=== PATIENT | male | born 1935 | race Caucasian/White ===

== ENCOUNTER → 2018-05-02 09:43 | Outpatient (CLI) | payer MEDICARE, SELFPAY ==
[2018-05-02 11:45] LABS: AST(SGOT) 23 U/L (15-37); Alanine Aminotransfer ALT/SGPT 21 U/L (16-61); Albumin, Serum 3.9 g/dL (3.2-5.0); Alkaline Phosphatase 103 U/L (45-117); Bilirubin, Direct 0.14 mg/dL (0.00-0.30); Cholesterol 117 mg/dL (200); Globulin 4.1 g/dL (2.2-4.2); High Density Lipoprotein 41 mg/dL; Triglycerides 109 mg/dL; Very Low Density Lipoprotein 22 mg/dL (5-40)
== END ==
PROVIDERS: Family Provider Physician Assistant; PCP Physician Assistant; Visit Provider Internal Medicine Cardiovascular Disease
DX: I25.10 Atherosclerotic heart disease of native coronary artery without angina pectoris (principal); E78.5 Hyperlipidemia, unspecified
CPT/HCPCS: 36415; 80061; 80076

== ENCOUNTER 2018-09-02 08:08 | Day surgery (SDC) | payer MEDICARE, SELFPAY ==
[2018-08-26 11:12] VITALS: BP 137/76; PULSE 69; RESP 16; TEMP 36.4; O2SAT 93; BMI 34.0
--- NOTE | 2018-08-26 12:11 | SDCEKG_ITS ---
Test Reason : Blood Pressure : / mmHG Vent. Rate : 058 BPM Atrial Rate : 066 BPM P-R Int : 000 ms QRS Dur : 076 ms QT Int : 402 ms P-R-T Axes : 027 027 036 degrees QTc Int : 394 ms Sinus rhythm with 2nd degree A-V block (Mobitz I) Low voltage QRS Abnormal ECG Confirmed by DERRICK ÁLVAREZ, MICHAEL ([id number]), non linear editor SHARAN BERTRAND ([id number]) on 08/29/2018 3:53:18 PM Referred By: Johnny Tapia Confirmed By:MICHAEL MEZA MD
[2018-08-26 14:13] LABS: Hematocrit 42.8 % (40-54); Hemoglobin 14.4 g/dl (13.0-16.5); Mean Corp Hgb Conc 33.6 g/gl (32-36); Mean Corpuscular Volume 95.1 fL (80-94); Mean Platelet Vol. 11.6 fl (6.2-12.0); Platelet Count 242 K/mm3 (150-450); RBC Distribution Width CV 13.6 % (11.6-14.6); RBC Distribution Width SD 45.9 fl (35.1-43.9); White Blood Count 10.4 K/mm3 (4.4-11.0)
[2018-08-26 14:14] LABS: Scan Indicated on CBC? Y/N NO
[2018-08-26 14:21] LABS: International Normalized Ratio 1.1; Partial Thromboplast Time 29.9 Seconds (24.1-36.2); Prothrombin Time (Protime)PT. 14.3 SECONDS (11.7-14.9)
[2018-08-26 14:54] LABS: AST(SGOT) 16 U/L (15-37); Alanine Aminotransfer ALT/SGPT 24 U/L (16-61); Albumin, Serum 3.7 g/dL (3.2-5.0); Alkaline Phosphatase 93 U/L (45-117); Anion Gap 8 (5-15); BUN 21 mg/dL (7-18); BUN/Creat Ratio 17.5 RATIO (10-20); Bilirubin, Direct 0.21 mg/dL (0.00-0.30); Calcium,Total 8.7 mg/dL (8.5-10.1); Chloride 106 mmol/L (98-107); EST Glomerular Filtration Rate 62 mL/min (>60); Est Glom Filt Rate - Afr Amer 75 mL/min (>60); Estimated Creatinine Clearance 44.37 ml/min; Globulin 3.9 g/dL (2.2-4.2); Glucose 74 mg/dL (74-106); Potassium 3.9 mmol/L (3.5-5.1); Protein, Total 7.6 g/dL (6.4-8.2); Sodium Level 140 mmol/L (136-145)
[2018-09-02] VITALS (8 sets, daily range): BP systolic 124–158; BP diastolic 74–93; PULSE 55–75; RESP 14–18; TEMP 36.3–37.1; O2SAT 93–99; BMI 34.0; BMI 34.1
--- NOTE | 2018-09-02 | PROS_PTH ---
PATIENT: CLEMENTE FRANCOIS LOC: [facility] – [place] U#:[id number] AGE/SX: 83/M ROOM: RE09/02/[address]: Dr. Johnny Tapia MD : [id number] BED: DIS: 09/03/2018 SPEC #: [id number] RECD: 09/02/18 12:56 STATUS: PHANI RELaisha #: [id number] JAMEE: 09/02/18 00:[address]: Johnny Tapia DEPT: SURGICAL PATHOLOGY RECD BY: Trey Mccloud ENTERED: 09/02/18 12:56 SP TYPE: TURP OTHR DR: No Primary Care Phys Tissues: Prostate, NOS Procedures: Surgery Specimen Level IV HEADER OPERATION: Cysto, TUR, prostate, Olympus PRE-OP DIAGNOSIS: BPH with frequency of micturition TISSUE SUBMITTED: Prostate tissue MICROSCOPIC DIAGNOSIS Prostate tissue, TUR: Benign prostatic hyperplasia, glandular and stromal type. Focal chronic inflammation, basal cell hyperplasia and lymphoid aggregate formation, favor benign. GLADIS:allison 09/05/18 MICROSCOPIC DESCRIPTION Slides are reviewed. GROSS DESCRIPTION A - Received is one container labeled with the patient's name and designated prostate tissue. The specimen consists of multiple irregular fragments of pink-odonnell, rubbery, soft tissue that in aggregate weigh 17.4 gm and measure in aggregate 7 x 7 x 2 cm. The entire specimen is submitted in 12 cassettes. GLADIS:allison 09/02/18 TC: 5 CPT: 25942
[2018-09-02] MEDS: Cefazolin 2 GM in 0.9% Normal Saline 100 ML IV (10:24)
--- NOTE | 2018-09-02 10:24 | DCINST_ITS ---
Discharge Diet: Light diet - advance as tolerated Discharge Activity: May Drive, May Shower Call your doctor if your incision/area has: Continuous Slow Oozing, Sudden Increased Bleeding, Increased Pain/ Swelling, Increased Redness, Foul Smelling Discharge, Swelling at the incision site Call your doctor if you observe: Fever of 101 or Higher, Inability to urinate, Shortness of breath, Calf discomfort, Uncontrolled pain Suture Line Care: Avoid Pulling/Pushing, Avoid Pinching/Bending Instructions: Transurethral Resection of the Prostate (TURP): Home Recovery Allergies/Adverse Reactions: Allergies hydrocodone bitartrate [From Vicodin] Allergy (Verified 08/26/18 11:03) Unknown Medications to take at Discharge Acyclovir [Zovirax] 400 mg PO DAILY 02/25/16 Aspirin [Aspirin, Baby] 81 mg PO DAILY@0800 02/25/16 Multivit-Min/FA/Lycopen/Lutein [Centrum Silver Tablet] 1 ea PO DAILY 02/25/16 Nitroglycerin [Nitrostat] 0.4 mg SUBLINGUAL Q5M PRN 02/25/16 alfuzosin ER 10 mg tablet,extended release 24 hr 10 mg PO QDAY 05/02/18 dutasteride 0.5 mg capsule 0.5 mg PO QDAY 05/02/18 metoprolol succinate ER 25 mg tablet,extended release 24 hr 25 mg PO DAILY #90 tab 06/13/18 atorvastatin 40 mg tablet 40 mg PO QHS #90 tab 08/23/18 Donepezil HCl [Aricept] 5 mg PO QHS 08/26/18 lisinopril 5 mg tablet 5 mg PO DAILY #90 tab 08/26/18 Ciprofloxacin [Cipro] 500 mg PO BID #10 tablet 09/02/18 Ibuprofen 600 mg PO Q6H PRN PRN #20 tablet 09/02/18 The following prescriptions were given: Ibuprofen 600 mg PO Q6H PRN PRN #20 tablet PRN Reason: Pain Ciprofloxacin [Cipro] 500 mg PO BID #10 tablet Primary Care Physician: Care Physician,No Primary [Primary Care Provider] - Test Results: Test results from this visit will be discussed in further detail at your follow- up appointment, if applicable. Please Follow Up With: Johnny Tapia MD When: in 2 weeks, please call to make an appointment. Proposed Discharge Date: 09/03/18
--- NOTE | 2018-09-02 11:20 | OP.PCM_ITS ---
Report of Operation Date of Procedure: 09/02/18 Pre-Operative Diagnosis: BPH with obstruction Post-Operative Diagnosis: Same Surgery/Procedure Performed:: Transurethral resection of the prostate Description of Surgical Findings:: 83-year-old male taken back to the operating room after smooth induction of general anesthesia he was placed in dorsolithotomy position the penis and testicles are prepped and draped in usual sterile fashion, went into the bladder with a 26 Jordanian continuous flow resectoscope, the entire length of the urethra was normal no scar tissue along the urethra I had to dilate the meatus up with the scope and, once inside the bladder inspected and he had a very large protruding median lobe causing a lot of obstruction and bilateral hypertrophy, I then was switched over to the 26 Jordanian resectoscope and then resected the median lobe resected the floor of the prostate back to the Veru resected the right lobe of the prostate resected the left lobe the prostate so resected very large obstructive prostate large median lobe was resected was protruding into the bladder causing obstruction all this was resected I then removed the 26 Jordanian put in the 24 Jordanian noncontinuous flow and then could see the apical tissue resected the apical tissue to remove all the flapping tissue out of the way had a nice wide open stream and channel at the end of the resection obtained good hemostasis removed all the prostate tissue of the bladder with the Ellik evacuator place a 30cc balloon catheter the three-way catheter into the bladder and continues bladder irrigation the urine was fairly clear anesthetic was reversed taken back to PACU good condition. Type of Anesthesia:: General Drains: [address] dozier[address] - Admit VTE Documentation VTE Present on Admission: No VTE Mechan Device Prophylaxis: SCD's
[2018-09-02] MEDS: 0.9% Normal Saline 1,000 ML 75 ML IV (12:55)
[2018-09-02] MEDS: Tamsulosin HCl 0.4 MG Capsule PO (18:48)
[2018-09-02] MEDS: Ciprofloxacin 500 MG Tablet PO (22:28)
[2018-09-02] MEDS: Docusate Sodium 100 MG Capsule PO (22:28)
[2018-09-02] MEDS: Donepezil HCl 5 MG Tablet PO (22:29)
[2018-09-02] MEDS: Atorvastatin Calcium 40 MG Tablet PO (22:38)
[2018-09-03] MEDS: 0.9% Normal Saline 1,000 ML 75 ML IV (02:08)
[2018-09-03 02:10] VITALS: BP 120/72; PULSE 67; RESP 20; TEMP 36.7; O2SAT 94
--- NOTE | 2018-09-03 06:09 | NURSING ---
CBI not clamped at this time. urine remains pink, no clots. will monitor to see if it can be clamped
[2018-09-03 08:23] VITALS: BP 115/70; PULSE 61; RESP 16; TEMP 35.6; O2SAT 94
[2018-09-03] MEDS: Multivitamins,Ther W-Minerals Tablet 1 TABLET PO (08:29)
[2018-09-03 10:23] VITALS: BP 143/63; PULSE 50; RESP 18; TEMP 36.2; O2SAT 98
[2018-09-03] MEDS: Docusate Sodium 100 MG Capsule PO (10:23)
[2018-09-03] MEDS: Ciprofloxacin 500 MG Tablet PO (10:23)
[2018-09-03] MEDS: Pantoprazole Sodium 40 MG Tablet PO (10:23)
[2018-09-03] MEDS: Finasteride 5 MG Tablet PO (10:23)
[2018-09-03 10:24] VITALS: PULSE 60
[2018-09-03] MEDS: Metoprolol(XL)Succ 25 MG Tablet PO (10:24)
[2018-09-03] MEDS: Acyclovir 200 MG Capsule 400 MG PO (10:24)
[2018-09-03] MEDS: Lisinopril 5 MG Tablet PO (10:24)
== END 2018-09-03 13:26 | disposition home or self-care (01) ==
LOC: SDC 08:09 → AC 08:09 → MS2 10:29
PROVIDERS: Anesthesiology; Referring Provider Urology; Visit Provider Urology
PROC: (CPT 52630; principal; 2018-09-02 10:15)
DX: N40.1 Benign prostatic hyperplasia with lower urinary tract symptoms (principal); N41.1 Chronic prostatitis; R35.0 Frequency of micturition; R35.1 Nocturia; N39.41 Urge incontinence; F17.200 Nicotine dependence, unspecified, uncomplicated; E78.00 Pure hypercholesterolemia, unspecified; I11.9 Hypertensive heart disease without heart failure; I25.2 Old myocardial infarction; Z95.5 Presence of coronary angioplasty implant and graft; Z79.82 Long term (current) use of aspirin; Z79.899 Other long term (current) drug therapy; Z87.442 Personal history of urinary calculi
CPT/HCPCS: 52630; 80048; 80076; 85027; 85610; 85730; 88305; 93005; J7030; J7120; J2405

== ENCOUNTER 2019-02-01 14:36 | Emergency (ER) | payer MEDICARE, SELFPAY ==
[2019-02-01 14:37] VITALS: BP 126/73; PULSE 72; RESP 16; TEMP 36.2; O2SAT 95; BMI 31.7
--- NOTE | 2019-02-01 15:11 | ED.DCSUM_ITS ---
History of Present Illness Chief Complaint: General Illness Detail of Chief Complaint: Blood clot right lower extremity Informant: Patient, Family, Significant Other Onset: Days - Patient developed leg swelling 5 days ago Context: Sudden Onset Timing: Continuous Quality: Swelling, discoloration and tight sensation Location: Right leg Current Severity: Mild Maximum Severity: Mild Worsened by: Nothing Relieved by: Nothing Associated Symptoms: No associated chest pain, dyspnea or dyspnea on exertion. Narrative: Patient is an elderly male who was on a long distance trip and airplane ride. He presents from vascular lab with report that indicates clot below the trifurcation on the right side. He denies chest pain, shortness of breath, dyspnea on exertion. He denies prior history of blood clot. He denies history of cancer. He has no other complaints. is concerned that he is at risk for falling. Kidney functions unknown. - Past Medical History (1) History of myocardial infarction Status: Acute (2) Left ventricular systolic dysfunction Status: Acute (3) Hyperlipidemia Status: Chronic (4) Long-term use of high-risk medication Status: Chronic Past Medical History - Allergies and Home Meds Allergies/Adverse Reactions: Allergies hydrocodone bitartrate [From Vicodin] Allergy (Verified 08/26/18 11:03) Unknown Primary Care Physician: Care Physician,No Primary [Primary Care Provider] - Prior records reviewed: Yes - Vascular report Lives: Spouse/ Significant Other Smoking Status: Current some day smoker Alcohol: None Drugs: None Review of Systems General: Denies: Chills, Fever, Sweats Eyes: Denies: Visual changes - bilaterally, Diplopia ENT: Denies: Rhinorrhea, Sore throat Cardiovascular: Denies: Chest pain, Palpitations Respiratory: Denies: Dyspnea, Cough, Dyspnea on exertion, Orthopnea, Paroxysmal nocturnal dyspnea Gastrointestinal: Denies: Abdominal pain, Nausea, Vomiting, Diarrhea, Melena, Hematochezia Genitourinary: Denies: Dysuria, Hematuria, Frequency Musculoskeletal: Denies: Arthralgias, Neck pain, Back pain, Extremity Pain Skin: Reports: - - There is discoloration of the right leg distal two thirds. There are no neurovascular findings noted.. Denies: Rash, Wounds Neurological: Denies: Headache, Weakness, Numbness Hematologic: Denies: Easy bruising, Easy bleeding Allergy: Denies: Uticaria, Swelling of the mouth Physical Exam Vital Signs/Narrative: Vital Signs Temp Pulse Resp BP Pulse Ox 02/01/19 14:37 97.1 F L 72 16 126/73 H 95 Inital Vital Signs reviewed: Yes General: Well nourished, Well developed, Obese - BMI is 31.7, No Acute Distress Head: Normocephalic, Atraumatic Eyes: Perrl, EOMI ENT: Moist mucous membranes, No rhinorrhea Neck: Supple, Nontender Cardiovascular: Regular rate, Regular rhythm, No murmurs, Normal S1, Normal S2 Respiratory: No distress, CTA bilaterally, Chest nontender Abdomen: Soft, Nontender, Nondistended, Normal bowel sounds Back: Nontender, Normal Inspection Extremities: Nontender, No edema, - - There is swelling with asymmetry right leg and pain to palpation distal calf. There are no neurovascular findings. There is no breakdown of skin. Skin: Normal color, No rash Neurological: Alert, Oriented x3, Cranial nerves II-XII grossly intact, Normal Strength, Normal Sensation Psychological: Normal affect, Normal Mood Diagnostic/Tx/Re-eval - Medical Decision Making Outpatient venous duplex study reveals clot in the right perineal, right pos terior tibial and gastroc vein. These are all below the trifurcation. Patient was explained risk benefits of anticoagulants therapy versus serial ultrasound test as an outpatient. Because there is concern for risk of falling patient, and daughter shows serial venous duplex studies with understanding if the clot propagates he will need to be placed on anticoagulant. Which one can be determined at that time. states she sees Dr. Noni Zapata and would like her to see Dr. Zapata. ED Disposition - Plan for ED Patient: Disposition: Home or Assisted Living Diagnosis: Acute deep vein thrombosis (DVT) of right lower extremity Instructions: ED DVT Referrals: Care Physician,No Primary [Primary Care Provider] - Noni Zapata DO [NON-STAFF] - Additional Instructions: If you develop chest pain, shortness of breath or swelling extends beyond the knee return prior to repeat venous duplex studies. You will need to contact the vascular outpatient service for repeat studies on designated dates.
== END 2019-02-01 15:32 | disposition home or self-care (01) ==
LOC: ED 15:22
PROVIDERS: Emergency Provider Emergency Medicine
DX: I82.441 Acute embolism and thrombosis of right tibial vein (principal); I82.890 Acute embolism and thrombosis of other specified veins; I25.2 Old myocardial infarction; F17.200 Nicotine dependence, unspecified, uncomplicated; E66.9 Obesity, unspecified; Z68.31 Body mass index [BMI] 31.0-31.9, adult; I82.401 Acute embolism and thrombosis of unspecified deep veins of right lower extremity; M79.604 Pain in right leg
CPT/HCPCS: 93971; 99282

== ENCOUNTER → 2019-02-01 | Outpatient (CLI) | payer MEDICARE, SELFPAY ==
--- NOTE | 2019-02-01 13:33 | VDLE_ITS ---
Reason For Study: LEG SWELLING RIGHT LEFT GSV is normal. CFV is compressible, spontaneous, phasic, CFV is compressible, spontaneous, phasic, competent, and demonstrates normal competent and demonstrates normal augmentation. augmentation. FV is compressible, spontaneous, phasic, competent and demonstrates normal augmentation. Acute deep vein thrombosis is noted in the right popliteal vein. Acute deep vein thrombosis is noted in the right peroneal vein. Acute deep vein thrombosis is noted in the right posterior tibial vein. Acute deep vein thrombosis is noted in the Gastroc veins. Procedure Exam performed in department. A preliminary report was called and/or faxed to Dr. Lomas. Interpretation Summary Acute deep vein thrombosis is noted in the right popliteal vein. Acute deep vein thrombosis is noted in the right tibio-peroneal trunk. Acute deep vein thrombosis is noted in the right peroneal vein. Acute deep vein thrombosis is noted in the right posterior tibial vein. Acute deep vein thrombosis is noted in the right gastrocnemius vein. The right common femoral vein and femoral vein are patent and competent. The right greater saphenous vein appears patent and compressible segmentally. Ordering Physician: Alonso Lomas Referring Physician: Alonso Lomas Performed By: Zayda Patiño RVT
== END | disposition home or self-care (01) ==
PROVIDERS: Referring Provider Psychiatry & Neurology Neurology; Visit Provider Psychiatry & Neurology Neurology
DX: I82.401 Acute embolism and thrombosis of unspecified deep veins of right lower extremity (principal)
CPT/HCPCS: 93971

== ENCOUNTER → 2019-02-03 | Outpatient (CLI) | payer MEDICARE, SELFPAY ==
[2019-02-01 14:37] VITALS: BMI 31.7
--- NOTE | 2019-02-03 14:06 | VDLE_ITS ---
Reason For Study: F/U RLE DVT 02/01/2019 RIGHT GSV is normal. CFV is compressible, spontaneous, phasic, competent and demonstrates normal augmentation. Acute deep vein thrombosis is noted in the right femoral vein. Acute deep vein thrombosis is noted in the right popliteal vein. Acute deep vein thrombosis is noted in the right peroneal vein. Acute deep vein thrombosis is noted in the right posterior tibial vein. Acute deep vein thrombosis is noted in the Gastroc V. Procedure Exam performed in department. No change from previous exam. Interpretation Summary Acute deep venous thrombosis right distal femoral, popliteal, peroneal, posterior tibial, and gastrocnemius veins. Patent and compressible right great saphenous vein Progression of thrombus into the right distal femoral vein not present on the previous exam of 02/01/19. Ordering Physician: Javan Lay Referring Physician: Javan Lay Performed By: Zayda Patiño RVT
== END | disposition home or self-care (01) ==
PROVIDERS: Referring Provider Emergency Medicine; Visit Provider Emergency Medicine
DX: I82.4Z1 Acute embolism and thrombosis of unspecified deep veins of right distal lower extremity (principal)
CPT/HCPCS: 93971

== ENCOUNTER → 2019-02-08 | Outpatient (CLI) | payer MEDICARE, SELFPAY ==
[2019-02-01 14:37] VITALS: BMI 31.7
--- NOTE | 2019-02-08 13:48 | VDLE_ITS ---
Reason For Study: F/U DVT RLE RIGHT GSV is normal. CFV is compressible, spontaneous, phasic, competent and demonstrates normal augmentation. Acute deep vein thrombosis is noted in the right femoral vein. Acute deep vein thrombosis is noted in the right popliteal vein. Acute deep vein thrombosis is noted in the right posterior tibial vein. Acute deep vein thrombosis is noted in the right peroneal vein. Acute deep vein thrombsis noted in the Gastroc veins Thrombosis in the FV is in the distal portion. Procedure Exam performed in department. No change from previous exam done 02/03/2019. A preliminary report was called and/or faxed to Milagros Hawk. Interpretation Summary Acute deep venous thrombosis right distal femoral, popliteal, posterior tibial, peroneal and gastrocnemius veins. No change from exam of 02/03/19 Ordering Physician: Javan Lay Referring Physician: Shelbie Hawk Performed By: Zayda Patiño RVT
[2019-02-08 15:35] LABS: D-Dimer Quantitative (DVT/PE) 1.39 FEU/ug/m (0.27-0.49)
== END | disposition home or self-care (01) ==
PROVIDERS: Family Provider Nurse Practitioner; PCP Nurse Practitioner; Referring Provider Emergency Medicine; Visit Provider Emergency Medicine
DX: I82.4Z1 Acute embolism and thrombosis of unspecified deep veins of right distal lower extremity (principal)
CPT/HCPCS: 36415; 85379; 93971

== ENCOUNTER → 2019-02-15 | Outpatient (CLI) | payer MEDICARE, SELFPAY ==
[2019-02-01 14:37] VITALS: BMI 31.7
--- NOTE | 2019-02-15 13:58 | VDLE_ITS ---
Reason For Study: F/U DVT RIGHT GSV is normal. CFV is compressible, spontaneous, phasic, competent and demonstrates normal augmentation. FV is compressible, spontaneous, phasic, competent and demonstrates normal augmentation. Acute deep vein thrombosis is noted in the right popliteal vein. Acute deep vein thrombosis is noted in the right peroneal vein. Acute deep vein thrombosis is noted in the right posterior tibial vein. Acute deep vein thrombosis is noted in the right gastroc vein. Procedure Exam performed in department. A preliminary report was called and/or faxed to Kenn. Interpretation Summary Right greater saphenous vein appears patent and compressible segmentally. Acute deep venous thrombosis right popliteal, peroneal, posterior tibial and gastrocnemius veins. Improvement is noted since 02/08/19 Ordering Physician: MD Alireza Javan Referring Physician: Shelbie Hawk Performed By: Licha Mayen RVT
== END | disposition home or self-care (01) ==
LOC: CVS 13:57
PROVIDERS: Family Provider Nurse Practitioner; PCP Nurse Practitioner; Referring Provider Emergency Medicine; Visit Provider Emergency Medicine
DX: I82.4Z1 Acute embolism and thrombosis of unspecified deep veins of right distal lower extremity (principal)
CPT/HCPCS: 93971

== ENCOUNTER → 2019-03-27 | Outpatient (CLI) | payer MEDICARE, SELFPAY ==
--- NOTE | 2019-03-27 09:37 | VDLE_ITS ---
Reason For Study: Swelling/Pain RIGHT GSV is normal. CFV is compressible, spontaneous, phasic, competent and demonstrates normal augmentation. FV is compressible, spontaneous, phasic, competent and demonstrates normal augmentation. POP V is compressible, spontaneous, phasic, competent and demonstrates normal augmentation. Acute deep vein trhombosis noted in the right T/P trunk. Rt PTV is partially compressible. Rt PeroV is partially compressible. Rt GastrocV is partially compressible. Procedure Exam performed in department. Compared to scan on 02/15/19. A preliminary report was called and/or faxed to Eleni. Interpretation Summary 1. DVT right TP trunk but overall disease regression. 2. 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 Ordering Physician: Alexx Knowles Referring Physician: Shelbie Hawk Performed By: Licha Mayen RVT
== END | disposition home or self-care (01) ==
LOC: CVS 09:35
PROVIDERS: Family Provider Nurse Practitioner; PCP Nurse Practitioner; Referring Provider Surgery Vascular Surgery; Visit Provider Surgery Vascular Surgery
DX: M79.89 Other specified soft tissue disorders (principal); M79.609 Pain in unspecified limb; Z86.718 Personal history of other venous thrombosis and embolism
CPT/HCPCS: 93971

== ENCOUNTER → 2019-06-05 14:28 | Outpatient (CLI) | payer MEDICARE, SELFPAY ==
[2019-06-05 13:41] VITALS: BMI 30.5
--- NOTE | 2019-06-05 14:32 | RAD_ITS ---
STUDY: X-RAY CHEST REASON FOR EXAM: Male, 83 years old. Cough. Routine checkup TECHNIQUE: PA and lateral views of the chest. COMPARISON: 02/21/2016 FINDINGS: There is hyperinflation of the lungs consistent with chronic obstructive lung disease (COPD). Lungs are clear. There is no demonstrated pleural abnormality. There is borderline cardiomegaly. Normal mediastinum and olga lidia. Normal visualized pulmonary arteries. There is atherosclerotic tortuosity of the aortic arch and descending thoracic aorta. Normal visualized thoracic spine. Normal visualized ribs, clavicles, and shoulders. There is no demonstrated abnormality of the visualized soft tissue structures of the upper abdomen. RAD/Chest PA and Lateral IMPRESSION: COPD. Lungs are clear. Electronically Signed: Catarino Nance DO at 15:41 EDT Tel , Service support ,
== END ==
PROVIDERS: Family Provider Nurse Practitioner; PCP Nurse Practitioner; Referring Provider Internal Medicine Cardiovascular Disease; Visit Provider Internal Medicine Cardiovascular Disease
DX: I25.10 Atherosclerotic heart disease of native coronary artery without angina pectoris (principal); I49.1 Atrial premature depolarization; I49.3 Ventricular premature depolarization; I51.3 Intracardiac thrombosis, not elsewhere classified; E78.5 Hyperlipidemia, unspecified; R05 Cough; Z95.5 Presence of coronary angioplasty implant and graft
CPT/HCPCS: 71046

== ENCOUNTER → 2019-06-13 | Outpatient (CLI) | payer MEDICARE, SELFPAY ==
[2019-06-05 13:41] VITALS: BMI 30.5
[2019-06-13 11:05] LABS: AST(SGOT) 18 U/L (15-37); Alanine Aminotransfer ALT/SGPT 16 U/L (16-61); Albumin, Serum 3.4 g/dL (3.2-5.0); Alkaline Phosphatase 134 U/L (45-117); Bilirubin, Direct 0.28 mg/dL (0.00-0.30); Cholesterol 107 mg/dL (200); Globulin 4.4 g/dL (2.2-4.2); High Density Lipoprotein 37 mg/dL; Protein, Total 7.8 g/dL (6.4-8.2); Triglycerides 92 mg/dL; Very Low Density Lipoprotein 18 mg/dL (5-40)
== END | disposition home or self-care (01) ==
LOC: LAB 09:16
PROVIDERS: Family Provider Nurse Practitioner; PCP Nurse Practitioner; Referring Provider Internal Medicine Cardiovascular Disease; Visit Provider Internal Medicine Cardiovascular Disease
DX: E78.00 Pure hypercholesterolemia, unspecified (principal); E78.5 Hyperlipidemia, unspecified; I25.10 Atherosclerotic heart disease of native coronary artery without angina pectoris; I49.1 Atrial premature depolarization; I49.3 Ventricular premature depolarization; I51.9 Heart disease, unspecified; R05 Cough; Z95.5 Presence of coronary angioplasty implant and graft
CPT/HCPCS: 36415; 80061; 80076

== ENCOUNTER → 2019-08-10 | Outpatient (CLI) | payer MEDICARE, SELFPAY ==
[2019-08-01 06:06] VITALS: BMI 30.4
--- NOTE | 2019-08-10 16:09 | PFTCOMP_ITS ---
COMPLETE PULMONARY FUNCTION TEST INTERPRETATION Brief HPI: Patient is an 83 year old male, currently under the care of myself, who presents to [facility] for complete pulmonary function tests secondary to diagnosis of COPD. Respiratory therapist reports good effort and reproducible results. Interpretation: Forced expiration spirometry shows no large airways obstructive ventilatory defect with an FEV1 of 89% predicted. There is no significant bronchodilator response by strict ATS criteria. Spirograms are of good quality and plateau slowly, indicating slowly emptying areas of the lungs. The respiratory flow volume loop shows decreased expiratory flow rates at high lung volumes consistent with small airways obstruction. Lung volumes by body plethysmography show a normal total lung capacity at 5.68 L, 97% predicted. All other lung volumes are within normal limits. Diffusion capacity by carbon monoxide is normal at 90% predicted. The airway resistance is normal. No previous pulmonary function tests were available for review. Impression: These pulmonary function tests are grossly within normal limits. There is some stigmata of possible small airways disease.
== END | disposition home or self-care (01) ==
LOC: PSN 07:41
PROVIDERS: Family Provider Nurse Practitioner; PCP Nurse Practitioner; Referring Provider Internal Medicine Critical Care Medicine; Visit Provider Internal Medicine Critical Care Medicine
DX: J41.0 Simple chronic bronchitis (principal)
CPT/HCPCS: 94060; 94726; 94729

== ENCOUNTER → 2019-08-11 | Outpatient (CLI) | payer MEDICARE, SELFPAY ==
[2019-08-01 06:06] VITALS: BMI 30.4
[2019-08-11 09:47] VITALS: PULSE 66; PULSE 71; PULSE 84; PULSE 86; PULSE 89; PULSE 92; PULSE 93; O2SAT 91; O2SAT 92; O2SAT 93; O2SAT 94; O2SAT 95
--- NOTE | 2019-08-11 14:10 | PCM.PSN.6M ---
PSN 6 Minute Walk Test - 6 Minute Walk Test 6 Minute Walk Test: 6 Minute Walk Test PSN:6-Minute Walk Test Start: 08/11/19 09:46 Freq: Status: Active Protocol: RESP.6MINW Document 08/11/19 09:47 [facility] (Rec: 08/11/19 09:51 [facility] [id number]) 6 Minute Walk Test Date Performed 08/11/19 Time Performed 09:00 Height 5 ft 9 in Weight: 96.615 kg Weight in Pounds 213.[address]: Sabas Diggs Assistive device used: Walker Pre-test Oxygen Delivery Method Room Air Pulse Ox (%) 92 Pulse Rate (60-100 beats/min) 66 Dyspnea Wild Scale (0-10) 0 1st minute Oxygen Delivery Method Room Air Pulse Ox (%) 94 Pulse Rate (60-100 beats/min) 71 Dyspnea Wild Scale (0-10) 0 Number of Rests Taken 0 2nd minute Oxygen Delivery Method Room Air Pulse Ox (%) 95 Pulse Rate (60-100 beats/min) 84 Dyspnea Wild Scale (0-10) 0 Number of Rests Taken 0 3rd minute Oxygen Delivery Method Room Air Pulse Ox (%) 92 Pulse Rate (60-100 beats/min) 92 Dyspnea Wlid Scale (0-10) 0 Number of Rests Taken 0 4th minute Oxygen Delivery Method Room Air Pulse Ox (%) 94 Pulse Rate (60-100 beats/min) 93 Dyspnea Wild Scale (0-10) 0 Number of Rests Taken 0 5th minute Oxygen Delivery Method Room Air Pulse Ox (%) 94 Pulse Rate (60-100 beats/min) 89 Dyspnea Wild Scale (0-10) 1 Number of Rests Taken 0 6th minute Oxygen Delivery Method Room Air Pulse Ox (%) 91 Pulse Rate (60-100 beats/min) 86 Dyspnea Wild Scale (0-10) 1 Number of Rests Taken 0 Post-test Oxygen Delivery Method Room Air Pulse Ox (%) 93 Pulse Rate (60-100 beats/min) 66 Dyspnea Wild Scale (0-10) 0 Number of Rests Taken 0 Full Laps Walked 11 Partial Lap, Number of Tiles Walked 44 Total Distance Walked (ft) 693 - Interpretation Interpretation: The patient was able to ambulate 693 feet over the course of 6 minutes on room air with the assistance of a walker. Patient was noted to have a decreased saturation of 92% at rest, but never desaturated lower than 91% during ambulation. No significant tachycardia was noted. These findings are consistent with a musculoskeletal limitation exercise tolerance. - Recommendations Recommendations: No supplemental oxygen is indicated at this time.
== END | disposition home or self-care (01) ==
LOC: PSN 08:40
PROVIDERS: Family Provider Nurse Practitioner; PCP Nurse Practitioner; Referring Provider Internal Medicine Critical Care Medicine; Visit Provider Internal Medicine Critical Care Medicine
DX: J41.0 Simple chronic bronchitis (principal)
CPT/HCPCS: 94618

== ENCOUNTER → 2019-10-02 15:19 | Outpatient (CLI) | payer MEDICARE, SELFPAY ==
[2019-08-01 06:06] VITALS: BMI 30.4
--- NOTE | 2019-10-02 15:24 | RAD_ITS ---
STUDY: X-RAY CHEST REASON FOR EXAM: Male, 84 years old. Cough. TECHNIQUE: PA and lateral views of the chest. COMPARISON: Comparison is made with prior examination dated June 05, 2019. FINDINGS: The lungs are clear and expanded. Scattered calcified granulomas. There is no demonstrated pleural abnormality. Normal size heart. Normal mediastinum and olga lidia. Normal visualized pulmonary arteries. There is atherosclerotic calcification of the aortic arch with tortuosity. There are diffuse degenerative changes of the visualized thoracic spine. Normal visualized ribs, clavicles, and shoulders. Moderate sized hiatal hernia. RAD/Chest PA and Lateral IMPRESSION: No acute abnormality is seen. Moderate sized hiatal hernia. Electronically Signed: Junaid Sotelo, at 15:53 EST , Service support ,
== END ==
PROVIDERS: Family Provider Nurse Practitioner; PCP Nurse Practitioner; Referring Provider Nurse Practitioner; Visit Provider Nurse Practitioner
DX: R05 Cough (principal)
CPT/HCPCS: 71046

== ENCOUNTER → 2019-10-27 16:24 | Outpatient (CLI) | payer MEDICARE, SELFPAY ==
[2019-08-01 06:06] VITALS: BMI 30.4
[2019-10-27 18:00] LABS: BNP,B-Type NATRIURETIC PEPTIDE 44.4 pg/mL (0-100)
[2019-10-27 18:22] LABS: D-Dimer Quantitative (DVT/PE) 2.12 FEU/ug/m (0.27-0.49)
== END ==
PROVIDERS: Family Provider Nurse Practitioner; PCP Nurse Practitioner; Referring Provider Nurse Practitioner; Visit Provider Nurse Practitioner
DX: Z86.718 Personal history of other venous thrombosis and embolism (principal)
CPT/HCPCS: 36415; 83880; 85379

== ENCOUNTER 2019-10-27 20:05 | Observation (INO) | payer MEDICARE, SELFPAY ==
[2019-08-01 06:06] VITALS: BMI 30.4
[2019-10-27 20:07] VITALS: BP 122/73; PULSE 67; RESP 19; TEMP 36.7; O2SAT 94; BMI 30.4
[2019-10-27 22:59] VITALS: BP 127/59; PULSE 64; RESP 18; O2SAT 95
--- NOTE | 2019-10-27 22:59 | EKG12_ITS ---
Test Reason : ABD LABS Blood Pressure : / mmHG Vent. Rate : 070 BPM Atrial Rate : 078 BPM P-R Int : 000 ms QRS Dur : 074 ms QT Int : 386 ms P-R-T Axes : 000 006 012 degrees QTc Int : 416 ms Normal Sinus Rhythm With Wenckebach First Degree AV Block Low voltage QRS Abnormal ECG Confirmed by DERRICK ÁLVAREZ, MICHAEL ([id number]), film and video editor SAMANTHA MARCOS ([id number]) on 10/30/2019 12:57:20 PM Referred By: MR Confirmed By:MICHAEL MEZA MD
--- NOTE | 2019-10-27 23:16 | ED.DCSUM_ITS ---
History of Present Illness Chief Complaint: Abn Labs Narrative: Patient presenting for evaluation secondary to an elevated d-dimer. Patient has a history of a provoked below the knee DVT back in January after a plane flight. Patient apparently has been dealing with a cough over the course of about the last 3 weeks. He reports that this is minimally productive of sputum. He denies any chest pain. He denies any shortness of breath. Patient was at his primary care office today, and mentioned that since he had been having 3 weeks of cough that is not been responsive to antibiotics he was concerned for the possibility of blood clots. His primary ordered a d-dimer which was found to be elevated so she told him to come to the emergency department. Patient denies any hemoptysis. Denies any dyspnea on exertion. Review of systems otherwise negative. Past Medical History - Allergies and Home Meds Allergies/Adverse Reactions: Allergies hydrocodone bitartrate [From Vicodin] Allergy (Verified 10/27/19 20:07) Unknown Past Medical History: - - Prior history of below the knee DVT Smoking Status: Current every day smoker Review of Systems All systems negative except as indicated General: Denies: Chills, Fever, Sweats Eyes: Denies: Visual changes - bilaterally, Diplopia ENT: Denies: Rhinorrhea, Sore throat Cardiovascular: Denies: Chest pain, Palpitations Respiratory: Reports: Cough, Sputum Gastrointestinal: Denies: Abdominal pain, Nausea, Vomiting, Diarrhea, Melena, Hematochezia Genitourinary: Denies: Dysuria, Hematuria, Frequency Musculoskeletal: Denies: Back pain, Extremity Pain Skin: Denies: Rash, Wounds Neurological: Denies: Headache, Weakness, Numbness Physical Exam Vital Signs/Narrative: Vital Signs Temp Pulse Resp BP Pulse Ox 10/27/19 20:07 98.0 F 67 19 H 122/73 H 94 Inital Vital Signs reviewed: Yes General: - - Elderly male no acute distress Head: Normocephalic, Atraumatic Eyes: Perrl, EOMI ENT: Moist mucous membranes, No rhinorrhea Neck: Supple, Nontender Cardiovascular: Regular rate, Regular rhythm, No murmurs Respiratory: Wheezing - Minimal throughout the lung schaffer no evidence of retractions or accessory muscle use. Abdomen: Soft, Nontender, Nondistended, Normal bowel sounds Back: Nontender, Normal Inspection Extremities: Nontender, Edema - Bilateral lower extremity, +1 and symmetric Skin: Normal color, No rash Neurological: Alert, Oriented x3, Cranial nerves II-XII grossly intact, Normal Strength, Normal Sensation Psychological: Normal affect, Normal Mood Diagnostic/Tx/Re-eval - Rhythm Strip Rhythm Strip: Second degree type 1 AV Block - EKG Initial EKG Interpretation: - - Atrial fibrillation with a ventricular rate of 70. Isoelectric ST segments. Normal T waves. - Medical Decision Making Patient presented for evaluation secondary to abnormal lab tests. Patient was found to have a positive d-dimer in the outpatient setting. Patient does have a history of having provoked DVTs in the past, so he is at least intermediate risk for DVT despite the fact that he has not had any other provoking factors. Work- up was obtained. EKG demonstrated what appeared to be a underlying rhythm of atrial fibrillation, but on telemetry monitoring it seems clear that the patient actually has a second-degree type I AV block. CBC shows a leukocytosis. Chemistry unremarkable. Troponin was found to be negative. CT angiogram of the chest was performed and did demonstrate evidence of the patient had pulmonary emboli. Patient is a class IV, high risk patient per the pulmonary embolism severity index. I believe that he requires admission. Patient was given a dose of Lovenox in the emergency department and will be admitted under the hospitalist. ED Disposition - Plan for ED Patient: Disposition: Acute Care Hospital [facility] Diagnosis: Pulmonary embolism, Second degree heart block
[2019-10-27 23:43] LABS: Absolute Lymphocyte Count 2.56 X10^3/uL (0.83-4.51); Absolute Neutrophil Count 7.8 X10^3/uL (2.0-7.7); Basophil# 0.03 X10^3/uL; Basophil% 0.2 % (0-1); Eosinophil# 1.05 X10^3/uL; Eosinophils% 8.7 % (0-5); Hematocrit 44.1 % (40-54); Hemoglobin 14.7 g/dL (13.0-16.5); Lymphocyte # 2.56 X10^3/ul (4.0); Lymphocyte % 21.3 % (19-41); Mean Corp Hgb Conc 33.3 g/dL (32-36); Mean Corpuscular Hgb 33.4 pg (27.0-32.0); Mean Corpuscular Volume 100.2 fL (80-94); Mean Platelet Vol. 10.5 fl (6.2-12.0); Monocyte# 0.58 X10^3/uL; Monocyte% 4.8 % (0-10); NRBC Flagged by Analyzer 0 % (0-5); Neutrophil # 7.75 X10^3/uL (2.7-7.7); Neutrophil % 64.7 % (47-70); Platelet Count 174 K/mm3 (150-450); RBC Distribution Width CV 15.4 % (11.6-14.6); RBC Distribution Width SD 56.8 fl (35.1-43.9)
[2019-10-27 23:59] LABS: Anion Gap 6 (5-15); BUN 21 mg/dL (7-18); BUN/Creat Ratio 17.9 RATIO (10-20); Calcium,Total 8.8 mg/dL (8.5-10.1); Chloride 106 mmol/L (98-107); Creatinine, Serum 1.17 mg/dL (0.70-1.30); EST Glomerular Filtration Rate 63 mL/min (>60); Est Glom Filt Rate - Afr Amer 77 mL/min (>60); Estimated Creatinine Clearance 49.39 ml/min; Glucose 147 mg/dL (74-106); Potassium 3.8 mmol/L (3.5-5.1); Sodium Level 138 mmol/L (136-145)
[2019-10-28] VITALS: BP 122/92; PULSE 63; RESP 17; O2SAT 96
--- NOTE | 2019-10-28 00:05 | CT_ITS ---
STUDY: CTA CHEST REASON FOR EXAM: Male, 84 years old. ELEV DDIMER, SOB, cough. Hx of COPD, HLD and heart stent RADIATION DOSAGE (If Supplied By Facility): CTDIvol = ( 13.66 ) mGy, DLP = ( 554.29 ) mGycm TECHNIQUE: The examination was performed with the intravenous administration of Isovue 370 100ml. Post-processing of the angiographic images was performed, with multiplanar reformation and 3D reconstruction. Individualized dose optimization techniques were used for this CT. COMPARISON: None. FINDINGS: TRACHEA, THYROID, ESOPHAGUS: No tracheomalacia,stricture or wall thickening. A 1.9 cm low-attenuation in the right lobe of the thyroid. CARDIOVASCULAR SYSTEM: The thoracic aorta is normal with no focal aneurysm or dissection. There are no abnormal calcifications/metallic densities at the aortic root. There are filling defects in the right right upper and right lower lobe branches. There are also filling defects in the segmental branches in the right upper and lower lobes. There is no demonstration of right ventricular strain. EVAN AND LYMPH NODES: No hilar masses and no mediastinal, hilar, axillary or supraclavicular adenopathy LUNGS, LOW-ATTENUATION: No traction bronchiectasis, honeycombing,emphysema, lung cysts or cavitations LUNGS, HIGH ATTENUATION: No nodules/masses, ground glass opacities/consolidations or increased interstitial markings LUNGS, MOSAIC/CRAZY PAVING: Not evident PLEURA AND CHEST WALL: No plural effusions, pneumothoraces,rib fractures or any osteolytic/osteoblastic changes . The soft tissue chest wall including the breasts are normal UPPER ABDOMEN: A medium-sized hiatal hernia CT/CTA Chest W/WO Contrast IMPRESSION: Evidence of pulmonary embolism. No right ventricular strain. A medium-sized hiatal hernia. No acute findings in the lungs Electronically Signed: Tono Adames MD at 2:16 EST Tel , Service support ,
[2019-10-28] MEDS: Enoxaparin 100 MG/ML Syringe SC (02:56)
--- NOTE | 2019-10-28 03:17 | HP.PCM_ITS ---
Problem List (1) Pulmonary embolism Status: Acute (2) Second degree heart block Status: Acute (3) Chronic obstructive pulmonary disease Status: Suspected Qualifiers: COPD type: chronic bronchitis Chronic bronchitis type: simple Qualified Code(s): J41.0 - Simple chronic bronchitis (4) BPH (benign prostatic hyperplasia) Status: Chronic (5) Anemia Status: Chronic (6) History of myocardial infarction Status: Chronic (7) Hyperlipidemia Status: Chronic Qualifiers: Hyperlipidemia type: unspecified Qualified Code(s): E78.5 - Hyperlipidemia, unspecified (8) Left ventricular systolic dysfunction Status: Chronic (9) Presence of stent in coronary artery Status: Chronic Comment: PTCA/JOSE x2 of the mid and distal LAD 11/21/12; PTCA/JOSE of the Prox CX 12/30/12 (10) Atherosclerotic heart disease of [place] coronary artery without angina pectoris Status: Chronic Qualifiers: [place] vs. transplanted heart: [place] heart Qualified Code(s): I25.10 - Atherosclerotic heart disease of [place] coronary artery without angina pectoris Comment: PTCA/JOSE x2 of the mid and distal LAD 11/21/12; PTCA/JOSE of the Prox CX 12/30/12 History of Present Illness Date of Admission: 10/28/19 Chief Complaint: elevated D-dimer The patient is a 84 year old M with a significant history of COPD; CAD status post stent; arrhythmia; and BPH who presented to emergency department because of elevated d-dimer on outpatient lab. In January patient had a provoked DVT by flying on an airplane. However he was not started on anticoagulation His PCP prescribed Mucinex and Tessalon Perles for a productive cough. Also d- dimer was obtained. D-dimer came back positive so patient was sent to emergency department as above. From the DVT patient had swelling of his left leg. At the emergency department patient was found to have a pulmonary embolism. Past Medical History Past Medical History (Chronic Problems): Chronic Problems (Last Reviewed 08/01/19 @ 10:17 by Teri Prado) BPH (benign prostatic hyperplasia) (Chronic) Anemia (Chronic) History of myocardial infarction (Chronic) Hyperlipidemia (Chronic) Left ventricular systolic dysfunction (Chronic) Presence of stent in coronary artery (Chronic ~12/30/12) PTCA/JOSE x2 of the mid and distal LAD 11/21/12; PTCA/JOSE of the Prox CX 12/30/12 Atherosclerotic heart disease of [place] coronary artery without angina pectoris (Chronic) PTCA/JOSE x2 of the mid and distal LAD 11/21/12; PTCA/JOSE of the Prox CX 12/30/12 Medical History: Medical History (Last Reviewed 10/28/19 @ 06:34 by Dar Issa MD) BPH (benign prostatic hyperplasia) (Chronic) N40.0 Anemia (Chronic) D64.9 History of myocardial infarction (Chronic) I25.2 Long-term use of high-risk medication (Inactive) Z79.899 Hyperlipidemia (Chronic) E78.5 Premature ventricular contraction (Inactive) I49.3 Premature atrial contractions (Inactive) I49.1 Left ventricular systolic dysfunction (Chronic) I51.9 Atherosclerotic heart disease of [place] coronary artery without angina pectoris (Chronic) I25.10 PTCA/JOSE x2 of the mid and distal LAD 11/21/12; PTCA/JOSE of the Prox CX 12/30/12 Allergies hydrocodone bitartrate [From Vicodin] Allergy (Verified 10/27/19 20:07) Unknown Home Medications: Ambulatory Orders Medication Instructions Recorded Acyclovir [Zovirax] 400 mg PO DAILY 02/25/16 Nitroglycerin (INPATIENT USE) 0.4 mg SUBLINGUAL Q5M PRN 02/25/16 [Nitrostat] aspirin 81 mg chewable tablet 324 mg PO DAILY@0800 tab 02/03/19 oxybutynin chloride 10 mg 10 mg PO DAILY 02/03/19 tablet,extended release 24 hr metoprolol succinate 25 mg 25 mg PO DAILY #90 tab 03/13/19 tablet,extended release 24 hr donepezil 5 mg tablet 5 mg PO DAILY 06/05/19 lisinopril 5 mg tablet 5 mg PO DAILY #90 tab 06/14/19 albuterol sulfate 90 mcg/actuation 2 puff INHALATION Q4H PRN g 08/01/19 aerosol inhaler atorvastatin 40 mg tablet 40 mg PO QHS #90 tab 10/09/19 Surgical History: Surgical History (Last Reviewed 10/28/19 @ 06:34 by Dar Issa MD) Postsurgical percutaneous transluminal coronary angioplasty (PTCA) status (Resolved) Z98.61 PTCA/JOSE x2 of the mid and distal LAD 11/21/12; PTCA/JOSE of the Prox CX 12/30/12 History of total left knee replacement (Resolved) Z96.652 History of total replacement of right hip (Resolved) Z96.641 History of genitourinary surgery (Resolved) Z98.890 Presence of stent in coronary artery (Chronic) Onset Date: ~12/30/12 Z95.5 PTCA/JOSE x2 of the mid and distal LAD 11/21/12; PTCA/JOSE of the Prox CX 12/30/12 Lives: Spouse/ Significant Other - Lives with his . Of note his recently had surgery. Per family the surgery has been stressful to patient. Smoking Status: Current every day smoker Tobacco Use: Pipe Review of Systems Constitutional: Denies: Chills, Fever, Weight Change HEENT: Denies: Head Aches, Sinus Congestion, Sinus Drainage Cardiovascular: Reports: Edema. Denies: Chest Pain, Palpitations Respiratory: Reports: Cough, Sputum production. Denies: Shortness of breath at rest Gastrointestinal: Denies: Abdominal Pain, Nausea, Vomiting Genitourinary: Denies: Dysuria Musculoskeletal: Denies: Joint Pain, Joint Tenderness Skin: Denies: Rash, Wounds Neurological: Denies: Numbness, Tingling, Focal weakness Psychiatric: Denies: Anxiety, Depression, Homicidal Ideations, Suicidal Ideations Hematologic/ Lymphatic: Denies: Easy Bruising, Easy Bleeding VTE Information - Inpt Only VTE Present on Admission: Yes - Pulmonary embolism and left leg DVT VTE Mechan Device Prophylaxis: None VTE Pharm Prophylaxis ordered?: No Patient Problems: Active and Suspected Problems (Last Reviewed 08/01/19 @ 10:17 by Teri Prado) Pulmonary embolism (Acute) Second degree heart block (Acute) Pulmonary embolism (Acute) - Physical Exam Vitals/I&O's: Vital Signs Temp Pulse Resp BP Pulse Ox 98.0 F 63 17 122/92 H 96 10/27/19 20:07 10/28/19 00:00 10/28/19 00:00 10/28/19 00:00 10/28/19 00:00 Oxygen Delivery Method Room Air Weight: 96.162 kg Body Mass Index (BMI) 30.4 General: Alert, Oriented x3, Cooperative HEENT: Atraumatic, PERRLA, EOMI, Normocephalic Neck: Supple, No JVD, Negative Carotid Bruits Lungs: Clear to auscultation, Normal air movement Cardiovascular: Regular rate, No murmurs Abdomen: Bowel Sounds Present, Soft, Non Tender Extremities: Capillary Refill Less than 3 Seconds, Edema - Left leg Skin: No rashes, No breakdown Musculoskeletal: No Tenderness to Palpation of Joints or Extremities Neurological: Cranial nerves II-XII grossly intact Psych/Mental Status: Normal Affect, Appropriate Laboratory Results 10/27/19 23:34: WBC 12.0 H, RBC 4.40 L, Hgb 14.7, Hct 44.1, MCV 100.2 H, MCH 33.4 H, MCHC 33.3, RDW Std Deviation 56.8 H, RDW Coeff of Shruthi 15.4 H, Plt Count 174, MPV 10.5, Immature Gran % (Auto) 0.300, Neut % (Auto) 64.7, Lymph % (Auto) 21.3, Mccone % (Auto) 4.8, Eos % (Auto) 8.7 H, Baso % (Auto) 0.2, Absolute Neuts (auto) 7.8 H, Absolute Lymphs (auto) 2.56, Nucleated RBC % 0 10/27/19 23:34: Sodium 138, Potassium 3.8, Chloride 106, Carbon Dioxide 26.0, Anion Gap 6, BUN 21 H, Creatinine 1.17, Estim Creat Clear Calc 49.39, Est GFR (MDRD) Af Amer 77, Est GFR (MDRD) Non-Af 63, BUN/Creatinine Ratio 17.9, Glucose 147 H, Calcium 8.8, Troponin I < 0.015 Assessment/Plan All Active Problems (Last Updated 08/01/19 @ 10:30 by Teri Prado) Pulmonary embolism (Acute) Second degree heart block (Acute) Pulmonary embolism (Acute) Postsurgical percutaneous transluminal coronary angioplasty (PTCA) status (Resolved) History of total left knee replacement (Resolved) History of total replacement of right hip (Resolved) History of genitourinary surgery (Resolved) The patient is a 84 year old M with a significant history of COPD; CAD status post stent; arrhythmia; and BPH who presented to emergency department because of elevated d-dimer on outpatient lab; in the setting of a recent left leg DVT and was found to have pulmonary embolism and Wenckebach. Pulmonary embolism Patient with high PESI score Get echocardiogram Get Venous duplex. Trend troponin. Received therapeutic dose of Lovenox in emergency department. Continue Lovenox until discussed with case management for appropriate oral anticoagulants. Continue Mucinex and Tessalon Perles [place]bach Stop metoprolol Consult cardiology Placed on telemetry Dementia Aricept continued CAD status post stent Aspirin and lisinopril continued Hypertension On presentation blood pressure was within goal. Lisinopril continued. Metoprolol held secondary to heart block. DVT prophylaxis Not indicated since patient has been given a therapeutic dose of Lovenox Miscellaneous: On acyclovir continued for now. Family could not explain why patient is on acyclovir. Family to bring all medication bottles from home. Code Visit OBSV E&M: [id number] Initial observation care L3
[2019-10-28 04:19] VITALS: PULSE 58; BMI 29.0; BMI 29.1
--- NOTE | 2019-10-28 04:30 | ECHOD_ITS ---
Reason For Study: Emboli Procedure This was a 2D Doppler, Color Flow transthoracic echocardiogram. Exam performed portable in patient room. Left Ventricle Normal LV size. Left ventricular systolic function is normal. The estimated ejection fraction is 60 %. No regional wall motion abnormalities noted. Right Ventricle Normal RV size. Normal systolic function. Atria Normal left atrium. Normal right atrium. Mitral Valve Normal mitral valve. There is mild mitral annular calcification. Tricuspid Valve Normal tricuspid valve. Mild (1+) tricuspid valve insufficiency. Pulmonary artery systolic pressure is 44 mmHg. Aortic Valve Trisinus/trileaflet aortic valve. Pulmonic Valve The pulmonic valve is not well visualized. Great Vessels Normal aortic root. The pulmonary artery is normal size. Normal inferior vena cava. Pericardium/Pleural No pericardial effusion. MMode/2D Measurements & Calculations LVIDd: 4.8 cm IVSd: 0.94 cm Ao root diam: 3.2 cm LVIDs: 3.0 cm LVPWd: 0.88 cm RVDd: 3.8 cm FS: 36.7 % LAV(MOD-bp): 43.8 ml LA A4 area: 20.0 cm2 LA dimension(2D): 5.0 cm LAV(MOD-bp) Indexed: 21.0 ml/m2 LAV(MOD-sp2): 32.4 ml LAV(MOD-sp4): 54.0 ml RA A4 area: 20.4 cm2 Doppler Measurements & Calculations MV E max maikol: 108.4 cm/sec Lat Peak E' Maikol: 7.3 cm/sec Med Peak E' Maikol: 6.7 cm/sec MV A max maikol: 104.0 cm/sec E/E' lat: 14.9 E/E' med: 16.2 MV E/A: 1.0 Ao V2 max: 127.2 cm/sec LV V1 max: 103.1 cm/sec PA V2 max: 90.6 cm/sec Ao max P.5 mmHg LV V1 max P.3 mmHg Ao V2 mean: 83.8 cm/sec Ao mean P.1 mmHg Ao V2 VTI: 25.7 cm TR max maikol: 316.2 cm/sec TR max P.0 mmHg Interpretation Summary Normal LV size. Left ventricular systolic function is normal. The estimated ejection fraction is 60 %. There is mild mitral annular calcification. Ordering Physician: Dar Issa Referring Physician: Shelbie Hawk Performed By: Donna Khan RDCS, RVT
--- NOTE | 2019-10-28 04:33 | EKG12_ITS ---
Test Reason : AM Blood Pressure : / mmHG Vent. Rate : 052 BPM Atrial Rate : 068 BPM P-R Int : 000 ms QRS Dur : 078 ms QT Int : 424 ms P-R-T Axes : -24 013 040 degrees QTc Int : 394 ms Sinus rhythm with 2nd degree A-V block (Mobitz I) Abnormal ECG Confirmed by LORAINE ÁLVAREZ, POLLY ([id number]), graphics editor SHARAN BERTRAND ([id number]) on 11/01/2019 11:35:48 AM Referred By: Confirmed By:POLLY BARON MD
[2019-10-28 07:00] VITALS: PULSE 57
--- NOTE | 2019-10-28 07:05 | CON.PCM_ITS ---
Reason for Consult Date of Consultation: 10/28/19 Reason for Consultation: Abnormal cardiac rhythm History of Present Illness: The patient is a 84 year old M with a previous history of coronary artery disease status post previous angioplasty and stenting of the left anterior descending artery as well as the left circumflex artery with a drug-eluting stent in 2012. Patient is apparently had a cough for the last few weeks. He had had air travel in January of this year. In his physician's office where he visited yesterday he told him about the cough and a d-dimer was performed which was noted to be abnormal he was sent to the ER a CT scan was performed which confirmed a pulmonary embolus. He was admitted and being treated an EKG was done which demonstrated evidence of Wenckebach periodicity and cardiology was consulted. It appears that the previous EKG from 2018 demonstrated a similar pattern. [] Past Medical History Allergies/Adverse Reactions: Allergies hydrocodone bitartrate [From Vicodin] Allergy (Verified 10/27/19 20:07) Unknown Home Medications: Ambulatory Orders Medication Instructions Recorded Acyclovir [Zovirax] 400 mg PO DAILY 02/25/16 Nitroglycerin (INPATIENT USE) 0.4 mg SUBLINGUAL Q5M PRN 02/25/16 [Nitrostat] aspirin 81 mg chewable tablet 324 mg PO DAILY@0800 tab 02/03/19 oxybutynin chloride 10 mg 10 mg PO DAILY 02/03/19 tablet,extended release 24 hr metoprolol succinate 25 mg 25 mg PO DAILY #90 tab 03/13/19 tablet,extended release 24 hr donepezil 5 mg tablet 5 mg PO DAILY 06/05/19 lisinopril 5 mg tablet 5 mg PO DAILY #90 tab 06/14/19 albuterol sulfate 90 mcg/actuation 2 puff INHALATION Q4H PRN g 08/01/19 aerosol inhaler atorvastatin 40 mg tablet 40 mg PO QHS #90 tab 10/09/19 Past Medical History (Chronic Problems): Chronic Problems (Last Reviewed 10/28/19 @ 06:34 by Dar Issa MD) BPH (benign prostatic hyperplasia) (Chronic) Anemia (Chronic) History of myocardial infarction (Chronic) Hyperlipidemia (Chronic) Left ventricular systolic dysfunction (Chronic) Presence of stent in coronary artery (Chronic ~12/30/12) PTCA/JOSE x2 of the mid and distal LAD 11/21/12; PTCA/JOSE of the Prox CX 12/30/12 Atherosclerotic heart disease of [place] coronary artery without angina pectoris (Chronic) PTCA/JOSE x2 of the mid and distal LAD 11/21/12; PTCA/JOSE of the Prox CX 12/30/12 Surgical History: no surgical history Lives: Spouse/ Significant Other - Lives with his . Of note his recently had surgery. Per family the surgery has been stressful to patient. Smoking Status: Current every day smoker Tobacco Use: Pipe Alcohol: None Drugs: None Review of Systems - Review of Systems General: Denies: Fever, Night Sweats, Fatigue HEENT: Denies: Vision Change Cardiovascular: Reports: Shortness of Breath. Denies: Chest Discomfort, Orthopnea, PND, Peripheral Edema, Palpitations, Lightheadedness, Dizziness, Near Syncope, Syncope Respiratory: Denies: Cough, Sputum Production, Hemoptysis Gastrointestinal: Denies: Hematemesis, Hematochezia, Melena Genitourinary: Denies: Dysuria, Hematuria Muscoloskeletal: Denies: Myalgias Skin: Denies: Rash Neurological: Denies: Dizziness Psychiatric: Denies: Anxiety Endocrine: Denies: Heat Intolerance Hematologic/ Lymphatic: Denies: Lymph Node Enlargement Objective: Vital Signs Temp Pulse Resp BP Pulse Ox 98.0 F 58 L 17 122/92 H 96 10/27/19 20:07 10/28/19 04:19 10/28/19 00:00 10/28/19 00:00 10/28/19 00:00 Oxygen Delivery Method Room Air Weight: 202 lb 9.677 oz Body Mass Index (BMI) 29.0 Intake and Output for Last 24 Hours 10/26/19 10/27/19 10/28/19 23:59 23:59 23:59 Intake Total 240 / 240 Balance 240 / 240 10/27/19 23:34: WBC 12.0 H, RBC 4.40 L, Hgb 14.7, Hct 44.1, MCV 100.2 H, MCH 33.4 H, MCHC 33.3, Plt Count 174, MPV 10.5, Immature Gran % (Auto) 0.300, Neut % (Auto) 64.7, Lymph % (Auto) 21.3, Cherry % (Auto) 4.8, Eos % (Auto) 8.7 H, Baso % (Auto) 0.2, Absolute Neuts (auto) 7.8 H, Nucleated RBC % 0 10/27/19 23:34: Sodium 138, Potassium 3.8, Chloride 106, Carbon Dioxide 26.0, Anion Gap 6, BUN 21 H, Creatinine 1.17, Est GFR (MDRD) Af Amer 77, Est GFR (MDRD) Non-Af 63, BUN/Creatinine Ratio 17.9, Glucose 147 H, Calcium 8.8, Troponin I < 0.015 10/28/19 05:14: Troponin I < 0.015 Rhythm: EKG: Normal sinus rhythm with Wenckebach ECHO: Stress Test: Cardiac Cath: PCI: CT Surgery: Holter monitor: EPS: PPM: CXR: Chest CT Scan: Assessment/Plan 1. Acute pulmonary embolism * Patient with a prior history of deep vein thrombosis presents with shortness of breath, elevated d-dimer and now has an acute pulmonary embolism. * There do not appear to be any contraindications to anticoagulation and he will be started on Eliquis * Echocardiogram should be performed to assess left ventricular function. At this time I do not see any evidence of right ventricular strain on the EKG and troponins are normal. * I do not think that they Wenckebach periodicity is related to the pulmonary embolism. 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 At this time the recommendation would be to continue to follow without making any changes. * 3. Coronary artery disease previous angioplasty and stenting * Patient has known coronary artery disease and is status post previous angioplasty and stenting. * Will continue current medical therapy * At this juncture I would not recommend continuing beta-amos. Due to relative bradycardia and Wenckebach. * * Thank you for allowing me to participate in the care of your patient. Please don't hesitate to call if any issues arise
[2019-10-28 08:28] VITALS: O2SAT 96
[2019-10-28 08:40] VITALS: BP 142/84; PULSE 73; RESP 16; TEMP 36.4; O2SAT 93
[2019-10-28] MEDS: 0.9% Saline Lock 10 ML Syringe IV (08:46)
[2019-10-28] MEDS: Aspirin 81 MG TAB.CHEW 324 MG PO (08:48)
[2019-10-28] MEDS: Acyclovir 200 MG Capsule 400 MG PO (10:07)
[2019-10-28] MEDS: APIXABAN 5 MG TABLET 10 MG PO (10:07)
[2019-10-28] MEDS: Lisinopril 5 MG Tablet PO (10:07)
[2019-10-28] MEDS: guaiFENesin 1,200 MG Tablet 1200 MG PO (10:07)
[2019-10-28 10:08] VITALS: BP 118/66
[2019-10-28] MEDS: Tolterodine Tartrate 2 MG CAP.SA PO (10:08)
[2019-10-28] MEDS: Donepezil HCl 5 MG Tablet PO (10:08)
--- NOTE | 2019-10-28 12:20 | DCINST_ITS ---
- Discharge Diagnoses Current Active Problems: Current Active and Chronic Problems (Last Reviewed 10/28/19 @ 06:34 by Dar Issa MD) Pulmonary embolism (Acute) Second degree heart block (Acute) Pulmonary embolism (Acute) You will use the following diet at home:: No restrictions Allergies/Adverse Reactions: Allergies hydrocodone bitartrate [From Vicodin] Allergy (Verified 10/27/19 20:07) Unknown Medications to take at Discharge Acyclovir [Zovirax] 400 mg PO DAILY 02/25/16 Nitroglycerin (INPATIENT USE) [Nitrostat] 0.4 mg SUBLINGUAL Q5M PRN 02/25/16 aspirin 81 mg chewable tablet 324 mg PO QODAY tab 02/03/19 oxybutynin chloride 10 mg tablet,extended release 24 hr 10 mg PO DAILY 02/03/19 metoprolol succinate 25 mg tablet,extended release 24 hr 25 mg PO DAILY #90 tab 03/13/19 donepezil 5 mg tablet 5 mg PO DAILY 06/05/19 lisinopril 5 mg tablet 5 mg PO DAILY #90 tab 06/14/19 albuterol sulfate 90 mcg/actuation aerosol inhaler 2 puff INHALATION Q4H PRN g 08/01/19 atorvastatin 40 mg tablet 40 mg PO QHS #90 tab 10/09/19 Apixaban [Eliquis] 5 mg PO BID #90 tab 10/28/19 The following prescriptions were given: Apixaban [Eliquis] 5 mg PO BID #90 tab Transmission Status: Pending to [facility] Primary Care Physician: Shelbie Hawk, MADDIE-C [Primary Care Provider] - Please follow up with your Primary Care Physician in: [place] 5-7 DAYS Test Results: Test results from this visit will be discussed in further detail at your follow- up appointment, if applicable. Proposed Discharge Date: 10/28/19
--- NOTE | 2019-10-28 12:22 | DS.PCM_ITS ---
Discharge Date and Diagnosis - Problem List Patient Problems: Active and Suspected Problems (Last Reviewed 10/28/19 @ 06:34 by Dar Issa MD) Pulmonary embolism (Acute) Second degree heart block (Acute) Pulmonary embolism (Acute) Date of Admission: 10/28/19 Date of Discharge: 10/28/19 - Primary Discharge Diagnosis Active and Suspected Problems (Last Reviewed 10/28/19 @ 06:34 by Dar Issa MD) Pulmonary embolism (Acute) Second degree heart block (Acute) Pulmonary embolism (Acute) - Secondary Discharge Diagnosis Chronic Problems (Last Reviewed 10/28/19 @ 06:34 by Dar Issa MD) BPH (benign prostatic hyperplasia) (Chronic) Anemia (Chronic) History of myocardial infarction (Chronic) Hyperlipidemia (Chronic) Left ventricular systolic dysfunction (Chronic) Presence of stent in coronary artery (Chronic ~12/30/12) PTCA/JOSE x2 of the mid and distal LAD 11/21/12; PTCA/JOSE of the Prox CX 12/30/12 Atherosclerotic heart disease of [place] coronary artery without angina pectoris (Chronic) PTCA/JOSE x2 of the mid and distal LAD 11/21/12; PTCA/JOSE of the Prox CX 12/30/12 Hospital Course and Treatment Imaging Results: Clinical Impression(s) from Imaging Studies Chest CTA 10/28/19 00:05 IMPRESSION: Evidence of pulmonary embolism. No right ventricular strain. A medium-sized hiatal hernia. No acute findings in the lungs Electronically Signed: Tono Adames MD at 2:16 EST Tel , Service support , Summary of Care Provided: The patient is a 84 year old M who was sent to the ED with an elevated d-dimer the studies obtained demonstrated acute pulmonary embolism Acute pulmonary embolism ~admitted to a monitored bed for subsequent management. Patient was placed on Lovenox prescription this was later switched to Eliquis. Echo obtained did not demonstrate any evidence of right heart strain 2. Wenckebach ?Patient was on metoprolol this was discontinued 3. Dementia ?Patient is on Aricept and continue 4. Coronary artery disease ?Patient is on aspirin and lisinopril this was discontinued in view of patient cardiac arrhythmia 5. Hypertension ?Blood pressure did remain stable. Patient Problems: Active and Suspected Problems (Last Reviewed 10/28/19 @ 06:34 by Dar Issa MD) Pulmonary embolism (Acute) Second degree heart block (Acute) Pulmonary embolism (Acute) - Physical Exam Vitals/I&O's: Vital Signs Temp Pulse Resp BP Pulse Ox 97.5 F L 73 16 118/66 93 10/28/19 08:40 10/28/19 08:40 10/28/19 08:40 10/28/19 10:08 10/28/19 08:40 Oxygen Delivery Method Room Air Weight: 91.9 kg Body Mass Index (BMI) 29.0 Intake and Output for Last 24 Hours 10/26/19 10/27/19 10/28/19 23:59 23:59 23:59 Intake Total 240 / 240 Balance 240 / 240 General: Alert HEENT: Atraumatic Lungs: Diminished Neurological: Neuro grossly intact Psych/Mental Status: Normal Affect Laboratory Results 10/27/19 23:34: WBC 12.0 H, RBC 4.40 L, Hgb 14.7, Hct 44.1, MCV 100.2 H, MCH 33.4 H, MCHC 33.3, RDW Std Deviation 56.8 H, RDW Coeff of Shruthi 15.4 H, Plt Count 174, MPV 10.5, Immature Gran % (Auto) 0.300, Neut % (Auto) 64.7, Lymph % (Auto) 21.3, [place] % (Auto) 4.8, Eos % (Auto) 8.7 H, Baso % (Auto) 0.2, Absolute Neuts (auto) 7.8 H, Absolute Lymphs (auto) 2.56, Nucleated RBC % 0 10/27/19 23:34: Sodium 138, Potassium 3.8, Chloride 106, Carbon Dioxide 26.0, Anion Gap 6, BUN 21 H, Creatinine 1.17, Estim Creat Clear Calc 49.39, Est GFR (MDRD) Af Amer 77, Est GFR (MDRD) Non-Af 63, BUN/Creatinine Ratio 17.9, Glucose 147 H, Calcium 8.8, Troponin I < 0.015 10/28/19 05:14: Troponin I < 0.015 10/28/19 08:15: Troponin I < 0.015 Current Medications Acetaminophen (Tylenol) 650 mg PO Q6H PRN PRN PRN Reason: Pain Score 1-10/Temp > 100.7 F Acyclovir (Zovirax) 400 mg PO DAILY [facility] Last Admin: 10/28/19 10:07 Dose: 400 mg Documented by: Apixaban (Eliquis) 10 mg PO BID [facility] Last Admin: 10/28/19 10:07 Dose: 10 mg Documented by: Aspirin (Aspirin, Baby) 324 mg PO QODAY@0800 [facility] Atorvastatin Calcium (Lipitor) 40 mg PO QHS [facility] Benzonatate (Tessalon Perle) 100 mg PO TID PRN PRN PRN Reason: COUGH Donepezil HCl (Aricept) 5 mg PO DAILY [facility] Last Admin: 10/28/19 10:08 Dose: 5 mg Documented by: Glucagon () 1 mg IM .X1 PRN PRN Reason: Hypoglycemia Guaifenesin (Mucinex) 1,200 mg PO BID [facility] Last Admin: 10/28/19 10:07 Dose: 1,200 mg Documented by: Hydralazine HCl (Apresoline Iv) 5 mg IV Q4H PRN PRN PRN Reason: SBP > 160 Dextrose (Dextrose 10%-Water) 250 mls @ 999 mls/hr IV .Q16M PRN; Protocol PRN Reason: HYPOGLYCEMIA Lisinopril (Zestril) 5 mg PO DAILY [facility] Last Admin: 10/28/19 10:07 Dose: 5 mg Documented by: Nutritional Formula (Lactose Free) (Ensure Enlive) 120 ml PO 4X/DAY [facility] Last Admin: 10/28/19 10:13 Dose: 120 ml Documented by: Ondansetron HCl (Zofran) 4 mg IV Q8H PRN PRN PRN Reason: NAUSEA/VOMITING Sodium Chloride () 10 - 40 ml IV UD PRN PRN Reason: SALINE FLUSH Last Admin: 10/28/19 08:46 Dose: 10 ml Documented by: Tolterodine Tartrate (Detrol La) 2 mg PO DAILY [facility] Last Admin: 10/28/19 10:08 Dose: 2 mg Documented by: Discharge Diet: No Restrictions Discharge Activity: Return to Normal Activity Home Medications: Medications to take at Discharge Acyclovir [Zovirax] 400 mg PO DAILY 02/25/16 Nitroglycerin (INPATIENT USE) [Nitrostat] 0.4 mg SUBLINGUAL Q5M PRN 02/25/16 aspirin 81 mg chewable tablet 324 mg PO QODAY tab 02/03/19 oxybutynin chloride 10 mg tablet,extended release 24 hr 10 mg PO DAILY 02/03/19 donepezil 5 mg tablet 5 mg PO DAILY 06/05/19 lisinopril 5 mg tablet 5 mg PO DAILY #90 tab 06/14/19 albuterol sulfate 90 mcg/actuation aerosol inhaler 2 puff INHALATION Q4H PRN g 08/01/19 atorvastatin 40 mg tablet 40 mg PO QHS #90 tab 10/09/19 Apixaban [Eliquis] 5 mg PO BID #90 tab 10/28/19 Following Prescrptions Were Given to Patient: Apixaban [Eliquis] 5 mg PO BID #90 tab Transmission Status: Received by [employer] [facility] Primary Care Physician: Shelbie Hawk NP-C [Primary Care Provider] - Please follow up with your Primary Care Physician in: [place] 5-7 DAYS Disposition: Home Minutes spent on discharge:: 35 Medical Necessity - Tobacco Use Smoking Status: Current every day smoker Tobacco Use: Pipe Meaningful Use Info Meaningful Use Diagnoses (Choose all that apply): VTE - VTE Anticoag overlap given w/in hospital stay or rx'd at sd?: No Pt receive overlap for 5 days?: No Reason overlap not ordered, prescribed, or given for 5 days: Treatment Not Indicated Code Visit OBSV E&M: 14207 Observation care discharge
--- NOTE | 2019-10-28 12:27 | DCINST_ITS ---
- Discharge Diagnoses Current Active Problems: Current Active and Chronic Problems (Last Reviewed 10/28/19 @ 06:34 by Dar Issa MD) Pulmonary embolism (Acute) Second degree heart block (Acute) Pulmonary embolism (Acute) Discharge Activity: Return to Normal Activity Allergies/Adverse Reactions: Allergies hydrocodone bitartrate [From Vicodin] Allergy (Verified 10/27/19 20:07) Unknown Medications to take at Discharge Acyclovir [Zovirax] 400 mg PO DAILY 02/25/16 Nitroglycerin (INPATIENT USE) [Nitrostat] 0.4 mg SUBLINGUAL Q5M PRN 02/25/16 aspirin 81 mg chewable tablet 324 mg PO QODAY tab 02/03/19 oxybutynin chloride 10 mg tablet,extended release 24 hr 10 mg PO DAILY 02/03/19 donepezil 5 mg tablet 5 mg PO DAILY 06/05/19 lisinopril 5 mg tablet 5 mg PO DAILY #90 tab 06/14/19 albuterol sulfate 90 mcg/actuation aerosol inhaler 2 puff INHALATION Q4H PRN g 08/01/19 atorvastatin 40 mg tablet 40 mg PO QHS #90 tab 10/09/19 Apixaban [Eliquis] 5 mg PO BID #90 tab 10/28/19 The following prescriptions were given: Apixaban [Eliquis] 5 mg PO BID #90 tab Transmission Status: Received by [facility] Primary Care Physician: Shelbie Hawk NP-C [Primary Care Provider] - Please follow up with your Primary Care Physician in: [place] 5-7 DAYS Test Results: Test results from this visit will be discussed in further detail at your follow- up appointment, if applicable. Proposed Discharge Date: 10/28/19
--- NOTE | 2019-10-28 13:20 | NURSING ---
Reviewed and agreed on all charting with Lynn Francis RN
== END 2019-10-28 12:21 | disposition home or self-care (01) ==
LOC: ED 10-28 02:31 → PCU 10-28 03:53
PROVIDERS: Admitting Provider Hospitalist; Emergency Provider Emergency Medicine; Family Provider Nurse Practitioner; PCP Nurse Practitioner; Visit Provider Internal Medicine
DX: I26.99 Other pulmonary embolism without acute cor pulmonale (principal); I44.1 Atrioventricular block, second degree; F17.290 Nicotine dependence, other tobacco product, uncomplicated; E78.5 Hyperlipidemia, unspecified; I25.10 Atherosclerotic heart disease of native coronary artery without angina pectoris; I25.2 Old myocardial infarction; N40.0 Benign prostatic hyperplasia without lower urinary tract symptoms; J44.9 Chronic obstructive pulmonary disease, unspecified; Z86.718 Personal history of other venous thrombosis and embolism; Z79.899 Other long term (current) drug therapy; Z79.82 Long term (current) use of aspirin; Z95.5 Presence of coronary angioplasty implant and graft; F03.90 Unspecified dementia, unspecified severity, without behavioral disturbance, psychotic disturbance, mood disturbance, and anxiety; I10 Essential (primary) hypertension
CPT/HCPCS: 36415; 71275; 80048; 84484; 85025; 93005; 93306; 96372; 97161; 97165; 99218; 99285; 99406; Q9967; A4216; G0378

== ENCOUNTER → 2019-11-22 19:57 | Outpatient (CLI) | payer MEDICARE, SELFPAY ==
[2019-11-03 07:54] VITALS: BMI 29.0
[2019-11-10 08:56] VITALS: BMI 28.5
== END ==
PROVIDERS: PCP Nurse Practitioner; Referring Provider Nurse Practitioner Acute Care; Visit Provider Nurse Practitioner Acute Care
DX: G47.33 Obstructive sleep apnea (adult) (pediatric) (principal)
CPT/HCPCS: 95810

== ENCOUNTER → 2020-04-23 | Outpatient (CLI) | payer MEDICARE, SELFPAY ==
[2020-04-22 17:26] VITALS: BMI 28.5
[2020-04-23 11:01] LABS: Mucous, Urine 0 SEEN /hpf (<or=2+)
[2020-04-23 11:08] LABS: Color, Urine Yellow (Yellow); Glucose, Dipstick Normal (Normal); Ketone-Dipstick 5 mg/dl (Negative); Leukocyte Esterase-Dipstick 500 /ul (Negative); Nitrite-Dipstick Negative (Negative); Occult Blood-Urine 10 /ul (Negative); Protein-Dipstick 30 mg/dl (Negative); Specific Gravity, Urine 1.025 (1.002-1.030); Urine Bilirubin Dipstick Negative (Negative); Urine Clarity Sl. Cloudy (Clear); Urine Urobilinogen Normal (Normal)
[2020-04-23 11:14] LABS: Bacteria 1+ /hpf (None Seen); Red Blood Cells-Urine 0-5 SEEN /hpf (0-5); Squamous Epithelial Cells - UA 5-10 SEEN /hpf (0-5); White Blood Cells 25-50 SEEN /hpf (0-5); Yeast-Urine 1+ /hpf (None Seen)
== END | disposition home or self-care (01) ==
LOC: LABSPEC 10:34
PROVIDERS: PCP Nurse Practitioner; Referring Provider Physician Assistant Surgical; Visit Provider Physician Assistant Surgical
DX: N39.0 Urinary tract infection, site not specified (principal); R41.0 Disorientation, unspecified
CPT/HCPCS: 81001; 87086; 87088

== ENCOUNTER → 2020-06-05 | Outpatient (CLI) | payer MEDICARE, SELFPAY ==
[2020-06-03 11:01] VITALS: BMI 31.9
== END | disposition home or self-care (01) ==
LOC: PSN 09:29
PROVIDERS: PCP Nurse Practitioner; Referring Provider Internal Medicine Cardiovascular Disease; Visit Provider Internal Medicine Cardiovascular Disease
DX: I25.10 Atherosclerotic heart disease of native coronary artery without angina pectoris (principal); I44.1 Atrioventricular block, second degree; I49.1 Atrial premature depolarization; I49.3 Ventricular premature depolarization; Z95.5 Presence of coronary angioplasty implant and graft
CPT/HCPCS: 93225; 93226

== ENCOUNTER → 2021-02-21 14:32 | Outpatient (CLI) | payer MEDICARE, SELFPAY ==
[2020-12-16 10:02] VITALS: BMI 35.4
--- NOTE | 2021-02-21 14:37 | US_ITS ---
STUDY: RENAL ULTRASOUND - COMPLETE REASON FOR EXAM: Male, 85 years old. Acute kidney failure. TECHNIQUE: Ultrasound evaluation of the kidneys was performed with real-time and static jovel-scale imaging. COMPARISON: None. FINDINGS: RIGHT KIDNEY: Normal location of the right kidney, which is normal in size. The right kidney measures 12.3 cm. There is a normal cortex of the right kidney. The renal cortex measures 1.0 cm. There is no right renal mass or cyst. There are no right renal calculi. There is no right hydronephrosis. DISTAL RIGHT URETER: There is non-visualization of the distal right ureter. There is no demonstrated right ureterovesical junction calculus. There is a visualized right ureteral jet. LEFT KIDNEY: Normal location of the left kidney, which is normal in size. The left kidney measures 9.9 cm. There is a normal cortex of the left kidney. The renal cortex measures 1.4 cm. There is a 2.4 x 2.8 x 2.6 cm septated renal cyst extending exophytically from the mid kidney. There are no left renal calculi. There is no left hydronephrosis. DISTAL LEFT URETER: There is non-visualization of the distal left ureter. There is no demonstrated left ureterovesical junction calculus. There is no demonstrated left ureteral jet. BLADDER: The distended urinary bladder has a volume of 173 ml. There is a normal wall thickness of the distended urinary bladder. There is no demonstrated mass within the urinary bladder. There are no demonstrated bladder calculi. The prostate measures 3.9 x 4.4 x 4.1 cm. US/Kidney and Bladder IMPRESSION: 1. Septated left renal cyst. Otherwise normal kidneys and urinary bladder. 2. Enlarged prostate. Electronically Signed: Emir Walton DO at 17:17 EDT Tel [phone], Service support ,
== END ==
LOC: US 14:34
PROVIDERS: PCP Nurse Practitioner; Referring Provider Internal Medicine Nephrology; Visit Provider Internal Medicine Nephrology
DX: N17.9 Acute kidney failure, unspecified (principal)
CPT/HCPCS: 76770

== ENCOUNTER → 2021-03-03 10:52 | Outpatient (CLI) | payer MEDICARE, SELFPAY ==
[2020-12-16 10:02] VITALS: BMI 35.4
--- NOTE | 2021-03-03 10:55 | VDLE_ITS ---
Reason For Study: DVT, LE Chronic RIGHT LEFT GSV is normal. GSV is normal. CFV is compressible, spontaneous, phasic, CFV is compressible, spontaneous, phasic, competent and demonstrates normal competent, and demonstrates normal augmentation. augmentation. FV is compressible, spontaneous, phasic, FV is compressible, spontaneous, phasic, competent and demonstrates normal competent and demonstrates normal augmentation. augmentation. POP V is compressible, spontaneous, phasic, POP V is compressible, spontaneous, phasic, competent and demonstrates normal competent and demonstrates normal augmentation. augmentation. PTV is compressible. T/P Trunk is compressible. RT PerV is compressible. PTV is compressible. Rt T/P Trunk is partially compressible with LT PerV is compressible. bright intraluminal echoes consistent with chronic DVT. Procedure This is a venous duplex using B-mode, color flow and spectral Doppler. Exam performed in department. A preliminary report was called and/or faxed to Shelbie Hawk. VL/Venous Duplex US - Pato Extrem Interpretation Summary Chronic venous changes are noted in the right tibio-peroneal trunk, which is pa rtially compressible and demonstrates bright intraluminal echogenicity. The remainder of the right l ower extremity deep venous system is patent and compressible. Deep veins of the left lower extremit y are patent and compressible segmentally. There is no evidence of left lower extremity deep vei n thrombosis. Valvular competence appears intact within the proximal deep venous systems bila terally. The great saphenous veins appear bilaterally patent and compressible segmentally. Ordering Physician: Shelbie Hawk Referring Physician: Shelbie Hawk Performed By: Donna Khan, TERRELLCS, RVT
== END ==
LOC: CVS 10:53
PROVIDERS: PCP Nurse Practitioner; Referring Provider Nurse Practitioner; Visit Provider Nurse Practitioner
DX: I82.5Y1 Chronic embolism and thrombosis of unspecified deep veins of right proximal lower extremity (principal)
CPT/HCPCS: 93970

== ENCOUNTER 2021-03-08 15:04 | Inpatient (IN) | payer MEDICARE, SELFPAY ==
[2020-12-16 10:02] VITALS: BMI 35.4
[2021-03-08] VITALS (9 sets, daily range): BP systolic 102–133; BP diastolic 44–91; PULSE 56–82; RESP 16–24; TEMP 36.3–36.9; O2SAT 93–99; BMI 34.4; BMI 31.9
--- NOTE | 2021-03-08 15:45 | EKG12_ITS ---
Test Reason : Blood Pressure : / mmHG Vent. Rate : 080 BPM Atrial Rate : 087 BPM P-R Int : 000 ms QRS Dur : 076 ms QT Int : 406 ms P-R-T Axes : 000 037 058 degrees QTc Int : 468 ms Atrial fibrillation with premature ventricular or aberrantly conducted complexes Low voltage QRS Abnormal ECG Confirmed by DERRICK ÁLVAREZ, MICHAEL ([id number]), editor city SAMANTHA MARCOS ([id number]) on 03/11/2021 9:24:01 AM Referred By: AMADOU Confirmed By:MICHAEL MEZA MD
--- NOTE | 2021-03-08 15:46 | EDS_ITS ---
HPI History of Present Illness Chief Complaint: Cough Detail of Chief Complaint: Cough and generalized weakness Informant: patient and spouse/S.O. Onset/Context/Timing Onset: Days Timing: Continuous Current Severity: Mild Maximum Severity: Mild Narrative Narrative: 85-year-old male lives at home with his . Has extensive past medical history. She states he had a cough for the last 4 days. He has chronic bilateral lower extremity edema which is not new. He denies any chest pain or shortness of breath. Reportedly recently has had negative noninvasive studies of his lower extremities. They are concerned about the cough and his weakness. He denies any nausea, vomiting, diarrhea or fever. No melena. No hemoptysis. No chest pain. Prior similar symptoms: Yes Recent Illness/Hospitalization: No PFSH PFS Medical History Anemia Atherosclerotic heart disease of [place] coronary artery without angina pectoris BPH (benign prostatic hyperplasia) CKD (chronic kidney disease) stage 3, GFR 30-59 ml/min History of DVT (deep vein thrombosis) History of kidney stones History of myocardial infarction Hyperlipidemia Left ventricular systolic dysfunction Long-term use of high-risk medication Premature atrial contractions Premature ventricular contraction Pulmonary embolism Home Medications acyclovir 400 mg PO DAILY 02/25/16 [History Last Taken 02/01/19] atorvastatin 40 mg tablet 40 mg PO QHS #90 tab 06/05/20 [Rx Last Taken Unknown] apixaban 2.5 mg tablet 2.5 mg PO BID tab 12/16/20 [History Last Taken Unknown] cyanocobalamin (vitamin B-12) 2,500 mcg sublingual tablet 2,500 mcg PO DAILY tab 12/16/20 [History Last Taken Unknown] furosemide 20 mg tablet 20 mg PO DAILY tab 12/16/20 [History Last Taken Unknown] levothyroxine 25 mcg tablet 50 mcg PO BID tab 12/16/20 [History Last Taken Unknown] oxybutynin chloride 15 mg tablet,extended release 24 hr 15 mg PO DAILY tab [History Last Taken Unknown] Allergy/AdvReac Type Severity Reaction Status Date / Time hydrocodone bitartrate Allergy Unknown Verified 12/16/20 10:06 [From Vicodin] Family History Mother Diabetes Surgical History History of genitourinary surgery History of total left knee replacement History of total replacement of right hip Postsurgical percutaneous transluminal coronary angioplasty (PTCA) status Presence of stent in coronary artery (~12/30/12) Social History Smoking Status: Light Smoker (<10/day) alcohol intake: current alcohol intake frequency: holidays/special occasions only Alcohol type: beer details: Rare substance use type: does not use caffeine: Yes Type: coffee Number of servings: 2 ROS ROS ED ROS Narrative Other than his cough and weakness patient denies other symptoms. Review of Systems ROS Unobtainable: Denies due to encephalopathy Constitutional Constitutional ED: Denies chills, fever(s) or sweats Eyes Eyes: Denies change in vision ENT ENT ED: Denies ear pain or sore throat Cardiovascular Cardiovascular: Denies chest pain Respiratory/Chest Respiratory/Chest: Reports cough; Denies dyspnea Gastrointestinal Gastrointestinal: Denies abdominal pain, constipation, diarrhea, nausea or vomiting Genitourinary Genitourinary ED: Denies dysuria or hematuria Musculoskeletal Musculoskeletal: Denies arthralgias or myalgias Integumentary Denies abscess or rash Neurologic Neurologic: Denies headache(s) Psychiatric Psychiatric: Denies depression Endocrine Endocrinology: Denies polyuria Allergic/Immunologic Allergic/Immunologic ED: Reports urticaria EXAM Physical Exam Narrative Exam Narrative: Older male no acute distress accompanied by his . Vital signs are stable. He is afebrile. He does not look septic or toxic. Pulse ox is 93% on room air no hypoxia. HEENT exam unremarkable. Neck nontender. No lymphadenopathy. Lungs clear to auscultation bilaterally. Heart irregular rate and rhythm no murmur. Chest wall nontender. Abdomen soft nontender. Patient is moving all 4 extremities. They are neurovascularly intact. He does have 1- 2+ pitting edema both lower extremities. Neurologically is awake. He is answering questions. He is following commands. He has no motor deficits. Const Vital Signs: 03/08/21 15:05 03/08/21 15:14 03/08/21 17:26 Temperature 98.4 F 98.1 F Temperature Source Oral Oral Pulse Rate 82 59 L 71 Respiratory Rate 16 16 24 H Blood Pressure 125/61 H 109/44 L 113/58 L Blood Pressure Mean 82 65 76 Pulse Ox 93 95 95 Oxygen Delivery Method Room Air Room Air Room Air 03/08/21 18:34 03/08/21 19:32 Temperature 97.7 F L 97.5 F L Temperature Source Oral Oral Pulse Rate 80 56 L Respiratory Rate 24 H 18 Blood Pressure 102/91 H 120/79 Blood Pressure Mean 94 92 Pulse Ox 98 98 Oxygen Delivery Method Room Air Room Air HEENT Reports moist mucous membranes Negative for trauma or tenderness Eyes PERRL and EOMs intact bilaterally Neck no lymphadenopathy, supple and no JVD General: Negative for tenderness Chest Wall inspection of chest normal Resp normal respiratory effort and clear to auscultation bilaterally Auscultation: Negative for rhonchi, wheezes or diminished lung sounds Cardio regular rate, regular rhythm and no murmurs GI normal to inspection, nondistended, normoactive bowel sounds, non-tender and non-distended Palpation: soft Back/Spine no CVA tenderness Extremity Extremity Narrative: Chronic 1-2+ pitting edema both lower extremities not new. General Extremety ED: Yes edema General Extremity: edema Neuro CN's II-XII intact bilaterally Sensorium / Orientation: alert Motor Exam: strength 5/5 throughout Psych mental status grossly normal Skin no rashes or lesions noted MDM MDM MDM Narrative Medical decision making narrative: Elderly male with cough and generalized weakness. Labs are being obtained and chest x-ray. Repeat exam at 7:45 PM no change. Discussed with patient and his . He will be admitted for failure to thrive. Hospitalist and I discussed his A. fib, his anemia and his renal insufficiency. He will need further evaluation. Lab Data Lab results narrative: White count 11.8 but no obvious signs of infection. Hemoglobin is 10 previously was 14. Electrolytes unremarkable he does have renal insufficiency creatinine 1.52. Troponin normal. BNP 316. UA showed 10- 25 white cells but no bacteria no nitrates. EKG showed atrial fibrillation rate of 80 with PVCs. I discussed with both he and his and they do not know any history of A. fib in the patient. I do not see that on his prior past medical history. Chest x-ray portable 1 view interpreted by myself shows no acute abnormality. Also read by the radiologist and agrees. No infiltrate. Labs: Laboratory Results - last 24 hr 03/08/21 03/08/2103/08/21 15:55 15:55 15:55 WBC 11.8 H RBC 4.02 L Hgb 10.7 L Hct 34.1 L MCV 84.8 MCH 26.6 L MCHC 31.4 L RDW Std Deviation 46.5 H RDW Coeff of Shruthi 15.2 H Plt Count 289 MPV 11.6 Immature Gran % (Auto) 0.400 Neut % (Auto) 80.3 H Lymph % (Auto) 9.0 L [place] % (Auto) 7.4 Eos % (Auto) 2.6 Baso % (Auto) 0.3 Absolute Neuts (auto) 9.5 H Absolute Lymphs (auto) 1.06 Nucleated RBC % 0 Sodium 137 Potassium 3.6 Chloride 103 Carbon Dioxide 26.0 Anion Gap 8 BUN 22 H Creatinine 1.52 H Estim Creat Clear Calc 37.35 Est GFR (MDRD) Af Amer 56 L Est GFR (MDRD) Non-Af 47 L BUN/Creatinine Ratio 14.5 Glucose 122 H Calcium 8.5 Troponin I < 0.015 B-Natriuretic Peptide 316.8 H Urine Color Urine Clarity Urine pH Ur Specific [place] Urine Protein Urine Glucose (UA) Urine Ketones Urine Occult Blood Urine Nitrite Urine Bilirubin Urine Urobilinogen Ur Leukocyte Esterase Urine RBC Urine WBC Ur Squamous Epith Cells Urine Bacteria Hyaline Casts Urine Mucus Urine Yeast 03/08/21 16:55 WBC RBC Hgb Hct MCV MCH MCHC RDW Std Deviation RDW Coeff of Shruthi Plt Count MPV Immature Gran % (Auto) Neut % (Auto) Lymph % (Auto) [place] % (Auto) Eos % (Auto) Baso % (Auto) Absolute Neuts (auto) Absolute Lymphs (auto) Nucleated RBC % Sodium Potassium Chloride Carbon Dioxide Anion Gap BUN Creatinine Estim Creat Clear Calc Est GFR (MDRD) Af Amer Est GFR (MDRD) Non-Af BUN/Creatinine Ratio Glucose Calcium Troponin I B-Natriuretic Peptide Urine Color Yellow Urine Clarity Sl. Cloudy Urine pH 5.0 Ur Specific [place] 1.015 Urine Protein Negative Urine Glucose (UA) Normal Urine Ketones Negative Urine Occult Blood 10 H Urine Nitrite Negative Urine Bilirubin Negative Urine Urobilinogen 1 H Ur Leukocyte Esterase 25 H Urine RBC 0-5 SEEN Urine WBC 10-25 SEEN Ur Squamous Epith Cells 0 SEEN Urine Bacteria 0 SEEN Hyaline Casts 10-25 SEEN Urine Mucus 1+ Urine Yeast 1+ Radiography Chest X-Ray - ED: 1 View, Read by ED Physician, Read by Radiologist, Normal, Heart, Lungs, Mediastinum, Bony Structures, No Acute Disease and Chronic Changes Diagnostic Testing: Radiology Impression Chest X-Ray 03/08/21 16:05 IMPRESSION: No definite acute or significant abnormality seen. Electronically Signed: Deacon Braga MD at 16:40 EDT , Service support , Discharge Plan Dx/Rx/DC Orders Clinical Impression: Acute weakness, Atrial fibrillation, Acute anemia, Adult failure to thrive Disposition Disposition: Acute Care Hospital [facility]
[2021-03-08 16:01] LABS: Absolute Lymphocyte Count 1.06 X10^3/uL (0.83-4.51); Absolute Neutrophil Count 9.5 X10^3/uL (2.0-7.7); Basophil# 0.03 X10^3/uL; Basophil% 0.3 % (0-1); Eosinophil# 0.31 X10^3/uL; Eosinophils% 2.6 % (0-5); Hematocrit 34.1 % (40-54); Hemoglobin 10.7 g/dL (13.0-16.5); Lymphocyte # 1.06 X10^3/ul (0.83-4.51); Mean Corp Hgb Conc 31.4 g/dL (32-36); Mean Corpuscular Hgb 26.6 pg (27.0-32.0); Mean Corpuscular Volume 84.8 fL (80-94); Mean Platelet Vol. 11.6 fl (6.2-12.0); Monocyte# 0.87 X10^3/uL; Monocyte% 7.4 % (0-10); NRBC Flagged by Analyzer 0 % (0-5); Neutrophil # 9.48 X10^3/uL (2.7-7.7); Neutrophil % 80.3 % (47-70); Platelet Count 289 K/mm3 (150-450); RBC Distribution Width CV 15.2 % (11.6-14.6); RBC Distribution Width SD 46.5 fl (35.1-43.9); Red Blood Count 4.02 M/mm3 (4.6-6.2); White Blood Count 11.8 K/mm3 (4.4-11.0)
--- NOTE | 2021-03-08 16:05 | RAD_ITS ---
STUDY: X-RAY CHEST REASON FOR EXAM: Male, 85 years old. cough TECHNIQUE: Single AP portable view of the chest. COMPARISON: 10/02/2019 FINDINGS: The lungs are clear and expanded. There is no demonstrated pleural abnormality. Normal size heart. Normal mediastinum and olga lidia. Normal visualized pulmonary arteries. There is atherosclerotic tortuosity of the aortic arch and descending thoracic aorta. Normal visualized thoracic spine. Normal visualized ribs, clavicles, and shoulders. There is no demonstrated abnormality of the visualized soft tissue structures of the upper abdomen. RAD/Chest 1 View (Portable) IMPRESSION: No definite acute or significant abnormality seen. Electronically Signed: Deacon Braga MD at 16:40 EDT , Service support ,
[2021-03-08 16:28] LABS: Anion Gap 8 (5-15); BUN 22 mg/dL (7-18); BUN/Creat Ratio 14.5 RATIO (10-20); Calcium,Total 8.5 mg/dL (8.5-10.1); Chloride 103 mmol/L (98-107); Creatinine, Serum 1.52 mg/dL (0.70-1.30); EST Glomerular Filtration Rate 47 mL/min (>60); Est Glom Filt Rate - Afr Amer 56 mL/min (>60); Estimated Creatinine Clearance 37.35 ml/min; Glucose 122 mg/dL (74-106); Potassium 3.6 mmol/L (3.5-5.1); Sodium Level 137 mmol/L (136-145)
[2021-03-08 16:34] LABS: BNP,B-Type NATRIURETIC PEPTIDE 316.8 pg/mL (0-100)
[2021-03-08 17:05] LABS: Bacteria 0 SEEN /hpf (None Seen); Squamous Epithelial Cells - UA 0 SEEN /hpf (0-5)
[2021-03-08 17:06] LABS: Color, Urine Yellow (Yellow); Glucose, Dipstick Normal (Normal); Ketone-Dipstick Negative (Negative); Leukocyte Esterase-Dipstick 25 /ul (Negative); Nitrite-Dipstick Negative (Negative); Occult Blood-Urine 10 /ul (Negative); Protein-Dipstick Negative (Negative); Specific Gravity, Urine 1.015 (1.002-1.030); Urine Bilirubin Dipstick Negative (Negative); Urine Clarity Sl. Cloudy (Clear); Urine Urobilinogen 1 mg/dl (Normal)
[2021-03-08 17:37] LABS: Hyaline Cast 10-25 SEEN /lpf (0-5)
[2021-03-08 17:38] LABS: Mucous, Urine 1+ /hpf (<or=2+)
[2021-03-08 17:39] LABS: White Blood Cells 10-25 SEEN /hpf (0-5)
[2021-03-08 17:41] LABS: Yeast-Urine 1+ /hpf (None Seen)
[2021-03-08 17:42] LABS: Red Blood Cells-Urine 0-5 SEEN /hpf (0-5)
--- NOTE | 2021-03-08 20:28 | HP.PCM.HOS_ITS ---
HPI - General HPI Narrative CLEMENTE FRANCOIS, is a 85 M who presented to the emergency department at [facility] on 03/08/2021 with a chief complaint of cough and generalized weakness. The majority of his history is taken from his as he has dementia at baseline. She states these memory issues have been going on for quite some time. She reports that he has had some cough that is been fairly nonproductive for the past 4 days. They have been treating him with Claritin and guaifenesin which helps temporarily but not for long periods of time. Per his he has some ambulatory issues at baseline but today he was unable to ambulate into the house and is markedly weak. His is overall concerned about his cough and weakness but there is no report of fever, chills, nausea, vomiting, diarrhea, malaise, fatigue, melena, hemoptysis, chest pain, tingling, numbness, or abdominal pain. He is really a very poor historian and his contribution to his review of systems was negligible. In the emergency department he was afebrile his pulse was within normal limits his blood pressure was stable and within normal limits his respiratory rate was mildly elevated with a max rate of 24 and his oxygen saturations were 98% on room air. His CBC showed a mild leukocytosis at 11.8 and a mild anemia which is new at 10.7. It appears that his baseline hemoglobin runs from 14.4-15.3. The last hemoglobin we have documented is from 10/27/2019 and was 14.7 at that time. He has had a macrocytosis in the past but is currently normocytic. BMP was performed and shows normal electrolytes with a mildly elevated creatinine from his previous baseline on 10/27/2019. Serum creatinine on admission was 1.52. Troponin was obtained and was negative. A BNP was obtained and was 316.8 but he in no way appears volume overloaded other than his chronic lower extremity edema for which she has had multiple bilateral lower extremity Dopplers with the last one being on 03/03/2021. This showed chronic edema but no signs of DVT. A chest x-ray was performed and shows no acute process. [facility] Medical History Anemia Atherosclerotic heart disease of [place] coronary artery without angina pectoris BPH (benign prostatic hyperplasia) CKD (chronic kidney disease) stage 3, GFR 30-59 ml/min History of DVT (deep vein thrombosis) History of kidney stones History of myocardial infarction Hyperlipidemia Left ventricular systolic dysfunction Long-term use of high-risk medication Premature atrial contractions Premature ventricular contraction Pulmonary embolism Home Medications acyclovir 400 mg PO DAILY 02/25/16 [History Last Taken 02/01/19] atorvastatin 40 mg tablet 40 mg PO QHS #90 tab 06/05/20 [Rx Last Taken Unknown] apixaban 2.5 mg tablet 2.5 mg PO BID tab 12/16/20 [History Last Taken Unknown] cyanocobalamin (vitamin B-12) 2,500 mcg sublingual tablet 2,500 mcg PO DAILY tab 12/16/20 [History Last Taken Unknown] furosemide 20 mg tablet 20 mg PO DAILY tab 12/16/20 [History Last Taken Unknown] levothyroxine 25 mcg tablet 50 mcg PO BID tab 12/16/20 [History Last Taken Unkn own] oxybutynin chloride 15 mg tablet,extended release 24 hr 15 mg PO DAILY tab 12/16/20 [History Last Taken Unknown] Allergy/AdvReac Type Severity Reaction Status Date / Time hydrocodone bitartrate Allergy Unknown Verified 12/16/20 10:06 [From Vicodin] Family History Mother Diabetes Surgical History History of genitourinary surgery History of total left knee replacement History of total replacement of right hip Postsurgical percutaneous transluminal coronary angioplasty (PTCA) status Presence of stent in coronary artery (~12/30/12) Social History Smoking Status: Light Smoker (<10/day) alcohol intake: current alcohol intake frequency: holidays/special occasions only Alcohol type: beer details: Rare substance use type: does not use caffeine: Yes Type: coffee Number of servings: 2 ROS Review of Systems ROS Unobtainable: other Details: Marked dementia Vital Signs Vital Signs Vital Signs: 03/08/21 15:05 03/08/21 15:14 03/08/21 17:26 Temperature 98.4 F 98.1 F Temperature Source Oral Oral Pulse Rate 82 59 L 71 Respiratory Rate 16 16 24 H Respiratory Pattern Blood Pressure 125/61 H 109/44 L 113/58 L Blood Pressure Mean 82 65 76 Pulse Ox 93 95 95 Oxygen Delivery Method Room Air Room Air Room Air 03/08/21 18:34 03/08/21 19:32 03/08/21 20:16 Temperature 97.7 F L 97.5 F L Temperature Source Oral Oral Pulse Rate 80 56 L Respiratory Rate 24 H 18 Respiratory Pattern Normal Blood Pressure 102/91 H 120/79 Blood Pressure Mean 94 92 Pulse Ox 98 98 Oxygen Delivery Method Room Air Room Air Physical Exam Const alert and no apparent distress Constitutional Narrative: Overweight white elderly male lying in bed, at bedside, patient is oriented only to self General Appearance: cooperative HEENT normocephalic, head/scalp atraumatic, hearing grossly normal bilaterally, moist oral mucous membranes and oropharynx normal HEENT Narrative: Poor dentition Mouth: oral and palatal mucosa normal Eyes PERRL, EOMs intact bilaterally and conjunctivae normal Neck no lymphadenopathy, supple, no JVD and no carotid bruits Resp normal respiratory effort, no retractions, no use of accessory muscles and clear to auscultation bilaterally Resp Narrative: Intermittent dry cough Auscultation: Negative for crackles, rales, rhonchi or wheezes Cardio regular rate, S1 normal heart sound, S2 normal heart sound, no murmurs, no rub, no gallops, no clicks and no JVD Cardio Narrative: Irregularly irregular rhythm GI normal to inspection, nondistended, normoactive bowel sounds, soft to palpation, non-tender and non-distended; Negative for hepatosplenomegaly Auscultation: Negative for hyperactive bowel sounds or hypoactive bowel sounds Palpation: Negative for tender, guarding or hernia Extremity Extremity Narrative: No clubbing or cyanosis, 2+ pitting edema bilateral lower extremities Peripheral Pulses: Yes pulses 2+ throughout Skin no wounds, skin turgor normal, no jaundice, no petechiae and no mottling Skin Narrative: Mild erythema medial left tibia distally, pale Neuro No oriented x3, CN's II-XII intact bilaterally, moves all extremities and no focal motor deficits Neuro Narrative: Bilateral upper and lower extremity weakness proximal greater than distal, reflexes within normal limits Sensorium / Orientation: awake, alert and oriented to person; Negative for oriented to place or oriented to time Psych Psych Narrative: Pleasantly confused Mood & Affect: Negative for depressed or anxious Lab / Micro Data Attestation: I reviewed the patient's lab results. Result Diagrams: 03/08/21 15:55 03/08/21 15:55 Labs: Laboratory Results - last 24 hr 03/08/21 03/08/21 03/08/21 15:55 15:55 15:55 WBC 11.8 H RBC 4.02 L Hgb 10.7 L Hct 34.1 L MCV 84.8 MCH 26.6 L MCHC 31.4 L RDW Std Deviation 46.5 H RDW Coeff of Shruthi 15.2 H Plt Count 289 MPV 11.6 Immature Gran % (Auto) 0.400 Neut % (Auto) 80.3 H Lymph % (Auto) 9.0 L Anderson % (Auto) 7.4 Eos % (Auto) 2.6 Baso % (Auto) 0.3 Absolute Neuts (auto) 9.5 H Absolute Lymphs (auto) 1.06 Nucleated RBC % 0 Sodium 137 Potassium 3.6 Chloride 103 Carbon Dioxide 26.0 Anion Gap 8 BUN 22 H Creatinine 1.52 H Estim Creat Clear Calc 37.35 Est GFR (MDRD) Af Amer 56 L Est GFR (MDRD) Non-Af 47 L BUN/Creatinine Ratio 14.5 Glucose 122 H Calcium 8.5 Troponin I < 0.015 B-Natriuretic Peptide 316.8 H Urine Color Urine Clarity Urine pH Ur Specific [place] Urine Protein Urine Glucose (UA) Urine Ketones Urine Occult Blood Urine Nitrite Urine Bilirubin Urine Urobilinogen Ur Leukocyte Esterase Urine RBC Urine WBC Ur Squamous Epith Cells Urine Bacteria Hyaline Casts Urine Mucus Urine Yeast 03/08/21 16:55 WBC RBC Hgb Hct MCV MCH MCHC RDW Std Deviation RDW Coeff of Shruthi Plt Count MPV Immature Gran % (Auto) Neut % (Auto) Lymph % (Auto) Anderson % (Auto) Eos % (Auto) Baso % (Auto) Absolute Neuts (auto) Absolute Lymphs (auto) Nucleated RBC % Sodium Potassium Chloride Carbon Dioxide Anion Gap BUN Creatinine Estim Creat Clear Calc Est GFR (MDRD) Af Amer Est GFR (MDRD) Non-Af BUN/Creatinine Ratio Glucose Calcium Troponin I B-Natriuretic Peptide Urine Color Yellow Urine Clarity Sl. Cloudy Urine pH 5.0 Ur Specific [place] 1.015 Urine Protein Negative Urine Glucose (UA) Normal Urine Ketones Negative Urine Occult Blood 10 H Urine Nitrite Negative Urine Bilirubin Negative Urine Urobilinogen 1 H Ur Leukocyte Esterase 25 H Urine RBC 0-5 SEEN Urine WBC 10-25 SEEN Ur Squamous Epith Cells 0 SEEN Urine Bacteria 0 SEEN Hyaline Casts 10-25 SEEN Urine Mucus 1+ Urine Yeast 1+ Micro: Microbiology 03/08/21 16:07 SARS-CoV-2 Antigen (Rapid) - Final Interface Orders Radiology Impression Chest X-Ray 03/08/21 16:05 IMPRESSION: No definite acute or significant abnormality seen. Electronically Signed: Deacon Braga MD at 16:40 EDT , Service support , Assessment & Plan Assessment/Plan (1) Acute weakness: (2) Atrial fibrillation: (3) Acute anemia: (4) Adult failure to thrive: (5) History of DVT (deep vein thrombosis): (6) CKD (chronic kidney disease) stage 3, GFR 30-59 ml/min: (7) Pulmonary embolism: (8) HEMANT (obstructive sleep apnea): (9) Chronic obstructive pulmonary disease: QUALIFIERS: COPD type: chronic bronchitis Chronic bronchitis typ e: simple Qualified Code(s): J41.0 - Simple chronic bronchitis (10) BPH (benign prostatic hyperplasia): (11) History of myocardial infarction: (12) Hyperlipidemia: QUALIFIERS: Hyperlipidemia type: unspecified Qualified Code(s): E78.5 - Hyperlipidemia, unspecified (13) Dementia: PLAN: Acute weakness/failure to thrive -Patient has no sign of acute infection -Appears to be mildly dehydrated -We will run 1 L of normal saline at 75 cc/h -Consult physical therapy and Occupational Therapy -Per previous notes patient is sedentary the majority of the time and he has difficulty walking at baseline -We will likely need placement at discharge Normocytic anemia -Hemoglobin has dropped since most recent lab a year ago -Unclear if this is acute or chronic -Check iron studies/ferritin -Check Hemoccult -Monitor CBC -It is possible that this is related to his CKD CKD stage IIIb -Serum creatinine appears mildly elevated from where he has been in the past -Patient has seen Dr. Biswas in January 2021 and it appears his serum creatinine was 1.92 at that time -Gentle hydration with 1 L normal saline -Hold Lasix 20 mg at this time -This is suspected to be related to an underlying hypertensive nephropathy Hypertension -Blood pressure medications have been on hold as ordered by his manager molecular as he had borderline BPs in the office on his last hospitalization -Trend Hyperlipidemia -Continue atorvastatin 40 mg daily Hypothyroidism -Continue levothyroxine CAD -Patient has history of PCI with JOSE x2 to the mid and distal LAD and JOSE to the proximal circumflex both on in 2012 -Patient is currently only on atorvastatin History of secondary heart block-Lucy -Patient has been on beta-amos in the past this was discontinued related to this issue History of PE/DVT -Patient with chronic bilateral lower extremity edema related to his history of DVT -Patient is fully anticoagulated with apixaban 2.5 mg twice daily -Recent ultrasound of his bilateral lower extremities was performed and was negative for any acute clots PAF -Continue full anticoagulation HEMANT -Patient does not tolerate CPAP as an outpatient Dementia -Patient has been living at home with his -His daughter is POA -It appears per discussion with his that his dementia has been a problem for some time and has been worsening over time DVT prophylaxis -Patient is fully anticoagulated CODE STATUS -Full code per discussion with in the emergency department with -pt is non-decisional Disposition -Patient will most likely need placement at discharge Visit Charges Inpatient E&M: 84216 Init Hosp L3
--- NOTE | 2021-03-08 21:05 | CM.ED ---
CESARIO Assessment: Referral Source:Dr Biswas Reason for Referral Discharge Planning PCP: Shelbie Hawk JOINERS SUPERVISOR Specialists: Dr. Burnham for Heart and Dr. Vogel for Kidney/Bladder Preferred Pharmacy:? [facility] Insurance: [employer] Medicare Prescription Benefit:[employer] Medicare Part D Living Will/HPOA:? Patient's , Wilma, reports that patient has HPOA an Living Will. LNOK: Wilma Moreno, Living Arrangements: First floor house. Has basements but stated it's off limit. First floor laundry. One step into the house. Prior Level of Functioning: Patient reports he is able to do most things . Patient said that he bathes independently. He reports his cooks and helps him with dressing. Patient's said they have 4 daughters and 2 sons and they are wonderful help. DME:?? Patient said we have everything. He reports having a waker, cane and rollator. HHC/SNF: No past HHC or SNF placement. Assessment: Will continue to monitor for discharge needs. ? Plan:? Treatment team will continue to evaluate and assess for discharge needs. Makayla SHARMA
[2021-03-08] MEDS: APIXABAN 2.5 MG TABLET PO (23:01)
[2021-03-08] MEDS: Atorvastatin Calcium 40 MG Tablet PO (23:01)
[2021-03-08] MEDS: 0.9% Normal Saline 1,000 ML 75 ML IV (23:02)
[2021-03-08] MEDS: guaiFENesin 10 ML UDC (200MG/10ML) 20 ML PO (23:03)
[2021-03-09] VITALS (9 sets, daily range): BP systolic 136–164; BP diastolic 58–92; PULSE 75–94; RESP 18–24; TEMP 36.6–37.3; O2SAT 94–96
[2021-03-09] MEDS: guaiFENesin 10 ML UDC (200MG/10ML) 20 ML PO ×3 (03:04→20:42)
[2021-03-09 07:48] LABS: Absolute Lymphocyte Count 1.29 X10^3/uL (0.83-4.51); Absolute Neutrophil Count 8.9 X10^3/uL (2.0-7.7); Basophil# 0.04 X10^3/uL; Basophil% 0.3 % (0-1); Eosinophil# 0.55 X10^3/uL; Eosinophils% 4.6 % (0-5); Hematocrit 32.6 % (40-54); Hemoglobin 10.3 g/dL (13.0-16.5); Lymphocyte # 1.29 X10^3/ul (0.83-4.51); Lymphocyte % 10.8 % (19-41); Mean Corp Hgb Conc 31.6 g/dL (32-36); Mean Corpuscular Hgb 26.8 pg (27.0-32.0); Mean Corpuscular Volume 84.7 fL (80-94); Mean Platelet Vol. 11.7 fl (6.2-12.0); Monocyte# 1.08 X10^3/uL; Monocyte% 9.1 % (0-10); NRBC Flagged by Analyzer 0 % (0-5); Neutrophil % 74.9 % (47-70); Platelet Count 263 K/mm3 (150-450); RBC Distribution Width CV 15.6 % (11.6-14.6); RBC Distribution Width SD 47.7 fl (35.1-43.9); Red Blood Count 3.85 M/mm3 (4.6-6.2); White Blood Count 11.9 K/mm3 (4.4-11.0)
[2021-03-09 08:22] LABS: ALB/GLOB Ratio 0.7 RATIO (0.9-2.4); AST(SGOT) 35 U/L (15-37); Alanine Aminotransfer ALT/SGPT 17 U/L (16-61); Albumin, Serum 2.9 g/dL (3.2-5.0); Alkaline Phosphatase 83 U/L (45-117); Anion Gap 6 (5-15); BUN 18 mg/dL (7-18); Calcium,Total 8.5 mg/dL (8.5-10.1); Chloride 106 mmol/L (98-107); Creatinine, Serum 1.38 mg/dL (0.70-1.30); EST Glomerular Filtration Rate 52 mL/min (>60); Est Glom Filt Rate - Afr Amer 63 mL/min (>60); Estimated Creatinine Clearance 42.44 ml/min; Ferritin 24 ng/mL (26-388); Globulin 4.2 g/dL (2.2-4.2); Glucose 109 mg/dL (74-106); Iron 26 ug/dL (65-175); Iron Binding Capacity,Total 324 ug/dL (250-450); Phosphorus 3.1 mg/dL (2.5-4.9); Potassium 3.6 mmol/L (3.5-5.1); Protein, Total 7.1 g/dL (6.4-8.2); Sodium Level 137 mmol/L (136-145); Thyroid Stim Hormone (TSH) 6.11 uIU/mL (0.358-3.74)
[2021-03-09] MEDS: Cyanocobalamin 500 MCG Tablet 2500 MCG PO (11:32)
[2021-03-09] MEDS: APIXABAN 2.5 MG TABLET PO ×2 (11:32→20:50)
[2021-03-09] MEDS: Tolterodine Tartrate 4 MG CAP.SA PO (11:32)
[2021-03-09] MEDS: Acyclovir 200 MG Capsule 400 MG PO (11:33)
--- NOTE | 2021-03-09 15:34 | PN.HOSP_ITS ---
Subjective Subjective Patient was seen and examined. He is alert oriented to self 2+.hrobsi. she gives a history of progressive cognitive decline. Patient has been wandering around. Recently he was found to have eaten laundry soap -[employer] because he thought it was candy. His family is looking into long-term placement. Objective Data Objective Data Vital Signs: Vital Signs Temp Pulse Resp BP Pulse Ox 97.8 F 94 18 164/91 H 95 03/09/21 10:05 03/09/21 10:05 03/09/21 10:05 03/09/21 10:05 03/09/21 10:05 Oxygen Delivery Method Room Air Weight: 104 kg Body Mass Index (BMI) 31.9 Intake & Output: Intake and Output for Last 24 Hours 03/07/21 03/08/21 03/09/21 23:59 23:59 23:59 Intake Total 792.5 / 792.5 Output Total 450 / 450 Balance 342.5 / 342.5 Lab / Micro Data Result Diagrams: 03/09/21 07:27 03/09/21 07:27 Labs: Laboratory Results - last 24 hr 03/08/21 03/08/21 03/08/21 15:55 15:55 15:55 WBC 11.8 H RBC 4.02 L Hgb 10.7 L Hct 34.1 L MCV 84.8 MCH 26.6 L MCHC 31.4 L RDW Std Deviation 46.5 H RDW Coeff of Shruthi 15.2 H Plt Count 289 MPV 11.6 Immature Gran % (Auto) 0.400 Neut % (Auto) 80.3 H Lymph % (Auto) 9.0 L Crisp % (Auto) 7.4 Eos % (Auto) 2.6 Baso % (Auto) 0.3 Absolute Neuts (auto) 9.5 H Absolute Lymphs (auto) 1.06 Nucleated RBC % 0 Sodium 137 Potassium 3.6 Chloride 103 Carbon Dioxide 26.0 Anion Gap 8 BUN 22 H Creatinine 1.52 H Estim Creat Clear Calc 37.35 Est GFR (MDRD) Af Amer 56 L Est GFR (MDRD) Non-Af 47 L BUN/Creatinine Ratio 14.5 Glucose 122 H Calcium 8.5 Phosphorus Magnesium Iron TIBC Iron Saturation Ferritin Total Bilirubin AST ALT Alkaline Phosphatase Troponin I < 0.015 B-Natriuretic Peptide 316.8 H Total Protein Albumin Globulin Albumin/Globulin Ratio TSH Urine Color Urine Clarity Urine pH Ur Specific [place] Urine Protein Urine Glucose (UA) Urine Ketones Urine Occult Blood Urine Nitrite Urine Bilirubin Urine Urobilinogen Ur Leukocyte Esterase Urine RBC Urine WBC Ur Squamous Epith Cells Urine Bacteria Hyaline Casts Urine Mucus Urine Yeast 03/08/21 03/09/21 03/09/21 16:55 07:27 07:27 WBC 11.9 H RBC 3.85 L Hgb 10.3 L Hct 32.6 L MCV 84.7 MCH 26.8 L MCHC 31.6 L RDW Std Deviation 47.7 H RDW Coeff of Shruthi 15.6 H Plt Count 263 MPV 11.7 Immature Gran % (Auto) 0.300 Neut % (Auto) 74.9 H Lymph % (Auto) 10.8 L Crisp % (Auto) 9.1 Eos % (Auto) 4.6 Baso % (Auto) 0.3 Absolute Neuts (auto) 8.9 H Absolute Lymphs (auto) 1.29 Nucleated RBC % 0 Sodium 137 Potassium 3.6 Chloride 106 Carbon Dioxide 25.0 Anion Gap 6 BUN 18 Creatinine 1.38 H Estim Creat Clear Calc 42.44 Est GFR (MDRD) Af Amer 63 Est GFR (MDRD) Non-Af 52 L BUN/Creatinine Ratio 13.0 Glucose 109 H Calcium 8.5 Phosphorus 3.1 Magnesium 2.0 Iron 26 L TIBC 324 Iron Saturation 8.0 L Ferritin 24 L Total Bilirubin 1.00 AST 35 ALT 17 Alkaline Phosphatase 83 Troponin I B-Natriuretic Peptide Total Protein 7.1 Albumin 2.9 L Globulin 4.2 Albumin/Globulin Ratio 0.7 L TSH 6.11 H Urine Color Yellow Urine Clarity Sl. Cloudy Urine pH 5.0 Ur Specific [place] 1.015 Urine Protein Negative Urine Glucose (UA) Normal Urine Ketones Negative Urine Occult Blood 10 H Urine Nitrite Negative Urine Bilirubin Negative Urine Urobilinogen 1 H Ur Leukocyte Esterase 25 H Urine RBC 0-5 SEEN Urine WBC 10-25 SEEN Ur Squamous Epith Cells 0 SEEN Urine Bacteria 0 SEEN Hyaline Casts 10-25 SEEN Urine Mucus 1+ Urine Yeast 1+ Micro: Microbiology 03/08/21 16:07 Interface Orders SARS-CoV-2 Antigen (Rapid) - Final Radiography Diagnostic Testing: Radiology Impression Chest X-Ray 03/08/21 16:05 IMPRESSION: No definite acute or significant abnormality seen. Electronically Signed: Deacon Braga MD at 16:40 EDT , Service support , Physical Exam Const alert and no apparent distress Constitutional Narrative: Overweight white elderly male lying in bed, at bedside, patient is oriented only to self General Appearance: cooperative HEENT normocephalic, head/scalp atraumatic, hearing grossly normal bilaterally, moist oral mucous membranes and oropharynx normal Eyes PERRL, EOMs intact bilaterally and conjunctivae normal Neck no lymphadenopathy, supple, no JVD and no carotid bruits Resp normal respiratory effort, no retractions, no use of accessory muscles and clear to auscultation bilaterally Auscultation: Negative for crackles, rales, rhonchi or wheezes Cardio regular rate, S1 normal heart sound, S2 normal heart sound, no murmurs, no rub, no gallops, no clicks and no JVD Cardio Narrative: Irregularly irregular rhythm GI normal to inspection, nondistended, normoactive bowel sounds, soft to palpation, non-tender and non-distended; Negative for hepatosplenomegaly Auscultation: Negative for hyperactive bowel sounds or hypoactive bowel sounds Palpation: Negative for tender, guarding or hernia Extremity Extremity Narrative: No clubbing or cyanosis, 2+ pitting edema bilateral lower extremities Skin no wounds, skin turgor normal, no jaundice, no petechiae and no mottling Skin Narrative: Mild erythema medial left tibia distally, pale Neuro No oriented x3, CN's II-XII intact bilaterally, moves all extremities and no foc al motor deficits Neuro Narrative: Bilateral upper and lower extremity weakness proximal greater than distal, reflexes within normal limits Sensorium / Orientation: awake, alert and oriented to person; Negative for oriented to place or oriented to time Psych Psych Narrative: Pleasantly confused Mood & Affect: Negative for depressed or anxious Assessment & Plan Assessment/Plan (1) Acute weakness: (2) Atrial fibrillation: (3) Acute anemia: (4) Adult failure to thrive: (5) History of DVT (deep vein thrombosis): (6) CKD (chronic kidney disease) stage 3, GFR 30-59 ml/min: (7) Pulmonary embolism: (8) HEMANT (obstructive sleep apnea): (9) Chronic obstructive pulmonary disease: QUALIFIERS: COPD type: chronic bronchitis Chronic bronchitis type: simple Qualified Code(s): J41.0 - Simple chronic bronchitis (10) BPH (benign prostatic hyperplasia): (11) History of myocardial infarction: (12) Hyperlipidemia: QUALIFIERS: Hyperlipidemia type: unspecified Qualified Code(s): E78.5 - Hyperlipidemia, unspecified (13) Dementia: PLAN: 1. Debility/failure to thrive, likely related to poor p.o. intake Patient was admitted with MICHAEL He has a recent history of eating detergent We will continue on IV fluids, PT and OT 2. Recent esophagitis from detergent use, continue on oral PPI and sucralfate 3. Progressive decline in cognition, in a patient with history of dementia, slowly declining in cognition Family open to placing pt in some long-term facility. 4. Iron deficiency anemia, likely related to recent esophagitis from oral intake of detergent Iron stores are low, Will give IV Venofer to prevent worsening of esophagitis 5. CKD stage IIIb, baseline creatinine is about 1.1-1.2, admitted creatinine 1.52 We will continue to monitor labs in a.m. Continue to hold home Lasix 6. Rest of chronic medications -Hypertension, hyperlipidemia, hypothyroidism, CAD, h/o heart block, h/o heart block, PAF - all remain stable. Visit Charges Inpatient E&M: 06586 Subs Hosp L2
[2021-03-09] MEDS: Ipratropium/Albuterol Sulfate 3 ML AMPUL.NEB INHALATION ×2 (16:18→19:59)
[2021-03-09] MEDS: Atorvastatin Calcium 40 MG Tablet PO (20:50)
[2021-03-09] MEDS: Sucralfate 1 GM Tablet PO (20:50)
[2021-03-10] VITALS (14 sets, daily range): BP systolic 120–135; BP diastolic 58–80; PULSE 66–95; RESP 18–20; TEMP 36.7–37.1; O2SAT 94–95
[2021-03-10] MEDS: guaiFENesin 10 ML UDC (200MG/10ML) 20 ML PO ×2 (02:28→16:17)
[2021-03-10 05:40] LABS: Absolute Lymphocyte Count 1.52 X10^3/uL (0.83-4.51); Absolute Neutrophil Count 8.2 X10^3/uL (2.0-7.7); Basophil# 0.05 X10^3/uL; Basophil% 0.4 % (0-1); Eosinophil# 0.64 X10^3/uL; Eosinophils% 5.6 % (0-5); Hematocrit 33.3 % (40-54); Hemoglobin 10.3 g/dL (13.0-16.5); Lymphocyte # 1.52 X10^3/ul (0.83-4.51); Lymphocyte % 13.3 % (19-41); Mean Corp Hgb Conc 30.9 g/dL (32-36); Mean Corpuscular Hgb 26.4 pg (27.0-32.0); Mean Corpuscular Volume 85.4 fL (80-94); Mean Platelet Vol. 11.7 fl (6.2-12.0); Monocyte% 8.7 % (0-10); NRBC Flagged by Analyzer 0 % (0-5); Neutrophil # 8.19 X10^3/uL (2.7-7.7); Neutrophil % 71.7 % (47-70); Platelet Count 267 K/mm3 (150-450); RBC Distribution Width CV 15.6 % (11.6-14.6); RBC Distribution Width SD 47.7 fl (35.1-43.9); White Blood Count 11.4 K/mm3 (4.4-11.0)
[2021-03-10 05:59] LABS: ALB/GLOB Ratio 0.7 RATIO (0.9-2.4); AST(SGOT) 35 U/L (15-37); Alanine Aminotransfer ALT/SGPT 20 U/L (16-61); Albumin, Serum 2.7 g/dL (3.2-5.0); Alkaline Phosphatase 80 U/L (45-117); Anion Gap 8 (5-15); BUN 21 mg/dL (7-18); BUN/Creat Ratio 14.4 RATIO (10-20); Calcium,Total 8.3 mg/dL (8.5-10.1); Chloride 106 mmol/L (98-107); Creatinine, Serum 1.46 mg/dL (0.70-1.30); EST Glomerular Filtration Rate 49 mL/min (>60); Est Glom Filt Rate - Afr Amer 59 mL/min (>60); Estimated Creatinine Clearance 40.11 ml/min; Globulin 4.1 g/dL (2.2-4.2); Glucose 97 mg/dL (74-106); Potassium 3.7 mmol/L (3.5-5.1); Protein, Total 6.8 g/dL (6.4-8.2); Sodium Level 138 mmol/L (136-145)
[2021-03-10] MEDS: Sucralfate 1 GM Tablet PO ×4 (06:17→22:08)
[2021-03-10] MEDS: Levothyroxine 25 MCG TABLET PO (06:17)
[2021-03-10] MEDS: Ipratropium/Albuterol Sulfate 3 ML AMPUL.NEB INHALATION ×4 (07:06→18:42)
--- NOTE | 2021-03-10 10:10 | CASEMGMT ---
RN NICOLE Assessment: Face to Face with pt for initial transition planning/care coordination assessment. RN NICOLE introduced self and role at [facility] [place], pt voices understanding and consents to assessment. Pt is lying in bed in no distress. Pt at bedside and asks this CM to ask her the question d/t the patient's dementia. Care providers, pharmacy, and demographics verified/updated. Admitting Dx: FTT, weakness, afib, anemia PCP: Shelbie Hawk INFORMATION TECHNOLOGY MANAGER Specialists: [place], cardio; Regina, uro Preferred Pharmacy: [facility] Insurance: [facility] Prescription Benefit: yes LW/HPOA: Pt reports pt does have LW/DPOA. DPOA is son in law Jose Rowe. She is aware it is not on file at [facility] [place] and may bring in to be scanned in to chart. LNOK: Wilma Moreno, ; Kayla Telles, dtr; Jose Rowe, son in law Living Arrangements: Pt lives with in a single story house with 1 step to enter. assists in ADL's. States pt was ambulating until this weekend. Transportation: Pt dtrs transport pt to medical appts. Denies concerns with transportation. DME/HHC/SNF: Pt has a walkin shower at home, shower chair, cane, walker, crutches and grab bars. Pt has had [facility] before and denies any SNF. Pt states she is unable to care for pt at home d/t him not being able to ambulate. She wishes to speak with SW for short term therapy. CM notified Svitlana NASSAR. Advised pt to ask CM if any further question/concerns/needs arise, voices understanding. Pt goal: S/T SNF placement Plan: S/T SNF placement
[2021-03-10] MEDS: Cyanocobalamin 500 MCG Tablet 2500 MCG PO (10:13)
[2021-03-10] MEDS: APIXABAN 2.5 MG TABLET PO ×2 (10:13→22:08)
[2021-03-10] MEDS: Tolterodine Tartrate 4 MG CAP.SA PO (10:13)
[2021-03-10] MEDS: Pantoprazole Sodium 40 MG Tablet PO (10:13)
[2021-03-10] MEDS: Acyclovir 200 MG Capsule 400 MG PO (10:14)
--- NOTE | 2021-03-10 10:30 | CASEMGMT ---
SW met with patient's . Introduced self and role at [facility]. SW asked if she knew where she would like patient to go at discharge. She wants her daughter to help make the decision. SW provided Patient's with a list of SNF providers including quality and resource use data and consistent with the patient?s preferred geographic region, medical needs, and insurance network. SW highlighted the facilities in pink that are in network with his insurance. SW told her whenever she can have her daughter come in that would be helpful. She will call her daughter. She saw [facility] on the list and said that may be a possibility. SW asked her if the plan is to take him home after rehab. She said that is what she hopes to do. Svitlana DUNN
--- NOTE | 2021-03-10 11:31 | EKG12_ITS ---
Test Reason : Blood Pressure : / mmHG Vent. Rate : 077 BPM Atrial Rate : 080 BPM P-R Int : 232 ms QRS Dur : 074 ms QT Int : 392 ms P-R-T Axes : 021 009 017 degrees QTc Int : 443 ms Sinus rhythm with sinus arrhythmia with 1st degree A-V block Low voltage QRS Borderline ECG When compared with ECG of 08-MAR-2021 16:08, MANUAL COMPARISON REQUIRED, DATA IS UNCONFIRMED Confirmed by DERRICK ÁLVAERZ, MICHAEL ([id number]), social media editor SAMANTHA MARCOS ([id number]) on 03/11/2021 9:40:21 AM Referred By: INDER Confirmed By:MICHAEL MEZA MD
--- NOTE | 2021-03-10 12:05 | CASEMGMT ---
SW spoke with patient's and 2 of her daughters. SW explained the list of SNFs that they were given. SW explained the facilities highlighted in pink are the ones that are in network with his insurance. They asked about TCU and visitation. SW explained that since he has not had his COVID vaccines he will have to quarantine for 14 days which means no visitors during that time. After that they can schedule visits. They asked about patient going to an out of network facility as they have looked at [facility] in the past. CESARIO told them SW will call Ruth to find out his benefits. SW called Ruth and his benefits are as follows: In network: after $150 deductible is met and $1500 max out of pocket is met patient will be covered at 100%. Patient has met $134.96 of the deductible and $239.96 of his max out of pocket. Out of network: After $500 deductible is paid and the max out of pocket of $2500 is met he will be covered at 92%. He has not met any of this deductible or max out of pocket for out of network. SW wrote down this information and gave it to patient's and daughter along with explaining it. They are going to talk and will let SW know which facility they would prefer. SW let them know that it would be preferable for them to pick at least 3 options. Svitlana Gonzalez EMBOSSING MACHINE OPERATOR HELPER MONA
--- NOTE | 2021-03-10 12:42 | CHAPLAIN ---
Type of Pastoral Visit _x__ Initial Visit ___ Follow-up Visit ___ On-call Visit ___ General Patient Visit ___ Spiritual Assessment ___ Family Conference ___ Bereavement ___ Rapid Response ___ Code Blue ___ Other (describe below) Pastoral Care Referral From ___ Patient _x__ Family ___ Nurse ___ Physician ___ Baton Twirler ___ Medicine Tech ___ Other (describe below) Sacrament/Intervention _x__ Active listening ___ Anointing ___ Church ___ Bereavement ___ Communion ___ Belkis exploration ___ ___ Life review _x__ Prayer ___ Reconciliation ___ Sacrament of Sick _x__ Supportive presence ___ Wedding ___ Other (describe below) Pastoral Comments
--- NOTE | 2021-03-10 13:39 | CASEMGMT ---
Patient's daughter stopped by the desk and she is going to face time with family and will then let SW know their choices. Svitlana Gonzalez PRODUCT DISTRIBUTION SPECIALIST MONA
--- NOTE | 2021-03-10 15:49 | CASEMGMT ---
CESARIO spoke with patient's daughter and they can take patient. She will start the pre-cert. SW notified patient's and daughter. SW explained he will wait in the hospital until insurance approves. CESARIO reiterated that because patient has not had his COVID vaccines he will have to quarantine for 14 days and that means no visitors during that time. They want to make sure patient's gets to see him before he moves to TCU. CESARIO told them this should not be a problem. Plan: [facility] TCU pending insurance approval. Svitlana DUNN
--- NOTE | 2021-03-10 17:38 | PCM.PN.HOSP ---
Subjective Subjective Patient does not have shortness of breath, chest tightness/chest pain. Does not feel irregular heartbeat. insight director shows Wenke type block. Objective Data Objective Data Vital Signs: Vital Signs Temp Pulse Resp BP Pulse Ox 98.2 F 84 18 120/61 94 03/10/21 16:00 03/10/21 16:00 03/10/21 16:00 03/10/21 16:00 03/10/21 16:00 Oxygen Delivery Method Room Air Weight: 226 lb 10.163 oz Body Mass Index (BMI) 31.9 Intake & Output: Intake and Output for Last 24 Hours 03/08/21 03/09/21 03/10/21 23:59 23:59 23:59 Intake Total 1152.5 / 1352.5 790 / 790 Output Total 650 / 650 Balance 502.5 / 702.5 790 / 790 Lab / Micro Data Result Diagrams: 03/10/21 05:25 03/10/21 05:25 Labs: Laboratory Results - last 24 hr 03/10/21 03/10/21 05:25 05:25 WBC 11.4 H RBC 3.90 L Hgb 10.3 L Hct 33.3 L MCV 85.4 MCH 26.4 L MCHC 30.9 L RDW Std Deviation 47.7 H RDW Coeff of Shruthi 15.6 H Plt Count 267 MPV 11.7 Immature Gran % (Auto) 0.300 Neut % (Auto) 71.7 H Lymph % (Auto) 13.3 L [place] % (Auto) 8.7 Eos % (Auto) 5.6 H Baso % (Auto) 0.4 Absolute Neuts (auto) 8.2 H Absolute Lymphs (auto) 1.52 Nucleated RBC % 0 Sodium 138 Potassium 3.7 Chloride 106 Carbon Dioxide 24.0 Anion Gap 8 BUN 21 H Creatinine 1.46 H Estim Creat Clear Calc 40.11 Est GFR (MDRD) Af Amer 59 L Est GFR (MDRD) Non-Af 49 L BUN/Creatinine Ratio 14.4 Glucose 97 Calcium 8.3 L Total Bilirubin 1.00 AST 35 ALT 20 Alkaline Phosphatase 80 Total Protein 6.8 Albumin 2.7 L Globulin 4.1 Albumin/Globulin Ratio 0.7 L Micro: Microbiology 03/08/21 16:55 Urine Catheter - Catheter Urine Culture - Preliminary Gram positive dre 03/08/21 16:07 Interface Orders SARS-CoV-2 Antigen (Rapid) - Final Physical Exam Narrative General: Alert, Oriented x3, Cooperative HEENT: Atraumatic, PERRLA, EOMI, Normocephalic Oral: No Gingival or Mucosal Lesions/ Ulcerations Neck: Supple, No JVD, Negative Carotid Bruits Lungs: Air entry diminished in bilateral lung bases. No crepitation/rhonchi Cardiovascular: Dropped heartbeat with Wenckebach type block, Normal S1, Normal S2, systolic murmur over LSB Abdomen: Bowel Sounds Present, Soft, Non Tender, no distention : On hemodialysis. No renal angle tenderness. No suprapubic tenderness. Extremities: No significant lower extremity edema, Capillary Refill Less than 3 Seconds Skin: No rashes, No breakdown Musculoskeletal: No Tenderness to Palpation of Joints or Extremities Neurological: Cranial nerves II-XII grossly intact, Deep Tendon Reflexes 2+/4 and Symmetrical, Neuro grossly intact Psych/Mental Status: Normal Affect, Appropriate. Assessment & Plan Assessment/Plan (1) Acute weakness: (2) Atrial fibrillation: (3) Acute anemia: (4) Adult failure to thrive: (5) History of DVT (deep vein thrombosis): (6) CKD (chronic kidney disease) stage 3, GFR 30-59 ml/min: (7) Pulmonary embolism: (8) HEMANT (obstructive sleep apnea): (9) Chronic obstructive pulmonary disease: QUALIFIERS: COPD type: chronic bronchitis Chronic bronchitis type: simple Qualified Code(s): J41.0 - Simple chronic bronchitis (10) BPH (benign prostatic hyperplasia): (11) History of myocardial infarction: (12) Hyperlipidemia: QUALIFIERS: Hyperlipidemia type: unspecified Qualified Code(s): E78.5 - Hyperlipidemia, unspecified (13) Dementia: PLAN: 1. Wenckebach type second-degree AV block: Twelve-lead EKG reviewed consistent with acute type block. Discussed with the cluster bore operator, Dr. Dunlap. Currently patient heart rate is in 70s and is asymptomatic. Patient last echo in October 2019 shows EF 60% with LV systolic function normal normal left and right atrium. Mild TR. Patient has history heart block, PAF. Not on rate control medications Debility/failure to thrive, likely related to poor p.o. intake. PT and OT. On IV fluid. 2. Recent esophagitis from detergent use, continue on oral PPI and sucralfate 3. Progressive decline in cognition, in a patient with history of dementia, slowly declining in cognition: Will need long-term nursing facility. Family open to placing pt in some long-term facility. 4. Iron deficiency anemia, likely related to recent esophagitis from oral intake of detergent Iron stores are low, Patient had Venofer to prevent worsening of esophagitis and hemoglobin improved to 10.3. 5. MICHAEL on CKD stage IIIb, baseline creatinine is about 1.1-1.2, admitted creatinine 1.52. Follow-up creatinine shows mild decrease but not significant. Hold Lasix. Monitor kidney function. 6. Rest of chronic medications -Hypertension, hyperlipidemia, hypothyroidism, CAD - all remain stable. Microbiology Past 72 Hours 03/08/21 16:55 Urine Catheter - Catheter Urine Culture - Preliminary Gram positive dre 03/08/21 16:07 Interface Orders SARS-CoV-2 Antigen (Rapid) - Final Laboratory Results 03/10/21 05:25: WBC 11.4 H, RBC 3.90 L, Hgb 10.3 L, Hct 33.3 L, MCV 85.4, MCH 26.4 L, MCHC 30.9 L, RDW Std Deviation 47.7 H, RDW Coeff of Shruthi 15.6 H, Plt Count 267, MPV 11.7, Immature Gran % (Auto) 0.300, Neut % (Auto) 71.7 H, Lymph % (Auto) 13.3 L, [place] % (Auto) 8.7, Eos % (Auto) 5.6 H, Baso % (Auto) 0.4, Absolute Neuts (auto) 8.2 H, Absolute Lymphs (auto) 1.52, Nucleated RBC % 0 03/10/21 05:25: Sodium 138, Potassium 3.7, Chloride 106, Carbon Dioxide 24.0, Anion Gap 8, BUN 21 H, Creatinine 1.46 H, Estim Creat Clear Calc 40.11, Est GFR (MDRD) Af Amer 59 L, Est GFR (MDRD) Non-Af 49 L, BUN/Creatinine Ratio 14.4, Glucose 97, Calcium 8.3 L, Total Bilirubin 1.00, AST 35, ALT 20, Alkaline Phosphatase 80, Total Protein 6.8, Albumin 2.7 L, Globulin 4.1, Albumin/Globulin Ratio 0.7 L Visit Charges Inpatient E&M: 14284 Subs Hosp L2
[2021-03-10] MEDS: Atorvastatin Calcium 40 MG Tablet PO (22:08)
[2021-03-11] VITALS (14 sets, daily range): BP systolic 136–154; BP diastolic 66–79; PULSE 70–88; RESP 16–24; TEMP 36.5–37; O2SAT 91–96
[2021-03-11] MEDS: guaiFENesin 10 ML UDC (200MG/10ML) 20 ML PO ×2 (00:32→06:10)
[2021-03-11] MEDS: Levothyroxine 25 MCG TABLET PO (06:10)
[2021-03-11] MEDS: Sucralfate 1 GM Tablet PO ×4 (06:10→21:12)
[2021-03-11] MEDS: Ipratropium/Albuterol Sulfate 3 ML AMPUL.NEB INHALATION ×4 (07:05→19:45)
[2021-03-11] MEDS: Pantoprazole Sodium 40 MG Tablet PO (09:57)
[2021-03-11] MEDS: Cyanocobalamin 500 MCG Tablet 2500 MCG PO (09:57)
[2021-03-11] MEDS: Tolterodine Tartrate 4 MG CAP.SA PO (09:58)
[2021-03-11] MEDS: Acyclovir 200 MG Capsule 400 MG PO (09:58)
[2021-03-11] MEDS: APIXABAN 2.5 MG TABLET PO ×2 (09:58→21:12)
--- NOTE | 2021-03-11 11:46 | CASEMGMT ---
Late entry for 03/10/21 Pt screened with [facility] Palliative Care Tool, pt met criteria. Notified Svitlana NASSAR as pt to dc to TCU.
--- NOTE | 2021-03-11 12:28 | CASEMGMT ---
CESARIO spoke with patient's daughter per her request. SW answered her questions. SW told her there is also the possibility that insurance could deny him going to TCU. SW let her know SW will let them know as soon as CESARIO hears anything. Svitlana Gonzalez MSW MONA
[2021-03-11] MEDS: guaiFENesin 1,200 MG Tablet 1200 MG PO ×2 (13:40→21:11)
--- NOTE | 2021-03-11 14:39 | CASEMGMT ---
CESARIO received a call from Teri and patient was denied SNF level of care. SW spoke with patient's and daughter and let them know this information. Patient's daughter asked what to do now. CESARIO explained the [facility] physician can do a peer to peer with the doctor from the insurance company. Sometimes this works and the decision gets reversed. CESARIO also said other options include patient being discharged home with home health or go to another facility private pay. She was going to talk with her mom and siblings to figure out the next step. Svitlana Gonzalez FRUIT BAR MAKER MONA
--- NOTE | 2021-03-11 16:45 | PCM.PN.HOSP ---
Subjective Subjective Patient has mild cough but denies any dysphagia. No fever. Discussed with the patient, patient's and daughter near the bedside. Objective Data Objective Data Vital Signs: Vital Signs Temp Pulse Resp BP Pulse Ox 97.7 F L 88 18 139/74 H 96 03/11/21 16:00 03/11/21 16:00 03/11/21 16:00 03/11/21 16:00 03/11/21 16:00 Oxygen Delivery Method Room Air Weight: 227 lb 15.327 oz Body Mass Index (BMI) 31.9 Intake & Output: Intake and Output for Last 24 Hours 03/09/21 03/10/21 03/11/21 23:59 23:59 23:59 Intake Total 1152.5 / 1352.5 1030 / 1030 300 / 300 Output Total 650 / 650 400 / 400 Balance 502.5 / 702.5 1030 / 1030 -100 / -100 Lab / Micro Data Result Diagrams: 03/10/21 05:25 03/10/21 05:25 Micro: Microbiology 03/08/21 16:55 Urine Catheter - Catheter Urine Culture - Preliminary Gram positive dre 03/08/21 16:07 Interface Orders SARS-CoV-2 Antigen (Rapid) - Final Physical Exam Narrative General: Alert, Oriented x3, Cooperative HEENT: Atraumatic, PERRLA, EOMI, Normocephalic Oral: No Gingival or Mucosal Lesions/ Ulcerations Neck: Supple, No JVD, Negative Carotid Bruits Lungs: Air entry diminished in bilateral lung bases. No crepitation/rhonchi. Lungs clear Cardiovascular: Dropped heartbeat with Wenckebach type block, Normal S1, Normal S2, systolic murmur over LSB Abdomen: Bowel Sounds Present, Soft, Non Tender, no distention : On hemodialysis. No renal angle tenderness. No suprapubic tenderness. Extremities: No significant lower extremity edema, Capillary Refill Less than 3 Seconds Skin: No rashes, No breakdown Musculoskeletal: No Tenderness to Palpation of Joints or Extremities Neurological: Cranial nerves II-XII grossly intact, Deep Tendon Reflexes 2+/4 and Symmetrical, Neuro grossly intact Psych/Mental Status: Normal Affect, Appropriate. Assessment & Plan Assessment/Plan (1) Acute weakness: (2) Atrial fibrillation: (3) Acute anemia: (4) Adult failure to thrive: (5) History of DVT (deep vein thrombosis): (6) CKD (chronic kidney disease) stage 3, GFR 30-59 ml/min: (7) Pulmonary embolism: (8) HEMANT (obstructive sleep apnea): (9) Chronic obstructive pulmonary disease: QUALIFIERS: COPD type: chronic bronchitis Chronic bronchitis type: simple Qualified Code(s): J41.0 - Simple chronic bronchitis (10) BPH (benign prostatic hyperplasia): (11) History of myocardial infarction: (12) Hyperlipidemia: QUALIFIERS: Hyperlipidemia type: unspecified Qualified Code(s): E78.5 - Hyperlipidemia, unspecified (13) Dementia: PLAN: 1. Wenckebach type second-degree AV block: Twelve-lead EKG reviewed consistent with acute type block. Discussed with the interior design faculty member, Dr. Dunlap. Currently patient heart rate is in 70s and is asymptomatic. Patient last echo in October 2019 shows EF 60% with LV systolic function normal normal left and right atrium. Mild TR. Patient has history heart block, PAF. Not on rate control medications 03/11: No significant heart block or drop of QRS complex observed in desizing pad operator. I discussed in detail regarding Wenckebach type heart block to patient's daughter with diagram. Advised follow-up with Dr. Burnham. No need for active intervention like pacemaker. Heart rate in 70s and I do not think patient's fall was related to heart block. Debility/failure to thrive, likely related to poor p.o. intake. PT and OT. On IV fluid. 2. Recent esophagitis from detergent use, continue on oral PPI and sucralfate. Follow-up PCP as an outpatient. 3. Progressive decline in cognition, in a patient with history of dementia, slowly declining in cognition: Will need long-term nursing facility. Family open to placing pt in some long-term facility. 4. Iron deficiency anemia, likely related to recent esophagitis from oral intake of detergent Iron stores are low, Patient had Venofer to prevent worsening of esophagitis and hemoglobin improved to 10.3. 5. MICHAEL on CKD stage IIIb, baseline creatinine is about 1.1-1.2, admitted creatinine 1.52. Follow-up creatinine shows mild decrease but not significant. Hold Lasix. Monitor kidney function. 6. Rest of chronic medications -Hypertension, hyperlipidemia, hypothyroidism, CAD - all remain stable. Microbiology Past 72 Hours 03/08/21 16:55 Urine Catheter - Catheter Urine Culture - Preliminary Gram positive dre 03/08/21 16:07 Interface Orders SARS-CoV-2 Antigen (Rapid) - Final Visit Charges Inpatient E&M: 64937 Subs Hosp L2
[2021-03-11] MEDS: Atorvastatin Calcium 40 MG Tablet PO (21:12)
[2021-03-12] VITALS (14 sets, daily range): BP systolic 120–149; BP diastolic 46–88; PULSE 67–94; RESP 16–32; TEMP 36.3–36.8; O2SAT 92–97
[2021-03-12] MEDS: Ipratropium/Albuterol Sulfate 3 ML AMPUL.NEB INHALATION ×5 (01:38→19:13)
[2021-03-12] MEDS: Levothyroxine 25 MCG TABLET PO (06:16)
[2021-03-12] MEDS: Sucralfate 1 GM Tablet PO ×3 (06:16→22:50)
[2021-03-12] MEDS: Tolterodine Tartrate 4 MG CAP.SA PO (09:07)
[2021-03-12] MEDS: guaiFENesin 1,200 MG Tablet 1200 MG PO ×2 (09:07→22:50)
[2021-03-12] MEDS: Acyclovir 200 MG Capsule 400 MG PO (09:07)
[2021-03-12] MEDS: APIXABAN 2.5 MG TABLET PO ×2 (09:07→22:51)
[2021-03-12] MEDS: Pantoprazole Sodium 40 MG Tablet PO (09:07)
[2021-03-12] MEDS: Cyanocobalamin 500 MCG Tablet 2500 MCG PO (09:08)
--- NOTE | 2021-03-12 09:15 | RAD_ITS ---
STUDY: X-RAY CHEST REASON FOR EXAM: Male, 85 years old. Cough TECHNIQUE: AP and lateral views of the chest. COMPARISON: 03/08/2021 FINDINGS: There is left basilar retrocardiac airspace consolidation, increased since prior exam. There is no demonstrated pleural abnormality. There is moderate cardiac enlargement. Normal mediastinum and olga lidia. Normal visualized pulmonary arteries. Normal visualized aortic arch and descending thoracic aorta. Normal visualized thoracic spine. Normal visualized ribs, clavicles, and shoulders. There is no demonstrated abnormality of the visualized soft tissue structures of the upper abdomen. RAD/Chest PA and Lateral IMPRESSION: Left basilar pneumonia, increased since prior exam. Electronically Signed: Maira Romo MD at 14:23 EDT Tel , Service support ,
[2021-03-12] MEDS: Loratadine 10 MG Tablet PO (10:20)
--- NOTE | 2021-03-12 10:34 | CASEMGMT ---
Patient's daughter arrived at [facility]. SW asked if they want the physician to do the peer to peer. They do want this done. SW called and arranged for the peer to peer. Physician did the peer to peer and the denial is upheld. SW told patient's daughter this information. She said what does that mean as far as his discharge. CESARIO told her that as of yesterday the physician said he is ready for discharge. Therefore we need to find a place for him today. She asked what happens if they don't and CESARIO told her he would stay until we have a safe d/c plan. CESARIO reminded her however, that this is why we talked yesterday so she could talk with family about a plan for his discharge today. She said she is aware, but today he is worse. CESARIO told her that SW is going off of what the doctor said yesterda so he could come in and say he plans on keeping him. However, we need a plan. Svitlana Gonzalez SENIOR BUSINESS BROKER MONA
--- NOTE | 2021-03-12 11:35 | CASEMGMT ---
CESARIO received a phone call from Rachelle at [facility]. She said that she spoke with patient's daughter. She checked his benefits and he has good out of network benefits. She asked if CESARIO could send her referral information so she could try and get him approved. CESARIO told her he was denied by insurance for [facility] facility. CESARIO told her the physician even did a peer to peer and he was still denied. CESARIO told her SW explianed to soumya's daughter that the options are now going to a alf private pay or home with home health which is likely not the safest plan. Rachelle said they do have beds on their long-term memory care unit. CESARIO told her SW will talk with her daughter and make sure she understands. CESARIO spoke with patient's daughter and let her know that patient was denied to go to a [facility] facility and that includes [facility]. She said that insurance said he needs intermediate card tender care. CESARIO told her that is correct but that is not something his [employer] would pay for that is why CESARIO said he would have to go private pay. CESARIO told her if he has a intermediate card tender care policy that may pay for long-term. She said she thinks they have one and she is going to go look for it. CESARIO asked if she wanted SW to send a referral to [facility] so they can review it. She said she does not have an answer for that question. She said she has 5 siblings she has to talk with as well. CESARIO then received a message to call Fei at patient's doctor's office. CESARIO called Fei [facility]. She said patient's daughter called her and said that patient can't go home. Fei is not sure what she wanted them to do. CESARIO explained patient was denied by insurance to go to a alf short term under his insurance. CESARIO told her now the options are going home with home health which would likely not be the safest option or private pay at a facility. She thanked CESARIO for the update and she will reiterate this to the daughter. Svitlana DUNN
[2021-03-12] MEDS: 0.9% Saline Lock 10 ML Syringe IV (12:05)
[2021-03-12] MEDS: Benzonatate 100 MG Capsule 200 MG PO ×3 (12:41→23:11)
--- NOTE | 2021-03-12 14:55 | PN.HOSP_ITS ---
Subjective Subjective Patient cough got more severe as compared to yesterday mainly dry. No fever or chills. No dysphagia. Discussed with the nursing staff. Objective Data Objective Data Vital Signs: Vital Signs Temp Pulse Resp BP Pulse Ox 97.4 F L 67 32 H 149/88 H 94 03/12/21 08:00 03/12/21 11:21 03/12/21 11:21 03/12/21 08:00 03/12/21 08:00 Oxygen Delivery Method Room Air Weight: 225 lb 8.526 oz Body Mass Index (BMI) 31.9 Intake & Output: Intake and Output for Last 24 Hours 03/10/21 03/11/21 03/12/21 23:59 23:59 23:59 Intake Total 1030 / 1030 300 / 420 740 / 740 Output Total 400 / 400 Balance 1030 / 1030 -100 / 20 740 / 740 Lab / Micro Data Result Diagrams: 03/10/21 05:25 03/10/21 05:25 Micro: Microbiology 03/08/21 16:55 Urine Catheter - Catheter Urine Culture - Preliminary Gram positive dre 03/08/21 16:07 Interface Orders SARS-CoV-2 Antigen (Rapid) - Final Radiography Diagnostic Testing: Radiology Impression Chest X-Ray 03/12/21 09:15 IMPRESSION: Left basilar pneumonia, increased since prior exam. Electronically Signed: Maira Romo MD at 14:23 EDT Tel , Service support , Physical Exam Narrative Physical exam General: Alert, Oriented x3, Cooperative HEENT: Atraumatic, PERRLA, EOMI, Normocephalic Oral: No active inflammation or redness in the oropharyngeal region. No Gingival or Mucosal Lesions/ Ulcerations Neck: Supple, No JVD, Negative Carotid Bruits Lungs: Air entry diminished in bilateral lung bases. Bilateral expiratory wheezing. Cardiovascular: Dropped heartbeat with Wenckebach type block, Normal S1, Normal S2, systolic murmur over LSB Abdomen: Bowel Sounds Present, Soft, Non Tender, no distention : On hemodialysis. No renal angle tenderness. No suprapubic tenderness. Extremities: No significant lower extremity edema, Capillary Refill Less than 3 Seconds Skin: No rashes, No breakdown Musculoskeletal: No Tenderness to Palpation of Joints or Extremities Neurological: Cranial nerves II-XII grossly intact, Deep Tendon Reflexes 2+/4 and Symmetrical, Neuro grossly intact Psych/Mental Status: Normal Affect, Appropriate. Assessment & Plan Assessment/Plan (1) Acute weakness: (2) Atrial fibrillation: (3) Acute anemia: (4) Adult failure to thrive: (5) History of DVT (deep vein thrombosis): (6) CKD (chronic kidney disease) stage 3, GFR 30-59 ml/min: (7) Pulmonary embolism: (8) HEMANT (obstructive sleep apnea): (9) Chronic obstructive pulmonary disease: QUALIFIERS: COPD type: chronic bronchitis Chronic bronchitis type: simple Qualified Code(s): J41.0 - Simple chronic bronchitis (10) BPH (benign prostatic hyperplasia): (11) History of myocardial infarction: (12) Hyperlipidemia: QUALIFIERS: Hyperlipidemia type: unspecified Qualified Code(s): E78.5 - Hyperlipidemia, unspecified (13) Dementia: PLAN: 1. Wenckebach type second-degree AV block: Twelve-lead EKG reviewed consistent with acute type block. Discussed with the technical sourcing recruiter, Dr. Dunlap. Currently patient heart rate is in 70s and is asymptomatic. Patient last echo in October 2019 shows EF 60% with LV systolic function normal normal left and right atrium. Mild TR. Patient has history heart block, PAF. Not on rate control medications 03/11: No significant heart block or drop of QRS complex observed in color television console monitor. I discussed in detail regarding Wenckebach type heart block to patient's daughter with diagram. Advised follow-up with Dr. Burnham. No need for active intervention like pacemaker. Heart rate in 70s and I do not think patient's fall was related to heart block. 03/12: Sinus rhythm at 90 with PVCs. No recurrence of Wenckebach block. Debility/failure to thrive, likely related to poor p.o. intake. PT and OT. On IV fluid. 03/13: DC IV fluid. 2. Recent esophagitis from detergent use, continue on oral PPI and sucralfate. Follow-up PCP as an outpatient. 03/12: Persistent cough, dry with wheezing probably allergic bronchitis with left basilar pneumonia: Discussed with the patient's daughter in detail. I also discussed with the shape brick molder Dr. Seo. Chest x-ray repeated Which is reported as left retrocardiac shadow/left basilar pneumonia increased from previous x-ray. Leukocytosis similar about 12,000. Repeat labs ordered. Started on IV ceftriaxone and Zithromax. Incentive spirometry and chest physiotherapy. With suspicion of chemical pneumonitis, Claritin, IV Solu-Medrol and Mucinex already started. 3. Progressive decline in cognition, in a patient with history of dementia, slowly declining in cognition: Will need long-term nursing facility. Family open to placing pt in some long-term facility. 4. Iron deficiency anemia, likely related to recent esophagitis from oral intake of detergent Iron stores are low, Patient had Venofer to prevent worsening of esophagitis and hemoglobin improved to 10.3. 5. MICHAEL on CKD stage IIIb, baseline creatinine is about 1.1-1.2, admitted creatinine 1.52. Follow-up creatinine shows mild decrease but not significant. Hold Lasix. Monitor kidney function. 6. Rest of chronic medications -Hypertension, hyperlipidemia, hypothyroidism, CAD - all remain stable. Total time of the visit including total time spent in counseling or coordination of care, (more than 50% of the total time, spent in obtaining medical information from nurses and other ancillary care providers,explaining to the patient about labs, imaging, diagnosis and management), discussion with pulmon ologist and clinical update to patient's daughter, review of labs and imaging is 30 minutes. Microbiology Past 72 Hours 03/08/21 16:55 Urine Catheter - Catheter Urine Culture - Preliminary Gram positive dre 03/08/21 16:07 Interface Orders SARS-CoV-2 Antigen (Rapid) - Final Clinical Impression(s) from Imaging Studies Chest X-Ray 03/08/21 16:05 IMPRESSION: No definite acute or significant abnormality seen. Chest X-Ray 03/12/21 09:15 IMPRESSION: Left basilar pneumonia, increased since prior exam. Visit Charges Inpatient E&M: 83598 Subs Hosp L3
--- NOTE | 2021-03-12 15:26 | CASEMGMT ---
Physician spoke with patient's daughter and he is keeping patient today. Svitlana Gonzalez SCALE ADJUSTER MONA
--- NOTE | 2021-03-12 15:37 | NURSING ---
pt very lethargic this afternoon. coughing continues however and rr 28. vs otherwise stable and continues on ra at 92%. speech in to assess but pt unable to fully participate d/t being fatigued. spoke with dr. chen regarding and new orders in. family in at bedside and updated on orders.
[2021-03-12] MEDS: Furosemide 40 MG/4 ML Vial IV (15:59)
[2021-03-12 16:29] LABS: Absolute Lymphocyte Count 0.79 X10^3/uL (0.83-4.51); Absolute Neutrophil Count 10.6 X10^3/uL (2.0-7.7); Basophil# 0.03 X10^3/uL; Basophil% 0.3 % (0-1); Eosinophils% 0.8 % (0-5); Hematocrit 36.8 % (40-54); Hemoglobin 11.2 g/dL (13.0-16.5); Lymphocyte # 0.79 X10^3/ul (0.83-4.51); Lymphocyte % 6.7 % (19-41); Mean Corp Hgb Conc 30.4 g/dL (32-36); Mean Corpuscular Hgb 26.2 pg (27.0-32.0); Mean Platelet Vol. 11.9 fl (6.2-12.0); Monocyte# 0.21 X10^3/uL; Monocyte% 1.8 % (0-10); NRBC Flagged by Analyzer 0 % (0-5); Neutrophil # 10.63 X10^3/uL (2.7-7.7); Neutrophil % 89.6 % (47-70); Platelet Count 303 K/mm3 (150-450); Red Blood Count 4.28 M/mm3 (4.6-6.2); White Blood Count 11.9 K/mm3 (4.4-11.0)
[2021-03-12 16:49] LABS: Anion Gap 6 (5-15); BUN 19 mg/dL (7-18); BUN/Creat Ratio 12.7 RATIO (10-20); Calcium,Total 8.7 mg/dL (8.5-10.1); Chloride 106 mmol/L (98-107); EST Glomerular Filtration Rate 47 mL/min (>60); Est Glom Filt Rate - Afr Amer 57 mL/min (>60); Estimated Creatinine Clearance 39.04 ml/min; Glucose 139 mg/dL (74-106); Potassium 4.1 mmol/L (3.5-5.1); Sodium Level 137 mmol/L (136-145)
[2021-03-12] MEDS: Atorvastatin Calcium 40 MG Tablet PO (22:52)
[2021-03-12] MEDS: MELATONIN 3 MG TABLET PO (23:11)
[2021-03-12] MEDS: Acetaminophen 325 MG Tablet 650 MG PO (23:11)
[2021-03-13] VITALS (14 sets, daily range): BP systolic 115–154; BP diastolic 54–71; PULSE 63–89; RESP 18–20; TEMP 36.4–37.1; O2SAT 72–98
[2021-03-13 05:37] LABS: Absolute Neutrophil Count 13.7 X10^3/uL (2.0-7.7); Basophil# 0.02 X10^3/uL; Basophil% 0.1 % (0-1); Hematocrit 36.1 % (40-54); Hemoglobin 11.3 g/dL (13.0-16.5); Lymphocyte % 6.6 % (19-41); Mean Corp Hgb Conc 31.3 g/dL (32-36); Mean Corpuscular Hgb 26.5 pg (27.0-32.0); Mean Corpuscular Volume 84.7 fL (80-94); Mean Platelet Vol. 11.9 fl (6.2-12.0); Monocyte# 0.22 X10^3/uL; Monocyte% 1.5 % (0-10); NRBC Flagged by Analyzer 0 % (0-5); Neutrophil # 13.71 X10^3/uL (2.7-7.7); Neutrophil % 91.2 % (47-70); Platelet Count 321 K/mm3 (150-450); RBC Distribution Width SD 48.7 fl (35.1-43.9); Red Blood Count 4.26 M/mm3 (4.6-6.2)
[2021-03-13] MEDS: Benzonatate 100 MG Capsule 200 MG PO (05:38)
[2021-03-13] MEDS: Sucralfate 1 GM Tablet PO ×4 (05:38→22:49)
[2021-03-13] MEDS: Levothyroxine 25 MCG TABLET PO (05:38)
[2021-03-13] MEDS: Menthol/Lanolin/Calamine/Znox 113 GM Tube 1 APPLIC TOPICAL ×2 (05:42→22:49)
--- NOTE | 2021-03-13 06:28 | NURSING ---
DR SARMIENTO NOTIFIED OF ELEVATED WBC, NO NEW ORDERS
[2021-03-13] MEDS: Ipratropium/Albuterol Sulfate 3 ML AMPUL.NEB INHALATION ×4 (07:19→19:13)
[2021-03-13] MEDS: guaiFENesin 1,200 MG Tablet 1200 MG PO ×2 (09:51→22:49)
[2021-03-13] MEDS: Loratadine 10 MG Tablet PO (09:51)
[2021-03-13] MEDS: Cyanocobalamin 500 MCG Tablet 2500 MCG PO (09:51)
[2021-03-13] MEDS: Pantoprazole Sodium 40 MG Tablet PO (09:51)
[2021-03-13] MEDS: APIXABAN 2.5 MG TABLET PO ×2 (09:54→22:49)
[2021-03-13] MEDS: Tolterodine Tartrate 4 MG CAP.SA PO (09:54)
[2021-03-13] MEDS: Acyclovir 200 MG Capsule 400 MG PO (09:54)
--- NOTE | 2021-03-13 14:58 | CHAPLAIN ---
Type of Pastoral Visit ___ Initial Visit _x__ Follow-up Visit ___ On-call Visit ___ General Patient Visit ___ Spiritual Assessment ___ Family Conference ___ Bereavement ___ Rapid Response ___ Code Blue ___ Other (describe below) Pastoral Care Referral From _x__ Patient _x__ Family ___ Nurse ___ Physician ___ Instrument Assembly Supervisor ___ Intervention Specialist ___ Other (describe below) Sacrament/Intervention _x__ Active listening ___ Anointing ___ Amish ___ Bereavement ___ Communion ___ Belkis exploration ___ ___ Life review _x__ Prayer ___ Reconciliation ___ Sacrament of Sick _x__ Supportive presence ___ Wedding ___ Other (describe below) Pastoral Comments patient states some improvement but not sure about next steps; spouse is with pt; pt welcomes prayer and presence
--- NOTE | 2021-03-13 15:29 | CASEMGMT ---
Addendum entered by Svitlana Gonzalez 03/13/21 16:04: CESARIO faxed referral to [facility] and also called Rachelle regarding referral. Svitlana DUNN Original Note: Cesario spoke with patient's daughter. CESARIO explained the physician is planning on discharge tomorrow. They have not found the [facility]erman policy yet. CESARIO told her patient will likely have to go to [facility]. Generally assisted policies have you pay up front and then you get re-imbursed. She said this sounds like the best plan. She asked CESARIO to send the referral to [facility]. Svitlana DUNN
--- NOTE | 2021-03-13 16:28 | PN.HOSP_ITS ---
Subjective Subjective Patient cough, shortness of breath and wheezing is improving. Chest x-ray in the morning discussed with the rolling chair pusher and agree there is worsening of chest x-ray with left basilar pneumonia. Same communicated to the patient. Objective Data Objective Data Vital Signs: Vital Signs Temp Pulse Resp BP Pulse Ox 97.8 F 82 18 133/54 H 97 03/13/21 15:08 03/13/21 15:08 03/13/21 15:08 03/13/21 15:08 03/13/21 15:08 Oxygen Flow Rate (L/min) 2 Oxygen Delivery Method Nasal Cannula Weight: 225 lb 8.526 oz Body Mass Index (BMI) 31.9 Intake & Output: Intake and Output for Last 24 Hours 03/11/21 03/12/21 03/13/21 23:59 23:59 23:59 Intake Total 300 / 420 1245 / 1245 545 / 545 Output Total 400 / 400 150 / 150 Balance - / 20 1095 / 1095 545 / 545 Lab / Micro Data Result Diagrams: 03/13/21 05:12 03/12/21 16:05 Labs: Laboratory Results - last 24 hr 03/12/21 03/12/21 03/13/21 16:05 16:05 05:12 WBC 11.9 H 15.0 H RBC 4.28 L 4.26 L Hgb 11.2 L 11.3 L Hct 36.8 L 36.1 L MCV 86.0 84.7 MCH 26.2 L 26.5 L MCHC 30.4 L 31.3 L RDW Std Deviation 49.0 H 48.7 H RDW Coeff of Shruthi 16.0 H 16.0 H Plt Count 303 321 MPV 11.9 11.9 Immature Gran % (Auto) 0.800 0.600 Neut % (Auto) 89.6 H 91.2 H Lymph % (Auto) 6.7 L 6.6 L [place] % (Auto) 1.8 1.5 Eos % (Auto) 0.8 0.0 Baso % (Auto) 0.3 0.1 Absolute Neuts (auto) 10.6 H 13.7 H Absolute Lymphs (auto) 0.79 L 1.00 Nucleated RBC % 0 0 Sodium 137 Potassium 4.1 Chloride 106 Carbon Dioxide 25.0 Anion Gap 6 BUN 19 H Creatinine 1.50 H Estim Creat Clear Calc 39.04 Est GFR (MDRD) Af Amer 57 L Est GFR (MDRD) Non-Af 47 L BUN/Creatinine Ratio 12.7 Glucose 139 H Calcium 8.7 C-React Prot Ext Range 71.40 H Micro: Microbiology 03/12/21 16:50 Urine, Clean Catch Legionella Antigen - Final 03/12/21 16:50 Urine, Clean Catch Streptococcus pneumoniae Antigen (M - Final 03/08/21 16:55 Urine Catheter - Catheter Urine Culture - Preliminary Gram positive dre 03/08/21 16:07 Interface Orders SARS-CoV-2 Antigen (Rapid) - Final Physical Exam Narrative inner diameter grinder tool shows PVCs sinus rhythm with sinus arrhythmia. No recurrent Wenckebach block. Physical exam General: Alert, Oriented x3, Cooperative HEENT: Atraumatic, PERRLA, EOMI, Normocephalic Oral: No active inflammation or redness in the oropharyngeal region. No Gingival or Mucosal Lesions/ Ulcerations Neck: Supple, No JVD, Negative Carotid Bruits Lungs: Air entry diminished in bilateral lung bases. Lungs clear, no wheezing or rhonchi Cardiovascular: Sinus rhythm with PVCs, normal S1, Normal S2, systolic murmur over LSB Abdomen: Bowel Sounds Present, Soft, Non Tender, no distention : On hemodialysis. No renal angle tenderness. No suprapubic tenderness. Extremities: No significant lower extremity edema, Capillary Refill Less than 3 Seconds Skin: No rashes, No breakdown Musculoskeletal: No Tenderness to Palpation of Joints or Extremities Neurological: Cranial nerves II-XII grossly intact, Deep Tendon Reflexes 2+/4 and Symmetrical, Neuro grossly intact Psych/Mental Status: Normal Affect, Appropriate. Assessment & Plan Assessment/Plan (1) Acute weakness: (2) Atrial fibrillation: (3) Acute anemia: (4) Adult failure to thrive: (5) History of DVT (deep vein thrombosis): (6) CKD (chronic kidney disease) stage 3, GFR 30-59 ml/min: (7) Pulmonary embolism: (8) HEMANT (obstructive sleep apnea): (9) Chronic obstructive pulmonary disease: QUALIFIERS: COPD type: chronic bronchitis Chronic bronchitis type: simple Qualified Code(s): J41.0 - Simple chronic bronchitis (10) BPH (benign prostatic hyperplasia): (11) History of myocardial infarction: (12) Hyperlipidemia: QUALIFIERS: Hyperlipidemia type: unspecified Qualified Code(s): E78.5 - Hyperlipidemia, unspecified (13) Dementia: PLAN: 1. Wenckebach type second-degree AV block: Twelve-lead EKG reviewed consistent with acute type block. Discussed with the employment specialist, Dr. Dunlap. Currently patient heart rate is in 70s and is asymptomatic. Patient last echo in October 2019 shows EF 60% with LV systolic function normal normal left and right atrium. Mild TR. Patient has history heart block, PAF. Not on rate control medications 03/11: No significant heart block or drop of QRS complex observed in senior writer. I discussed in detail regarding Wenckebach type heart block to patient's daughter with diagram. Advised follow-up with Dr. Burnham. No need for active intervention like pacemaker. Heart rate in 70s and I do not think patient's fall was related to heart block. 03/12: Sinus rhythm at 90 with PVCs. No recurrence of Wenckebach block. 03/13: Patient stays in sinus rhythm with PVCs. Debility/failure to thrive, likely related to poor p.o. intake. PT and OT. On IV fluid. 03/13: DC IV fluid. 2. Recent esophagitis from detergent use, left basilar pneumonia, during hospital stay. continue on oral PPI and sucralfate. Follow-up PCP as an outpatient. 03/12: Persistent cough, dry with wheezing probably allergic bronchitis with left basilar pneumonia: Discussed with the patient's daughter in detail. I also discussed with the rolling chair pusher Dr. Seo. Chest x-ray left basilar pneumonia. Leukocytosis similar about 12,000. Repeat labs ordered. Started on IV ceftriaxone and Zithromax. Incentive spirometry and chest physiotherapy. With suspicion of chemical pneumonitis, Claritin, IV Solu-Medrol and Mucinex already started. 03/13: Symptoms cough, wheezing has improved. Leukocytosis secondary to steroids Solu-Medrol. Chest x-ray reviewed with the rolling chair pusher and agree with left basilar pneumonia, got worse compared to admit in x-ray. 3. Progressive decline in cognition, in a patient with history of dementia, slowly declining in cognition: Will need long-term nursing facility. Family open to placing pt in some long-term facility. 4. Iron deficiency anemia, likely related to recent esophagitis from oral intake of detergent Iron stores are low, Patient had Venofer to prevent worsening of esophagitis and hemoglobin improved to 10.3. 5. MICHAEL on CKD stage IIIb, baseline creatinine is about 1.1-1.2, admitted creatinine 1.52. Follow-up creatinine shows mild decrease but not significant. Hold Lasix. Monitor kidney function. 6. Rest of chronic medications -Hypertension, hyperlipidemia, hypothyroidism, CAD - all remain stable. Total time of the visit including total time spent in counseling or coordination of care, (more than 50% of the total time, spent in obtaining medical information from nurses and other ancillary care providers,explaining to the patient about labs, imaging, diagnosis and management), discussion with rolling chair pusher and clinical update to patient's daughter, review of labs and imaging is 30 minutes. Microbiology Past 72 Hours 03/08/21 16:55 Urine Catheter - Catheter Urine Culture - Preliminary Gram positive dre 03/08/21 16:07 Interface Orders SARS-CoV-2 Antigen (Rapid) - Final Clinical Impression(s) from Imaging Studies Chest X-Ray 03/08/21 16:05 IMPRESSION: No definite acute or significant abnormality seen. Chest X-Ray 03/12/21 09:15 IMPRESSION: Left basilar pneumonia, increased since prior exam. Visit Charges Inpatient E&M: 90748 Subs Hosp L2
[2021-03-13] MEDS: Atorvastatin Calcium 40 MG Tablet PO (22:49)
[2021-03-13] MEDS: 0.9% Saline Lock 10 ML Syringe IV (22:50)
[2021-03-14] VITALS (10 sets, daily range): BP systolic 119–137; BP diastolic 50–81; PULSE 78–96; RESP 18–20; TEMP 36–36.5; O2SAT 95–97
[2021-03-14] MEDS: MELATONIN 3 MG TABLET PO (00:13)
[2021-03-14] MEDS: Benzonatate 100 MG Capsule 200 MG PO ×2 (00:13→06:02)
[2021-03-14] MEDS: 0.9% Saline Lock 10 ML Syringe IV (06:01)
[2021-03-14] MEDS: Levothyroxine 25 MCG TABLET PO (06:02)
[2021-03-14] MEDS: Sucralfate 1 GM Tablet PO ×3 (06:02→16:13)
[2021-03-14] MEDS: Menthol/Lanolin/Calamine/Znox 113 GM Tube 1 APPLIC TOPICAL (06:12)
[2021-03-14] MEDS: Ipratropium/Albuterol Sulfate 3 ML AMPUL.NEB INHALATION ×3 (07:06→14:55)
[2021-03-14 07:07] LABS: Absolute Lymphocyte Count 1.31 X10^3/uL (0.83-4.51); Absolute Neutrophil Count 23.5 X10^3/uL (2.0-7.7); Basophil# 0.05 X10^3/uL; Basophil% 0.2 % (0-1); Hematocrit 37.4 % (40-54); Hemoglobin 11.7 g/dL (13.0-16.5); Lymphocyte # 1.31 X10^3/ul (0.83-4.51); Lymphocyte % 5.1 % (19-41); Mean Corp Hgb Conc 31.3 g/dL (32-36); Mean Corpuscular Hgb 26.7 pg (27.0-32.0); Mean Corpuscular Volume 85.4 fL (80-94); Mean Platelet Vol. 12.3 fl (6.2-12.0); Monocyte# 0.74 X10^3/uL; Monocyte% 2.9 % (0-10); NRBC Flagged by Analyzer 0 % (0-5); Neutrophil # 23.49 X10^3/uL (2.7-7.7); Neutrophil % 90.8 % (47-70); POSITIVE DIFFERENTIAL YES; Platelet Count 360 K/mm3 (150-450); RBC Distribution Width CV 16.1 % (11.6-14.6); RBC Distribution Width SD 49.1 fl (35.1-43.9); Red Blood Count 4.38 M/mm3 (4.6-6.2); White Blood Count 25.9 K/mm3 (4.4-11.0)
[2021-03-14 07:17] LABS: Differential Indicated SCAN CRITERIA MET
[2021-03-14 07:27] LABS: Differential Comment SCANNED
[2021-03-14] MEDS: Acyclovir 200 MG Capsule 400 MG PO (08:44)
[2021-03-14] MEDS: guaiFENesin 1,200 MG Tablet 1200 MG PO (08:45)
[2021-03-14] MEDS: Cyanocobalamin 500 MCG Tablet 2500 MCG PO (08:45)
[2021-03-14] MEDS: Pantoprazole Sodium 40 MG Tablet PO (08:45)
[2021-03-14] MEDS: Tolterodine Tartrate 4 MG CAP.SA PO (08:45)
[2021-03-14] MEDS: APIXABAN 2.5 MG TABLET PO (08:45)
[2021-03-14] MEDS: Loratadine 10 MG Tablet PO (08:45)
--- NOTE | 2021-03-14 11:20 | CASEMGMT ---
CESARIO checked in with Rachelle at [facility] and she did receive the referral and she is waiting on the clinical team to get back to her. Await [facility]'s response. Svitlana Gonzalez GUIDANCE COUNSELOR MONA
--- NOTE | 2021-03-14 11:51 | DS.PCM_ITS ---
Providers Date of Admission: 03/08/21 Primary Care Physician: TESSA Moore Reason For Visit: FAILURE TO THRIVE, WEAKNESS, A FIB, ANEMIA Diagnosis Discharge Diagnosis (1) Acute weakness: Status: Acute Code(s): R53.1 - Weakness (2) Atrial fibrillation: Status: Acute Code(s): I48.91 - Unspecified atrial fibrillation (3) Acute anemia: Status: Acute Code(s): D64.9 - Anemia, unspecified (4) Adult failure to thrive: Status: Acute Code(s): R62.7 - Adult failure to thrive (5) History of DVT (deep vein thrombosis): Status: Acute Code(s): Z86.718 - Personal history of other venous thrombosis and embolism (6) CKD (chronic kidney disease) stage 3, GFR 30-59 ml/min: Status: Chronic Code(s): N18.30 - Chronic kidney disease, stage 3 unspecified (7) Pulmonary embolism: Status: Acute Code(s): I26.99 - Other pulmonary embolism without acute cor pulmonale (8) HEMANT (obstructive sleep apnea): Status: Acute Code(s): G47.33 - Obstructive sleep apnea (adult) (pediatric) (9) Chronic obstructive pulmonary disease: Status: Suspected Code(s): J44.9 - Chronic obstructive pulmonary disease, unspecified Qualifiers: COPD type: chronic bronchitis Chronic bronchitis type: simple Qualified Code(s): J41.0 - Simple chronic bronchitis (10) BPH (benign prostatic hyperplasia): Status: Chronic Code(s): N40.0 - Benign prostatic hyperplasia without lower urinary tract symptoms (11) History of myocardial infarction: Status: Chronic Code(s): I25.2 - Old myocardial infarction (12) Hyperlipidemia: Status: Chronic Code(s): E78.5 - Hyperlipidemia, unspecified Qualifiers: Hyperlipidemia type: unspecified Qualified Code(s): E78.5 - Hyperlipidemia, unspecified (13) Dementia: Status: Acute Code(s): F03.90 - Unspecified dementia without behavioral disturbance Medications at Discharge Home Medications acyclovir 400 mg PO DAILY 02/25/16 atorvastatin 40 mg tablet 40 mg PO QHS #90 tab 06/05/20 apixaban 2.5 mg tablet 2.5 mg PO BID tab 12/16/20 furosemide 20 mg tablet 20 mg PO DAILY tab 12/16/20 levothyroxine 25 mcg tablet 50 mcg PO BID tab 12/16/20 oxybutynin chloride 15 mg tablet,extended release 24 hr 15 mg PO DAILY tab 12/16/20 acetaminophen [Tylenol] 650 mg PO Q6H PRN PRN #0 tab 03/14/21 cyanocobalamin (vitamin B-12) 1,000 mcg PO DAILY #0 tab 03/14/21 guaifenesin [Mucus Relief ER] 1,200 mg PO BID #0 tab 03/14/21 ipratropium-albuterol 3 ml INHALATION 4X/DAY #0 ml 03/14/21 levofloxacin 500 mg PO Q24H #5 tab 03/14/21 loratadine [Allergy Relief (loratadine)] 10 mg PO DAILY #0 tab 03/14/21 pantoprazole 40 mg PO DAILY #0 tab 03/14/21 prednisone 40 mg PO DAILY@0800 #0 tab 03/14/21 sennosides-docusate sodium [Stool Softener-Stimulant Laxat] 2 tab PO BID PRN PRN #0 tab 03/14/21 sucralfate 1 g PO 1HR_ACHS #0 tab 03/14/21 ABG / Lab / Microbiology Data Result Diagrams: 03/14/21 06:00 03/12/21 16:05 Laboratory: Laboratory Results - last 24 hr 03/14/21 06:00 WBC 25.9 H RBC 4.38 L Hgb 11.7 L Hct 37.4 L MCV 85.4 MCH 26.7 L MCHC 31.3 L RDW Std Deviation 49.1 H RDW Coeff of Shruthi 16.1 H Plt Count 360 MPV 12.3 H Immature Gran % (Auto) 1.000 H Neut % (Auto) 90.8 H Lymph % (Auto) 5.1 L [place] % (Auto) 2.9 Eos % (Auto) 0.0 Baso % (Auto) 0.2 Absolute Neuts (auto) 23.5 H Absolute Lymphs (auto) 1.31 Nucleated RBC % 0 Differential Comment SCANNED Microbiology: Microbiology 03/08/21 16:55 Urine Culture - Final Urine Catheter - Catheter [place] mesenteroides dext Microbiology 03/08/21 16:55 Urine Catheter - Catheter Urine Culture - Final [place] mesenteroides dext 05/19/21 16:50 Urine, Clean Catch Legionella Antigen - Final 03/12/21 16:50 Urine, Clean Catch Streptococcus pneumoniae Antigen (M - Final 03/08/21 16:07 Interface Orders SARS-CoV-2 Antigen (Rapid) - Final Discharge Plan Admission Admit Date/Time: 03/08/21 19:50 Primary Reason for Your Visit: Left lower lobe pneumonia Attending Provider: Pan Moore Primary Care Provider: Shelbie Hawk DATABASE DESIGNER Instructions Additional Instructions / Restrictions: Follow-up BMP in 1 week. Discharge Orders/Prescriptions Prescriptions: New acetaminophen [Tylenol] 325 mg Tablet 650 mg PO Q6H PRN PRN (Reason: Pain Score 1-10/Temp > 100.7 F) Qty: 0 RF: 0 ipratropium-albuterol 0.5 mg-3 mg(2.5 mg base)/3 mL Solution For Nebulization 3 ml inhalation 4X/DAY Qty: 0 RF: 0 sucralfate 1 gram Tablet 1 g PO 1HR_ACHS Qty: 0 RF: 0 prednisone 20 mg Tablet 40 mg PO DAILY@0800 Qty: 0 RF: 0 sennosides-docusate sodium [Stool Softener-Stimulant Laxat] 8.6-50 mg Tablet 2 tab PO BID PRN PRN (Reason: Constipation) Qty: 0 RF: 0 pantoprazole 40 mg Tablet,Delayed Release (Dr/Ec) 40 mg PO DAILY Qty: 0 RF: 0 loratadine [Allergy Relief (loratadine)] 10 mg Tablet 10 mg PO DAILY Qty: 0 RF: 0 guaifenesin [Mucus Relief ER] 600 mg Tablet Extended Release 12hr 1,200 mg PO BID Qty: 0 RF: 0 levofloxacin 500 mg tablet 500 mg PO Q24H Qty: 5 RF: 0 Continued apixaban 2.5 mg tablet 2.5 mg PO BID RF: 0 levothyroxine 25 mcg tablet 50 mcg PO BID RF: 0 oxybutynin chloride 15 mg tablet extended release 24hr 15 mg PO DAILY RF: 0 furosemide 20 mg tablet 20 mg PO DAILY RF: 0 acyclovir 400 MG tablet 400 mg PO DAILY RF: 0 atorvastatin 40 mg tablet 40 mg PO QHS Qty: 90 RF: 3 Changed cyanocobalamin (vitamin B-12) 2,500 mcg tablet, sublingual 1,000 mcg PO DAILY Qty: 0 RF: 0 Referrals / Follow Up: Bill Seo DO [STAFF PHYSICIAN] - Within 1 Month (For PFT. Patient had detergent ingestion.) Shelbie Hawk DATABASE DESIGNER, DATABASE DESIGNER-C [Primary Care Provider] - Disposition Disposition (needs filled in before D/C Order can be placed): NonSkilled NH/Intermed Care
--- NOTE | 2021-03-14 11:51 | DCINST_ITS ---
Discharge Instructions Diet Discharge Diet: Low fat / Low cholesterol and 2000 mg Sodium Diet Activity Discharge Activity: Return to Normal Activity and May Not Drive Dressing / Incision Call your doctor if you observe: Fever of 101 or Higher, Coldness, Increased Pain, Numbness or Tingling, Change in Color, Inability to urinate, Inability to have a bowel movement, Shortness of breath, Dizziness, Swelling in the ankles, Chest pain, Prolonged hiccupping, Increased palpitations (irregular heartbeat) and Calf discomfort Follow Up Care Test Results: Test results from this visit will be discussed in further detail at your follow-up appointment, if applicable. Discharge Plan Admission Admit Date/Time: 03/08/21 19:50 Primary Reason for Your Visit: Left lower lobe pneumonia Attending Provider: Pan Moore Primary Care Provider: Shelbie Hawk NP Instructions Additional Instructions / Restrictions: Follow-up BMP in 1 week. Discharge Orders/Prescriptions Prescriptions: New acetaminophen [Tylenol] 325 mg Tablet 650 mg PO Q6H PRN PRN (Reason: Pain Score 1-10/Temp > 100.7 F) Qty: 0 RF: 0 ipratropium-albuterol 0.5 mg-3 mg(2.5 mg base)/3 mL Solution For Nebulization 3 ml inhalation 4X/DAY Qty: 0 RF: 0 sucralfate 1 gram Tablet 1 g PO 1HR_ACHS Qty: 0 RF: 0 prednisone 20 mg Tablet 40 mg PO DAILY@0800 Qty: 0 RF: 0 sennosides-docusate sodium [Stool Softener-Stimulant Laxat] 8.6-50 mg Tablet 2 tab PO BID PRN PRN (Reason: Constipation) Qty: 0 RF: 0 pantoprazole 40 mg Tablet,Delayed Release (Dr/Ec) 40 mg PO DAILY Qty: 0 RF: 0 loratadine [Allergy Relief (loratadine)] 10 mg Tablet 10 mg PO DAILY Qty: 0 RF: 0 guaifenesin [Mucus Relief ER] 600 mg Tablet Extended Release 12hr 1,200 mg PO BID Qty: 0 RF: 0 levofloxacin 500 mg tablet 500 mg PO Q24H Qty: 5 RF: 0 Continued apixaban 2.5 mg tablet 2.5 mg PO BID RF: 0 levothyroxine 25 mcg tablet 50 mcg PO BID RF: 0 oxybutynin chloride 15 mg tablet extended release 24hr 15 mg PO DAILY RF: 0 furosemide 20 mg tablet 20 mg PO DAILY RF: 0 acyclovir 400 MG tablet 400 mg PO DAILY RF: 0 atorvastatin 40 mg tablet 40 mg PO QHS Qty: 90 RF: 3 Changed cyanocobalamin (vitamin B-12) 2,500 mcg tablet, sublingual 1,000 mcg PO DAILY Qty: 0 RF: 0 Referrals / Follow Up: Bill Seo DO [STAFF PHYSICIAN] - Within 1 Month (For PFT. Patient had d etergent ingestion.) Shelbie Hawk BUSINESS OPERATIONS SPECIALIST, BUSINESS OPERATIONS SPECIALIST-C [Primary Care Provider] - Disposition Disposition (needs filled in before D/C Order can be placed): NonSkilled NH/Intermed Care
[2021-03-14] MEDS: guaiFENesin/Codeine 5 ML UDC PO ×2 (12:29→18:26)
--- NOTE | 2021-03-14 12:52 | CASEMGMT ---
SW let patient's daughter know that SW is just waiting on [facility] to let SW know if they will accept patient or not. CESARIO told him he will be discharged today. CESARIO will let her know. Svitlana DUNN
--- NOTE | 2021-03-14 14:49 | CASEMGMT ---
SW again called [facility] as they still have not given us an answer as to whether or not they will take patient. Rachelle said she will contact the nursing clinical director. Await response from [facility]. Svitlana Gonzalez RETENTION SPECIALIST MONA
--- NOTE | 2021-03-14 16:02 | CASEMGMT ---
CESARIO called Rachelle at [facility]. There was no answer so CESARIO left a message again inquiring if they will accept patient. Svitlana Gonzalez BI ARCHITECT CASH OFFICE WORKER
--- NOTE | 2021-03-14 16:08 | PCM.TXEXTCAR ---
Diet 03/08/21 20:23 Diet: Cardiac - Heart Healthy Food consistency:: Mechanical (Minced/Moist) Liquid Consistency:: Regular/Thin Is pt able to select menu?: No Diet Comments: FEED ONLY IF FULLY ALERT, TOTAL FEED, FREQUENT ORAL CARE Routine Orders/Code Status Suppository Type: Dulcolax 10mg Suppository Frequency: Daily PRN Routine Lab Work: CBC and BMP (BC and BMP in 1 week.) Code Status: Full Code Wound(s) R. elbow: Wound Type: dried scabbed area Bilateral legs: Wound Type: scattered scabbed areas Therapies Weight Bearing: Weight bearing as tolerated Extremity Affected:: Bilateral Lower Physical Therapy: Eval and Treat Occupational Therapy: Eval and Treat Speech Therapy: Eval and Treat Problem/Diagnosis (1) Acute weakness: Status: Acute (2) Atrial fibrillation: Status: Acute (3) Acute anemia: Status: Acute (4) Adult failure to thrive: Status: Acute (5) History of DVT (deep vein thrombosis): Status: Acute Comment: Left; 01/2019 (6) CKD (chronic kidney disease) stage 3, GFR 30-59 ml/min: Status: Chronic (7) Pulmonary embolism: Status: Acute (8) HEMANT (obstructive sleep apnea): Status: Acute (9) Chronic obstructive pulmonary disease: Status: Suspected (10) BPH (benign prostatic hyperplasia): Status: Chronic (11) History of myocardial infarction: Status: Chronic (12) Hyperlipidemia: Status: Chronic (13) Dementia: Status: Acute Allergies/Procedures Done in Hospital Allergies hydrocodone bitartrate [From Vicodin] Allergy (Verified 12/16/20 10:06) Unknown Type of Care/Length of Stay Estimated LOS: More Than 30 Days Type of Care Needed: Intermediate Rehab Potential: Poor Prognosis: Poor Additional Orders/Day of Discharge Day of Discharge: 03/14/21 Dietary and Speech Recommendations Dietitian Recommendations/Changes: continue cardiac diet; recommend fluid restriction as indicated Follow Up Care Please Follow Up With: Bill Seo DO When: In 4 weeks for pneumonia and PFT. Discharge Plan Admission Admit Date/Time: 03/08/21 19:50 Primary Reason for Your Visit: Left lower lobe pneumonia Attending Provider: Pna Moore Primary Care Provider: Shelbie Hawk NP Instructions Additional Instructions / Restrictions: Follow-up BMP in 1 week. Discharge Orders/Prescriptions Prescriptions: New acetaminophen [Tylenol] 325 mg Tablet 650 mg PO Q6H PRN PRN (Reason: Pain Score 1-10/Temp > 100.7 F) Qty: 0 RF: 0 ipratropium-albuterol 0.5 mg-3 mg(2.5 mg base)/3 mL Solution For Nebulization 3 ml inhalation 4X/DAY Qty: 0 RF: 0 sucralfate 1 gram Tablet 1 g PO 1HR_ACHS Qty: 0 RF: 0 prednisone 20 mg Tablet 40 mg PO DAILY@0800 Qty: 0 RF: 0 sennosides-docusate sodium [Stool Softener-Stimulant Laxat] 8.6-50 mg Tablet 2 tab PO BID PRN PRN (Reason: Constipation) Qty: 0 RF: 0 pantoprazole 40 mg Tablet,Delayed Release (Dr/Ec) 40 mg PO DAILY Qty: 0 RF: 0 loratadine [Allergy Relief (loratadine)] 10 mg Tablet 10 mg PO DAILY Qty: 0 RF: 0 guaifenesin [Mucus Relief ER] 600 mg Tablet Extended Release 12hr 1,200 mg PO BID Qty: 0 RF: 0 levofloxacin 500 mg tablet 500 mg PO Q24H Qty: 5 RF: 0 Continued apixaban 2.5 mg tablet 2.5 mg PO BID RF: 0 levothyroxine 25 mcg tablet 50 mcg PO BID RF: 0 oxybutynin chloride 15 mg tablet extended release 24hr 15 mg PO DAILY RF: 0 furosemide 20 mg tablet 20 mg PO DAILY RF: 0 acyclovir 400 MG tablet 400 mg PO DAILY RF: 0 atorvastatin 40 mg tablet 40 mg PO QHS Qty: 90 RF: 3 Changed cyanocobalamin (vitamin B-12) 2,500 mcg tablet, sublingual 1,000 mcg PO DAILY Qty: 0 RF: 0 Referrals / Follow Up: Bill Seo DO [STAFF PHYSICIAN] - Within 1 Month (For PFT. Patient had detergent ingestion.) Shelbie Hawk COMMAND AND CONTROL, COMMAND AND CONTROL-C [Primary Care Provider] - Disposition Disposition (needs filled in before D/C Order can be placed): NonSkilled NH/Intermed Care
--- NOTE | 2021-03-14 16:10 | PN.HOSP_ITS ---
Subjective Subjective Patient cough is better. Solu-Medrol changed to prednisone. Overall getting better. No shortness of breath. Objective Data Objective Data Vital Signs: Vital Signs Temp Pulse Resp BP Pulse Ox 97.1 F L 84 18 137/59 H 96 03/14/21 08:40 03/14/21 14:57 03/14/21 14:57 03/14/21 08:40 03/14/21 14:57 Oxygen Flow Rate (L/min) 96 Oxygen Delivery Method Room Air Weight: 224 lb 3.362 oz Body Mass Index (BMI) 31.9 Intake & Output: Intake and Output for Last 24 Hours 03/12/21 03/13/21 03/14/21 23:59 23:59 23:59 Intake Total 1245 / 1245 1025 / 1025 1295 / 1295 Output Total 150 / 150 Balance 1095 / 1095 1025 / 1025 1295 / 1295 Lab / Micro Data Result Diagrams: 03/14/21 06:00 03/12/21 16:05 Labs: Laboratory Results - last 24 hr 03/14/21 06:00 WBC 25.9 H RBC 4.38 L Hgb 11.7 L Hct 37.4 L MCV 85.4 MCH 26.7 L MCHC 31.3 L RDW Std Deviation 49.1 H RDW Coeff of Shruthi 16.1 H Plt Count 360 MPV 12.3 H Immature Gran % (Auto) 1.000 H Neut % (Auto) 90.8 H Lymph % (Auto) 5.1 L Avery % (Auto) 2.9 Eos % (Auto) 0.0 Baso % (Auto) 0.2 Absolute Neuts (auto) 23.5 H Absolute Lymphs (auto) 1.31 Nucleated RBC % 0 Differential Comment SCANNED Micro: Microbiology 03/08/21 16:55 Urine Catheter - Catheter Urine Culture - Final Leuconostoc mesenteroides dext 03/12/21 16:50 Urine, Clean Catch Legionella Antigen - Final 03/12/21 16:50 Urine, Clean Catch Streptococcus pneumoniae Antigen (M - Final 03/08/21 16:07 Interface Orders SARS-CoV-2 Antigen (Rapid) - Final Physical Exam Narrative General: Alert, Oriented x3, Cooperative HEENT: Atraumatic, PERRLA, EOMI, Normocephalic Oral: No Gingival or Mucosal Lesions/ Ulcerations Neck: Supple, No JVD, Negative Carotid Bruits Lungs: Air entry diminished in bilateral lung bases. No crepitation/rhonchi Cardiovascular: Sinus rhythm with PVCs., Normal S1, Normal S2, systolic murmur over LSB Abdomen: Bowel Sounds Present, Soft, Non Tender, Non-Distended : No renal angle tenderness. No suprapubic tenderness. Extremities: No edema, Capillary Refill Less than 3 Seconds Skin: No rashes, No breakdown Musculoskeletal: No Tenderness to Palpation of Joints or Extremities Neurological: Cranial nerves II-XII grossly intact, Deep Tendon Reflexes 2+/4 and Symmetrical, Neuro grossly intact Psych/Mental Status: Normal Affect, Appropriate. Assessment & Plan Assessment/Plan (1) Acute weakness: (2) Atrial fibrillation: (3) Acute anemia: (4) Adult failure to thrive: (5) History of DVT (deep vein thrombosis): (6) CKD (chronic kidney disease) stage 3, GFR 30-59 ml/min: (7) Pulmonary embolism: (8) HEMANT (obstructive sleep apnea): (9) Chronic obstructive pulmonary disease: QUALIFIERS: COPD type: chronic bronchitis Chronic bronchitis type: simple Qualified Code(s): J41.0 - Simple chronic bronchitis (10) BPH (benign prostatic hyperplasia): (11) History of myocardial infarction: (12) Hyperlipidemia: QUALIFIERS: Hyperlipidemia type: unspecified Qualified Code(s): E78.5 - Hyperlipidemia, unspecified (13) Dementia: PLAN: 1. Wenckebach type second-degree AV block: Twelve-lead EKG reviewed consistent with acute type block. Discussed with the naval aircrewman avionics, Dr. Dunlap. Currently patient heart rate is in 70s and is asymptomatic. Patient last echo in October 2019 shows EF 60% with LV systolic function normal normal left and right atrium. Mild TR. Patient has history heart block, PAF. Not on rate control medications 03/11: No significant heart block or drop of QRS complex observed in engine monitor. I discussed in detail regarding Wenckebach type heart block to patient's daughter with diagram. Advised follow-up with Dr. Burnham. No need for active intervention like pacemaker. Heart rate in 70s and I do not think patient's fall was related to heart block. 03/12: Sinus rhythm at 90 with PVCs. No recurrence of Wenckebach block. 03/13: Patient stays in sinus rhythm with PVCs. Debility/failure to thrive, likely related to poor p.o. intake. PT and OT. On IV fluid. 03/14: Patient waiting for pre-CERT for SNF. 2. Recent esophagitis from detergent use, left basilar pneumonia, during hospital stay. continue on oral PPI and sucralfate. Follow-up PCP as an outpatient. 03/12: Persistent cough, dry with wheezing probably allergic bronchitis with left basilar pneumonia: Discussed with the patient's daughter in detail. I also discussed with the tractor operator battery Dr. Seo. Chest x-ray left basilar pneumonia. Leukocytosis similar about 12,000. Repeat labs ordered. Started on IV ceftriaxone and Zithromax. Incentive spirometry and chest physiotherapy. With suspicion of chemical pneumonitis, Claritin, IV Solu-Medrol and Mucinex already started. 03/13: Symptoms cough, wheezing has improved. Leukocytosis secondary to steroids Solu-Medrol. Chest x-ray reviewed with the tractor operator battery and agree with left basilar pneumonia, got worse compared to admit in x-ray. 03/14: Solu-Medrol changed to prednisone. Discussed with the patient's daughter about the discharge plan and follow-up. 3. Progressive decline in cognition, in a patient with history of dementia, slowly declining in cognition: Will need long-term nursing facility. Family open to placing pt in some long-term facility. 4. Iron deficiency anemia, likely related to recent esophagitis from oral intake of detergent Iron stores are low, Patient had Venofer to prevent worsening of esophagitis and hemoglobin improved to 10.3. 5. MICHAEL on CKD stage IIIb, baseline creatinine is about 1.1-1.2, admitted creatinine 1.52. Follow-up creatinine shows mild decrease but not significant. Hold Lasix. Monitor kidney function. 6. Rest of chronic medications -Hypertension, hyperlipidemia, hypothyroidism, CAD - all remain stable. Total time of the visit including total time spent in counseling or coordination of care, (more than 50% of the total time, spent in obtaining medical information from nurses and other ancillary care providers,explaining to the patient about labs, imaging, diagnosis and management), discussion with tractor operator battery and clinical update to patient's daughter, review of labs and imaging is 30 minutes. Microbiology Past 72 Hours 03/08/21 16:55 Urine Catheter - Catheter Urine Culture - Preliminary Gram positive dre 03/08/21 16:07 Interface Orders SARS-CoV-2 Antigen (Rapid) - Final Clinical Impression(s) from Imaging Studies Chest X-Ray 03/08/21 16:05 IMPRESSION: No definite acute or significant abnormality seen. Chest X-Ray 03/12/21 09:15 IMPRESSION: Left basilar pneumonia, increased since prior exam. Visit Charges Inpatient E&M: 46211 Subs Hosp L2
--- NOTE | 2021-03-14 16:13 | DS.PCM_ITS ---
Providers Date of Admission: 03/08/21 Primary Care Physician: TESSA Moore Reason For Visit: FAILURE TO THRIVE, WEAKNESS, A FIB, ANEMIA Diagnosis Discharge Diagnosis (1) Acute weakness: Status: Acute Code(s): R53.1 - Weakness (2) Atrial fibrillation: Status: Acute Code(s): I48.91 - Unspecified atrial fibrillation (3) Acute anemia: Status: Acute Code(s): D64.9 - Anemia, unspecified (4) Adult failure to thrive: Status: Acute Code(s): R62.7 - Adult failure to thrive (5) History of DVT (deep vein thrombosis): Status: Acute Code(s): Z86.718 - Personal history of other venous thrombosis and embolism (6) CKD (chronic kidney disease) stage 3, GFR 30-59 ml/min: Status: Chronic Code(s): N18.30 - Chronic kidney disease, stage 3 unspecified (7) Pulmonary embolism: Status: Acute Code(s): I26.99 - Other pulmonary embolism without acute cor pulmonale (8) HEMANT (obstructive sleep apnea): Status: Acute Code(s): G47.33 - Obstructive sleep apnea (adult) (pediatric) (9) Chronic obstructive pulmonary disease: Status: Suspected Code(s): J44.9 - Chronic obstructive pulmonary disease, unspecified Qualifiers: COPD type: chronic bronchitis Chronic bronchitis type: simple Qualified Code(s): J41.0 - Simple chronic bronchitis (10) BPH (benign prostatic hyperplasia): Status: Chronic Code(s): N40.0 - Benign prostatic hyperplasia without lower urinary tract symptoms (11) History of myocardial infarction: Status: Chronic Code(s): I25.2 - Old myocardial infarction (12) Hyperlipidemia: Status: Chronic Code(s): E78.5 - Hyperlipidemia, unspecified Qualifiers: Hyperlipidemia type: unspecified Qualified Code(s): E78.5 - Hyperlipidemia, unspecified (13) Dementia: Status: Acute Code(s): F03.90 - Unspecified dementia without behavioral disturbance Medications at Discharge Home Medications acyclovir 400 mg PO DAILY 02/25/16 atorvastatin 40 mg tablet 40 mg PO QHS #90 tab 06/05/20 apixaban 2.5 mg tablet 2.5 mg PO BID tab 02/22/21 furosemide 20 mg tablet 20 mg PO DAILY tab 12/16/20 levothyroxine 25 mcg tablet 50 mcg PO BID tab 12/16/20 oxybutynin chloride 15 mg tablet,extended release 24 hr 15 mg PO DAILY tab 12/16/20 acetaminophen [Tylenol] 650 mg PO Q6H PRN PRN #0 tab 03/14/21 cyanocobalamin (vitamin B-12) 1,000 mcg PO DAILY #0 tab 03/14/21 guaifenesin [Mucus Relief ER] 1,200 mg PO BID #0 tab 03/14/21 ipratropium-albuterol 3 ml INHALATION 4X/DAY #0 ml 03/14/21 levofloxacin 500 mg PO Q24H #5 tab 03/14/21 loratadine [Allergy Relief (loratadine)] 10 mg PO DAILY #0 tab 03/14/21 pantoprazole 40 mg PO DAILY #0 tab 03/14/21 prednisone 40 mg PO DAILY@0800 #0 tab 03/14/21 sennosides-docusate sodium [Stool Softener-Stimulant Laxat] 2 tab PO BID PRN PRN #0 tab 03/14/21 sucralfate 1 g PO 1HR_ACHS #0 tab 03/14/21 Hospital Course Summary of Care Provided Hospital Course: This 85-year-old gentleman who was admitted with chief complaint of cough and generalized weakness with decreased physical exercise capacity, mild cognitive deficit and difficulties in ADL. Prior to that patient had chemical detergent ingestion accidentally. BNP was elevated but chest x-ray did not show volume overload/pulmonary congestion. His hospital course and evaluation as follows ?1.? Wenckebach type second-degree AV block: Twelve-lead EKG reviewed consistent with acute type block.? Discussed with the note teller, Dr. Dunlap.? Currently patient heart rate is in 70s and is asymptomatic.? Patient last echo in October 2019 shows EF 60% with LV systolic function normal normal left and right atrium.? Mild TR. Patient has history heart block, PAF.? Not on rate control medications. Patient did not had significant heart block, dropped QRS complexes or bradycardia after that. Patient's daughter and was discussed regarding that. Following Dr. Burnham. Patient is stating sinus rhythm with PVCs. ?Debility/failure to thrive, likely related to poor p.o. intake.? PT and OT.? On IV fluid. SNF was denied from insurance company and had. To peer conversation. Precertification insurance Recommended long-term care. 2.? Recent esophagitis from detergent use, left basilar pneumonia, during hospital stay. Patient on oral PPI and sucralfate. Patient had persistent cough, dry in nature with wheezing suggestive of allergic bronchitis. Patient had leukocytosis and chest x-ray reviewed with telephone lineworker shows left basilar pneumonia. Patient started on IV ceftriaxone and Zithromax, incentive spirometry, chest physiotherapy, Mucinex, Claritin, IV Solu-Medrol and supportive antitussive treatment. Patient cough and wheezing improved. Discharged on 5 days of persistent prednisone 40 mg daily, Levaquin to complete a total of 7 days, Mucinex and Claritin. ?Follow-up PCP as an outpatient. Patient had leukocytosis secondary to Solu- Medrol. 3. Progressive decline in cognition, in a patient with history of dementia, slowly declining in cognition: 4.? Iron deficiency anemia, likely related to recent esophagitis from oral intak e of detergent Iron stores are low, Patient had Venofer to prevent worsening of esophagitis and hemoglobin improved to 10.3. Hemoglobin remained stable 5.? MICHAEL on CKD stage IIIb, baseline creatinine is about 1.1-1.2, admitted creatinine 1.52.? Follow-up creatinine shows mild decrease but not significant. Hold Lasix.? Creatinine remained stable at 1.5. 6. Rest of chronic medications -Hypertension, hyperlipidemia, hypothyroidism, CAD - all remain stable. Discharge medication reconciliation done. Discharge follow-up instructions completed. Discharge process discussed with the patient and all questions were answered to patient's satisfaction. Patient discharged to nonskilled/intermediate care facility. Total time spent, exact 35 minutes on discharge meds reconciliation, examination, coordination of care with nurses and ancillary staff, review of imaging and blood test and discussion with the patient on follow-up instructions Physical Exam Narrative Please see progress note on the same date for exam findings in detail. No acute change in physical findings/exam. Cough is better. ABG / Lab / Microbiology Data Result Diagrams: 03/14/21 06:00 03/12/21 16:05 Laboratory: Laboratory Results - last 24 hr 03/14/21 06:00 WBC 25.9 H RBC 4.38 L Hgb 11.7 L Hct 37.4 L MCV 85.4 MCH 26.7 L MCHC 31.3 L RDW Std Deviation 49.1 H RDW Coeff of Shruthi 16.1 H Plt Count 360 MPV 12.3 H Immature Gran % (Auto) 1.000 H Neut % (Auto) 90.8 H Lymph % (Auto) 5.1 L [place] % (Auto) 2.9 Eos % (Auto) 0.0 Baso % (Auto) 0.2 Absolute Neuts (auto) 23.5 H Absolute Lymphs (auto) 1.31 Nucleated RBC % 0 Differential Comment SCANNED Microbiology: Microbiology 03/08/21 16:55 Urine Culture - Final Urine Catheter - Catheter Leuconostoc mesenteroides dext Microbiology 03/08/21 16:55 Urine Catheter - Catheter Urine Culture - Final Leuconostoc mesenteroides dext 03/12/21 16:50 Urine, Clean Catch Legionella Antigen - Final 03/12/21 16:50 Urine, Clean Catch Streptococcus pneumoniae Antigen (M - Final 03/08/21 16:07 Interface Orders SARS-CoV-2 Antigen (Rapid) - Final D/C Instructions Discharge Diet: Low fat / Low cholesterol and 2000 mg Sodium Diet Discharge Activity: Return to Normal Activity and May Not Drive Call your doctor if you observe: Fever of 101 or Higher, Coldness, Increased Pain, Numbness or Tingling, Change in Color, Inability to urinate, Inability to have a bowel movement, Shortness of breath, Dizziness, Swelling in the ankles, C hest pain, Prolonged hiccupping, Increased palpitations (irregular heartbeat) and Calf discomfort Please Follow Up With: Bill Seo, DO Meaningful Use Info Meaningful Use Diagnoses (Choose all that apply): None applicable Discharge Plan Admission Admit Date/Time: 03/08/21 19:50 Primary Reason for Your Visit: Left lower lobe pneumonia Attending Provider: Pan Moore Primary Care Provider: Shelbie Hawk NP Instructions Additional Instructions / Restrictions: Follow-up BMP in 1 week. Discharge Orders/Prescriptions Prescriptions: New acetaminophen [Tylenol] 325 mg Tablet 650 mg PO Q6H PRN PRN (Reason: Pain Score 1-10/Temp > 100.7 F) Qty: 0 RF: 0 ipratropium-albuterol 0.5 mg-3 mg(2.5 mg base)/3 mL Solution For Nebulization 3 ml inhalation 4X/DAY Qty: 0 RF: 0 sucralfate 1 gram Tablet 1 g PO 1HR_ACHS Qty: 0 RF: 0 prednisone 20 mg Tablet 40 mg PO DAILY@0800 Qty: 0 RF: 0 sennosides-docusate sodium [Stool Softener-Stimulant Laxat] 8.6-50 mg Tablet 2 tab PO BID PRN PRN (Reason: Constipation) Qty: 0 RF: 0 pantoprazole 40 mg Tablet,Delayed Release (Dr/Ec) 40 mg PO DAILY Qty: 0 RF: 0 loratadine [Allergy Relief (loratadine)] 10 mg Tablet 10 mg PO DAILY Qty: 0 RF: 0 guaifenesin [Mucus Relief ER] 600 mg Tablet Extended Release 12hr 1,200 mg PO BID Qty: 0 RF: 0 levofloxacin 500 mg tablet 500 mg PO Q24H Qty: 5 RF: 0 Continued apixaban 2.5 mg tablet 2.5 mg PO BID RF: 0 levothyroxine 25 mcg tablet 50 mcg PO BID RF: 0 oxybutynin chloride 15 mg tablet extended release 24hr 15 mg PO DAILY RF: 0 furosemide 20 mg tablet 20 mg PO DAILY RF: 0 acyclovir 400 MG tablet 400 mg PO DAILY RF: 0 atorvastatin 40 mg tablet 40 mg PO QHS Qty: 90 RF: 3 Changed cyanocobalamin (vitamin B-12) 2,500 mcg tablet, sublingual 1,000 mcg PO DAILY Qty: 0 RF: 0 Referrals / Follow Up: Bill Seo DO [STAFF PHYSICIAN] - Within 1 Month (For PFT. Patient had detergent ingestion.) Shelbie Hawk CHARTERED WEALTH MANAGER, CHARTERED WEALTH MANAGER-C [Primary Care Provider] - Disposition Disposition (needs filled in before D/C Order can be placed): NonSkilled NH/Intermed Care Addendum Addendum: Please cancel the billing charge of progress note of the same date. Visit Charges Inpatient E&M: [id number] [facility]
--- NOTE | 2021-03-14 16:22 | CASEMGMT ---
CESARIO called Rachelle at [facility] and there was no answer. CESARIO called [facility]'s main number and CESARIO was told that Rachelle is still there. She is in a meeting with the clinical team discussing a referral. CESARIO will continue to wait on a return call. Svitlana Gonzalez MACHINE LOAD CLERK MONA
--- NOTE | 2021-03-14 16:33 | CASEMGMT ---
SW finally received a return call from [facility]. They will take patient today. SW faxed orders. COVID test is pending. SW called patient's daughter Kayla and let her know patient will go to [facility] today. Someone will call her with a picker tender time. PASRR was completed as patient will be [facility]. Plan: d/c to [facility] under intermediate level of care private pay. [facility] will transport patient. Svitlana DUNN
--- NOTE | 2021-03-14 20:00 | NURSING ---
Pt dc'd to correction at this time. [facility] here for the transport. Pts family present in room with pt. Discharge instructions/report already called by previous shift rn.
== END 2021-03-14 20:00 | disposition intermediate care facility (04) | DRG 206 ==
LOC: ED 19:48 → PCU 20:39
PROVIDERS: Internal Medicine; Admitting Provider Internal Medicine; Emergency Provider Emergency Medicine; PCP Nurse Practitioner; Visit Provider Internal Medicine
DX: J68.0 Bronchitis and pneumonitis due to chemicals, gases, fumes and vapors (principal); N17.9 Acute kidney failure, unspecified; D50.9 Iron deficiency anemia, unspecified; R62.7 Adult failure to thrive; R53.81 Other malaise; I44.1 Atrioventricular block, second degree; F03.90 Unspecified dementia, unspecified severity, without behavioral disturbance, psychotic disturbance, mood disturbance, and anxiety; N18.32 Chronic kidney disease, stage 3b; E03.9 Hypothyroidism, unspecified; E86.0 Dehydration; E78.5 Hyperlipidemia, unspecified; I12.9 Hypertensive chronic kidney disease with stage 1 through stage 4 chronic kidney disease, or unspecified chronic kidney disease; I25.10 Atherosclerotic heart disease of native coronary artery without angina pectoris; Z79.899 Other long term (current) drug therapy; F17.200 Nicotine dependence, unspecified, uncomplicated; D63.1 Anemia in chronic kidney disease; Z86.718 Personal history of other venous thrombosis and embolism; Z86.711 Personal history of pulmonary embolism; I48.0 Paroxysmal atrial fibrillation; Z79.02 Long term (current) use of antithrombotics/antiplatelets; G47.33 Obstructive sleep apnea (adult) (pediatric); Z91.83 Wandering in diseases classified elsewhere; K20.90 Esophagitis, unspecified without bleeding; T55.0X1A Toxic effect of soaps, accidental (unintentional), initial encounter
CPT/HCPCS: 36415; 71045; 71046; 80048; 80053; 81001; 82728; 83540; 83550; 83735; 83880; 84100; 84443; 84484; 85025; 86140; 87077; 87086; 87088; 87426; 87449; 92526; 92610; 93005; 94640; 94667; 94668; 97110; 97163; 97165; 97530; 97535; 99251; 99285; J7030; J7040; J7050; A4216; G0463; J0696; J1940; J2916

== ENCOUNTER → 2021-04-02 05:00 | Outpatient (REF) | payer MEDICARE, SELFPAY ==
[2021-03-08 22:01] VITALS: BMI 31.9
[2021-04-02 07:53] LABS: Hematocrit 36.8 % (40-54); Hemoglobin 11.3 g/dL (13.0-16.5); Mean Corp Hgb Conc 30.7 g/dL (32-36); Mean Corpuscular Hgb 26.8 pg (27.0-32.0); Mean Corpuscular Volume 87.4 fL (80-94); Mean Platelet Vol. 10.9 fl (6.2-12.0); Platelet Count 238 K/mm3 (150-450); RBC Distribution Width CV 18.6 % (11.6-14.6); RBC Distribution Width SD 58.7 fl (35.1-43.9); Red Blood Count 4.21 M/mm3 (4.6-6.2); White Blood Count 7.4 K/mm3 (4.4-11.0)
[2021-04-02 08:11] LABS: Anion Gap 7 (5-15); BUN 12 mg/dL (7-18); BUN/Creat Ratio 8.7 RATIO (10-20); Calcium,Total 8.9 mg/dL (8.5-10.1); Chloride 106 mmol/L (98-107); Creatinine, Serum 1.38 mg/dL (0.70-1.30); EST Glomerular Filtration Rate 52 mL/min (>60); Est Glom Filt Rate - Afr Amer 63 mL/min (>60); Glucose 92 mg/dL (74-106); Potassium 3.8 mmol/L (3.5-5.1); Sodium Level 139 mmol/L (136-145)
== END ==
LOC: OLS.WHLCAR 05:00
PROVIDERS: PCP Nurse Practitioner; Referring Provider Family Medicine; Visit Provider Family Medicine
DX: J18.9 Pneumonia, unspecified organism (principal); E03.9 Hypothyroidism, unspecified; E78.5 Hyperlipidemia, unspecified; F03.90 Unspecified dementia, unspecified severity, without behavioral disturbance, psychotic disturbance, mood disturbance, and anxiety; G47.33 Obstructive sleep apnea (adult) (pediatric); I27.82 Chronic pulmonary embolism
CPT/HCPCS: 36415; 80048; 85027

== ENCOUNTER → 2021-05-28 05:00 | Outpatient (REF) | payer MEDICARE, SELFPAY ==
[2021-03-08 22:01] VITALS: BMI 31.9
[2021-05-28 08:57] LABS: Cholesterol 98 mg/dL (200); High Density Lipoprotein 37 mg/dL; Thyroid Stim Hormone (TSH) 5.87 uIU/mL (0.358-3.74); Triglycerides 109 mg/dL; Very Low Density Lipoprotein 22 mg/dL (5-40)
[2021-05-28 09:56] LABS: Vitamin B12 775 pg/mL (211-911)
== END ==
LOC: OLS.WHLCAR 05:00
PROVIDERS: PCP Nurse Practitioner; Visit Provider Family Medicine
DX: J18.9 Pneumonia, unspecified organism (principal); J20.9 Acute bronchitis, unspecified; K20.90 Esophagitis, unspecified without bleeding; B02.9 Zoster without complications; M62.81 Muscle weakness (generalized); R26.2 Difficulty in walking, not elsewhere classified; E78.5 Hyperlipidemia, unspecified
CPT/HCPCS: 36415; 80061; 82607; 84443

== ENCOUNTER → 2021-08-28 05:00 | Outpatient (REF) | payer MEDICARE, SELFPAY ==
[2021-08-28 09:13] LABS: Thyroid Stim Hormone (TSH) 5.66 uIU/mL (0.358-3.74)
== END ==
LOC: OLS.WHLCAR 05:00
PROVIDERS: PCP Nurse Practitioner; Visit Provider Family Medicine
DX: E03.9 Hypothyroidism, unspecified (principal); J18.9 Pneumonia, unspecified organism; J20.9 Acute bronchitis, unspecified; K20.90 Esophagitis, unspecified without bleeding; B02.9 Zoster without complications; M62.81 Muscle weakness (generalized); R26.2 Difficulty in walking, not elsewhere classified
CPT/HCPCS: 36415; 84443

== ENCOUNTER → 2021-10-06 05:00 | Outpatient (REF) | payer MEDICARE, SELFPAY ==
[2021-10-06 06:44] LABS: Absolute Lymphocyte Count 2.43 X10^3/uL (0.83-4.51); Absolute Neutrophil Count 4.7 X10^3/uL (2.0-7.7); Basophil# 0.05 X10^3/uL; Basophil% 0.6 % (0-1); Eosinophil# 0.86 X10^3/uL; Eosinophils% 9.7 % (0-5); Hematocrit 40.5 % (40-54); Hemoglobin 12.3 g/dL (13.0-16.5); Lymphocyte # 2.43 X10^3/ul (0.83-4.51); Lymphocyte % 27.3 % (19-41); Mean Corp Hgb Conc 30.4 g/dL (32-36); Mean Corpuscular Volume 85.6 fL (80-94); Mean Platelet Vol. 12.3 fl (6.2-12.0); Monocyte# 0.82 X10^3/uL; Monocyte% 9.2 % (0-10); NRBC Flagged by Analyzer 0 % (0-5); Neutrophil # 4.73 X10^3/uL (2.7-7.7); Platelet Count 286 K/mm3 (150-450); RBC Distribution Width CV 15.4 % (11.6-14.6); RBC Distribution Width SD 48.5 fl (35.1-43.9); Red Blood Count 4.73 M/mm3 (4.6-6.2); White Blood Count 8.9 K/mm3 (4.4-11.0)
[2021-10-06 06:56] LABS: Anion Gap 6 (5-15); BUN 20 mg/dL (7-18); BUN/Creat Ratio 13.3 RATIO (10-20); Calcium,Total 8.5 mg/dL (8.5-10.1); Chloride 107 mmol/L (98-107); EST Glomerular Filtration Rate 47 mL/min (>60); Est Glom Filt Rate - Afr Amer 57 mL/min (>60); Glucose 92 mg/dL (74-106); Potassium 4.1 mmol/L (3.5-5.1); Sodium Level 139 mmol/L (136-145)
== END ==
LOC: OLS.WHLCAR 05:00
PROVIDERS: PCP Nurse Practitioner; Visit Provider Family Medicine
DX: J44.9 Chronic obstructive pulmonary disease, unspecified (principal); J18.9 Pneumonia, unspecified organism; J20.9 Acute bronchitis, unspecified; K20.90 Esophagitis, unspecified without bleeding; N02.9 Recurrent and persistent hematuria with unspecified morphologic changes; M62.81 Muscle weakness (generalized); R26.2 Difficulty in walking, not elsewhere classified
CPT/HCPCS: 36415; 80048; 85025

== ENCOUNTER → 2021-11-26 | Outpatient (REF) | payer MEDICARE, MEDICAID, SELFPAY ==
[2021-11-26 10:31] LABS: Vitamin B12 1201 pg/mL (211-911)
[2021-11-26 10:35] LABS: Cholesterol 142 mg/dL (200); High Density Lipoprotein 34 mg/dL; Thyroid Stim Hormone (TSH) 7.31 uIU/mL (0.358-3.74); Triglycerides 82 mg/dL; Very Low Density Lipoprotein 16 mg/dL (5-40)
== END | disposition home or self-care (01) ==
LOC: OLS.WHLCAR 05:00
PROVIDERS: PCP Nurse Practitioner; Visit Provider Family Medicine
DX: J18.9 Pneumonia, unspecified organism (principal); J20.9 Acute bronchitis, unspecified; K20.90 Esophagitis, unspecified without bleeding; B02.9 Zoster without complications; M62.81 Muscle weakness (generalized); R26.2 Difficulty in walking, not elsewhere classified
CPT/HCPCS: 36415; 80061; 82607; 84443

== ENCOUNTER → 2022-01-22 | Outpatient (REF) | payer MEDICARE, MEDICAID, SELFPAY ==
[2022-01-22 08:24] LABS: Thyroid Stim Hormone (TSH) 4.83 uIU/mL (0.358-3.74)
[2022-01-22 08:48] LABS: Vitamin B12 659 pg/mL (211-911)
== END | disposition home or self-care (01) ==
LOC: OLS.WHLCAR 04:00
PROVIDERS: PCP Nurse Practitioner; Referring Provider Family Medicine; Visit Provider Family Medicine
DX: E03.9 Hypothyroidism, unspecified (principal); I27.82 Chronic pulmonary embolism; F03.90 Unspecified dementia, unspecified severity, without behavioral disturbance, psychotic disturbance, mood disturbance, and anxiety; J44.9 Chronic obstructive pulmonary disease, unspecified; G47.33 Obstructive sleep apnea (adult) (pediatric); I12.9 Hypertensive chronic kidney disease with stage 1 through stage 4 chronic kidney disease, or unspecified chronic kidney disease; N18.9 Chronic kidney disease, unspecified
CPT/HCPCS: 36415; 82607; 84443

== ENCOUNTER → 2022-04-06 | Outpatient (REF) | payer MEDICARE, MEDICAID, SELFPAY ==
[2022-04-06 08:35] LABS: Absolute Lymphocyte Count 1.93 X10^3/uL (0.83-4.51); Absolute Neutrophil Count 5.2 X10^3/uL (2.0-7.7); Basophil# 0.04 X10^3/uL; Basophil% 0.5 % (0-1); Eosinophils% 9.2 % (0-5); Hematocrit 42.4 % (40-54); Hemoglobin 13.2 g/dL (13.0-16.5); Lymphocyte # 1.93 X10^3/ul (0.83-4.51); Lymphocyte % 22.1 % (19-41); Mean Corp Hgb Conc 31.1 g/dL (32-36); Mean Corpuscular Hgb 26.5 pg (27.0-32.0); Mean Corpuscular Volume 85.1 fL (80-94); Mean Platelet Vol. 11.8 fl (6.2-12.0); Monocyte# 0.74 X10^3/uL; Monocyte% 8.5 % (0-10); NRBC Flagged by Analyzer 0 % (0-5); Neutrophil # 5.19 X10^3/uL (2.7-7.7); Neutrophil % 59.4 % (47-70); Platelet Count 258 K/mm3 (150-450); RBC Distribution Width CV 15.7 % (11.6-14.6); RBC Distribution Width SD 48.5 fl (35.1-43.9); Red Blood Count 4.98 M/mm3 (4.6-6.2); White Blood Count 8.7 K/mm3 (4.4-11.0)
[2022-04-06 09:04] LABS: Anion Gap 5 (5-15); BUN 23 mg/dL (7-18); BUN/Creat Ratio 15.1 RATIO (10-20); Calcium,Total 9.1 mg/dL (8.5-10.1); Chloride 105 mmol/L (98-107); Creatinine, Serum 1.52 mg/dL (0.70-1.30); EST Glomerular Filtration Rate 47 mL/min (>60); Est Glom Filt Rate - Afr Amer 56 mL/min (>60); Glucose 94 mg/dL (74-106); Potassium 4.1 mmol/L (3.5-5.1); Sodium Level 137 mmol/L (136-145)
== END | disposition home or self-care (01) ==
LOC: OLS.WHLCAR 05:00
PROVIDERS: PCP Nurse Practitioner; Visit Provider Family Medicine
DX: J18.9 Pneumonia, unspecified organism (principal); J44.9 Chronic obstructive pulmonary disease, unspecified; J20.9 Acute bronchitis, unspecified; K20.90 Esophagitis, unspecified without bleeding; B02.9 Zoster without complications; M62.81 Muscle weakness (generalized); R26.2 Difficulty in walking, not elsewhere classified
CPT/HCPCS: 36415; 80048; 85025

== ENCOUNTER → 2022-05-18 | Outpatient (REF) | payer MEDICARE, MEDICAID, SELFPAY ==
[2022-05-18 08:44] LABS: Hematocrit 40.3 % (40-54); Hemoglobin 12.6 g/dL (13.0-16.5); Mean Corp Hgb Conc 31.3 g/dL (32-36); Mean Corpuscular Hgb 26.8 pg (27.0-32.0); Mean Corpuscular Volume 85.7 fL (80-94); Mean Platelet Vol. 11.8 fl (6.2-12.0); Platelet Count 259 K/mm3 (150-450); RBC Distribution Width SD 49.9 fl (35.1-43.9); White Blood Count 8.8 K/mm3 (4.4-11.0)
[2022-05-18 08:53] LABS: Anion Gap 8 (5-15); BUN 22 mg/dL (7-18); BUN/Creat Ratio 14.7 RATIO (10-20); Calcium,Total 8.7 mg/dL (8.5-10.1); Chloride 104 mmol/L (98-107); EST Glomerular Filtration Rate 47 mL/min (>60); Est Glom Filt Rate - Afr Amer 57 mL/min (>60); Glucose 90 mg/dL (74-106); Potassium 3.9 mmol/L (3.5-5.1); Sodium Level 139 mmol/L (136-145); Thyroid Stim Hormone (TSH) 5.23 uIU/mL (0.358-3.74)
[2022-05-18 09:20] LABS: Vitamin B12 456 pg/mL (211-911)
== END | disposition home or self-care (01) ==
LOC: OLS.WHLCAR 05:00
PROVIDERS: PCP Nurse Practitioner; Visit Provider Family Medicine
DX: J44.9 Chronic obstructive pulmonary disease, unspecified (principal); I27.82 Chronic pulmonary embolism; F03.90 Unspecified dementia, unspecified severity, without behavioral disturbance, psychotic disturbance, mood disturbance, and anxiety; N18.30 Chronic kidney disease, stage 3 unspecified; G47.33 Obstructive sleep apnea (adult) (pediatric); I12.9 Hypertensive chronic kidney disease with stage 1 through stage 4 chronic kidney disease, or unspecified chronic kidney disease
CPT/HCPCS: 36415; 80048; 82607; 84443; 85027

== ENCOUNTER → 2022-06-30 | Outpatient (REF) | payer MEDICARE, MEDICAID, SELFPAY ==
[2022-06-30 11:48] LABS: Thyroid Stim Hormone (TSH) 5.37 uIU/mL (0.358-3.74)
== END ==
LOC: OLS.WHLCAR 05:00
PROVIDERS: PCP Nurse Practitioner; Visit Provider Family Medicine
DX: J44.9 Chronic obstructive pulmonary disease, unspecified (principal); I27.82 Chronic pulmonary embolism; F03.90 Unspecified dementia, unspecified severity, without behavioral disturbance, psychotic disturbance, mood disturbance, and anxiety; G47.33 Obstructive sleep apnea (adult) (pediatric); I12.9 Hypertensive chronic kidney disease with stage 1 through stage 4 chronic kidney disease, or unspecified chronic kidney disease; E03.9 Hypothyroidism, unspecified; N18.9 Chronic kidney disease, unspecified
CPT/HCPCS: 36415; 84443

== ENCOUNTER → 2022-08-12 | Outpatient (REF) | payer MEDICARE, MEDICAID, SELFPAY ==
[2022-08-12 10:33] LABS: Thyroid Stim Hormone (TSH) 4.79 uIU/mL (0.358-3.74)
== END ==
LOC: OLS.WHLCAR 05:00
PROVIDERS: PCP Nurse Practitioner; Visit Provider Family Medicine
DX: E03.9 Hypothyroidism, unspecified (principal); J44.9 Chronic obstructive pulmonary disease, unspecified; F03.90 Unspecified dementia, unspecified severity, without behavioral disturbance, psychotic disturbance, mood disturbance, and anxiety; I27.82 Chronic pulmonary embolism; G47.33 Obstructive sleep apnea (adult) (pediatric); I12.9 Hypertensive chronic kidney disease with stage 1 through stage 4 chronic kidney disease, or unspecified chronic kidney disease; N18.9 Chronic kidney disease, unspecified
CPT/HCPCS: 36415; 84443

== ENCOUNTER → 2022-10-05 | Outpatient (REF) | payer MEDICARE, MEDICAID, SELFPAY ==
[2022-10-05 09:01] LABS: Absolute Neutrophil Count 5.7 X10^3/uL (2.0-7.7); Basophil# 0.05 X10^3/uL; Basophil% 0.5 % (0-1); Eosinophil# 0.99 X10^3/uL; Eosinophils% 10.1 % (0-5); Hematocrit 39.6 % (40-54); Hemoglobin 12.8 g/dL (13.0-16.5); Lymphocyte % 21.5 % (19-41); Mean Corp Hgb Conc 32.3 g/dL (32-36); Mean Corpuscular Hgb 27.8 pg (27.0-32.0); Mean Corpuscular Volume 86.1 fL (80-94); Mean Platelet Vol. 11.2 fl (6.2-12.0); Monocyte# 0.87 X10^3/uL; Monocyte% 8.9 % (0-10); NRBC Flagged by Analyzer 0 % (0-5); Neutrophil # 5.74 X10^3/uL (2.7-7.7); Neutrophil % 58.8 % (47-70); Platelet Count 283 K/mm3 (150-450); RBC Distribution Width CV 15.6 % (11.6-14.6); RBC Distribution Width SD 48.5 fl (35.1-43.9); White Blood Count 9.8 K/mm3 (4.4-11.0)
[2022-10-05 09:28] LABS: Anion Gap 4 (5-15); BUN 21 mg/dL (7-18); BUN/Creat Ratio 14.6 RATIO (10-20); Calcium,Total 8.7 mg/dL (8.5-10.1); Chloride 104 mmol/L (98-107); Creatinine, Serum 1.44 mg/dL (0.70-1.30); EST Glomerular Filtration Rate 49 mL/min (>60); Est Glom Filt Rate - Afr Amer 60 mL/min (>60); Glucose 99 mg/dL (74-106); Potassium 4.1 mmol/L (3.5-5.1); Sodium Level 135 mmol/L (136-145)
== END ==
LOC: OLS.WHLCAR 05:00
PROVIDERS: PCP Nurse Practitioner; Visit Provider Family Medicine
DX: J44.9 Chronic obstructive pulmonary disease, unspecified (principal); I27.82 Chronic pulmonary embolism; F03.90 Unspecified dementia, unspecified severity, without behavioral disturbance, psychotic disturbance, mood disturbance, and anxiety
CPT/HCPCS: 36415; 80048; 85025

== ENCOUNTER → 2022-11-25 | Outpatient (REF) | payer MEDICARE, MEDICAID, SELFPAY ==
[2022-11-25 09:06] LABS: Thyroid Stim Hormone (TSH) 4.97 uIU/mL (0.358-3.74)
[2022-11-25 09:26] LABS: Vitamin B12 439 pg/mL (211-911)
== END ==
LOC: OLS.WHLCAR 05:00
PROVIDERS: PCP Nurse Practitioner; Visit Provider Internal Medicine
DX: E03.9 Hypothyroidism, unspecified (principal); J44.9 Chronic obstructive pulmonary disease, unspecified; F03.90 Unspecified dementia, unspecified severity, without behavioral disturbance, psychotic disturbance, mood disturbance, and anxiety; I27.82 Chronic pulmonary embolism; G47.33 Obstructive sleep apnea (adult) (pediatric); I12.9 Hypertensive chronic kidney disease with stage 1 through stage 4 chronic kidney disease, or unspecified chronic kidney disease; N18.9 Chronic kidney disease, unspecified
CPT/HCPCS: 36415; 82607; 84443

== ENCOUNTER → 2023-03-16 | Outpatient (REF) | payer MEDICARE, MEDICAID, SELFPAY ==
[2023-03-16 08:44] LABS: AST(SGOT) 16 U/L (15-37); Alanine Aminotransfer ALT/SGPT 19 U/L (16-61); Albumin, Serum 3.4 g/dL (3.2-5.0); Alkaline Phosphatase 100 U/L (45-117); Bilirubin, Direct 0.17 mg/dL (0.00-0.30); Globulin 4.6 g/dL (2.2-4.2); Prealbumin 20.6 mg/dL (20.0-40.0)
== END ==
LOC: OLS.WHLCAR 05:00
PROVIDERS: PCP Nurse Practitioner; Visit Provider Internal Medicine
DX: E63.9 Nutritional deficiency, unspecified (principal); J44.9 Chronic obstructive pulmonary disease, unspecified; F03.90 Unspecified dementia, unspecified severity, without behavioral disturbance, psychotic disturbance, mood disturbance, and anxiety; I27.82 Chronic pulmonary embolism; G47.33 Obstructive sleep apnea (adult) (pediatric); Z79.899 Other long term (current) drug therapy
CPT/HCPCS: 36415; 80076; 84134

== ENCOUNTER → 2023-04-05 | Outpatient (REF) | payer MEDICARE, MEDICAID, SELFPAY ==
[2023-04-05 08:05] LABS: Absolute Lymphocyte Count 2.42 X10^3/uL (0.83-4.51); Absolute Neutrophil Count 5.6 X10^3/uL (2.0-7.7); Basophil# 0.06 X10^3/uL; Basophil% 0.6 % (0-1); Eosinophil# 0.87 X10^3/uL; Eosinophils% 8.9 % (0-5); Hematocrit 41.9 % (40-54); Lymphocyte # 2.42 X10^3/ul (0.83-4.51); Lymphocyte % 24.8 % (19-41); Mean Corpuscular Hgb 26.9 pg (27.0-32.0); Mean Corpuscular Volume 86.7 fL (80-94); Mean Platelet Vol. 11.7 fl (6.2-12.0); Monocyte# 0.79 X10^3/uL; Monocyte% 8.1 % (0-10); NRBC Flagged by Analyzer 0 % (0-5); Neutrophil # 5.59 X10^3/uL (2.7-7.7); Neutrophil % 57.4 % (47-70); Platelet Count 277 K/mm3 (150-450); RBC Distribution Width CV 16.3 % (11.6-14.6); RBC Distribution Width SD 51.3 fl (35.1-43.9); Red Blood Count 4.83 M/mm3 (4.6-6.2); White Blood Count 9.8 K/mm3 (4.4-11.0)
[2023-04-05 08:12] LABS: Anion Gap 6 (5-15); BUN 22 mg/dL (7-18); BUN/Creat Ratio 15.1 RATIO (10-20); Calcium,Total 8.5 mg/dL (8.5-10.1); Chloride 108 mmol/L (98-107); Creatinine, Serum 1.46 mg/dL (0.70-1.30); EST Glomerular Filtration Rate 49 mL/min (>60); Est Glom Filt Rate - Afr Amer 59 mL/min (>60); Glucose 92 mg/dL (74-106); Potassium 3.8 mmol/L (3.5-5.1); Sodium Level 139 mmol/L (136-145)
== END ==
LOC: OLS.WHLCAR 04:00
PROVIDERS: PCP Nurse Practitioner; Visit Provider Nurse Practitioner Adult Health
DX: J44.9 Chronic obstructive pulmonary disease, unspecified (principal)
CPT/HCPCS: 36415; 80048; 85025

== ENCOUNTER → 2023-09-08 | Outpatient (REF) | payer MEDICARE, MEDICAID, SELFPAY ==
[2023-09-08 09:25] LABS: Absolute Lymphocyte Count 2.38 X10^3/uL (0.83-4.51); Absolute Neutrophil Count 5.4 X10^3/uL (2.0-7.7); Basophil# 0.07 X10^3/uL; Basophil% 0.7 % (0-1); Eosinophil# 0.96 X10^3/uL; Eosinophils% 9.9 % (0-5); Hemoglobin 13.7 g/dL (13.0-16.5); Lymphocyte # 2.38 X10^3/ul (0.83-4.51); Lymphocyte % 24.5 % (19-41); Mean Corp Hgb Conc 31.1 g/dL (32-36); Mean Corpuscular Hgb 26.8 pg (27.0-32.0); Mean Corpuscular Volume 86.1 fL (80-94); Mean Platelet Vol. 11.7 fl (6.2-12.0); Monocyte# 0.85 X10^3/uL; Monocyte% 8.7 % (0-10); NRBC Flagged by Analyzer 0 % (0-5); Neutrophil # 5.44 X10^3/uL (2.7-7.7); Platelet Count 292 K/mm3 (150-450); RBC Distribution Width CV 16.8 % (11.6-14.6); RBC Distribution Width SD 51.9 fl (35.1-43.9); Red Blood Count 5.11 M/mm3 (4.6-6.2); White Blood Count 9.7 K/mm3 (4.4-11.0)
[2023-09-08 09:36] LABS: Anion Gap 5 (5-15); BUN 24 mg/dL (7-18); BUN/Creat Ratio 17.5 RATIO (10-20); Calcium,Total 8.5 mg/dL (8.5-10.1); Chloride 110 mmol/L (98-107); Creatinine, Serum 1.37 mg/dL (0.70-1.30); EST Glomerular Filtration Rate 52 mL/min (>60); Est Glom Filt Rate - Afr Amer 63 mL/min (>60); Glucose 94 mg/dL (74-106); Potassium 3.9 mmol/L (3.5-5.1); Sodium Level 142 mmol/L (136-145)
== END ==
LOC: OLS.WHLCAR 05:00
PROVIDERS: PCP Nurse Practitioner; Visit Provider Internal Medicine
DX: J44.9 Chronic obstructive pulmonary disease, unspecified (principal)
CPT/HCPCS: 36415; 80048; 85025

== ENCOUNTER → 2023-12-01 | Outpatient (REF) | payer MEDICARE, MEDICAID, SELFPAY ==
--- OUTSIDE RECORDS SUMMARY | 2023-12-01 04:36 | XMS RPT_ITS | CCD ---
Author Name Unknown Address [id number] [place] [address] Organization [facility] Care Team Providers Care Prekindergarten Teacher Name Role Phone Shelbie Hawk Unavailable Unavailable Unavailable Fei Padilla Unavailable Unavailable Shelbie Hawk Attending Unavailable Shelbie Hawk Consulting Unavailable Irasema Santiago Unavailable Unavailable Radha Madden Unavailable Unavailable Home Health Unavailable Unavailable Fei Padilla Unavailable Unavailable Unavailable Unavailable Barbra Sharp Unavailable Unavailable Brittaney Frederick Unavailable Unavailable Fei Rodriges Unavailable Unavailable Pam Santoro Unavailable Unavailable Myrna Biswas Unavailable Kenn AGUIRREShelbie E Unavailable [place]lam[place] HUNTER Brittaney Unavailable Unavailable Fei Rodriges LPN Unavailable Unavailable Unavailable Unavailable Pam Santoro LPN Unavailable Unavailable Allergies Allergy Classification Reported Allergen(s) Allergy Type Date of Onset Reaction(s) Facility Acetaminophen / HYDROcodone (14 sources) Acetaminophen / HYDROcodone; Translations: [Vicodin *ANALGESICS - OPIOID*] Drug Allergy Headache [facility] Work Phone: Medications Completed/Discontinued Medications Medication Drug Class(es) Dates Sig (Normalized) Sig (Original) acyclovir 400 mg oral tablet (20 sources) Herpesvirus Nucleoside Analog DNA Polymerase Inhibitor, Herpes Simplex Virus Nucleoside Analog DNA Polymerase Inhibitor, Herpes Zoster Virus Nucleoside Analog DNA Polymerase Inhibitor Start: 12-23-2020 take 1 tablet by mouth once daily Acyclovir 400 MG Oral Tablet 1 (one) Tablet daily for 0 days Quantity: 30 {Tablet} Refills: 3 Ordered: 23-Dec-2020 Fei Rodriges LPN Start : 23-Dec-2020 Active Problems Active Problems Problem Classification Problem Date Documented Da te Episodic/Chronic Abdominal hernia (20 sources) Hiatal hernia; Translations: [Hiatal hernia] 05-27-2020 Episodic Past or Other Problems Problem Classification Problem Date Documented Da te Episodic/Chronic Residual codes; unclassified (20 sources) Needs influenza immunization; Translations: [Need for prophylactic vaccination and inoculation against influenza (Renamed from Need for immunization against influenza)] Resolved: 06-14-2020 06-27-2019 Episodic Residual codes; unclassified (20 sources) Edema of lower extremity; Translations: [Bilateral leg edema] 05-27-2020 Episodic Results Test Name Value Interpretation Reference Range Facil ity Vital Signs Date Time Vital Sign Value Performing Clinician Facility 03-07-2021 11:35-0400 Body height 168.91 cm Fei Rodriges LPN [facility] Work Phone: 03-07-2021 11:35-0400 Body mass index (BMI) [Ratio] 38 kg/m2 Fei Rodriges LPN [facility]; [facility] Work Phone: 03-07-2021 11:35-0400 Body surface area Derived from formula 2.17 m2 Fei Rodriges LPN [facility]; [facility] Work Phone: 03-07-2021 11:35-0400 Body weight 108.41 kg Fei Rodriges LPN [facility]; [facility] Work Phone: 02-10-2021 15:26-0400 Body height 168.91 cm Brittaney Frederick LPN [facility]; [facility] Work Phone: 02-10-2021 15:26-0400 Body mass index (BMI) [Ratio] 38 kg/m2 Brittaney Frederick LPN [facility]; [facility] Work Phone: 02-10-2021 15:26-0400 Body surface area Derived from formula 2.17 m2 Brittaney Frederick [employer] [facility] Work Phone: 02-10-2021 15:26-0400 Body temperature 98.2 [degF] Brittaney Frederick [employer] [facility] Work Phone: 02-10-2021 15:26-0400 Body weight 108.41 kg Brittaney Frederick ELSA [facility] Work Phone: 02-10-2021 15:26-0400 Diastolic blood pressure 80 mm[Hg] Brittaney Frederick [employer] [facility] Work Phone: Encounters Encounter Date Encounter Type Care Provider Facility Start: 04-24-2021 End: 04-24-2021 Office outpatient visit 5 minutes Shelbie Hawk TECHNOLOGY MANAGER Work Phone: [facility] Start: 03-27-2021 End: 03-27-2021 Office outpatient visit 5 minutes Shelbie Hawk TECHNOLOGY MANAGER Work Phone: [facility] Start: 03-07-2021 End: 03-07-2021 Office outpatient visit 10 minutes Shelbie Hawk TECHNOLOGY MANAGER Work Phone: [facility] Start: 02-19-2021 End: 02-19-2021 Annotation/Addendum Shelbie Hawk TECHNOLOGY MANAGER Work Phone: [facility] Start: 02-18-2021 End: 02-18-2021 Annotation/Addendum Shelbie Hawk TECHNOLOGY MANAGER Work Phone: [facility] Start: 02-10-2021 End: 02-10-2021 Office outpatient visit 25 minutes Shelbie Hawk TECHNOLOGY MANAGER Work Phone: [facility] Start: 01-31-2021 End: 01-31-2021 Annotation/Addendum Shelbie Hawk [facility] Start: 01-29-2021 End: 01-29-2021 Annotation/Addendum Shelbie Hawk [facility] Start: 12-23-2020 End: 12-23-2020 Office outpatient visit 25 minutes Shelbie Hawk [facility] Start: 11-04-2020 End: 11-04-2020 Office outpatient visit 25 minutes Shelbie Hawk [facility] Start: 10-04-2020 End: 10-04-2020 Office outpatient visit 25 minutes Shelbie Hawk [facility] Start: 10-02-2020 End: 10-02-2020 Annotation/Addendum Shelbie Montrellheidi [facility] Start: 10-01-2020 End: 10-01-2020 Office outpatient visit 25 minutes Shelbie [facility] Start: 09-02-2020 End: 09-02-2020 Office outpatient visit 25 minutes Shelbie [facility] Start: 08-26-2020 End: 08-26-2020 Lab Order Shelbie Kenn [facility] Start: 07-31-2020 End: 07-31-2020 Office outpatient visit 5 minutes Shelbie [facility] Start: 07-23-2020 End: 07-23-2020 Office outpatient visit 5 minutes Shelbie [facility] Start: 07-17-2020 End: 07-17-2020 Annotation/Addendum Shelbie Ver[facility] Start: 07-16-2020 End: 07-16-2020 Office outpatient visit 5 minutes Shelbie Ver[facility] Start: 07-16-2020 End: 07-16-2020 Office outpatient visit 25 minutes Shelbie Ver[facility] Start: 06-24-2020 End: 06-24-2020 Office outpatient visit 5 minutes Shelbie Ver[facility] Start: 06-18-2020 End: 06-18-2020 Office outpatient visit 25 minutes Shelbie Ver[facility] Start: 06-10-2020 Review Shelbie Nelson [facility] Start: 06-05-2020 End: 06-06-2020 Office outpatient visit 5 minutes Shelbie [facility] Start: 05-29-2020 End: 05-29-2020 Office outpatient visit 5 minutes Shelbie Ver[facility] Start: 05-27-2020 End: 05-27-2020 Office outpatient visit 25 minutes Shelbie Ver[facility] Start: 05-27-2020 Review Shelbie Clementsmattheidi Nelson [facility] Start: 02-20-2020 End: 02-20-2020 Office outpatient visit 25 minutes Shelbie [facility] Start: 01-05-2020 End: 01-05-2020 Annotation/Addendum Shelbie [facility] Start: 01-01-2020 End: 01-01-2020 Annotation/Addendum Shelbie Veronica [facility] Start: 12-26-2019 End: 12-26-2019 Annotation/Addendum Shelbie Veronica [facility] Start: 12-22-2019 End: 12-22-2019 Office outpatient visit 25 minutes Shelbie Ver[facility] Start: 11-21-2019 End: 11-21-2019 Office outpatient visit 25 minutes Shelbie Ver[facility] Start: 11-03-2019 End: 11-03-2019 Office outpatient visit 15 minutes Shelbie Ver[facility] Start: 10-31-2019 End: 10-31-2019 Office outpatient visit 25 minutes Shelbie Ver[facility] Start: 10-27-2019 End: 10-27-2019 Office outpatient visit 15 minutes Shelbie Ver[facility] Start: 10-13-2019 End: 10-13-2019 Office outpatient visit 10 minutes Shelbie Ver[facility] Start: 10-04-2019 End: 10-04-2019 Annotation/Addendum Shelbie Hawk [facility] Start: 10-02-2019 End: 10-02-2019 Annotation/Addendum Shelbie Hawk [facility] Start: 10-02-2019 End: 10-02-2019 Office outpatient visit 15 minutes Shelbie Ver[facility] Start: 06-27-2019 End: 06-27-2019 Annotation/Addendum Shelbie Clementsmattheidi [facility] Start: 06-27-2019 End: 06-27-2019 Office outpatient visit 25 minutes Shelbie Ver[facility] Start: 06-27-2019 Review Shelbie Hernandezkaiser [facility] Start: 02-22-2019 Patient encounter procedure Shelbie Veronica [facility] Start: 02-17-2019 End: 02-17-2019 Office outpatient visit 15 minutes Shelbie Ver[facility] Start: 02-08-2019 End: 02-08-2019 Lab Order Shelbie Veronica [facility] Start: 02-07-2019 End: 02-07-2019 Annotation/Addendum Shelbie Montrellheidi [facility] Start: 02-07-2019 End: 02-07-2019 Office outpatient new 60 minutes Shelbie Hawk [facility] Procedures Date Procedure Procedure Detail Performing Clinician Start: 04-24-2021 End: 04-24-2021 INTRAMUSCULAR ADMINISTRATION OF SECOND DOSE OF MODERNA COVID-19 VACCINE (35047) Shelbie Joseph Starrcat TECHNOLOGY MANAGER Work Phone: Plan of Treatment Date Care Activity Detail Author Start: 03-25-2021 Assay of thyroid stimulating hormone tsh TSH (THYROID STIMULATING HORMONE) ([id number]) [facility]; [facility] Work Phone: Start: 03-07-2021 Procedure Education Eprescribed prescriptions (G8553) [facility] Work Phone: Start: 02-10-2021 Renal function panel RENAL FUNCTION PANEL ([id number]) [facility]; [facility] Work Phone: Start: 02-10-2021 Assay of thyroid stimulating hormone tsh TSH (THYROID STIMULATING HORMONE) ([id number]) [facility]; [facility] Work Phone: Start: 02-10-2021 Procedure Education Eprescribed prescriptions (G8553) [facility]; [facility] Work Phone: Start: 02-10-2021 Provider Instructions for Treatment [facility] Work Phone: Start: 01-28-2021 Comprehensive metabolic panel Metabolic Panel, Comprehensive ([id number]) [facility]; [facility] Work Phone: Start: 01-28-2021 TSH Qn TSH (THYROID STIMULATING HORMONE) ([id number]) [facility]; [facility] Work Phone: Start: 12-23-2020 Culture bct isol&prsmptv id isolate ea urine URINE TRACEE CULTURE-IDENTIFICATN ([id number]) [facility]; [facility] Work Phone: Start: 12-23-2020 Urinalysis qual/semiquant except immunoassays URINALYSIS (76883) [facility]; [facility] Work Phone: Start: 12-23-2020 Urine albumin quantitative MICROALBUMIN: CREATININE RATIO ([id number]) AND (06962) [facility]; [facility] Work Phone: Start: 12-23-2020 Procedure Education Eprescribed prescriptions (G8553) [facility]; [facility] Work Phone: Start: 12-23-2020 Provider Instructions for Treatment [facility] Work Phone: Start: 12-16-2020 Comprehensive metabolic panel Metabolic Panel, Comprehensive ([id number]) [facility]; [facility] Work Phone: Start: 12-16-2020 TSH Qn TSH (83167) [facility] Work Phone: Start: 11-04-2020 Procedure Education Eprescribed prescriptions (G8553) [facility]; [facility] Work Phone: Start: 11-04-2020 Provider Instructions for Treatment [facility]; [facility] Work Phone: Start: 10-14-2020 Blood count complete auto&auto difrntl wbc CBC, Platelets & Auto Diff (58327) [facility]; [facility] Work Phone: Start: 10-04-2020 TSH Qn TSH (THYROID STIMULATING HORMONE) ([id number]) [facility]; [facility] Work Phone: Immunizations Immunization Date Immunization Notes Care Provider Ivy cancino 04-24-2021 COVID-19 (Moderna) Shelbie gordon CNP Work Phone: [facility]; [facility] Work Phone: Payers Date Payer Category Payer Medicare [id number] 1935 Unknown [id number] Unknown [employer]/Medicare Social History Date Type Detail Facility Alcohol Use: Non Drinker / No Alcohol Use . [facility] Work Phone: Caffeine use Caffeine use [facility] Work Phone: Microscopic observation Gram stain Nom (Sput) 10-02-2019 Note Date & Type Note Facility Instructions Note Date & Type Note Facility [facility] Work Phone: Instructions Note Date & Type Note Facility [facility] Work Phone: Instructions Note Date & Type Note Facility [facility] Work Phone: Instructions Note Date & Type Note Facility [facility]; [facility] Work Phone: Instructions Note Date & Type Note Facility [facility]; [facility] Work Phone: Instructions Note Date & Type Note Facility [facility] Work Phone: Instructions Note Date & Type Note Facility [facility] Work Phone: Instructions Note Date & Type Note Facility [facility] Work Phone: Instructions Note Date & Type Note Facility [facility] Work Phone: Family History No Family History Records FoundUnknown Family Member Name Dates Details Brother 1 Comments:bone cancer Status:Active Mother Comments:heart disease Status:Active Unknown Family Member Name Dates Details Brother 1 Comments:bone cancer Status:Active Mother Comments:heart disease Status:Active Unknown Family Member Name Dates Details Brother 1 Comments:bone cancer Status:Active Mother Comments:heart disease Status:Active Unknown Family Member Name Dates Details Brother 1 Comments:bone cancer Status:Active Mother Comments:heart disease Status:Active Unknown Family Member Name Dates Details Brother 1 Comments:bone cancer Status:Active Mother Comments:heart disease Status:Active Unknown Family Member Name Dates Details Brother 1 Comments:bone cancer Status:Active Mother Comments:heart disease Status:Active Unknown Family Member Name Dates Details Brother 1 Comments:bone cancer Status:Active Mother Comments:heart disease Status:Active Unknown Family Member Name Dates Details Brother 1 Comments:bone cancer Status:Active Mother Comments:heart disease Status:Active Unknown Family Member Name Dates Details Brother 1 Comments:bone cancer Status:Active Mother Comments:heart disease Status:Active Unknown Family Member Name Dates Details Brother 1 Comments:bone cancer Status:Active Mother Comments:heart disease Status:Active Unknown Family Member Name Dates Details Brother 1 Comments:bone cancer Status:Active Mother Comments:heart disease Status:Active Unknown Family Member Name Dates Details Brother 1 Comments:bone cancer Status:Active Mother Comments:heart disease Status:Active Unknown Family Member Name Dates Details Brother 1 Comments:bone cancer Status:Active Mother Comments:heart disease Status:Active Unknown Family Member Name Dates Details Brother 1 Comments:bone cancer Status:Active Mother Comments:heart disease Status:Active Unknown Family Member Name Dates Details Brother 1 Comments:bone cancer Status:Active Mother Comments:heart disease Status:Active Unknown Family Member Name Dates Details Brother 1 Comments:bone cancer Status:Active Mother Comments:heart disease Status:Active Unknown Family Member Name Dates Details Brother 1 Comments:bone cancer Status:Active Mother Comments:heart disease Status:Active Unknown Family Member Name Dates Details Brother 1 Comments:bone cancer Status:Active Mother Comments:heart disease Status:Active Unknown Family Member Name Dates Details Brother 1 Comments:bone cancer Status:Active Mother Comments:heart disease Status:Active Unknown Family Member Name Dates Details Brother 1 Comments:bone cancer Status:Active Mother Comments:heart disease Status:Active Unknown Family Member Name Dates Details Brother 1 Comments:bone cancer Status:Active Mother Comments:heart disease Status:Active Unknown Family Member Name Dates Details Brother 1 Comments:bone cancer Status:Active Mother Comments:heart disease Status:Active Unknown Family Member Name Dates Details Brother 1 Comments:bone cancer Status:Active Mother Comments:heart disease Status:Active Unknown Family Member Name Dates Details Brother 1 Comments:bone cancer Status:Active Mother Comments:heart disease Status:Active Unknown Family Member Name Dates Details Brother 1 Comments:bone cancer Status:Active Mother Comments:heart disease Status:Active Unknown Family Member Name Dates Details Brother 1 Comments:bone cancer Status:Active Mother Comments:heart disease Status:Active Unknown Family Member Name Dates Details Brother 1 Comments:bone cancer Status:Active Mother Comments:heart disease Status:Active Unknown Family Member Name Dates Details Brother 1 Comments:bone cancer Status:Active Mother Comments:heart disease Status:Active Unknown Family Member Name Dates Details Brother 1 Comments:bone cancer Status:Active Mother Comments:heart disease Status:Active Unknown Family Member Name Dates Details Brother 1 Comments:bone cancer Status:Active Mother Comments:heart disease Status:Active Unknown Family Member Name Dates Details Brother 1 Comments:bone cancer Status:Active Mother Comments:heart disease Status:Active Unknown Family Member Name Dates Details Brother 1 Comments:bone cancer Status:Active Mother Comments:heart disease Status:Active Unknown Family Member Name Dates Details Brother 1 Comments:bone cancer Status:Active Mother Comments:heart disease Status:Active Unknown Family Member Name Dates Details Brother 1 Comments:bone cancer Status:Active Mother Comments:heart disease Status:Active Unknown Family Member Name Dates Details Brother 1 Comments:bone cancer Status:Active Mother Comments:heart disease Status:Active Unknown Family Member Name Dates Details Brother 1 Comments:bone cancer Status:Active Mother Comments:heart disease Status:Active Unknown Family Member Name Dates Details Brother 1 Comments:bone cancer Status:Active Mother Comments:heart disease Status:Active Unknown Family Member Name Dates Details Brother 1 Comments:bone cancer Status:Active Mother Comments:heart disease Status:Active Unknown Family Member Name Dates Details Brother 1 Comments:bone cancer Status:Active Mother Comments:heart disease Status:Active Unknown Family Member Name Dates Details Brother 1 Comments:bone cancer Status:Active Mother Comments:heart disease Status:Active Unknown Family Member Name Dates Details Brother 1 Comments:bone cancer Status:Active Mother Comments:heart disease Status:Active Instructions Name Dates Details Hypertension : How to access health information online Indication:Hypertension Hypertension : How to access health information online - Detail Indication:Hypertension Hypertension : Patient Instr uctions Indication:Hypertension Name Dates Details Hypertension : How to access health information online Indication:Hypertension Hypertension : How to access health information online - Detail Indication:Hypertension Hypertension : Patient Instr uctions Indication:Hypertension Name Dates Details How to access health informa tion online Indication:Pipe smoker Start:17-Feb-2019 Instruction Type:Patient Education How to access health informa tion online - Detail Indication:Pipe smoker Start:17-Feb-2019 Instruction Type:Patient Education Patient Instructions Indication:Pipe smoker Start:17-Feb-2019 Instruction Type:Provider Instructions for Treatment How to access health informa tion online Indication:Hypertension Start:07-Feb-2019 Instruction Type:Patient Education How to access health informa tion online - Detail Indication:Hypertension Start:07-Feb-2019 Instruction Type:Patient Education Patient Instructions Indication:Hypertension Start:07-Feb-2019 Instruction Type:Provider Instructions for Treatment Name Dates Details How to access health informa tion online Indication:Pipe smoker Start:17-Feb-2019 Instruction Type:Patient Education How to access health informa tion online - Detail Indication:Pipe smoker Start:17-Feb-2019 Instruction Type:Patient Education Patient Instructions Indication:Pipe smoker Start:17-Feb-2019 Instruction Type:Provider Instructions for Treatment How to access health informa tion online Indication:Hypertension Start:07-Feb-2019 Instruction Type:Patient Education How to access health informa tion online - Detail Indication:Hypertension Start:07-Feb-2019 Instruction Type:Patient Education Patient Instructions Indication:Hypertension Start:07-Feb-2019 Instruction Type:Provider Instructions for Treatment Name Dates Details How to access health informa tion online Indication:Pipe smoker Start:27-Jun-2019 Instruction Type:Patient Education How to access health informa tion online - Detail Indication:Pipe smoker Start:27-Jun-2019 Instruction Type:Patient Education Patient Instructions Indication:Pipe smoker Start:27-Jun-2019 Instruction Type:Provider Instructions for Treatment How to access health informa tion online Indication:Pipe smoker Start:17-Feb-2019 Instruction Type:Patient Education How to access health informa tion online - Detail Indication:Pipe smoker Start:17-Feb-2019 Instruction Type:Patient Education Patient Instructions Indication:Pipe smoker Start:17-Feb-2019 Instruction Type:Provider Instructions for Treatment How to access health informa tion online Indication:Hypertension Start:07-Feb-2019 Instruction Type:Patient Education How to access health informa tion online - Detail Indication:Hypertension Start:07-Feb-2019 Instruction Type:Patient Education Patient Instructions Indication:Hypertension Start:07-Feb-2019 Instruction Type:Provider Instructions for Treatment Name Dates Details How to access health informa tion online Indication:Pipe smoker Start:27-Jun-2019 Instruction Type:Patient Education How to access health informa tion online - Detail Indication:Pipe smoker Start:27-Jun-2019 Instruction Type:Patient Education Patient Instructions Indication:Pipe smoker Start:27-Jun-2019 Instruction Type:Provider Instructions for Treatment How to access health informa tion online Indication:Pipe smoker Start:17-Feb-2019 Instruction Type:Patient Education How to access health informa tion online - Detail Indication:Pipe smoker Start:17-Feb-2019 Instruction Type:Patient Education Patient Instructions Indication:Pipe smoker Start:17-Feb-2019 Instruction Type:Provider Instructions for Treatment How to access health informa tion online Indication:Hypertension Start:07-Feb-2019 Instruction Type:Patient Education How to access health informa tion online - Detail Indication:Hypertension Start:07-Feb-2019 Instruction Type:Patient Education Patient Instructions Indication:Hypertension Start:07-Feb-2019 Instruction Type:Provider Instructions for Treatment Name Dates Details How to access health informa tion online Indication:Pipe smoker Start:27-May-2020 Instruction Type:Patient Education How to access health informa tion online - Detail Indication:Pipe smoker Start:27-May-2020 Instruction Type:Patient Education Patient Instructions Indication:Pipe smoker Start:27-May-2020 Instruction Type:Provider Instructions for Treatment How to access health informa tion online Indication:Pipe smoker Start:20-Feb-2020 Instruction Type:Patient Education How to access health informa tion online - Detail Indication:Pipe smoker Start:20-Feb-2020 Instruction Type:Patient Education Patient Instructions Indication:BMI 32.0-32.9,adult Start:20-Feb-2020 Instruction Type:Provider Instructions for Treatment How to access health informa tion online Indication:Pipe smoker Start:22-Dec-2019 Instruction Type:Patient Education How to access health informa tion online - Detail Indication:Pipe smoker Start:22-Dec-2019 Instruction Type:Patient Education Patient Instructions Indication:First degree AV block Start:22-Dec-2019 Instruction Type:Provider Instructions for Treatment How to access health informa tion online Indication:Pipe smoker Start:21-Nov-2019 Instruction Type:Patient Education How to access health informa tion online - Detail Indication:Pipe smoker Start:21-Nov-2019 Instruction Type:Patient Education Patient Instructions Indication:Pipe smoker Start:21-Nov-2019 Instruction Type:Provider Instructions for Treatment How to access health informa tion online Indication:Pipe smoker Start:03-Nov-2019 Instruction Type:Patient Education How to access health informa tion online - Detail Indication:Pipe smoker Start:03-Nov-2019 Instruction Type:Patient Education Patient Instructions Indication:Pipe smoker Start:03-Nov-2019 Instruction Type:Provider Instructions for Treatment How to access health informa tion online Indication:Pipe smoker Start:31-Oct-2019 Instruction Type:Patient Education How to access health informa tion online - Detail Indication:Pipe smoker Start:31-Oct-2019 Instruction Type:Patient Education Patient Instructions Indication:BMI 33.0-33.9,adult Start:31-Oct-2019 Instruction Type:Provider Instructions for Treatment How to access health informa tion online Indication:Pipe smoker Start:27-Oct-2019 Instruction Type:Patient Education How to access health informa tion online - Detail Indication:Pipe smoker Start:27-Oct-2019 Instruction Type:Patient Education Patient Instructions Indication:BMI 33.0-33.9,adult Start:27-Oct-2019 Instruction Type:Provider Instructions for Treatment How to access health informa tion online Indication:Pipe smoker Start:13-Oct-2019 Instruction Type:Patient Education How to access health informa tion online - Detail Indication:Pipe smoker Start:13-Oct-2019 Instruction Type:Patient Education Patient Instructions Indication:Pipe smoker Start:13-Oct-2019 Instruction Type:Provider Instructions for Treatment How to access health informa tion online Indication:Pipe smoker Start:02-Oct-2019 Instruction Type:Patient Education How to access health informa tion online - Detail Indication:Pipe smoker Start:02-Oct-2019 Instruction Type:Patient Education Patient Instructions Indication:Pipe smoker Start:02-Oct-2019 Instruction Type:Provider Instructions for Treatment How to access health informa tion online Indication:Pipe smoker Start:27-Jun-2019 Instruction Type:Patient Education How to access health informa tion online - Detail Indication:Pipe smoker Start:27-Jun-2019 Instruction Type:Patient Education Patient Instructions Indication:Pipe smoker Start:27-Jun-2019 Instruction Type:Provider Instructions for Treatment How to access health informa tion online Indication:Pipe smoker Start:17-Feb-2019 Instruction Type:Patient Education How to access health informa tion online - Detail Indication:Pipe smoker Start:17-Feb-2019 Instruction Type:Patient Education Patient Instructions Indication:Pipe smoker Start:17-Feb-2019 Instruction Type:Provider Instructions for Treatment How to access health informa tion online Indication:Hypertension Start:07-Feb-2019 Instruction Type:Patient Education How to access health informa tion online - Detail Indication:Hypertension Start:07-Feb-2019 Instruction Type:Patient Education Patient Instructions Indication:Hypertension Start:07-Feb-2019 Instruction Type:Provider Instructions for Treatment Name Dates Details How to access health informa tion online Indication:Pipe smoker Start:27-May-2020 Instruction Type:Patient Education How to access health informa tion online - Detail Indication:Pipe smoker Start:27-May-2020 Instruction Type:Patient Education Patient Instructions Indication:Pipe smoker Start:27-May-2020 Instruction Type:Provider Instructions for Treatment How to access health informa tion online Indication:Pipe smoker Start:20-Feb-2020 Instruction Type:Patient Education How to access health informa tion online - Detail Indication:Pipe smoker Start:20-Feb-2020 Instruction Type:Patient Education Patient Instructions Indication:BMI 32.0-32.9,adult Start:20-Feb-2020 Instruction Type:Provider Instructions for Treatment How to access health informa tion online Indication:Pipe smoker Start:22-Dec-2019 Instruction Type:Patient Education How to access health informa tion online - Detail Indication:Pipe smoker Start:22-Dec-2019 Instruction Type:Patient Education Patient Instructions Indication:First degree AV block Start:22-Dec-2019 Instruction Type:Provider Instructions for Treatment How to access health informa tion online Indication:Pipe smoker Start:21-Nov-2019 Instruction Type:Patient Education How to access health informa tion online - Detail Indication:Pipe smoker Start:21-Nov-2019 Instruction Type:Patient Education Patient Instructions Indication:Pipe smoker Start:21-Nov-2019 Instruction Type:Provider Instructions for Treatment How to access health informa tion online Indication:Pipe smoker Start:03-Nov-2019 Instruction Type:Patient Education How to access health informa tion online - Detail Indication:Pipe smoker Start:03-Nov-2019 Instruction Type:Patient Education Patient Instructions Indication:Pipe smoker Start:03-Nov-2019 Instruction Type:Provider Instructions for Treatment How to access health informa tion online Indication:Pipe smoker Start:31-Oct-2019 Instruction Type:Patient Education How to access health informa tion online - Detail Indication:Pipe smoker Start:31-Oct-2019 Instruction Type:Patient Education Patient Instructions Indication:BMI 33.0-33.9,adult Start:31-Oct-2019 Instruction Type:Provider Instructions for Treatment How to access health informa tion online Indication:Pipe smoker Start:27-Oct-2019 Instruction Type:Patient Education How to access health informa tion online - Detail Indication:Pipe smoker Start:27-Oct-2019 Instruction Type:Patient Education Patient Instructions Indication:BMI 33.0-33.9,adult Start:27-Oct-2019 Instruction Type:Provider Instructions for Treatment How to access health informa tion online Indication:Pipe smoker Start:13-Oct-2019 Instruction Type:Patient Education How to access health informa tion online - Detail Indication:Pipe smoker Start:13-Oct-2019 Instruction Type:Patient Education Patient Instructions Indication:Pipe smoker Start:13-Oct-2019 Instruction Type:Provider Instructions for Treatment How to access health informa tion online Indication:Pipe smoker Start:02-Oct-2019 Instruction Type:Patient Education How to access health informa tion online - Detail Indication:Pipe smoker Start:02-Oct-2019 Instruction Type:Patient Education Patient Instructions Indication:Pipe smoker Start:02-Oct-2019 Instruction Type:Provider Instructions for Treatment How to access health informa tion online Indication:Pipe smoker Start:27-Jun-2019 Instruction Type:Patient Education How to access health informa tion online - Detail Indication:Pipe smoker Start:27-Jun-2019 Instruction Type:Patient Education Patient Instructions Indication:Pipe smoker Start:27-Jun-2019 Instruction Type:Provider Instructions for Treatment How to access health informa tion online Indication:Pipe smoker Start:17-Feb-2019 Instruction Type:Patient Education How to access health informa tion online - Detail Indication:Pipe smoker Start:17-Feb-2019 Instruction Type:Patient Education Patient Instructions Indication:Pipe smoker Start:17-Feb-2019 Instruction Type:Provider Instructions for Treatment How to access health informa tion online Indication:Hypertension Start:07-Feb-2019 Instruction Type:Patient Education How to access health informa tion online - Detail Indication:Hypertension Start:07-Feb-2019 Instruction Type:Patient Education Patient Instructions Indication:Hypertension Start:07-Feb-2019 Instruction Type:Provider Instructions for Treatment Name Dates Details How to access health informa tion online Indication:Pipe smoker Start:27-May-2020 Instruction Type:Patient Education How to access health informa tion online - Detail Indication:Pipe smoker Start:27-May-2020 Instruction Type:Patient Education Patient Instructions Indication:Pipe smoker Start:27-May-2020 Instruction Type:Provider Instructions for Treatment How to access health informa tion online Indication:Pipe smoker Start:20-Feb-2020 Instruction Type:Patient Education How to access health informa tion online - Detail Indication:Pipe smoker Start:20-Feb-2020 Instruction Type:Patient Education Patient Instructions Indication:BMI 32.0-32.9,adult Start:20-Feb-2020 Instruction Type:Provider Instructions for Treatment How to access health informa tion online Indication:Pipe smoker Start:22-Dec-2019 Instruction Type:Patient Education How to access health informa tion online - Detail Indication:Pipe smoker Start:22-Dec-2019 Instruction Type:Patient Education Patient Instructions Indication:First degree AV block Start:22-Dec-2019 Instruction Type:Provider Instructions for Treatment How to access health informa tion online Indication:Pipe smoker Start:21-Nov-2019 Instruction Type:Patient Education How to access health informa tion online - Detail Indication:Pipe smoker Start:21-Nov-2019 Instruction Type:Patient Education Patient Instructions Indication:Pipe smoker Start:21-Nov-2019 Instruction Type:Provider Instructions for Treatment How to access health informa tion online Indication:Pipe smoker Start:03-Nov-2019 Instruction Type:Patient Education How to access health informa tion online - Detail Indication:Pipe smoker Start:03-Nov-2019 Instruction Type:Patient Education Patient Instructions Indication:Pipe smoker Start:03-Nov-2019 Instruction Type:Provider Instructions for Treatment How to access health informa tion online Indication:Pipe smoker Start:31-Oct-2019 Instruction Type:Patient Education How to access health informa tion online - Detail Indication:Pipe smoker Start:31-Oct-2019 Instruction Type:Patient Education Patient Instructions Indication:BMI 33.0-33.9,adult Start:31-Oct-2019 Instruction Type:Provider Instructions for Treatment How to access health informa tion online Indication:Pipe smoker Start:27-Oct-2019 Instruction Type:Patient Education How to access health informa tion online - Detail Indication:Pipe smoker Start:27-Oct-2019 Instruction Type:Patient Education Patient Instructions Indication:BMI 33.0-33.9,adult Start:27-Oct-2019 Instruction Type:Provider Instructions for Treatment How to access health informa tion online Indication:Pipe smoker Start:13-Oct-2019 Instruction Type:Patient Education How to access health informa tion online - Detail Indication:Pipe smoker Start:13-Oct-2019 Instruction Type:Patient Education Patient Instructions Indication:Pipe smoker Start:13-Oct-2019 Instruction Type:Provider Instructions for Treatment How to access health informa tion online Indication:Pipe smoker Start:02-Oct-2019 Instruction Type:Patient Education How to access health informa tion online - Detail Indication:Pipe smoker Start:02-Oct-2019 Instruction Type:Patient Education Patient Instructions Indication:Pipe smoker Start:02-Oct-2019 Instruction Type:Provider Instructions for Treatment How to access health informa tion online Indication:Pipe smoker Start:27-Jun-2019 Instruction Type:Patient Education How to access health informa tion online - Detail Indication:Pipe smoker Start:27-Jun-2019 Instruction Type:Patient Education Patient Instructions Indication:Pipe smoker Start:27-Jun-2019 Instruction Type:Provider Instructions for Treatment How to access health informa tion online Indication:Pipe smoker Start:17-Feb-2019 Instruction Type:Patient Education How to access health informa tion online - Detail Indication:Pipe smoker Start:17-Feb-2019 Instruction Type:Patient Education Patient Instructions Indication:Pipe smoker Start:17-Feb-2019 Instruction Type:Provider Instructions for Treatment How to access health informa tion online Indication:Hypertension Start:07-Feb-2019 Instruction Type:Patient Education How to access health informa tion online - Detail Indication:Hypertension Start:07-Feb-2019 Instruction Type:Patient Education Patient Instructions Indication:Hypertension Start:07-Feb-2019 Instruction Type:Provider Instructions for Treatment Name Dates Details How to access health informa tion online Indication:Pipe smoker Start:27-May-2020 Instruction Type:Patient Education How to access health informa tion online - Detail Indication:Pipe smoker Start:27-May-2020 Instruction Type:Patient Education Patient Instructions Indication:Pipe smoker Start:27-May-2020 Instruction Type:Provider Instructions for Treatment How to access health informa tion online Indication:Pipe smoker Start:20-Feb-2020 Instruction Type:Patient Education How to access health informa tion online - Detail Indication:Pipe smoker Start:20-Feb-2020 Instruction Type:Patient Education Patient Instructions Indication:BMI 32.0-32.9,adult Start:20-Feb-2020 Instruction Type:Provider Instructions for Treatment How to access health informa tion online Indication:Pipe smoker Start:22-Dec-2019 Instruction Type:Patient Education How to access health informa tion online - Detail Indication:Pipe smoker Start:22-Dec-2019 Instruction Type:Patient Education Patient Instructions Indication:First degree AV block Start:22-Dec-2019 Instruction Type:Provider Instructions for Treatment How to access health informa tion online Indication:Pipe smoker Start:21-Nov-2019 Instruction Type:Patient Education How to access health informa tion online - Detail Indication:Pipe smoker Start:21-Nov-2019 Instruction Type:Patient Education Patient Instructions Indication:Pipe smoker Start:21-Nov-2019 Instruction Type:Provider Instructions for Treatment How to access health informa tion online Indication:Pipe smoker Start:03-Nov-2019 Instruction Type:Patient Education How to access health informa tion online - Detail Indication:Pipe smoker Start:03-Nov-2019 Instruction Type:Patient Education Patient Instructions Indication:Pipe smoker Start:03-Nov-2019 Instruction Type:Provider Instructions for Treatment How to access health informa tion online Indication:Pipe smoker Start:31-Oct-2019 Instruction Type:Patient Education How to access health informa tion online - Detail Indication:Pipe smoker Start:31-Oct-2019 Instruction Type:Patient Education Patient Instructions Indication:BMI 33.0-33.9,adult Start:31-Oct-2019 Instruction Type:Provider Instructions for Treatment How to access health informa tion online Indication:Pipe smoker Start:27-Oct-2019 Instruction Type:Patient Education How to access health informa tion online - Detail Indication:Pipe smoker Start:27-Oct-2019 Instruction Type:Patient Education Patient Instructions Indication:BMI 33.0-33.9,adult Start:27-Oct-2019 Instruction Type:Provider Instructions for Treatment How to access health informa tion online Indication:Pipe smoker Start:13-Oct-2019 Instruction Type:Patient Education How to access health informa tion online - Detail Indication:Pipe smoker Start:13-Oct-2019 Instruction Type:Patient Education Patient Instructions Indication:Pipe smoker Start:13-Oct-2019 Instruction Type:Provider Instructions for Treatment How to access health informa tion online Indication:Pipe smoker Start:02-Oct-2019 Instruction Type:Patient Education How to access health informa tion online - Detail Indication:Pipe smoker Start:02-Oct-2019 Instruction Type:Patient Education Patient Instructions Indication:Pipe smoker Start:02-Oct-2019 Instruction Type:Provider Instructions for Treatment How to access health informa tion online Indication:Pipe smoker Start:27-Jun-2019 Instruction Type:Patient Education How to access health informa tion online - Detail Indication:Pipe smoker Start:27-Jun-2019 Instruction Type:Patient Education Patient Instructions Indication:Pipe smoker Start:27-Jun-2019 Instruction Type:Provider Instructions for Treatment How to access health informa tion online Indication:Pipe smoker Start:17-Feb-2019 Instruction Type:Patient Education How to access health informa tion online - Detail Indication:Pipe smoker Start:17-Feb-2019 Instruction Type:Patient Education Patient Instructions Indication:Pipe smoker Start:17-Feb-2019 Instruction Type:Provider Instructions for Treatment How to access health informa tion online Indication:Hypertension Start:07-Feb-2019 Instruction Type:Patient Education How to access health informa tion online - Detail Indication:Hypertension Start:07-Feb-2019 Instruction Type:Patient Education Patient Instructions Indication:Hypertension Start:07-Feb-2019 Instruction Type:Provider Instructions for Treatment Name Dates Details How to access health informa tion online Indication:Pipe smoker Start:18-Jun-2020 Instruction Type:Patient Education How to access health informa tion online - Detail Indication:Pipe smoker Start:18-Jun-2020 Instruction Type:Patient Education Patient Instructions Indication:BMI 31.0-31.9,adult Start:18-Jun-2020 Instruction Type:Provider Instructions for Treatment How to access health informa tion online Indication:Pipe smoker Start:27-May-2020 Instruction Type:Patient Education How to access health informa tion online - Detail Indication:Pipe smoker Start:27-May-2020 Instruction Type:Patient Education Patient Instructions Indication:Pipe smoker Start:27-May-2020 Instruction Type:Provider Instructions for Treatment How to access health informa tion online Indication:Pipe smoker Start:20-Feb-2020 Instruction Type:Patient Education How to access health informa tion online - Detail Indication:Pipe smoker Start:20-Feb-2020 Instruction Type:Patient Education Patient Instructions Indication:BMI 32.0-32.9,adult Start:20-Feb-2020 Instruction Type:Provider Instructions for Treatment How to access health informa tion online Indication:Pipe smoker Start:22-Dec-2019 Instruction Type:Patient Education How to access health informa tion online - Detail Indication:Pipe smoker Start:22-Dec-2019 Instruction Type:Patient Education Patient Instructions Indication:First degree AV block Start:22-Dec-2019 Instruction Type:Provider Instructions for Treatment How to access health informa tion online Indication:Pipe smoker Start:21-Nov-2019 Instruction Type:Patient Education How to access health informa tion online - Detail Indication:Pipe smoker Start:21-Nov-2019 Instruction Type:Patient Education Patient Instructions Indication:Pipe smoker Start:21-Nov-2019 Instruction Type:Provider Instructions for Treatment How to access health informa tion online Indication:Pipe smoker Start:03-Nov-2019 Instruction Type:Patient Education How to access health informa tion online - Detail Indication:Pipe smoker Start:03-Nov-2019 Instruction Type:Patient Education Patient Instructions Indication:Pipe smoker Start:03-Nov-2019 Instruction Type:Provider Instructions for Treatment How to access health informa tion online Indication:Pipe smoker Start:31-Oct-2019 Instruction Type:Patient Education How to access health informa tion online - Detail Indication:Pipe smoker Start:31-Oct-2019 Instruction Type:Patient Education Patient Instructions Indication:BMI 33.0-33.9,adult Start:31-Oct-2019 Instruction Type:Provider Instructions for Treatment How to access health informa tion online Indication:Pipe smoker Start:27-Oct-2019 Instruction Type:Patient Education How to access health informa tion online - Detail Indication:Pipe smoker Start:27-Oct-2019 Instruction Type:Patient Education Patient Instructions Indication:BMI 33.0-33.9,adult Start:27-Oct-2019 Instruction Type:Provider Instructions for Treatment How to access health informa tion online Indication:Pipe smoker Start:13-Oct-2019 Instruction Type:Patient Education How to access health informa tion online - Detail Indication:Pipe smoker Start:13-Oct-2019 Instruction Type:Patient Education Patient Instructions Indication:Pipe smoker Start:13-Oct-2019 Instruction Type:Provider Instructions for Treatment How to access health informa tion online Indication:Pipe smoker Start:02-Oct-2019 Instruction Type:Patient Education How to access health informa tion online - Detail Indication:Pipe smoker Start:02-Oct-2019 Instruction Type:Patient Education Patient Instructions Indication:Pipe smoker Start:02-Oct-2019 Instruction Type:Provider Instructions for Treatment How to access health informa tion online Indication:Pipe smoker Start:27-Jun-2019 Instruction Type:Patient Education How to access health informa tion online - Detail Indication:Pipe smoker Start:27-Jun-2019 Instruction Type:Patient Education Patient Instructions Indication:Pipe smoker Start:27-Jun-2019 Instruction Type:Provider Instructions for Treatment How to access health informa tion online Indication:Pipe smoker Start:17-Feb-2019 Instruction Type:Patient Education How to access health informa tion online - Detail Indication:Pipe smoker Start:17-Feb-2019 Instruction Type:Patient Education Patient Instructions Indication:Pipe smoker Start:17-Feb-2019 Instruction Type:Provider Instructions for Treatment How to access health informa tion online Indication:Hypertension Start:07-Feb-2019 Instruction Type:Patient Education How to access health informa tion online - Detail Indication:Hypertension Start:07-Feb-2019 Instruction Type:Patient Education Patient Instructions Indication:Hypertension Start:07-Feb-2019 Instruction Type:Provider Instructions for Treatment Name Dates Details How to access health informa tion online Indication:Pipe smoker Start:18-Jun-2020 Instruction Type:Patient Education How to access health informa tion online - Detail Indication:Pipe smoker Start:18-Jun-2020 Instruction Type:Patient Education Patient Instructions Indication:BMI 31.0-31.9,adult Start:18-Jun-2020 Instruction Type:Provider Instructions for Treatment How to access health informa tion online Indication:Pipe smoker Start:27-May-2020 Instruction Type:Patient Education How to access health informa tion online - Detail Indication:Pipe smoker Start:27-May-2020 Instruction Type:Patient Education Patient Instructions Indication:Pipe smoker Start:27-May-2020 Instruction Type:Provider Instructions for Treatment How to access health informa tion online Indication:Pipe smoker Start:20-Feb-2020 Instruction Type:Patient Education How to access health informa tion online - Detail Indication:Pipe smoker Start:20-Feb-2020 Instruction Type:Patient Education Patient Instructions Indication:BMI 32.0-32.9,adult Start:20-Feb-2020 Instruction Type:Provider Instructions for Treatment How to access health informa tion online Indication:Pipe smoker Start:22-Dec-2019 Instruction Type:Patient Education How to access health informa tion online - Detail Indication:Pipe smoker Start:22-Dec-2019 Instruction Type:Patient Education Patient Instructions Indication:First degree AV block Start:22-Dec-2019 Instruction Type:Provider Instructions for Treatment How to access health informa tion online Indication:Pipe smoker Start:21-Nov-2019 Instruction Type:Patient Education How to access health informa tion online - Detail Indication:Pipe smoker Start:21-Nov-2019 Instruction Type:Patient Education Patient Instructions Indication:Pipe smoker Start:21-Nov-2019 Instruction Type:Provider Instructions for Treatment How to access health informa tion online Indication:Pipe smoker Start:03-Nov-2019 Instruction Type:Patient Education How to access health informa tion online - Detail Indication:Pipe smoker Start:03-Nov-2019 Instruction Type:Patient Education Patient Instructions Indication:Pipe smoker Start:03-Nov-2019 Instruction Type:Provider Instructions for Treatment How to access health informa tion online Indication:Pipe smoker Start:31-Oct-2019 Instruction Type:Patient Education How to access health informa tion online - Detail Indication:Pipe smoker Start:31-Oct-2019 Instruction Type:Patient Education Patient Instructions Indication:BMI 33.0-33.9,adult Start:31-Oct-2019 Instruction Type:Provider Instructions for Treatment How to access health informa tion online Indication:Pipe smoker Start:27-Oct-2019 Instruction Type:Patient Education How to access health informa tion online - Detail Indication:Pipe smoker Start:27-Oct-2019 Instruction Type:Patient Education Patient Instructions Indication:BMI 33.0-33.9,adult Start:27-Oct-2019 Instruction Type:Provider Instructions for Treatment How to access health informa tion online Indication:Pipe smoker Start:13-Oct-2019 Instruction Type:Patient Education How to access health informa tion online - Detail Indication:Pipe smoker Start:13-Oct-2019 Instruction Type:Patient Education Patient Instructions Indication:Pipe smoker Start:13-Oct-2019 Instruction Type:Provider Instructions for Treatment How to access health informa tion online Indication:Pipe smoker Start:02-Oct-2019 Instruction Type:Patient Education How to access health informa tion online - Detail Indication:Pipe smoker Start:02-Oct-2019 Instruction Type:Patient Education Patient Instructions Indication:Pipe smoker Start:02-Oct-2019 Instruction Type:Provider Instructions for Treatment How to access health informa tion online Indication:Pipe smoker Start:27-Jun-2019 Instruction Type:Patient Education How to access health informa tion online - Detail Indication:Pipe smoker Start:27-Jun-2019 Instruction Type:Patient Education Patient Instructions Indication:Pipe smoker Start:27-Jun-2019 Instruction Type:Provider Instructions for Treatment How to access health informa tion online Indication:Pipe smoker Start:17-Feb-2019 Instruction Type:Patient Education How to access health informa tion online - Detail Indication:Pipe smoker Start:17-Feb-2019 Instruction Type:Patient Education Patient Instructions Indication:Pipe smoker Start:17-Feb-2019 Instruction Type:Provider Instructions for Treatment How to access health informa tion online Indication:Hypertension Start:07-Feb-2019 Instruction Type:Patient Education How to access health informa tion online - Detail Indication:Hypertension Start:07-Feb-2019 Instruction Type:Patient Education Patient Instructions Indication:Hypertension Start:07-Feb-2019 Instruction Type:Provider Instructions for Treatment Name Dates Details How to access health informa tion online Indication:Pipe smoker Start:16-Jul-2020 Instruction Type:Patient Education How to access health informa tion online - Detail Indication:Pipe smoker Start:16-Jul-2020 Instruction Type:Patient Education Patient Instructions Indication:B12 deficiency Start:16-Jul-2020 Instruction Type:Provider Instructions for Treatment How to access health informa tion online Indication:Pipe smoker Start:18-Jun-2020 Instruction Type:Patient Education How to access health informa tion online - Detail Indication:Pipe smoker Start:18-Jun-2020 Instruction Type:Patient Education Patient Instructions Indication:BMI 31.0-31.9,adult Start:18-Jun-2020 Instruction Type:Provider Instructions for Treatment How to access health informa tion online Indication:Pipe smoker Start:27-May-2020 Instruction Type:Patient Education How to access health informa tion online - Detail Indication:Pipe smoker Start:27-May-2020 Instruction Type:Patient Education Patient Instructions Indication:Pipe smoker Start:27-May-2020 Instruction Type:Provider Instructions for Treatment How to access health informa tion online Indication:Pipe smoker Start:20-Feb-2020 Instruction Type:Patient Education How to access health informa tion online - Detail Indication:Pipe smoker Start:20-Feb-2020 Instruction Type:Patient Education Patient Instructions Indication:BMI 32.0-32.9,adult Start:20-Feb-2020 Instruction Type:Provider Instructions for Treatment How to access health informa tion online Indication:Pipe smoker Start:22-Dec-2019 Instruction Type:Patient Education How to access health informa tion online - Detail Indication:Pipe smoker Start:22-Dec-2019 Instruction Type:Patient Education Patient Instructions Indication:First degree AV block Start:22-Dec-2019 Instruction Type:Provider Instructions for Treatment How to access health informa tion online Indication:Pipe smoker Start:21-Nov-2019 Instruction Type:Patient Education How to access health informa tion online - Detail Indication:Pipe smoker Start:21-Nov-2019 Instruction Type:Patient Education Patient Instructions Indication:Pipe smoker Start:21-Nov-2019 Instruction Type:Provider Instructions for Treatment How to access health informa tion online Indication:Pipe smoker Start:03-Nov-2019 Instruction Type:Patient Education How to access health informa tion online - Detail Indication:Pipe smoker Start:03-Nov-2019 Instruction Type:Patient Education Patient Instructions Indication:Pipe smoker Start:03-Nov-2019 Instruction Type:Provider Instructions for Treatment How to access health informa tion online Indication:Pipe smoker Start:31-Oct-2019 Instruction Type:Patient Education How to access health informa tion online - Detail Indication:Pipe smoker Start:31-Oct-2019 Instruction Type:Patient Education Patient Instructions Indication:BMI 33.0-33.9,adult Start:31-Oct-2019 Instruction Type:Provider Instructions for Treatment How to access health informa tion online Indication:Pipe smoker Start:27-Oct-2019 Instruction Type:Patient Education How to access health informa tion online - Detail Indication:Pipe smoker Start:27-Oct-2019 Instruction Type:Patient Education Patient Instructions Indication:BMI 33.0-33.9,adult Start:27-Oct-2019 Instruction Type:Provider Instructions for Treatment How to access health informa tion online Indication:Pipe smoker Start:13-Oct-2019 Instruction Type:Patient Education How to access health informa tion online - Detail Indication:Pipe smoker Start:13-Oct-2019 Instruction Type:Patient Education Patient Instructions Indication:Pipe smoker Start:13-Oct-2019 Instruction Type:Provider Instructions for Treatment How to access health informa tion online Indication:Pipe smoker Start:02-Oct-2019 Instruction Type:Patient Education How to access health informa tion online - Detail Indication:Pipe smoker Start:02-Oct-2019 Instruction Type:Patient Education Patient Instructions Indication:Pipe smoker Start:02-Oct-2019 Instruction Type:Provider Instructions for Treatment How to access health informa tion online Indication:Pipe smoker Start:27-Jun-2019 Instruction Type:Patient Education How to access health informa tion online - Detail Indication:Pipe smoker Start:27-Jun-2019 Instruction Type:Patient Education Patient Instructions Indication:Pipe smoker Start:27-Jun-2019 Instruction Type:Provider Instructions for Treatment How to access health informa tion online Indication:Pipe smoker Start:17-Feb-2019 Instruction Type:Patient Education How to access health informa tion online - Detail Indication:Pipe smoker Start:17-Feb-2019 Instruction Type:Patient Education Patient Instructions Indication:Pipe smoker Start:17-Feb-2019 Instruction Type:Provider Instructions for Treatment How to access health informa tion online Indication:Hypertension Start:07-Feb-2019 Instruction Type:Patient Education How to access health informa tion online - Detail Indication:Hypertension Start:07-Feb-2019 Instruction Type:Patient Education Patient Instructions Indication:Hypertension Start:07-Feb-2019 Instruction Type:Provider Instructions for Treatment Name Dates Details How to access health informa tion online Indication:Pipe smoker Start:16-Jul-2020 Instruction Type:Patient Education How to access health informa tion online - Detail Indication:Pipe smoker Start:16-Jul-2020 Instruction Type:Patient Education Patient Instructions Indication:B12 deficiency Start:16-Jul-2020 Instruction Type:Provider Instructions for Treatment How to access health informa tion online Indication:Pipe smoker Start:18-Jun-2020 Instruction Type:Patient Education How to access health informa tion online - Detail Indication:Pipe smoker Start:18-Jun-2020 Instruction Type:Patient Education Patient Instructions Indication:BMI 31.0-31.9,adult Start:18-Jun-2020 Instruction Type:Provider Instructions for Treatment How to access health informa tion online Indication:Pipe smoker Start:27-May-2020 Instruction Type:Patient Education How to access health informa tion online - Detail Indication:Pipe smoker Start:27-May-2020 Instruction Type:Patient Education Patient Instructions Indication:Pipe smoker Start:27-May-2020 Instruction Type:Provider Instructions for Treatment How to access health informa tion online Indication:Pipe smoker Start:20-Feb-2020 Instruction Type:Patient Education How to access health informa tion online - Detail Indication:Pipe smoker Start:20-Feb-2020 Instruction Type:Patient Education Patient Instructions Indication:BMI 32.0-32.9,adult Start:20-Feb-2020 Instruction Type:Provider Instructions for Treatment How to access health informa tion online Indication:Pipe smoker Start:22-Dec-2019 Instruction Type:Patient Education How to access health informa tion online - Detail Indication:Pipe smoker Start:22-Dec-2019 Instruction Type:Patient Education Patient Instructions Indication:First degree AV block Start:22-Dec-2019 Instruction Type:Provider Instructions for Treatment How to access health informa tion online Indication:Pipe smoker Start:21-Nov-2019 Instruction Type:Patient Education How to access health informa tion online - Detail Indication:Pipe smoker Start:21-Nov-2019 Instruction Type:Patient Education Patient Instructions Indication:Pipe smoker Start:21-Nov-2019 Instruction Type:Provider Instructions for Treatment How to access health informa tion online Indication:Pipe smoker Start:03-Nov-2019 Instruction Type:Patient Education How to access health informa tion online - Detail Indication:Pipe smoker Start:03-Nov-2019 Instruction Type:Patient Education Patient Instructions Indication:Pipe smoker Start:03-Nov-2019 Instruction Type:Provider Instructions for Treatment How to access health informa tion online Indication:Pipe smoker Start:31-Oct-2019 Instruction Type:Patient Education How to access health informa tion online - Detail Indication:Pipe smoker Start:31-Oct-2019 Instruction Type:Patient Education Patient Instructions Indication:BMI 33.0-33.9,adult Start:31-Oct-2019 Instruction Type:Provider Instructions for Treatment How to access health informa tion online Indication:Pipe smoker Start:27-Oct-2019 Instruction Type:Patient Education How to access health informa tion online - Detail Indication:Pipe smoker Start:27-Oct-2019 Instruction Type:Patient Education Patient Instructions Indication:BMI 33.0-33.9,adult Start:27-Oct-2019 Instruction Type:Provider Instructions for Treatment How to access health informa tion online Indication:Pipe smoker Start:13-Oct-2019 Instruction Type:Patient Education How to access health informa tion online - Detail Indication:Pipe smoker Start:13-Oct-2019 Instruction Type:Patient Education Patient Instructions Indication:Pipe smoker Start:13-Oct-2019 Instruction Type:Provider Instructions for Treatment How to access health informa tion online Indication:Pipe smoker Start:02-Oct-2019 Instruction Type:Patient Education How to access health informa tion online - Detail Indication:Pipe smoker Start:02-Oct-2019 Instruction Type:Patient Education Patient Instructions Indication:Pipe smoker Start:02-Oct-2019 Instruction Type:Provider Instructions for Treatment How to access health informa tion online Indication:Pipe smoker Start:27-Jun-2019 Instruction Type:Patient Education How to access health informa tion online - Detail Indication:Pipe smoker Start:27-Jun-2019 Instruction Type:Patient Education Patient Instructions Indication:Pipe smoker Start:27-Jun-2019 Instruction Type:Provider Instructions for Treatment How to access health informa tion online Indication:Pipe smoker Start:17-Feb-2019 Instruction Type:Patient Education How to access health informa tion online - Detail Indication:Pipe smoker Start:17-Feb-2019 Instruction Type:Patient Education Patient Instructions Indication:Pipe smoker Start:17-Feb-2019 Instruction Type:Provider Instructions for Treatment How to access health informa tion online Indication:Hypertension Start:07-Feb-2019 Instruction Type:Patient Education How to access health informa tion online - Detail Indication:Hypertension Start:07-Feb-2019 Instruction Type:Patient Education Patient Instructions Indication:Hypertension Start:07-Feb-2019 Instruction Type:Provider Instructions for Treatment Name Dates Details How to access health informa tion online Indication:Pipe smoker Start:16-Jul-2020 Instruction Type:Patient Education How to access health informa tion online - Detail Indication:Pipe smoker Start:16-Jul-2020 Instruction Type:Patient Education Patient Instructions Indication:B12 deficiency Start:16-Jul-2020 Instruction Type:Provider Instructions for Treatment How to access health informa tion online Indication:Pipe smoker Start:18-Jun-2020 Instruction Type:Patient Education How to access health informa tion online - Detail Indication:Pipe smoker Start:18-Jun-2020 Instruction Type:Patient Education Patient Instructions Indication:BMI 31.0-31.9,adult Start:18-Jun-2020 Instruction Type:Provider Instructions for Treatment How to access health informa tion online Indication:Pipe smoker Start:27-May-2020 Instruction Type:Patient Education How to access health informa tion online - Detail Indication:Pipe smoker Start:27-May-2020 Instruction Type:Patient Education Patient Instructions Indication:Pipe smoker Start:27-May-2020 Instruction Type:Provider Instructions for Treatment How to access health informa tion online Indication:Pipe smoker Start:20-Feb-2020 Instruction Type:Patient Education How to access health informa tion online - Detail Indication:Pipe smoker Start:20-Feb-2020 Instruction Type:Patient Education Patient Instructions Indication:BMI 32.0-32.9,adult Start:20-Feb-2020 Instruction Type:Provider Instructions for Treatment How to access health informa tion online Indication:Pipe smoker Start:22-Dec-2019 Instruction Type:Patient Education How to access health informa tion online - Detail Indication:Pipe smoker Start:22-Dec-2019 Instruction Type:Patient Education Patient Instructions Indication:First degree AV block Start:22-Dec-2019 Instruction Type:Provider Instructions for Treatment How to access health informa tion online Indication:Pipe smoker Start:21-Nov-2019 Instruction Type:Patient Education How to access health informa tion online - Detail Indication:Pipe smoker Start:21-Nov-2019 Instruction Type:Patient Education Patient Instructions Indication:Pipe smoker Start:21-Nov-2019 Instruction Type:Provider Instructions for Treatment How to access health informa tion online Indication:Pipe smoker Start:03-Nov-2019 Instruction Type:Patient Education How to access health informa tion online - Detail Indication:Pipe smoker Start:03-Nov-2019 Instruction Type:Patient Education Patient Instructions Indication:Pipe smoker Start:03-Nov-2019 Instruction Type:Provider Instructions for Treatment How to access health informa tion online Indication:Pipe smoker Start:31-Oct-2019 Instruction Type:Patient Education How to access health informa tion online - Detail Indication:Pipe smoker Start:31-Oct-2019 Instruction Type:Patient Education Patient Instructions Indication:BMI 33.0-33.9,adult Start:31-Oct-2019 Instruction Type:Provider Instructions for Treatment How to access health informa tion online Indication:Pipe smoker Start:27-Oct-2019 Instruction Type:Patient Education How to access health informa tion online - Detail Indication:Pipe smoker Start:27-Oct-2019 Instruction Type:Patient Education Patient Instructions Indication:BMI 33.0-33.9,adult Start:27-Oct-2019 Instruction Type:Provider Instructions for Treatment How to access health informa tion online Indication:Pipe smoker Start:13-Oct-2019 Instruction Type:Patient Education How to access health informa tion online - Detail Indication:Pipe smoker Start:13-Oct-2019 Instruction Type:Patient Education Patient Instructions Indication:Pipe smoker Start:13-Oct-2019 Instruction Type:Provider Instructions for Treatment How to access health informa tion online Indication:Pipe smoker Start:02-Oct-2019 Instruction Type:Patient Education How to access health informa tion online - Detail Indication:Pipe smoker Start:02-Oct-2019 Instruction Type:Patient Education Patient Instructions Indication:Pipe smoker Start:02-Oct-2019 Instruction Type:Provider Instructions for Treatment How to access health informa tion online Indication:Pipe smoker Start:27-Jun-2019 Instruction Type:Patient Education How to access health informa tion online - Detail Indication:Pipe smoker Start:27-Jun-2019 Instruction Type:Patient Education Patient Instructions Indication:Pipe smoker Start:27-Jun-2019 Instruction Type:Provider Instructions for Treatment How to access health informa tion online Indication:Pipe smoker Start:17-Feb-2019 Instruction Type:Patient Education How to access health informa tion online - Detail Indication:Pipe smoker Start:17-Feb-2019 Instruction Type:Patient Education Patient Instructions Indication:Pipe smoker Start:17-Feb-2019 Instruction Type:Provider Instructions for Treatment How to access health informa tion online Indication:Hypertension Start:07-Feb-2019 Instruction Type:Patient Education How to access health informa tion online - Detail Indication:Hypertension Start:07-Feb-2019 Instruction Type:Patient Education Patient Instructions Indication:Hypertension Start:07-Feb-2019 Instruction Type:Provider Instructions for Treatment Name Dates Details How to access health informa tion online Indication:Pipe smoker Start:16-Jul-2020 Instruction Type:Patient Education How to access health informa tion online - Detail Indication:Pipe smoker Start:16-Jul-2020 Instruction Type:Patient Education Patient Instructions Indication:B12 deficiency Start:16-Jul-2020 Instruction Type:Provider Instructions for Treatment How to access health informa tion online Indication:Pipe smoker Start:18-Jun-2020 Instruction Type:Patient Education How to access health informa tion online - Detail Indication:Pipe smoker Start:18-Jun-2020 Instruction Type:Patient Education Patient Instructions Indication:BMI 31.0-31.9,adult Start:18-Jun-2020 Instruction Type:Provider Instructions for Treatment How to access health informa tion online Indication:Pipe smoker Start:27-May-2020 Instruction Type:Patient Education How to access health informa tion online - Detail Indication:Pipe smoker Start:27-May-2020 Instruction Type:Patient Education Patient Instructions Indication:Pipe smoker Start:27-May-2020 Instruction Type:Provider Instructions for Treatment How to access health informa tion online Indication:Pipe smoker Start:20-Feb-2020 Instruction Type:Patient Education How to access health informa tion online - Detail Indication:Pipe smoker Start:20-Feb-2020 Instruction Type:Patient Education Patient Instructions Indication:BMI 32.0-32.9,adult Start:20-Feb-2020 Instruction Type:Provider Instructions for Treatment How to access health informa tion online Indication:Pipe smoker Start:22-Dec-2019 Instruction Type:Patient Education How to access health informa tion online - Detail Indication:Pipe smoker Start:22-Dec-2019 Instruction Type:Patient Education Patient Instructions Indication:First degree AV block Start:22-Dec-2019 Instruction Type:Provider Instructions for Treatment How to access health informa tion online Indication:Pipe smoker Start:21-Nov-2019 Instruction Type:Patient Education How to access health informa tion online - Detail Indication:Pipe smoker Start:21-Nov-2019 Instruction Type:Patient Education Patient Instructions Indication:Pipe smoker Start:21-Nov-2019 Instruction Type:Provider Instructions for Treatment How to access health informa tion online Indication:Pipe smoker Start:03-Nov-2019 Instruction Type:Patient Education How to access health informa tion online - Detail Indication:Pipe smoker Start:03-Nov-2019 Instruction Type:Patient Education Patient Instructions Indication:Pipe smoker Start:03-Nov-2019 Instruction Type:Provider Instructions for Treatment How to access health informa tion online Indication:Pipe smoker Start:31-Oct-2019 Instruction Type:Patient Education How to access health informa tion online - Detail Indication:Pipe smoker Start:31-Oct-2019 Instruction Type:Patient Education Patient Instructions Indication:BMI 33.0-33.9,adult Start:31-Oct-2019 Instruction Type:Provider Instructions for Treatment How to access health informa tion online Indication:Pipe smoker Start:27-Oct-2019 Instruction Type:Patient Education How to access health informa tion online - Detail Indication:Pipe smoker Start:27-Oct-2019 Instruction Type:Patient Education Patient Instructions Indication:BMI 33.0-33.9,adult Start:27-Oct-2019 Instruction Type:Provider Instructions for Treatment How to access health informa tion online Indication:Pipe smoker Start:13-Oct-2019 Instruction Type:Patient Education How to access health informa tion online - Detail Indication:Pipe smoker Start:13-Oct-2019 Instruction Type:Patient Education Patient Instructions Indication:Pipe smoker Start:13-Oct-2019 Instruction Type:Provider Instructions for Treatment How to access health informa tion online Indication:Pipe smoker Start:02-Oct-2019 Instruction Type:Patient Education How to access health informa tion online - Detail Indication:Pipe smoker Start:02-Oct-2019 Instruction Type:Patient Education Patient Instructions Indication:Pipe smoker Start:02-Oct-2019 Instruction Type:Provider Instructions for Treatment How to access health informa tion online Indication:Pipe smoker Start:27-Jun-2019 Instruction Type:Patient Education How to access health informa tion online - Detail Indication:Pipe smoker Start:27-Jun-2019 Instruction Type:Patient Education Patient Instructions Indication:Pipe smoker Start:27-Jun-2019 Instruction Type:Provider Instructions for Treatment How to access health informa tion online Indication:Pipe smoker Start:17-Feb-2019 Instruction Type:Patient Education How to access health informa tion online - Detail Indication:Pipe smoker Start:17-Feb-2019 Instruction Type:Patient Education Patient Instructions Indication:Pipe smoker Start:17-Feb-2019 Instruction Type:Provider Instructions for Treatment How to access health informa tion online Indication:Hypertension Start:07-Feb-2019 Instruction Type:Patient Education How to access health informa tion online - Detail Indication:Hypertension Start:07-Feb-2019 Instruction Type:Patient Education Patient Instructions Indication:Hypertension Start:07-Feb-2019 Instruction Type:Provider Instructions for Treatment Name Dates Details How to access health informa tion online Indication:Pipe smoker Start:16-Jul-2020 Instruction Type:Patient Education How to access health informa tion online - Detail Indication:Pipe smoker Start:16-Jul-2020 Instruction Type:Patient Education Patient Instructions Indication:B12 deficiency Start:16-Jul-2020 Instruction Type:Provider Instructions for Treatment How to access health informa tion online Indication:Pipe smoker Start:18-Jun-2020 Instruction Type:Patient Education How to access health informa tion online - Detail Indication:Pipe smoker Start:18-Jun-2020 Instruction Type:Patient Education Patient Instructions Indication:BMI 31.0-31.9,adult Start:18-Jun-2020 Instruction Type:Provider Instructions for Treatment How to access health informa tion online Indication:Pipe smoker Start:27-May-2020 Instruction Type:Patient Education How to access health informa tion online - Detail Indication:Pipe smoker Start:27-May-2020 Instruction Type:Patient Education Patient Instructions Indication:Pipe smoker Start:27-May-2020 Instruction Type:Provider Instructions for Treatment How to access health informa tion online Indication:Pipe smoker Start:20-Feb-2020 Instruction Type:Patient Education How to access health informa tion online - Detail Indication:Pipe smoker Start:20-Feb-2020 Instruction Type:Patient Education Patient Instructions Indication:BMI 32.0-32.9,adult Start:20-Feb-2020 Instruction Type:Provider Instructions for Treatment How to access health informa tion online Indication:Pipe smoker Start:22-Dec-2019 Instruction Type:Patient Education How to access health informa tion online - Detail Indication:Pipe smoker Start:22-Dec-2019 Instruction Type:Patient Education Patient Instructions Indication:First degree AV block Start:22-Dec-2019 Instruction Type:Provider Instructions for Treatment How to access health informa tion online Indication:Pipe smoker Start:21-Nov-2019 Instruction Type:Patient Education How to access health informa tion online - Detail Indication:Pipe smoker Start:21-Nov-2019 Instruction Type:Patient Education Patient Instructions Indication:Pipe smoker Start:21-Nov-2019 Instruction Type:Provider Instructions for Treatment How to access health informa tion online Indication:Pipe smoker Start:03-Nov-2019 Instruction Type:Patient Education How to access health informa tion online - Detail Indication:Pipe smoker Start:03-Nov-2019 Instruction Type:Patient Education Patient Instructions Indication:Pipe smoker Start:03-Nov-2019 Instruction Type:Provider Instructions for Treatment How to access health informa tion online Indication:Pipe smoker Start:31-Oct-2019 Instruction Type:Patient Education How to access health informa tion online - Detail Indication:Pipe smoker Start:31-Oct-2019 Instruction Type:Patient Education Patient Instructions Indication:BMI 33.0-33.9,adult Start:31-Oct-2019 Instruction Type:Provider Instructions for Treatment How to access health informa tion online Indication:Pipe smoker Start:27-Oct-2019 Instruction Type:Patient Education How to access health informa tion online - Detail Indication:Pipe smoker Start:27-Oct-2019 Instruction Type:Patient Education Patient Instructions Indication:BMI 33.0-33.9,adult Start:27-Oct-2019 Instruction Type:Provider Instructions for Treatment How to access health informa tion online Indication:Pipe smoker Start:13-Oct-2019 Instruction Type:Patient Education How to access health informa tion online - Detail Indication:Pipe smoker Start:13-Oct-2019 Instruction Type:Patient Education Patient Instructions Indication:Pipe smoker Start:13-Oct-2019 Instruction Type:Provider Instructions for Treatment How to access health informa tion online Indication:Pipe smoker Start:02-Oct-2019 Instruction Type:Patient Education How to access health informa tion online - Detail Indication:Pipe smoker Start:02-Oct-2019 Instruction Type:Patient Education Patient Instructions Indication:Pipe smoker Start:02-Oct-2019 Instruction Type:Provider Instructions for Treatment How to access health informa tion online Indication:Pipe smoker Start:27-Jun-2019 Instruction Type:Patient Education How to access health informa tion online - Detail Indication:Pipe smoker Start:27-Jun-2019 Instruction Type:Patient Education Patient Instructions Indication:Pipe smoker Start:27-Jun-2019 Instruction Type:Provider Instructions for Treatment How to access health informa tion online Indication:Pipe smoker Start:17-Feb-2019 Instruction Type:Patient Education How to access health informa tion online - Detail Indication:Pipe smoker Start:17-Feb-2019 Instruction Type:Patient Education Patient Instructions Indication:Pipe smoker Start:17-Feb-2019 Instruction Type:Provider Instructions for Treatment How to access health informa tion online Indication:Hypertension Start:07-Feb-2019 Instruction Type:Patient Education How to access health informa tion online - Detail Indication:Hypertension Start:07-Feb-2019 Instruction Type:Patient Education Patient Instructions Indication:Hypertension Start:07-Feb-2019 Instruction Type:Provider Instructions for Treatment Name Dates Details How to access health informa tion online Indication:Pipe smoker Start:02-Sep-2020 Instruction Type:Patient Education How to access health informa tion online - Detail Indication:Pipe smoker Start:02-Sep-2020 Instruction Type:Patient Education Patient Instructions Indication:BMI 34.0-34.9,adult Start:02-Sep-2020 Instruction Type:Provider Instructions for Treatment How to access health informa tion online Indication:Pipe smoker Start:16-Jul-2020 Instruction Type:Patient Education How to access health informa tion online - Detail Indication:Pipe smoker Start:16-Jul-2020 Instruction Type:Patient Education Patient Instructions Indication:B12 deficiency Start:16-Jul-2020 Instruction Type:Provider Instructions for Treatment How to access health informa tion online Indication:Pipe smoker Start:18-Jun-2020 Instruction Type:Patient Education How to access health informa tion online - Detail Indication:Pipe smoker Start:18-Jun-2020 Instruction Type:Patient Education Patient Instructions Indication:BMI 31.0-31.9,adult Start:18-Jun-2020 Instruction Type:Provider Instructions for Treatment How to access health informa tion online Indication:Pipe smoker Start:27-May-2020 Instruction Type:Patient Education How to access health informa tion online - Detail Indication:Pipe smoker Start:27-May-2020 Instruction Type:Patient Education Patient Instructions Indication:Pipe smoker Start:27-May-2020 Instruction Type:Provider Instructions for Treatment How to access health informa tion online Indication:Pipe smoker Start:20-Feb-2020 Instruction Type:Patient Education How to access health informa tion online - Detail Indication:Pipe smoker Start:20-Feb-2020 Instruction Type:Patient Education Patient Instructions Indication:BMI 32.0-32.9,adult Start:20-Feb-2020 Instruction Type:Provider Instructions for Treatment How to access health informa tion online Indication:Pipe smoker Start:22-Dec-2019 Instruction Type:Patient Education How to access health informa tion online - Detail Indication:Pipe smoker Start:22-Dec-2019 Instruction Type:Patient Education Patient Instructions Indication:First degree AV block Start:22-Dec-2019 Instruction Type:Provider Instructions for Treatment How to access health informa tion online Indication:Pipe smoker Start:21-Nov-2019 Instruction Type:Patient Education How to access health informa tion online - Detail Indication:Pipe smoker Start:21-Nov-2019 Instruction Type:Patient Education Patient Instructions Indication:Pipe smoker Start:21-Nov-2019 Instruction Type:Provider Instructions for Treatment How to access health informa tion online Indication:Pipe smoker Start:03-Nov-2019 Instruction Type:Patient Education How to access health informa tion online - Detail Indication:Pipe smoker Start:03-Nov-2019 Instruction Type:Patient Education Patient Instructions Indication:Pipe smoker Start:03-Nov-2019 Instruction Type:Provider Instructions for Treatment How to access health informa tion online Indication:Pipe smoker Start:31-Oct-2019 Instruction Type:Patient Education How to access health informa tion online - Detail Indication:Pipe smoker Start:31-Oct-2019 Instruction Type:Patient Education Patient Instructions Indication:BMI 33.0-33.9,adult Start:31-Oct-2019 Instruction Type:Provider Instructions for Treatment How to access health informa tion online Indication:Pipe smoker Start:27-Oct-2019 Instruction Type:Patient Education How to access health informa tion online - Detail Indication:Pipe smoker Start:27-Oct-2019 Instruction Type:Patient Education Patient Instructions Indication:BMI 33.0-33.9,adult Start:27-Oct-2019 Instruction Type:Provider Instructions for Treatment How to access health informa tion online Indication:Pipe smoker Start:13-Oct-2019 Instruction Type:Patient Education How to access health informa tion online - Detail Indication:Pipe smoker Start:13-Oct-2019 Instruction Type:Patient Education Patient Instructions Indication:Pipe smoker Start:13-Oct-2019 Instruction Type:Provider Instructions for Treatment How to access health informa tion online Indication:Pipe smoker Start:02-Oct-2019 Instruction Type:Patient Education How to access health informa tion online - Detail Indication:Pipe smoker Start:02-Oct-2019 Instruction Type:Patient Education Patient Instructions Indication:Pipe smoker Start:02-Oct-2019 Instruction Type:Provider Instructions for Treatment How to access health informa tion online Indication:Pipe smoker Start:27-Jun-2019 Instruction Type:Patient Education How to access health informa tion online - Detail Indication:Pipe smoker Start:27-Jun-2019 Instruction Type:Patient Education Patient Instructions Indication:Pipe smoker Start:27-Jun-2019 Instruction Type:Provider Instructions for Treatment How to access health informa tion online Indication:Pipe smoker Start:17-Feb-2019 Instruction Type:Patient Education How to access health informa tion online - Detail Indication:Pipe smoker Start:17-Feb-2019 Instruction Type:Patient Education Patient Instructions Indication:Pipe smoker Start:17-Feb-2019 Instruction Type:Provider Instructions for Treatment How to access health informa tion online Indication:Hypertension Start:07-Feb-2019 Instruction Type:Patient Education How to access health informa tion online - Detail Indication:Hypertension Start:07-Feb-2019 Instruction Type:Patient Education Patient Instructions Indication:Hypertension Start:07-Feb-2019 Instruction Type:Provider Instructions for Treatment Name Dates Details How to access health informa tion online Indication:Pipe smoker Start:01-Oct-2020 Instruction Type:Patient Education How to access health informa tion online - Detail Indication:Pipe smoker Start:01-Oct-2020 Instruction Type:Patient Education Patient Instructions Indication:BMI 36.0-36.9,adult Start:01-Oct-2020 Instruction Type:Provider Instructions for Treatment How to access health informa tion online Indication:Pipe smoker Start:02-Sep-2020 Instruction Type:Patient Education How to access health informa tion online - Detail Indication:Pipe smoker Start:02-Sep-2020 Instruction Type:Patient Education Patient Instructions Indication:BMI 34.0-34.9,adult Start:02-Sep-2020 Instruction Type:Provider Instructions for Treatment How to access health informa tion online Indication:Pipe smoker Start:16-Jul-2020 Instruction Type:Patient Education How to access health informa tion online - Detail Indication:Pipe smoker Start:16-Jul-2020 Instruction Type:Patient Education Patient Instructions Indication:B12 deficiency Start:16-Jul-2020 Instruction Type:Provider Instructions for Treatment How to access health informa tion online Indication:Pipe smoker Start:18-Jun-2020 Instruction Type:Patient Education How to access health informa tion online - Detail Indication:Pipe smoker Start:18-Jun-2020 Instruction Type:Patient Education Patient Instructions Indication:BMI 31.0-31.9,adult Start:18-Jun-2020 Instruction Type:Provider Instructions for Treatment How to access health informa tion online Indication:Pipe smoker Start:27-May-2020 Instruction Type:Patient Education How to access health informa tion online - Detail Indication:Pipe smoker Start:27-May-2020 Instruction Type:Patient Education Patient Instructions Indication:Pipe smoker Start:27-May-2020 Instruction Type:Provider Instructions for Treatment How to access health informa tion online Indication:Pipe smoker Start:20-Feb-2020 Instruction Type:Patient Education How to access health informa tion online - Detail Indication:Pipe smoker Start:20-Feb-2020 Instruction Type:Patient Education Patient Instructions Indication:BMI 32.0-32.9,adult Start:20-Feb-2020 Instruction Type:Provider Instructions for Treatment How to access health informa tion online Indication:Pipe smoker Start:22-Dec-2019 Instruction Type:Patient Education How to access health informa tion online - Detail Indication:Pipe smoker Start:22-Dec-2019 Instruction Type:Patient Education Patient Instructions Indication:First degree AV block Start:22-Dec-2019 Instruction Type:Provider Instructions for Treatment How to access health informa tion online Indication:Pipe smoker Start:21-Nov-2019 Instruction Type:Patient Education How to access health informa tion online - Detail Indication:Pipe smoker Start:21-Nov-2019 Instruction Type:Patient Education Patient Instructions Indication:Pipe smoker Start:21-Nov-2019 Instruction Type:Provider Instructions for Treatment How to access health informa tion online Indication:Pipe smoker Start:03-Nov-2019 Instruction Type:Patient Education How to access health informa tion online - Detail Indication:Pipe smoker Start:03-Nov-2019 Instruction Type:Patient Education Patient Instructions Indication:Pipe smoker Start:03-Nov-2019 Instruction Type:Provider Instructions for Treatment How to access health informa tion online Indication:Pipe smoker Start:31-Oct-2019 Instruction Type:Patient Education How to access health informa tion online - Detail Indication:Pipe smoker Start:31-Oct-2019 Instruction Type:Patient Education Patient Instructions Indication:BMI 33.0-33.9,adult Start:31-Oct-2019 Instruction Type:Provider Instructions for Treatment How to access health informa tion online Indication:Pipe smoker Start:27-Oct-2019 Instruction Type:Patient Education How to access health informa tion online - Detail Indication:Pipe smoker Start:27-Oct-2019 Instruction Type:Patient Education Patient Instructions Indication:BMI 33.0-33.9,adult Start:27-Oct-2019 Instruction Type:Provider Instructions for Treatment How to access health informa tion online Indication:Pipe smoker Start:13-Oct-2019 Instruction Type:Patient Education How to access health informa tion online - Detail Indication:Pipe smoker Start:13-Oct-2019 Instruction Type:Patient Education Patient Instructions Indication:Pipe smoker Start:13-Oct-2019 Instruction Type:Provider Instructions for Treatment How to access health informa tion online Indication:Pipe smoker Start:02-Oct-2019 Instruction Type:Patient Education How to access health informa tion online - Detail Indication:Pipe smoker Start:02-Oct-2019 Instruction Type:Patient Education Patient Instructions Indication:Pipe smoker Start:02-Oct-2019 Instruction Type:Provider Instructions for Treatment How to access health informa tion online Indication:Pipe smoker Start:27-Jun-2019 Instruction Type:Patient Education How to access health informa tion online - Detail Indication:Pipe smoker Start:27-Jun-2019 Instruction Type:Patient Education Patient Instructions Indication:Pipe smoker Start:27-Jun-2019 Instruction Type:Provider Instructions for Treatment How to access health informa tion online Indication:Pipe smoker Start:17-Feb-2019 Instruction Type:Patient Education How to access health informa tion online - Detail Indication:Pipe smoker Start:17-Feb-2019 Instruction Type:Patient Education Patient Instructions Indication:Pipe smoker Start:17-Feb-2019 Instruction Type:Provider Instructions for Treatment How to access health informa tion online Indication:Hypertension Start:07-Feb-2019 Instruction Type:Patient Education How to access health informa tion online - Detail Indication:Hypertension Start:07-Feb-2019 Instruction Type:Patient Education Patient Instructions Indication:Hypertension Start:07-Feb-2019 Instruction Type:Provider Instructions for Treatment Name Dates Details How to access health informa tion online Indication:Pipe smoker Start:01-Oct-2020 Instruction Type:Patient Education How to access health informa tion online - Detail Indication:Pipe smoker Start:01-Oct-2020 Instruction Type:Patient Education Patient Instructions Indication:BMI 36.0-36.9,adult Start:01-Oct-2020 Instruction Type:Provider Instructions for Treatment How to access health informa tion online Indication:Pipe smoker Start:02-Sep-2020 Instruction Type:Patient Education How to access health informa tion online - Detail Indication:Pipe smoker Start:02-Sep-2020 Instruction Type:Patient Education Patient Instructions Indication:BMI 34.0-34.9,adult Start:02-Sep-2020 Instruction Type:Provider Instructions for Treatment How to access health informa tion online Indication:Pipe smoker Start:16-Jul-2020 Instruction Type:Patient Education How to access health informa tion online - Detail Indication:Pipe smoker Start:16-Jul-2020 Instruction Type:Patient Education Patient Instructions Indication:B12 deficiency Start:16-Jul-2020 Instruction Type:Provider Instructions for Treatment How to access health informa tion online Indication:Pipe smoker Start:18-Jun-2020 Instruction Type:Patient Education How to access health informa tion online - Detail Indication:Pipe smoker Start:18-Jun-2020 Instruction Type:Patient Education Patient Instructions Indication:BMI 31.0-31.9,adult Start:18-Jun-2020 Instruction Type:Provider Instructions for Treatment How to access health informa tion online Indication:Pipe smoker Start:27-May-2020 Instruction Type:Patient Education How to access health informa tion online - Detail Indication:Pipe smoker Start:27-May-2020 Instruction Type:Patient Education Patient Instructions Indication:Pipe smoker Start:27-May-2020 Instruction Type:Provider Instructions for Treatment How to access health informa tion online Indication:Pipe smoker Start:20-Feb-2020 Instruction Type:Patient Education How to access health informa tion online - Detail Indication:Pipe smoker Start:20-Feb-2020 Instruction Type:Patient Education Patient Instructions Indication:BMI 32.0-32.9,adult Start:20-Feb-2020 Instruction Type:Provider Instructions for Treatment How to access health informa tion online Indication:Pipe smoker Start:22-Dec-2019 Instruction Type:Patient Education How to access health informa tion online - Detail Indication:Pipe smoker Start:22-Dec-2019 Instruction Type:Patient Education Patient Instructions Indication:First degree AV block Start:22-Dec-2019 Instruction Type:Provider Instructions for Treatment How to access health informa tion online Indication:Pipe smoker Start:21-Nov-2019 Instruction Type:Patient Education How to access health informa tion online - Detail Indication:Pipe smoker Start:21-Nov-2019 Instruction Type:Patient Education Patient Instructions Indication:Pipe smoker Start:21-Nov-2019 Instruction Type:Provider Instructions for Treatment How to access health informa tion online Indication:Pipe smoker Start:03-Nov-2019 Instruction Type:Patient Education How to access health informa tion online - Detail Indication:Pipe smoker Start:03-Nov-2019 Instruction Type:Patient Education Patient Instructions Indication:Pipe smoker Start:03-Nov-2019 Instruction Type:Provider Instructions for Treatment How to access health informa tion online Indication:Pipe smoker Start:31-Oct-2019 Instruction Type:Patient Education How to access health informa tion online - Detail Indication:Pipe smoker Start:31-Oct-2019 Instruction Type:Patient Education Patient Instructions Indication:BMI 33.0-33.9,adult Start:31-Oct-2019 Instruction Type:Provider Instructions for Treatment How to access health informa tion online Indication:Pipe smoker Start:27-Oct-2019 Instruction Type:Patient Education How to access health informa tion online - Detail Indication:Pipe smoker Start:27-Oct-2019 Instruction Type:Patient Education Patient Instructions Indication:BMI 33.0-33.9,adult Start:27-Oct-2019 Instruction Type:Provider Instructions for Treatment How to access health informa tion online Indication:Pipe smoker Start:13-Oct-2019 Instruction Type:Patient Education How to access health informa tion online - Detail Indication:Pipe smoker Start:13-Oct-2019 Instruction Type:Patient Education Patient Instructions Indication:Pipe smoker Start:13-Oct-2019 Instruction Type:Provider Instructions for Treatment How to access health informa tion online Indication:Pipe smoker Start:02-Oct-2019 Instruction Type:Patient Education How to access health informa tion online - Detail Indication:Pipe smoker Start:02-Oct-2019 Instruction Type:Patient Education Patient Instructions Indication:Pipe smoker Start:02-Oct-2019 Instruction Type:Provider Instructions for Treatment How to access health informa tion online Indication:Pipe smoker Start:27-Jun-2019 Instruction Type:Patient Education How to access health informa tion online - Detail Indication:Pipe smoker Start:27-Jun-2019 Instruction Type:Patient Education Patient Instructions Indication:Pipe smoker Start:27-Jun-2019 Instruction Type:Provider Instructions for Treatment How to access health informa tion online Indication:Pipe smoker Start:17-Feb-2019 Instruction Type:Patient Education How to access health informa tion online - Detail Indication:Pipe smoker Start:17-Feb-2019 Instruction Type:Patient Education Patient Instructions Indication:Pipe smoker Start:17-Feb-2019 Instruction Type:Provider Instructions for Treatment How to access health informa tion online Indication:Hypertension Start:07-Feb-2019 Instruction Type:Patient Education How to access health informa tion online - Detail Indication:Hypertension Start:07-Feb-2019 Instruction Type:Patient Education Patient Instructions Indication:Hypertension Start:07-Feb-2019 Instruction Type:Provider Instructions for Treatment Name Dates Details Patient Instructions Indication:Pipe smoker Start:04-Oct-2020 Instruction Type:Provider Instructions for Treatment How to Access Health Informa tion Online using Patient Portal and [employer] Indication:Pipe smoker Start:04-Oct-2020 Instruction Type:Patient Education How to access health informa tion online Indication:Pipe smoker Start:01-Oct-2020 Instruction Type:Patient Education How to access health informa tion online - Detail Indication:Pipe smoker Start:01-Oct-2020 Instruction Type:Patient Education Patient Instructions Indication:BMI 36.0-36.9,adult Start:01-Oct-2020 Instruction Type:Provider Instructions for Treatment How to access health informa tion online Indication:Pipe smoker Start:02-Sep-2020 Instruction Type:Patient Education How to access health informa tion online - Detail Indication:Pipe smoker Start:02-Sep-2020 Instruction Type:Patient Education Patient Instructions Indication:BMI 34.0-34.9,adult Start:02-Sep-2020 Instruction Type:Provider Instructions for Treatment How to access health informa tion online Indication:Pipe smoker Start:16-Jul-2020 Instruction Type:Patient Education How to access health informa tion online - Detail Indication:Pipe smoker Start:16-Jul-2020 Instruction Type:Patient Education Patient Instructions Indication:B12 deficiency Start:16-Jul-2020 Instruction Type:Provider Instructions for Treatment How to access health informa tion online Indication:Pipe smoker Start:18-Jun-2020 Instruction Type:Patient Education How to access health informa tion online - Detail Indication:Pipe smoker Start:18-Jun-2020 Instruction Type:Patient Education Patient Instructions Indication:BMI 31.0-31.9,adult Start:18-Jun-2020 Instruction Type:Provider Instructions for Treatment How to access health informa tion online Indication:Pipe smoker Start:27-May-2020 Instruction Type:Patient Education How to access health informa tion online - Detail Indication:Pipe smoker Start:27-May-2020 Instruction Type:Patient Education Patient Instructions Indication:Pipe smoker Start:27-May-2020 Instruction Type:Provider Instructions for Treatment How to access health informa tion online Indication:Pipe smoker Start:20-Feb-2020 Instruction Type:Patient Education How to access health informa tion online - Detail Indication:Pipe smoker Start:20-Feb-2020 Instruction Type:Patient Education Patient Instructions Indication:BMI 32.0-32.9,adult Start:20-Feb-2020 Instruction Type:Provider Instructions for Treatment How to access health informa tion online Indication:Pipe smoker Start:22-Dec-2019 Instruction Type:Patient Education How to access health informa tion online - Detail Indication:Pipe smoker Start:22-Dec-2019 Instruction Type:Patient Education Patient Instructions Indication:First degree AV block Start:22-Dec-2019 Instruction Type:Provider Instructions for Treatment How to access health informa tion online Indication:Pipe smoker Start:21-Nov-2019 Instruction Type:Patient Education How to access health informa tion online - Detail Indication:Pipe smoker Start:21-Nov-2019 Instruction Type:Patient Education Patient Instructions Indication:Pipe smoker Start:21-Nov-2019 Instruction Type:Provider Instructions for Treatment How to access health informa tion online Indication:Pipe smoker Start:03-Nov-2019 Instruction Type:Patient Education How to access health informa tion online - Detail Indication:Pipe smoker Start:03-Nov-2019 Instruction Type:Patient Education Patient Instructions Indication:Pipe smoker Start:03-Nov-2019 Instruction Type:Provider Instructions for Treatment How to access health informa tion online Indication:Pipe smoker Start:31-Oct-2019 Instruction Type:Patient Education How to access health informa tion online - Detail Indication:Pipe smoker Start:31-Oct-2019 Instruction Type:Patient Education Patient Instructions Indication:BMI 33.0-33.9,adult Start:31-Oct-2019 Instruction Type:Provider Instructions for Treatment How to access health informa tion online Indication:Pipe smoker Start:27-Oct-2019 Instruction Type:Patient Education How to access health informa tion online - Detail Indication:Pipe smoker Start:27-Oct-2019 Instruction Type:Patient Education Patient Instructions Indication:BMI 33.0-33.9,adult Start:27-Oct-2019 Instruction Type:Provider Instructions for Treatment How to access health informa tion online Indication:Pipe smoker Start:13-Oct-2019 Instruction Type:Patient Education How to access health informa tion online - Detail Indication:Pipe smoker Start:13-Oct-2019 Instruction Type:Patient Education Patient Instructions Indication:Pipe smoker Start:13-Oct-2019 Instruction Type:Provider Instructions for Treatment How to access health informa tion online Indication:Pipe smoker Start:02-Oct-2019 Instruction Type:Patient Education How to access health informa tion online - Detail Indication:Pipe smoker Start:02-Oct-2019 Instruction Type:Patient Education Patient Instructions Indication:Pipe smoker Start:02-Oct-2019 Instruction Type:Provider Instructions for Treatment How to access health informa tion online Indication:Pipe smoker Start:27-Jun-2019 Instruction Type:Patient Education How to access health informa tion online - Detail Indication:Pipe smoker Start:27-Jun-2019 Instruction Type:Patient Education Patient Instructions Indication:Pipe smoker Start:27-Jun-2019 Instruction Type:Provider Instructions for Treatment How to access health informa tion online Indication:Pipe smoker Start:17-Feb-2019 Instruction Type:Patient Education How to access health informa tion online - Detail Indication:Pipe smoker Start:17-Feb-2019 Instruction Type:Patient Education Patient Instructions Indication:Pipe smoker Start:17-Feb-2019 Instruction Type:Provider Instructions for Treatment How to access health informa tion online Indication:Hypertension Start:07-Feb-2019 Instruction Type:Patient Education How to access health informa tion online - Detail Indication:Hypertension Start:07-Feb-2019 Instruction Type:Patient Education Patient Instructions Indication:Hypertension Start:07-Feb-2019 Instruction Type:Provider Instructions for Treatment Name Dates Details Patient Instructions Indication:Pipe smoker Start:04-Nov-2020 Instruction Type:Provider Instructions for Treatment How to Access Health Informa tion Online using Patient Portal and [employer] Indication:Pipe smoker Start:04-Nov-2020 Instruction Type:Patient Education Patient Instructions Indication:Pipe smoker Start:04-Oct-2020 Instruction Type:Provider Instructions for Treatment How to Access Health Informa tion Online using Patient Portal and [employer] Apps Indication:Pipe smoker Start:04-Oct-2020 Instruction Type:Patient Education How to access health informa tion online Indication:Pipe smoker Start:01-Oct-2020 Instruction Type:Patient Education How to access health informa tion online - Detail Indication:Pipe smoker Start:01-Oct-2020 Instruction Type:Patient Education Patient Instructions Indication:BMI 36.0-36.9,adult Start:01-Oct-2020 Instruction Type:Provider Instructions for Treatment How to access health informa tion online Indication:Pipe smoker Start:02-Sep-2020 Instruction Type:Patient Education How to access health informa tion online - Detail Indication:Pipe smoker Start:02-Sep-2020 Instruction Type:Patient Education Patient Instructions Indication:BMI 34.0-34.9,adult Start:02-Sep-2020 Instruction Type:Provider Instructions for Treatment How to access health informa tion online Indication:Pipe smoker Start:16-Jul-2020 Instruction Type:Patient Education How to access health informa tion online - Detail Indication:Pipe smoker Start:16-Jul-2020 Instruction Type:Patient Education Patient Instructions Indication:B12 deficiency Start:16-Jul-2020 Instruction Type:Provider Instructions for Treatment How to access health informa tion online Indication:Pipe smoker Start:18-Jun-2020 Instruction Type:Patient Education How to access health informa tion online - Detail Indication:Pipe smoker Start:18-Jun-2020 Instruction Type:Patient Education Patient Instructions Indication:BMI 31.0-31.9,adult Start:18-Jun-2020 Instruction Type:Provider Instructions for Treatment How to access health informa tion online Indication:Pipe smoker Start:27-May-2020 Instruction Type:Patient Education How to access health informa tion online - Detail Indication:Pipe smoker Start:27-May-2020 Instruction Type:Patient Education Patient Instructions Indication:Pipe smoker Start:27-May-2020 Instruction Type:Provider Instructions for Treatment How to access health informa tion online Indication:Pipe smoker Start:20-Feb-2020 Instruction Type:Patient Education How to access health informa tion online - Detail Indication:Pipe smoker Start:20-Feb-2020 Instruction Type:Patient Education Patient Instructions Indication:BMI 32.0-32.9,adult Start:20-Feb-2020 Instruction Type:Provider Instructions for Treatment How to access health informa tion online Indication:Pipe smoker Start:22-Dec-2019 Instruction Type:Patient Education How to access health informa tion online - Detail Indication:Pipe smoker Start:22-Dec-2019 Instruction Type:Patient Education Patient Instructions Indication:First degree AV block Start:22-Dec-2019 Instruction Type:Provider Instructions for Treatment How to access health informa tion online Indication:Pipe smoker Start:21-Nov-2019 Instruction Type:Patient Education How to access health informa tion online - Detail Indication:Pipe smoker Start:21-Nov-2019 Instruction Type:Patient Education Patient Instructions Indication:Pipe smoker Start:21-Nov-2019 Instruction Type:Provider Instructions for Treatment How to access health informa tion online Indication:Pipe smoker Start:03-Nov-2019 Instruction Type:Patient Education How to access health informa tion online - Detail Indication:Pipe smoker Start:03-Nov-2019 Instruction Type:Patient Education Patient Instructions Indication:Pipe smoker Start:03-Nov-2019 Instruction Type:Provider Instructions for Treatment How to access health informa tion online Indication:Pipe smoker Start:31-Oct-2019 Instruction Type:Patient Education How to access health informa tion online - Detail Indication:Pipe smoker Start:31-Oct-2019 Instruction Type:Patient Education Patient Instructions Indication:BMI 33.0-33.9,adult Start:31-Oct-2019 Instruction Type:Provider Instructions for Treatment How to access health informa tion online Indication:Pipe smoker Start:27-Oct-2019 Instruction Type:Patient Education How to access health informa tion online - Detail Indication:Pipe smoker Start:27-Oct-2019 Instruction Type:Patient Education Patient Instructions Indication:BMI 33.0-33.9,adult Start:27-Oct-2019 Instruction Type:Provider Instructions for Treatment How to access health informa tion online Indication:Pipe smoker Start:13-Oct-2019 Instruction Type:Patient Education How to access health informa tion online - Detail Indication:Pipe smoker Start:13-Oct-2019 Instruction Type:Patient Education Patient Instructions Indication:Pipe smoker Start:13-Oct-2019 Instruction Type:Provider Instructions for Treatment How to access health informa tion online Indication:Pipe smoker Start:02-Oct-2019 Instruction Type:Patient Education How to access health informa tion online - Detail Indication:Pipe smoker Start:02-Oct-2019 Instruction Type:Patient Education Patient Instructions Indication:Pipe smoker Start:02-Oct-2019 Instruction Type:Provider Instructions for Treatment How to access health informa tion online Indication:Pipe smoker Start:27-Jun-2019 Instruction Type:Patient Education How to access health informa tion online - Detail Indication:Pipe smoker Start:27-Jun-2019 Instruction Type:Patient Education Patient Instructions Indication:Pipe smoker Start:27-Jun-2019 Instruction Type:Provider Instructions for Treatment How to access health informa tion online Indication:Pipe smoker Start:17-Feb-2019 Instruction Type:Patient Education How to access health informa tion online - Detail Indication:Pipe smoker Start:17-Feb-2019 Instruction Type:Patient Education Patient Instructions Indication:Pipe smoker Start:17-Feb-2019 Instruction Type:Provider Instructions for Treatment How to access health informa tion online Indication:Hypertension Start:07-Feb-2019 Instruction Type:Patient Education How to access health informa tion online - Detail Indication:Hypertension Start:07-Feb-2019 Instruction Type:Patient Education Patient Instructions Indication:Hypertension Start:07-Feb-2019 Instruction Type:Provider Instructions for Treatment Name Dates Details How to access health informa tion online Indication:Pipe smoker Start:27-Jun-2019 Instruction Type:Patient Education How to access health informa tion online - Detail Indication:Pipe smoker Start:27-Jun-2019 Instruction Type:Patient Education Patient Instructions Indication:Pipe smoker Start:27-Jun-2019 Instruction Type:Provider Instructions for Treatment How to access health informa tion online Indication:Pipe smoker Start:17-Feb-2019 Instruction Type:Patient Education How to access health informa tion online - Detail Indication:Pipe smoker Start:17-Feb-2019 Instruction Type:Patient Education Patient Instructions Indication:Pipe smoker Start:17-Feb-2019 Instruction Type:Provider Instructions for Treatment How to access health informa tion online Indication:Hypertension Start:07-Feb-2019 Instruction Type:Patient Education How to access health informa tion online - Detail Indication:Hypertension Start:07-Feb-2019 Instruction Type:Patient Education Patient Instructions Indication:Hypertension Start:07-Feb-2019 Instruction Type:Provider Instructions for Treatment Name Dates Details How to access health informa tion online Indication:Pipe smoker Start:20-Feb-2020 Instruction Type:Patient Education How to access health informa tion online - Detail Indication:Pipe smoker Start:20-Feb-2020 Instruction Type:Patient Education Patient Instructions Indication:BMI 32.0-32.9,adult Start:20-Feb-2020 Instruction Type:Provider Instructions for Treatment How to access health informa tion online Indication:Pipe smoker Start:22-Dec-2019 Instruction Type:Patient Education How to access health informa tion online - Detail Indication:Pipe smoker Start:22-Dec-2019 Instruction Type:Patient Education Patient Instructions Indication:First degree AV block Start:22-Dec-2019 Instruction Type:Provider Instructions for Treatment How to access health informa tion online Indication:Pipe smoker Start:21-Nov-2019 Instruction Type:Patient Education How to access health informa tion online - Detail Indication:Pipe smoker Start:21-Nov-2019 Instruction Type:Patient Education Patient Instructions Indication:Pipe smoker Start:21-Nov-2019 Instruction Type:Provider Instructions for Treatment How to access health informa tion online Indication:Pipe smoker Start:03-Nov-2019 Instruction Type:Patient Education How to access health informa tion online - Detail Indication:Pipe smoker Start:03-Nov-2019 Instruction Type:Patient Education Patient Instructions Indication:Pipe smoker Start:03-Nov-2019 Instruction Type:Provider Instructions for Treatment How to access health informa tion online Indication:Pipe smoker Start:31-Oct-2019 Instruction Type:Patient Education How to access health informa tion online - Detail Indication:Pipe smoker Start:31-Oct-2019 Instruction Type:Patient Education Patient Instructions Indication:BMI 33.0-33.9,adult Start:31-Oct-2019 Instruction Type:Provider Instructions for Treatment How to access health informa tion online Indication:Pipe smoker Start:27-Oct-2019 Instruction Type:Patient Education How to access health informa tion online - Detail Indication:Pipe smoker Start:27-Oct-2019 Instruction Type:Patient Education Patient Instructions Indication:BMI 33.0-33.9,adult Start:27-Oct-2019 Instruction Type:Provider Instructions for Treatment How to access health informa tion online Indication:Pipe smoker Start:13-Oct-2019 Instruction Type:Patient Education How to access health informa tion online - Detail Indication:Pipe smoker Start:13-Oct-2019 Instruction Type:Patient Education Patient Instructions Indication:Pipe smoker Start:13-Oct-2019 Instruction Type:Provider Instructions for Treatment How to access health informa tion online Indication:Pipe smoker Start:02-Oct-2019 Instruction Type:Patient Education How to access health informa tion online - Detail Indication:Pipe smoker Start:02-Oct-2019 Instruction Type:Patient Education Patient Instructions Indication:Pipe smoker Start:02-Oct-2019 Instruction Type:Provider Instructions for Treatment How to access health informa tion online Indication:Pipe smoker Start:27-Jun-2019 Instruction Type:Patient Education How to access health informa tion online - Detail Indication:Pipe smoker Start:27-Jun-2019 Instruction Type:Patient Education Patient Instructions Indication:Pipe smoker Start:27-Jun-2019 Instruction Type:Provider Instructions for Treatment How to access health informa tion online Indication:Pipe smoker Start:17-Feb-2019 Instruction Type:Patient Education How to access health informa tion online - Detail Indication:Pipe smoker Start:17-Feb-2019 Instruction Type:Patient Education Patient Instructions Indication:Pipe smoker Start:17-Feb-2019 Instruction Type:Provider Instructions for Treatment How to access health informa tion online Indication:Hypertension Start:07-Feb-2019 Instruction Type:Patient Education How to access health informa tion online - Detail Indication:Hypertension Start:07-Feb-2019 Instruction Type:Patient Education Patient Instructions Indication:Hypertension Start:07-Feb-2019 Instruction Type:Provider Instructions for Treatment Name Dates Details Patient Instructions Indication:Pipe smoker Start:04-Nov-2020 Instruction Type:Provider Instructions for Treatment How to Access Health Informa tion Online using Patient Portal and [employer] Indication:Pipe smoker Start:04-Nov-2020 Instruction Type:Patient Education Patient Instructions Indication:Pipe smoker Start:04-Oct-2020 Instruction Type:Provider Instructions for Treatment How to Access Health Informa tion Online using Patient Portal and [employer] Indication:Pipe smoker Start:04-Oct-2020 Instruction Type:Patient Education How to access health informa tion online Indication:Pipe smoker Start:01-Oct-2020 Instruction Type:Patient Education How to access health informa tion online - Detail Indication:Pipe smoker Start:01-Oct-2020 Instruction Type:Patient Education Patient Instructions Indication:BMI 36.0-36.9,adult Start:01-Oct-2020 Instruction Type:Provider Instructions for Treatment How to access health informa tion online Indication:Pipe smoker Start:02-Sep-2020 Instruction Type:Patient Education How to access health informa tion online - Detail Indication:Pipe smoker Start:02-Sep-2020 Instruction Type:Patient Education Patient Instructions Indication:BMI 34.0-34.9,adult Start:02-Sep-2020 Instruction Type:Provider Instructions for Treatment How to access health informa tion online Indication:Pipe smoker Start:16-Jul-2020 Instruction Type:Patient Education How to access health informa tion online - Detail Indication:Pipe smoker Start:16-Jul-2020 Instruction Type:Patient Education Patient Instructions Indication:B12 deficiency Start:16-Jul-2020 Instruction Type:Provider Instructions for Treatment How to access health informa tion online Indication:Pipe smoker Start:18-Jun-2020 Instruction Type:Patient Education How to access health informa tion online - Detail Indication:Pipe smoker Start:18-Jun-2020 Instruction Type:Patient Education Patient Instructions Indication:BMI 31.0-31.9,adult Start:18-Jun-2020 Instruction Type:Provider Instructions for Treatment How to access health informa tion online Indication:Pipe smoker Start:27-May-2020 Instruction Type:Patient Education How to access health informa tion online - Detail Indication:Pipe smoker Start:27-May-2020 Instruction Type:Patient Education Patient Instructions Indication:Pipe smoker Start:27-May-2020 Instruction Type:Provider Instructions for Treatment How to access health informa tion online Indication:Pipe smoker Start:20-Feb-2020 Instruction Type:Patient Education How to access health informa tion online - Detail Indication:Pipe smoker Start:20-Feb-2020 Instruction Type:Patient Education Patient Instructions Indication:BMI 32.0-32.9,adult Start:20-Feb-2020 Instruction Type:Provider Instructions for Treatment How to access health informa tion online Indication:Pipe smoker Start:22-Dec-2019 Instruction Type:Patient Education How to access health informa tion online - Detail Indication:Pipe smoker Start:22-Dec-2019 Instruction Type:Patient Education Patient Instructions Indication:First degree AV block Start:22-Dec-2019 Instruction Type:Provider Instructions for Treatment How to access health informa tion online Indication:Pipe smoker Start:21-Nov-2019 Instruction Type:Patient Education How to access health informa tion online - Detail Indication:Pipe smoker Start:21-Nov-2019 Instruction Type:Patient Education Patient Instructions Indication:Pipe smoker Start:21-Nov-2019 Instruction Type:Provider Instructions for Treatment How to access health informa tion online Indication:Pipe smoker Start:03-Nov-2019 Instruction Type:Patient Education How to access health informa tion online - Detail Indication:Pipe smoker Start:03-Nov-2019 Instruction Type:Patient Education Patient Instructions Indication:Pipe smoker Start:03-Nov-2019 Instruction Type:Provider Instructions for Treatment How to access health informa tion online Indication:Pipe smoker Start:31-Oct-2019 Instruction Type:Patient Education How to access health informa tion online - Detail Indication:Pipe smoker Start:31-Oct-2019 Instruction Type:Patient Education Patient Instructions Indication:BMI 33.0-33.9,adult Start:31-Oct-2019 Instruction Type:Provider Instructions for Treatment How to access health informa tion online Indication:Pipe smoker Start:27-Oct-2019 Instruction Type:Patient Education How to access health informa tion online - Detail Indication:Pipe smoker Start:27-Oct-2019 Instruction Type:Patient Education Patient Instructions Indication:BMI 33.0-33.9,adult Start:27-Oct-2019 Instruction Type:Provider Instructions for Treatment How to access health informa tion online Indication:Pipe smoker Start:13-Oct-2019 Instruction Type:Patient Education How to access health informa tion online - Detail Indication:Pipe smoker Start:13-Oct-2019 Instruction Type:Patient Education Patient Instructions Indication:Pipe smoker Start:13-Oct-2019 Instruction Type:Provider Instructions for Treatment How to access health informa tion online Indication:Pipe smoker Start:02-Oct-2019 Instruction Type:Patient Education How to access health informa tion online - Detail Indication:Pipe smoker Start:02-Oct-2019 Instruction Type:Patient Education Patient Instructions Indication:Pipe smoker Start:02-Oct-2019 Instruction Type:Provider Instructions for Treatment How to access health informa tion online Indication:Pipe smoker Start:27-Jun-2019 Instruction Type:Patient Education How to access health informa tion online - Detail Indication:Pipe smoker Start:27-Jun-2019 Instruction Type:Patient Education Patient Instructions Indication:Pipe smoker Start:27-Jun-2019 Instruction Type:Provider Instructions for Treatment How to access health informa tion online Indication:Pipe smoker Start:17-Feb-2019 Instruction Type:Patient Education How to access health informa tion online - Detail Indication:Pipe smoker Start:17-Feb-2019 Instruction Type:Patient Education Patient Instructions Indication:Pipe smoker Start:17-Feb-2019 Instruction Type:Provider Instructions for Treatment How to access health informa tion online Indication:Hypertension Start:07-Feb-2019 Instruction Type:Patient Education How to access health informa tion online - Detail Indication:Hypertension Start:07-Feb-2019 Instruction Type:Patient Education Patient Instructions Indication:Hypertension Start:07-Feb-2019 Instruction Type:Provider Instructions for Treatment Name Dates Details Patient Instructions Indication:Leg swelling Start:23-Dec-2020 Instruction Type:Provider Instructions for Treatment How to Access Health Informa tion Online using Patient Portal and [employer] Indication:Pipe smoker Start:23-Dec-2020 Instruction Type:Patient Education Patient Instructions Indication:Pipe smoker Start:04-Nov-2020 Instruction Type:Provider Instructions for Treatment How to Access Health Informa tion Online using Patient Portal and [employer] Indication:Pipe smoker Start:04-Nov-2020 Instruction Type:Patient Education Patient Instructions Indication:Pipe smoker Start:04-Oct-2020 Instruction Type:Provider Instructions for Treatment How to Access Health Informa tion Online using Patient Portal and [employer] Indication:Pipe smoker Start:04-Oct-2020 Instruction Type:Patient Education How to access health informa tion online Indication:Pipe smoker Start:01-Oct-2020 Instruction Type:Patient Education How to access health informa tion online - Detail Indication:Pipe smoker Start:01-Oct-2020 Instruction Type:Patient Education Patient Instructions Indication:BMI 36.0-36.9,adult Start:01-Oct-2020 Instruction Type:Provider Instructions for Treatment How to access health informa tion online Indication:Pipe smoker Start:02-Sep-2020 Instruction Type:Patient Education How to access health informa tion online - Detail Indication:Pipe smoker Start:02-Sep-2020 Instruction Type:Patient Education Patient Instructions Indication:BMI 34.0-34.9,adult Start:02-Sep-2020 Instruction Type:Provider Instructions for Treatment How to access health informa tion online Indication:Pipe smoker Start:16-Jul-2020 Instruction Type:Patient Education How to access health informa tion online - Detail Indication:Pipe smoker Start:16-Jul-2020 Instruction Type:Patient Education Patient Instructions Indication:B12 deficiency Start:16-Jul-2020 Instruction Type:Provider Instructions for Treatment How to access health informa tion online Indication:Pipe smoker Start:18-Jun-2020 Instruction Type:Patient Education How to access health informa tion online - Detail Indication:Pipe smoker Start:18-Jun-2020 Instruction Type:Patient Education Patient Instructions Indication:BMI 31.0-31.9,adult Start:18-Jun-2020 Instruction Type:Provider Instructions for Treatment How to access health informa tion online Indication:Pipe smoker Start:27-May-2020 Instruction Type:Patient Education How to access health informa tion online - Detail Indication:Pipe smoker Start:27-May-2020 Instruction Type:Patient Education Patient Instructions Indication:Pipe smoker Start:27-May-2020 Instruction Type:Provider Instructions for Treatment How to access health informa tion online Indication:Pipe smoker Start:20-Feb-2020 Instruction Type:Patient Education How to access health informa tion online - Detail Indication:Pipe smoker Start:20-Feb-2020 Instruction Type:Patient Education Patient Instructions Indication:BMI 32.0-32.9,adult Start:20-Feb-2020 Instruction Type:Provider Instructions for Treatment How to access health informa tion online Indication:Pipe smoker Start:22-Dec-2019 Instruction Type:Patient Education How to access health informa tion online - Detail Indication:Pipe smoker Start:22-Dec-2019 Instruction Type:Patient Education Patient Instructions Indication:First degree AV block Start:22-Dec-2019 Instruction Type:Provider Instructions for Treatment How to access health informa tion online Indication:Pipe smoker Start:21-Nov-2019 Instruction Type:Patient Education How to access health informa tion online - Detail Indication:Pipe smoker Start:21-Nov-2019 Instruction Type:Patient Education Patient Instructions Indication:Pipe smoker Start:21-Nov-2019 Instruction Type:Provider Instructions for Treatment How to access health informa tion online Indication:Pipe smoker Start:03-Nov-2019 Instruction Type:Patient Education How to access health informa tion online - Detail Indication:Pipe smoker Start:03-Nov-2019 Instruction Type:Patient Education Patient Instructions Indication:Pipe smoker Start:03-Nov-2019 Instruction Type:Provider Instructions for Treatment How to access health informa tion online Indication:Pipe smoker Start:31-Oct-2019 Instruction Type:Patient Education How to access health informa tion online - Detail Indication:Pipe smoker Start:31-Oct-2019 Instruction Type:Patient Education Patient Instructions Indication:BMI 33.0-33.9,adult Start:31-Oct-2019 Instruction Type:Provider Instructions for Treatment How to access health informa tion online Indication:Pipe smoker Start:27-Oct-2019 Instruction Type:Patient Education How to access health informa tion online - Detail Indication:Pipe smoker Start:27-Oct-2019 Instruction Type:Patient Education Patient Instructions Indication:BMI 33.0-33.9,adult Start:27-Oct-2019 Instruction Type:Provider Instructions for Treatment How to access health informa tion online Indication:Pipe smoker Start:13-Oct-2019 Instruction Type:Patient Education How to access health informa tion online - Detail Indication:Pipe smoker Start:13-Oct-2019 Instruction Type:Patient Education Patient Instructions Indication:Pipe smoker Start:13-Oct-2019 Instruction Type:Provider Instructions for Treatment How to access health informa tion online Indication:Pipe smoker Start:02-Oct-2019 Instruction Type:Patient Education How to access health informa tion online - Detail Indication:Pipe smoker Start:02-Oct-2019 Instruction Type:Patient Education Patient Instructions Indication:Pipe smoker Start:02-Oct-2019 Instruction Type:Provider Instructions for Treatment How to access health informa tion online Indication:Pipe smoker Start:27-Jun-2019 Instruction Type:Patient Education How to access health informa tion online - Detail Indication:Pipe smoker Start:27-Jun-2019 Instruction Type:Patient Education Patient Instructions Indication:Pipe smoker Start:27-Jun-2019 Instruction Type:Provider Instructions for Treatment How to access health informa tion online Indication:Pipe smoker Start:17-Feb-2019 Instruction Type:Patient Education How to access health informa tion online - Detail Indication:Pipe smoker Start:17-Feb-2019 Instruction Type:Patient Education Patient Instructions Indication:Pipe smoker Start:17-Feb-2019 Instruction Type:Provider Instructions for Treatment How to access health informa tion online Indication:Hypertension Start:07-Feb-2019 Instruction Type:Patient Education How to access health informa tion online - Detail Indication:Hypertension Start:07-Feb-2019 Instruction Type:Patient Education Patient Instructions Indication:Hypertension Start:07-Feb-2019 Instruction Type:Provider Instructions for Treatment Name Dates Details How to access health informa tion online Indication:Pipe smoker Start:27-May-2020 Instruction Type:Patient Education How to access health informa tion online - Detail Indication:Pipe smoker Start:27-May-2020 Instruction Type:Patient Education Patient Instructions Indication:Pipe smoker Start:27-May-2020 Instruction Type:Provider Instructions for Treatment How to access health informa tion online Indication:Pipe smoker Start:20-Feb-2020 Instruction Type:Patient Education How to access health informa tion online - Detail Indication:Pipe smoker Start:20-Feb-2020 Instruction Type:Patient Education Patient Instructions Indication:BMI 32.0-32.9,adult Start:20-Feb-2020 Instruction Type:Provider Instructions for Treatment How to access health informa tion online Indication:Pipe smoker Start:22-Dec-2019 Instruction Type:Patient Education How to access health informa tion online - Detail Indication:Pipe smoker Start:22-Dec-2019 Instruction Type:Patient Education Patient Instructions Indication:First degree AV block Start:22-Dec-2019 Instruction Type:Provider Instructions for Treatment How to access health informa tion online Indication:Pipe smoker Start:21-Nov-2019 Instruction Type:Patient Education How to access health informa tion online - Detail Indication:Pipe smoker Start:21-Nov-2019 Instruction Type:Patient Education Patient Instructions Indication:Pipe smoker Start:21-Nov-2019 Instruction Type:Provider Instructions for Treatment How to access health informa tion online Indication:Pipe smoker Start:03-Nov-2019 Instruction Type:Patient Education How to access health informa tion online - Detail Indication:Pipe smoker Start:03-Nov-2019 Instruction Type:Patient Education Patient Instructions Indication:Pipe smoker Start:03-Nov-2019 Instruction Type:Provider Instructions for Treatment How to access health informa tion online Indication:Pipe smoker Start:31-Oct-2019 Instruction Type:Patient Education How to access health informa tion online - Detail Indication:Pipe smoker Start:31-Oct-2019 Instruction Type:Patient Education Patient Instructions Indication:BMI 33.0-33.9,adult Start:31-Oct-2019 Instruction Type:Provider Instructions for Treatment How to access health informa tion online Indication:Pipe smoker Start:27-Oct-2019 Instruction Type:Patient Education How to access health informa tion online - Detail Indication:Pipe smoker Start:27-Oct-2019 Instruction Type:Patient Education Patient Instructions Indication:BMI 33.0-33.9,adult Start:27-Oct-2019 Instruction Type:Provider Instructions for Treatment How to access health informa tion online Indication:Pipe smoker Start:13-Oct-2019 Instruction Type:Patient Education How to access health informa tion online - Detail Indication:Pipe smoker Start:13-Oct-2019 Instruction Type:Patient Education Patient Instructions Indication:Pipe smoker Start:13-Oct-2019 Instruction Type:Provider Instructions for Treatment How to access health informa tion online Indication:Pipe smoker Start:02-Oct-2019 Instruction Type:Patient Education How to access health informa tion online - Detail Indication:Pipe smoker Start:02-Oct-2019 Instruction Type:Patient Education Patient Instructions Indication:Pipe smoker Start:02-Oct-2019 Instruction Type:Provider Instructions for Treatment How to access health informa tion online Indication:Pipe smoker Start:27-Jun-2019 Instruction Type:Patient Education How to access health informa tion online - Detail Indication:Pipe smoker Start:27-Jun-2019 Instruction Type:Patient Education Patient Instructions Indication:Pipe smoker Start:27-Jun-2019 Instruction Type:Provider Instructions for Treatment How to access health informa tion online Indication:Pipe smoker Start:17-Feb-2019 Instruction Type:Patient Education How to access health informa tion online - Detail Indication:Pipe smoker Start:17-Feb-2019 Instruction Type:Patient Education Patient Instructions Indication:Pipe smoker Start:17-Feb-2019 Instruction Type:Provider Instructions for Treatment How to access health informa tion online Indication:Hypertension Start:07-Feb-2019 Instruction Type:Patient Education How to access health informa tion online - Detail Indication:Hypertension Start:07-Feb-2019 Instruction Type:Patient Education Patient Instructions Indication:Hypertension Start:07-Feb-2019 Instruction Type:Provider Instructions for Treatment Name Dates Details How to access health informa tion online Indication:Pipe smoker Start:27-May-2020 Instruction Type:Patient Education How to access health informa tion online - Detail Indication:Pipe smoker Start:27-May-2020 Instruction Type:Patient Education Patient Instructions Indication:Pipe smoker Start:27-May-2020 Instruction Type:Provider Instructions for Treatment How to access health informa tion online Indication:Pipe smoker Start:20-Feb-2020 Instruction Type:Patient Education How to access health informa tion online - Detail Indication:Pipe smoker Start:20-Feb-2020 Instruction Type:Patient Education Patient Instructions Indication:BMI 32.0-32.9,adult Start:20-Feb-2020 Instruction Type:Provider Instructions for Treatment How to access health informa tion online Indication:Pipe smoker Start:22-Dec-2019 Instruction Type:Patient Education How to access health informa tion online - Detail Indication:Pipe smoker Start:22-Dec-2019 Instruction Type:Patient Education Patient Instructions Indication:First degree AV block Start:22-Dec-2019 Instruction Type:Provider Instructions for Treatment How to access health informa tion online Indication:Pipe smoker Start:21-Nov-2019 Instruction Type:Patient Education How to access health informa tion online - Detail Indication:Pipe smoker Start:21-Nov-2019 Instruction Type:Patient Education Patient Instructions Indication:Pipe smoker Start:21-Nov-2019 Instruction Type:Provider Instructions for Treatment How to access health informa tion online Indication:Pipe smoker Start:03-Nov-2019 Instruction Type:Patient Education How to access health informa tion online - Detail Indication:Pipe smoker Start:03-Nov-2019 Instruction Type:Patient Education Patient Instructions Indication:Pipe smoker Start:03-Nov-2019 Instruction Type:Provider Instructions for Treatment How to access health informa tion online Indication:Pipe smoker Start:31-Oct-2019 Instruction Type:Patient Education How to access health informa tion online - Detail Indication:Pipe smoker Start:31-Oct-2019 Instruction Type:Patient Education Patient Instructions Indication:BMI 33.0-33.9,adult Start:31-Oct-2019 Instruction Type:Provider Instructions for Treatment How to access health informa tion online Indication:Pipe smoker Start:27-Oct-2019 Instruction Type:Patient Education How to access health informa tion online - Detail Indication:Pipe smoker Start:27-Oct-2019 Instruction Type:Patient Education Patient Instructions Indication:BMI 33.0-33.9,adult Start:27-Oct-2019 Instruction Type:Provider Instructions for Treatment How to access health informa tion online Indication:Pipe smoker Start:13-Oct-2019 Instruction Type:Patient Education How to access health informa tion online - Detail Indication:Pipe smoker Start:13-Oct-2019 Instruction Type:Patient Education Patient Instructions Indication:Pipe smoker Start:13-Oct-2019 Instruction Type:Provider Instructions for Treatment How to access health informa tion online Indication:Pipe smoker Start:02-Oct-2019 Instruction Type:Patient Education How to access health informa tion online - Detail Indication:Pipe smoker Start:02-Oct-2019 Instruction Type:Patient Education Patient Instructions Indication:Pipe smoker Start:02-Oct-2019 Instruction Type:Provider Instructions for Treatment How to access health informa tion online Indication:Pipe smoker Start:27-Jun-2019 Instruction Type:Patient Education How to access health informa tion online - Detail Indication:Pipe smoker Start:27-Jun-2019 Instruction Type:Patient Education Patient Instructions Indication:Pipe smoker Start:27-Jun-2019 Instruction Type:Provider Instructions for Treatment How to access health informa tion online Indication:Pipe smoker Start:17-Feb-2019 Instruction Type:Patient Education How to access health informa tion online - Detail Indication:Pipe smoker Start:17-Feb-2019 Instruction Type:Patient Education Patient Instructions Indication:Pipe smoker Start:17-Feb-2019 Instruction Type:Provider Instructions for Treatment How to access health informa tion online Indication:Hypertension Start:07-Feb-2019 Instruction Type:Patient Education How to access health informa tion online - Detail Indication:Hypertension Start:07-Feb-2019 Instruction Type:Patient Education Patient Instructions Indication:Hypertension Start:07-Feb-2019 Instruction Type:Provider Instructions for Treatment Name Dates Details How to access health informa tion online Indication:Pipe smoker Start:27-May-2020 Instruction Type:Patient Education How to access health informa tion online - Detail Indication:Pipe smoker Start:27-May-2020 Instruction Type:Patient Education Patient Instructions Indication:Pipe smoker Start:27-May-2020 Instruction Type:Provider Instructions for Treatment How to access health informa tion online Indication:Pipe smoker Start:20-Feb-2020 Instruction Type:Patient Education How to access health informa tion online - Detail Indication:Pipe smoker Start:20-Feb-2020 Instruction Type:Patient Education Patient Instructions Indication:BMI 32.0-32.9,adult Start:20-Feb-2020 Instruction Type:Provider Instructions for Treatment How to access health informa tion online Indication:Pipe smoker Start:22-Dec-2019 Instruction Type:Patient Education How to access health informa tion online - Detail Indication:Pipe smoker Start:22-Dec-2019 Instruction Type:Patient Education Patient Instructions Indication:First degree AV block Start:22-Dec-2019 Instruction Type:Provider Instructions for Treatment How to access health informa tion online Indication:Pipe smoker Start:21-Nov-2019 Instruction Type:Patient Education How to access health informa tion online - Detail Indication:Pipe smoker Start:21-Nov-2019 Instruction Type:Patient Education Patient Instructions Indication:Pipe smoker Start:21-Nov-2019 Instruction Type:Provider Instructions for Treatment How to access health informa tion online Indication:Pipe smoker Start:03-Nov-2019 Instruction Type:Patient Education How to access health informa tion online - Detail Indication:Pipe smoker Start:03-Nov-2019 Instruction Type:Patient Education Patient Instructions Indication:Pipe smoker Start:03-Nov-2019 Instruction Type:Provider Instructions for Treatment How to access health informa tion online Indication:Pipe smoker Start:31-Oct-2019 Instruction Type:Patient Education How to access health informa tion online - Detail Indication:Pipe smoker Start:31-Oct-2019 Instruction Type:Patient Education Patient Instructions Indication:BMI 33.0-33.9,adult Start:31-Oct-2019 Instruction Type:Provider Instructions for Treatment How to access health informa tion online Indication:Pipe smoker Start:27-Oct-2019 Instruction Type:Patient Education How to access health informa tion online - Detail Indication:Pipe smoker Start:27-Oct-2019 Instruction Type:Patient Education Patient Instructions Indication:BMI 33.0-33.9,adult Start:27-Oct-2019 Instruction Type:Provider Instructions for Treatment How to access health informa tion online Indication:Pipe smoker Start:13-Oct-2019 Instruction Type:Patient Education How to access health informa tion online - Detail Indication:Pipe smoker Start:13-Oct-2019 Instruction Type:Patient Education Patient Instructions Indication:Pipe smoker Start:13-Oct-2019 Instruction Type:Provider Instructions for Treatment How to access health informa tion online Indication:Pipe smoker Start:02-Oct-2019 Instruction Type:Patient Education How to access health informa tion online - Detail Indication:Pipe smoker Start:02-Oct-2019 Instruction Type:Patient Education Patient Instructions Indication:Pipe smoker Start:02-Oct-2019 Instruction Type:Provider Instructions for Treatment How to access health informa tion online Indication:Pipe smoker Start:27-Jun-2019 Instruction Type:Patient Education How to access health informa tion online - Detail Indication:Pipe smoker Start:27-Jun-2019 Instruction Type:Patient Education Patient Instructions Indication:Pipe smoker Start:27-Jun-2019 Instruction Type:Provider Instructions for Treatment How to access health informa tion online Indication:Pipe smoker Start:17-Feb-2019 Instruction Type:Patient Education How to access health informa tion online - Detail Indication:Pipe smoker Start:17-Feb-2019 Instruction Type:Patient Education Patient Instructions Indication:Pipe smoker Start:17-Feb-2019 Instruction Type:Provider Instructions for Treatment How to access health informa tion online Indication:Hypertension Start:07-Feb-2019 Instruction Type:Patient Education How to access health informa tion online - Detail Indication:Hypertension Start:07-Feb-2019 Instruction Type:Patient Education Patient Instructions Indication:Hypertension Start:07-Feb-2019 Instruction Type:Provider Instructions for Treatment Name Dates Details Patient Instructions Indication:Leg swelling Start:23-Dec-2020 Instruction Type:Provider Instructions for Treatment How to Access Health Informa tion Online using Patient Portal and 3rd [employer] Apps Indication:Pipe smoker Start:23-Dec-2020 Instruction Type:Patient Education Patient Instructions Indication:Pipe smoker Start:04-Nov-2020 Instruction Type:Provider Instructions for Treatment How to Access Health Informa tion Online using Patient Portal and 3rd [employer] Apps Indication:Pipe smoker Start:04-Nov-2020 Instruction Type:Patient Education Patient Instructions Indication:Pipe smoker Start:04-Oct-2020 Instruction Type:Provider Instructions for Treatment How to Access Health Informa tion Online using Patient Portal and 3rd [employer] Apps Indication:Pipe smoker Start:04-Oct-2020 Instruction Type:Patient Education How to access health informa tion online Indication:Pipe smoker Start:01-Oct-2020 Instruction Type:Patient Education How to access health informa tion online - Detail Indication:Pipe smoker Start:01-Oct-2020 Instruction Type:Patient Education Patient Instructions Indication:BMI 36.0-36.9,adult Start:01-Oct-2020 Instruction Type:Provider Instructions for Treatment How to access health informa tion online Indication:Pipe smoker Start:02-Sep-2020 Instruction Type:Patient Education How to access health informa tion online - Detail Indication:Pipe smoker Start:02-Sep-2020 Instruction Type:Patient Education Patient Instructions Indication:BMI 34.0-34.9,adult Start:02-Sep-2020 Instruction Type:Provider Instructions for Treatment How to access health informa tion online Indication:Pipe smoker Start:16-Jul-2020 Instruction Type:Patient Education How to access health informa tion online - Detail Indication:Pipe smoker Start:16-Jul-2020 Instruction Type:Patient Education Patient Instructions Indication:B12 deficiency Start:16-Jul-2020 Instruction Type:Provider Instructions for Treatment How to access health informa tion online Indication:Pipe smoker Start:18-Jun-2020 Instruction Type:Patient Education How to access health informa tion online - Detail Indication:Pipe smoker Start:18-Jun-2020 Instruction Type:Patient Education Patient Instructions Indication:BMI 31.0-31.9,adult Start:18-Jun-2020 Instruction Type:Provider Instructions for Treatment How to access health informa tion online Indication:Pipe smoker Start:27-May-2020 Instruction Type:Patient Education How to access health informa tion online - Detail Indication:Pipe smoker Start:27-May-2020 Instruction Type:Patient Education Patient Instructions Indication:Pipe smoker Start:27-May-2020 Instruction Type:Provider Instructions for Treatment How to access health informa tion online Indication:Pipe smoker Start:20-Feb-2020 Instruction Type:Patient Education How to access health informa tion online - Detail Indication:Pipe smoker Start:20-Feb-2020 Instruction Type:Patient Education Patient Instructions Indication:BMI 32.0-32.9,adult Start:20-Feb-2020 Instruction Type:Provider Instructions for Treatment How to access health informa tion online Indication:Pipe smoker Start:22-Dec-2019 Instruction Type:Patient Education How to access health informa tion online - Detail Indication:Pipe smoker Start:22-Dec-2019 Instruction Type:Patient Education Patient Instructions Indication:First degree AV block Start:22-Dec-2019 Instruction Type:Provider Instructions for Treatment How to access health informa tion online Indication:Pipe smoker Start:21-Nov-2019 Instruction Type:Patient Education How to access health informa tion online - Detail Indication:Pipe smoker Start:21-Nov-2019 Instruction Type:Patient Education Patient Instructions Indication:Pipe smoker Start:21-Nov-2019 Instruction Type:Provider Instructions for Treatment How to access health informa tion online Indication:Pipe smoker Start:03-Nov-2019 Instruction Type:Patient Education How to access health informa tion online - Detail Indication:Pipe smoker Start:03-Nov-2019 Instruction Type:Patient Education Patient Instructions Indication:Pipe smoker Start:03-Nov-2019 Instruction Type:Provider Instructions for Treatment How to access health informa tion online Indication:Pipe smoker Start:31-Oct-2019 Instruction Type:Patient Education How to access health informa tion online - Detail Indication:Pipe smoker Start:31-Oct-2019 Instruction Type:Patient Education Patient Instructions Indication:BMI 33.0-33.9,adult Start:31-Oct-2019 Instruction Type:Provider Instructions for Treatment How to access health informa tion online Indication:Pipe smoker Start:27-Oct-2019 Instruction Type:Patient Education How to access health informa tion online - Detail Indication:Pipe smoker Start:27-Oct-2019 Instruction Type:Patient Education Patient Instructions Indication:BMI 33.0-33.9,adult Start:27-Oct-2019 Instruction Type:Provider Instructions for Treatment How to access health informa tion online Indication:Pipe smoker Start:13-Oct-2019 Instruction Type:Patient Education How to access health informa tion online - Detail Indication:Pipe smoker Start:13-Oct-2019 Instruction Type:Patient Education Patient Instructions Indication:Pipe smoker Start:13-Oct-2019 Instruction Type:Provider Instructions for Treatment How to access health informa tion online Indication:Pipe smoker Start:02-Oct-2019 Instruction Type:Patient Education How to access health informa tion online - Detail Indication:Pipe smoker Start:02-Oct-2019 Instruction Type:Patient Education Patient Instructions Indication:Pipe smoker Start:02-Oct-2019 Instruction Type:Provider Instructions for Treatment How to access health informa tion online Indication:Pipe smoker Start:27-Jun-2019 Instruction Type:Patient Education How to access health informa tion online - Detail Indication:Pipe smoker Start:27-Jun-2019 Instruction Type:Patient Education Patient Instructions Indication:Pipe smoker Start:27-Jun-2019 Instruction Type:Provider Instructions for Treatment How to access health informa tion online Indication:Pipe smoker Start:17-Feb-2019 Instruction Type:Patient Education How to access health informa tion online - Detail Indication:Pipe smoker Start:17-Feb-2019 Instruction Type:Patient Education Patient Instructions Indication:Pipe smoker Start:17-Feb-2019 Instruction Type:Provider Instructions for Treatment How to access health informa tion online Indication:Hypertension Start:07-Feb-2019 Instruction Type:Patient Education How to access health informa tion online - Detail Indication:Hypertension Start:07-Feb-2019 Instruction Type:Patient Education Patient Instructions Indication:Hypertension Start:07-Feb-2019 Instruction Type:Provider Instructions for Treatment Name Dates Details Patient Instructions Indication:Leg swelling Start:23-Dec-2020 Instruction Type:Provider Instructions for Treatment How to Access Health Informa tion Online using Patient Portal and 3rd [employer] Apps Indication:Pipe smoker Start:23-Dec-2020 Instruction Type:Patient Education Patient Instructions Indication:Pipe smoker Start:04-Nov-2020 Instruction Type:Provider Instructions for Treatment How to Access Health Informa tion Online using Patient Portal and 3rd [employer] Indication:Pipe smoker Start:04-Nov-2020 Instruction Type:Patient Education Patient Instructions Indication:Pipe smoker Start:04-Oct-2020 Instruction Type:Provider Instructions for Treatment How to Access Health Informa tion Online using Patient Portal and 3rd [employer] Apps Indication:Pipe smoker Start:04-Oct-2020 Instruction Type:Patient Education How to access health informa tion online Indication:Pipe smoker Start:01-Oct-2020 Instruction Type:Patient Education How to access health informa tion online - Detail Indication:Pipe smoker Start:01-Oct-2020 Instruction Type:Patient Education Patient Instructions Indication:BMI 36.0-36.9,adult Start:01-Oct-2020 Instruction Type:Provider Instructions for Treatment How to access health informa tion online Indication:Pipe smoker Start:02-Sep-2020 Instruction Type:Patient Education How to access health informa tion online - Detail Indication:Pipe smoker Start:02-Sep-2020 Instruction Type:Patient Education Patient Instructions Indication:BMI 34.0-34.9,adult Start:02-Sep-2020 Instruction Type:Provider Instructions for Treatment How to access health informa tion online Indication:Pipe smoker Start:16-Jul-2020 Instruction Type:Patient Education How to access health informa tion online - Detail Indication:Pipe smoker Start:16-Jul-2020 Instruction Type:Patient Education Patient Instructions Indication:B12 deficiency Start:16-Jul-2020 Instruction Type:Provider Instructions for Treatment How to access health informa tion online Indication:Pipe smoker Start:18-Jun-2020 Instruction Type:Patient Education How to access health informa tion online - Detail Indication:Pipe smoker Start:18-Jun-2020 Instruction Type:Patient Education Patient Instructions Indication:BMI 31.0-31.9,adult Start:18-Jun-2020 Instruction Type:Provider Instructions for Treatment How to access health informa tion online Indication:Pipe smoker Start:27-May-2020 Instruction Type:Patient Education How to access health informa tion online - Detail Indication:Pipe smoker Start:27-May-2020 Instruction Type:Patient Education Patient Instructions Indication:Pipe smoker Start:27-May-2020 Instruction Type:Provider Instructions for Treatment How to access health informa tion online Indication:Pipe smoker Start:20-Feb-2020 Instruction Type:Patient Education How to access health informa tion online - Detail Indication:Pipe smoker Start:20-Feb-2020 Instruction Type:Patient Education Patient Instructions Indication:BMI 32.0-32.9,adult Start:20-Feb-2020 Instruction Type:Provider Instructions for Treatment How to access health informa tion online Indication:Pipe smoker Start:22-Dec-2019 Instruction Type:Patient Education How to access health informa tion online - Detail Indication:Pipe smoker Start:22-Dec-2019 Instruction Type:Patient Education Patient Instructions Indication:First degree AV block Start:22-Dec-2019 Instruction Type:Provider Instructions for Treatment How to access health informa tion online Indication:Pipe smoker Start:21-Nov-2019 Instruction Type:Patient Education How to access health informa tion online - Detail Indication:Pipe smoker Start:21-Nov-2019 Instruction Type:Patient Education Patient Instructions Indication:Pipe smoker Start:21-Nov-2019 Instruction Type:Provider Instructions for Treatment How to access health informa tion online Indication:Pipe smoker Start:03-Nov-2019 Instruction Type:Patient Education How to access health informa tion online - Detail Indication:Pipe smoker Start:03-Nov-2019 Instruction Type:Patient Education Patient Instructions Indication:Pipe smoker Start:03-Nov-2019 Instruction Type:Provider Instructions for Treatment How to access health informa tion online Indication:Pipe smoker Start:31-Oct-2019 Instruction Type:Patient Education How to access health informa tion online - Detail Indication:Pipe smoker Start:31-Oct-2019 Instruction Type:Patient Education Patient Instructions Indication:BMI 33.0-33.9,adult Start:31-Oct-2019 Instruction Type:Provider Instructions for Treatment How to access health informa tion online Indication:Pipe smoker Start:27-Oct-2019 Instruction Type:Patient Education How to access health informa tion online - Detail Indication:Pipe smoker Start:27-Oct-2019 Instruction Type:Patient Education Patient Instructions Indication:BMI 33.0-33.9,adult Start:27-Oct-2019 Instruction Type:Provider Instructions for Treatment How to access health informa tion online Indication:Pipe smoker Start:13-Oct-2019 Instruction Type:Patient Education How to access health informa tion online - Detail Indication:Pipe smoker Start:13-Oct-2019 Instruction Type:Patient Education Patient Instructions Indication:Pipe smoker Start:13-Oct-2019 Instruction Type:Provider Instructions for Treatment How to access health informa tion online Indication:Pipe smoker Start:02-Oct-2019 Instruction Type:Patient Education How to access health informa tion online - Detail Indication:Pipe smoker Start:02-Oct-2019 Instruction Type:Patient Education Patient Instructions Indication:Pipe smoker Start:02-Oct-2019 Instruction Type:Provider Instructions for Treatment How to access health informa tion online Indication:Pipe smoker Start:27-Jun-2019 Instruction Type:Patient Education How to access health informa tion online - Detail Indication:Pipe smoker Start:27-Jun-2019 Instruction Type:Patient Education Patient Instructions Indication:Pipe smoker Start:27-Jun-2019 Instruction Type:Provider Instructions for Treatment How to access health informa tion online Indication:Pipe smoker Start:17-Feb-2019 Instruction Type:Patient Education How to access health informa tion online - Detail Indication:Pipe smoker Start:17-Feb-2019 Instruction Type:Patient Education Patient Instructions Indication:Pipe smoker Start:17-Feb-2019 Instruction Type:Provider Instructions for Treatment How to access health informa tion online Indication:Hypertension Start:07-Feb-2019 Instruction Type:Patient Education How to access health informa tion online - Detail Indication:Hypertension Start:07-Feb-2019 Instruction Type:Patient Education Patient Instructions Indication:Hypertension Start:07-Feb-2019 Instruction Type:Provider Instructions for Treatment Summary Purpose Advance Directives No Advanced Directives Records Found Name Dates Details Immunization Registry [place] - Effective on 03/27/2021. Expiration date unspecified Effective:27-Mar-2021 Name Dates Details Immunization Registry [place] - Effective on 03/27/2021. Expiration date unspecified Effective:27-Mar-2021 Additional Source Comments (unrecognized sect ion and content) No Status Records FoundNo Status Records Found INFORMATION SOURCE (unrecogn ized section and content) DATE CREATED AUTHOR AUTHOR'S ORGANIZ ATION 11/30/2021 [facility] FOR RECORDS PERTAINING TO PATIENTS WHO ARE OR HAVE BEEN ENROLLED IN A CHEMICAL DEPENDENCY/SUBSTANCEABUSE PROGRAM, SOME INFORMATION MAY BE OMITTED. This clinical summary was aggregated from multiple sources. Caution should be exercised in using it in the provision of clinical care. This summary normalizes information from multiple sources, and as a consequence, information in this document may materially change the coding, format and clinical context of patient data. In addition, data may be omitted in some cases. CLINICAL DECISIONS SHOULD BE BASED ON THE PRIMARY CLINICAL RECORDS. [employer] provides no warranty or guarantee of the accuracy or completeness of information in this document.
[2023-12-01 09:00] LABS: Vitamin B12 221 pg/mL (211-911)
[2023-12-01 10:20] LABS: Thyroid Stim Hormone (TSH) 7.72 uIU/mL (0.358-3.74)
== END ==
LOC: OLS.WHLCAR 04:00
PROVIDERS: PCP Nurse Practitioner; Referring Provider Internal Medicine; Visit Provider Internal Medicine
DX: E03.9 Hypothyroidism, unspecified (principal); J44.9 Chronic obstructive pulmonary disease, unspecified
CPT/HCPCS: 36415; 82607; 84443

== ENCOUNTER → 2024-01-12 | Outpatient (REF) | payer MEDICARE, MEDICAID, SELFPAY ==
[2024-01-12 08:04] LABS: Thyroid Stim Hormone (TSH) 7.67 uIU/mL (0.358-3.74)
== END ==
LOC: OLS.WHLCAR 04:00
PROVIDERS: PCP Nurse Practitioner; Referring Provider Internal Medicine; Visit Provider Internal Medicine
DX: R79.9 Abnormal finding of blood chemistry, unspecified (principal); J44.9 Chronic obstructive pulmonary disease, unspecified; F03.90 Unspecified dementia, unspecified severity, without behavioral disturbance, psychotic disturbance, mood disturbance, and anxiety
CPT/HCPCS: 36415; 84443

== ENCOUNTER → 2024-01-25 | Outpatient (REF) | payer MEDICARE, MEDICAID, SELFPAY | LOC: OLS.WHLCAR 05:00 | PROVIDERS: PCP Nurse Practitioner; Visit Provider Internal Medicine | DX: R52 Pain, unspecified (principal); J44.9 Chronic obstructive pulmonary disease, unspecified; F03.90 Unspecified dementia, unspecified severity, without behavioral disturbance, psychotic disturbance, mood disturbance, and anxiety | CPT/HCPCS: 36415; 84550 ==

== ENCOUNTER → 2024-02-24 | Outpatient (REF) | payer MEDICARE, MEDICAID, SELFPAY ==
[2024-02-24 07:12] LABS: Thyroid Stim Hormone (TSH) 4.36 uIU/mL (0.358-3.74)
[2024-02-25 07:39] LABS: Color, Urine Yellow (Yellow); Glucose, Dipstick Normal (Normal); Ketone-Dipstick Negative (Negative); Leukocyte Esterase-Dipstick 25 /ul (Negative); Nitrite-Dipstick Negative (Negative); Occult Blood-Urine 10 /ul (Negative); Protein-Dipstick 15 mg/dl (Negative); Urine Bilirubin Dipstick Negative (Negative); Urine Clarity Clear (Clear); Urine Urobilinogen Normal (Normal)
== END ==
LOC: OLS.WHLCAR 05:00
PROVIDERS: PCP Nurse Practitioner; Visit Provider Internal Medicine
DX: N18.30 Chronic kidney disease, stage 3 unspecified (principal); J44.9 Chronic obstructive pulmonary disease, unspecified; F03.90 Unspecified dementia, unspecified severity, without behavioral disturbance, psychotic disturbance, mood disturbance, and anxiety; G47.33 Obstructive sleep apnea (adult) (pediatric); I27.82 Chronic pulmonary embolism; R39.9 Unspecified symptoms and signs involving the genitourinary system; E03.9 Hypothyroidism, unspecified
CPT/HCPCS: 36415; 81002; 84443; 87086; 87088

== ENCOUNTER → 2024-03-02 | Outpatient (REF) | payer MEDICARE, MEDICAID, SELFPAY ==
[2024-03-02 08:17] LABS: Absolute Lymphocyte Count 2.37 X10^3/uL (0.83-4.51); Absolute Neutrophil Count 5.8 X10^3/uL (2.0-7.7); Basophil# 0.05 X10^3/uL; Basophil% 0.5 % (0-1); Eosinophil# 1.03 X10^3/uL; Eosinophils% 9.9 % (0-5); Hematocrit 44.6 % (40-54); Hemoglobin 13.5 g/dL (13.0-16.5); Lymphocyte # 2.37 X10^3/ul (0.83-4.51); Lymphocyte % 22.7 % (19-41); Mean Corp Hgb Conc 30.3 g/dL (32-36); Mean Corpuscular Hgb 27.3 pg (27.0-32.0); Mean Corpuscular Volume 90.1 fL (80-94); Mean Platelet Vol. 11.7 fl (6.2-12.0); Monocyte# 1.14 X10^3/uL; Monocyte% 10.9 % (0-10); NRBC Flagged by Analyzer 0 % (0-5); Neutrophil % 55.6 % (47-70); Platelet Count 278 K/mm3 (150-450); RBC Distribution Width CV 16.1 % (11.6-14.6); RBC Distribution Width SD 53.1 fl (35.1-43.9); Red Blood Count 4.95 M/mm3 (4.6-6.2); White Blood Count 10.4 K/mm3 (4.4-11.0)
[2024-03-02 08:53] LABS: Anion Gap 4 (5-15); BUN 23 mg/dL (7-18); BUN/Creat Ratio 14.5 RATIO (10-20); Chloride 112 mmol/L (98-107); Creatinine, Serum 1.59 mg/dL (0.70-1.30); EST Glomerular Filtration Rate 44 mL/min (>60); Est Glom Filt Rate - Afr Amer 53 mL/min (>60); Glucose 117 mg/dL (74-106); Potassium 3.8 mmol/L (3.5-5.1); Sodium Level 143 mmol/L (136-145)
== END ==
LOC: OLS.WHLCAR 05:00
PROVIDERS: PCP Nurse Practitioner; Visit Provider Internal Medicine
DX: F03.90 Unspecified dementia, unspecified severity, without behavioral disturbance, psychotic disturbance, mood disturbance, and anxiety (principal); J44.9 Chronic obstructive pulmonary disease, unspecified; I27.82 Chronic pulmonary embolism
CPT/HCPCS: 36415; 80048; 85025

== ENCOUNTER → 2024-03-08 | Outpatient (REF) | payer MEDICARE, MEDICAID, SELFPAY ==
[2024-03-08 07:23] LABS: Absolute Neutrophil Count 5.6 X10^3/uL (2.0-7.7); Basophil# 0.06 X10^3/uL; Basophil% 0.6 % (0-1); Eosinophil# 0.93 X10^3/uL; Eosinophils% 9.3 % (0-5); Hematocrit 46.7 % (40-54); Hemoglobin 14.2 g/dL (13.0-16.5); Lymphocyte % 24.9 % (19-41); Mean Corp Hgb Conc 30.4 g/dL (32-36); Mean Corpuscular Hgb 27.2 pg (27.0-32.0); Mean Corpuscular Volume 89.3 fL (80-94); Mean Platelet Vol. 12.2 fl (6.2-12.0); Monocyte# 0.94 X10^3/uL; Monocyte% 9.4 % (0-10); NRBC Flagged by Analyzer 0 % (0-5); Neutrophil # 5.59 X10^3/uL (2.7-7.7); Neutrophil % 55.6 % (47-70); Platelet Count 287 K/mm3 (150-450); RBC Distribution Width CV 15.6 % (11.6-14.6); RBC Distribution Width SD 50.7 fl (35.1-43.9); Red Blood Count 5.23 M/mm3 (4.6-6.2)
[2024-03-08 07:57] LABS: Anion Gap 4 (5-15); BUN 24 mg/dL (7-18); BUN/Creat Ratio 17.5 RATIO (10-20); Calcium,Total 9.7 mg/dL (8.5-10.1); Chloride 109 mmol/L (98-107); Creatinine, Serum 1.37 mg/dL (0.70-1.30); EST Glomerular Filtration Rate 52 mL/min (>60); Est Glom Filt Rate - Afr Amer 63 mL/min (>60); Glucose 109 mg/dL (74-106); Potassium 3.8 mmol/L (3.5-5.1); Sodium Level 139 mmol/L (136-145)
[2024-03-09 05:38] LABS: AST(SGOT) 17 U/L (15-37); Alanine Aminotransfer ALT/SGPT 17 U/L (16-61); Albumin, Serum 3.6 g/dL (3.2-5.0); Alkaline Phosphatase 93 U/L (45-117); Bilirubin, Direct 0.16 mg/dL (0.00-0.30); Globulin 4.3 g/dL (2.2-4.2); Protein, Total 7.9 g/dL (6.4-8.2); Thyroid Stim Hormone (TSH) 3.51 uIU/mL (0.358-3.74)
== END ==
LOC: OLS.WHLCAR 05:00
PROVIDERS: PCP Nurse Practitioner; Visit Provider Internal Medicine
DX: J44.9 Chronic obstructive pulmonary disease, unspecified (principal); R79.9 Abnormal finding of blood chemistry, unspecified; I27.82 Chronic pulmonary embolism; Z79.899 Other long term (current) drug therapy
CPT/HCPCS: 36415; 80048; 80076; 84443; 85025

== ENCOUNTER → 2024-04-06 | Outpatient (REF) | payer MEDICARE, MEDICAID, SELFPAY ==
[2024-04-06 08:25] LABS: Color, Urine Straw (Yellow); Glucose, Dipstick Normal (Normal); Ketone-Dipstick Negative (Negative); Leukocyte Esterase-Dipstick 25 /ul (Negative); Nitrite-Dipstick Negative (Negative); Occult Blood-Urine Negative /ul (Negative); Protein-Dipstick Negative (Negative); Specific Gravity, Urine 1.015 (1.002-1.030); Urine Bilirubin Dipstick Negative (Negative); Urine Clarity Clear (Clear); Urine Urobilinogen Normal (Normal)
[2024-04-06 10:26] LABS: Thyroid Stim Hormone (TSH) 3.08 uIU/mL (0.358-3.74)
== END ==
LOC: OLS.WHLCAR 04:00
PROVIDERS: PCP Nurse Practitioner; Referring Provider Internal Medicine; Visit Provider Internal Medicine
DX: R30.0 Dysuria (principal); J44.9 Chronic obstructive pulmonary disease, unspecified; F03.90 Unspecified dementia, unspecified severity, without behavioral disturbance, psychotic disturbance, mood disturbance, and anxiety; E03.9 Hypothyroidism, unspecified
CPT/HCPCS: 36415; 81002; 84443; 87086; 87088

== ENCOUNTER 2024-04-14 21:45 | Emergency (ER) | payer MEDICARE, MEDICAID, SELFPAY ==
[2024-04-14 21:45] VITALS: BP 168/84; PULSE 86; RESP 18; TEMP 36.6; O2SAT 96
--- NOTE | 2024-04-14 21:47 | EKG12_ITS ---
Test Reason : DYSRHYTHMIA Blood Pressure : / mmHG Vent. Rate : 067 BPM Atrial Rate : 000 BPM P-R Int : 000 ms QRS Dur : 082 ms QT Int : 412 ms P-R-T Axes : 000 026 049 degrees QTc Int : 435 ms Atrial fibrillation with premature ventricular or aberrantly conducted complexes Low voltage QRS Abnormal ECG Confirmed by Edi Dickinson ([id number]), acquisitions editor SAMANTHA MARCOS ([id number]) on 04/18/2024 6:05:40 AM Referred By: Confirmed By:Edi Dickinson
--- NOTE | 2024-04-14 21:47 | CT_ITS ---
We are attempting to reach an attending provider to discuss findings. An addendum with communication details will be sent when the communication is complete. INDICATION: Neuro deficit, acute, stroke suspected EXAMINATION: CT BRAIN - CT Head Stroke Protocol W/O Contrast Injection TECHNIQUE: Multiple axial images were obtained of the head without intravenous contrast. The protocol utilizes one or more of the following dose reduction techniques: automated exposure control, adjustment of mA and/or kV according to patient size,and/or use of iterative reconstruction technique. IV Contrast dosage and agent: None. COMPARISON: FINDINGS: BRAIN PARENCHYMA: No intra- or extra-axial hemorrhage. No evidence of acute infarct. No intracranial mass or mass effect. Age-related white matter microangiopathic ischemic changes. Posterior fossa structures are unremarkable. CSF SPACES: Prominent ventricles and extra-axial spaces with atrophy. No hydrocephalus. Basal cisterns are patent. CALVARIUM, SKULL BASE, PARANASAL SINUSES AND MASTOID AIR CELLS: Clear. No discrete lytic or blastic abnormalities. ORBITS: Both globes, extraocular muscles, optic nerves and retrobulbar fat appear unremarkable. CT/STROKE Brain/Head without Cont IMPRESSION: Age-related changes. Electronically Signed: Ankit Monroe DO at 22:10 EDT Reading Location ID and State: [facility] / [place] Tel [phone], Service support ,
--- NOTE | 2024-04-14 21:48 | CT_ITS ---
We are attempting to reach an attending provider to discuss findings. An addendum with communication details will be sent when the communication is complete. INDICATION: Neuro deficit, acute, stroke suspected EXAMINATION: CTA HEAD, AND CTA NECK TECHNIQUE: Routine carotid CT angiogram protocol was performed without and with IV contrast. In addition, images were obtained of the [place]. NASCET criteria using the distal ICAs for comparison were used for evaluation of stenoses. 3D reconstructions were reviewed. The protocol utilizes one or more of the following dose reduction techniques: automated exposure control, adjustment of mA and/or kV according to patient size,and/or use of iterative reconstruction technique. IV Contrast dosage and agent: COMPARISON: FINDINGS: --CTA NECK: AORTIC ARCH AND BRANCHES: Normal anatomy, patent. RIGHT CCA: Calcifications with no hemodynamically significant stenosis or dissection. RIGHT CAROTID BULB: Atherosclerotic calcifications with less than 50% luminal stenosis. RIGHT ICA: No occlusion, significant stenosis or dissection. LEFT CCA: No occlusion, significant stenosis or dissection. LEFT CAROTID BULB: Atherosclerotic calcifications with less than 50% luminal stenosis. LEFT ICA: No occlusion, significant stenosis or dissection. RIGHT VERTEBRAL ARTERY: Focal calcification at the origin with moderate stenosis. LEFT VERTEBRAL ARTERY: No occlusion, significant stenosis or dissection. NECK SOFT TISSUES: Right thyroid nodule. --CTA HEAD: --Anterior circulation: ICAs: Calcifications at the bilateral cavernous segment with moderate stenosis on the right and mild stenosis on the left. ACAs: No significant stenosis at the visualized segments. ACOM: Present. MCAs: No significant stenosis at the visualized segments. --Posterior circulation: PCOMs: Nonvisualization bilaterally. egg candler: No significant stenosis at the visualized segments. BASILAR ARTERY: No significant stenosis. VERTEBRAL ARTERIES: No significant stenosis at the intradural/visualized segments. No evidence of intracranial aneurysm or vascular malformation. CT/STROKE CTA Head AND Neck W/Con IMPRESSION: Calcifications at the cavernous segment of the ICAs bilaterally with moderate stenosis on the right and mild stenosis on the left. Calcification at the origin of the right vertebral artery with moderate stenosis. Less than 50% luminal stenosis at the carotid bulbs bilaterally. Electronically Signed: Ankit Monroe DO at 22:38 EDT ,
[2024-04-14 22:00] VITALS: BP 168/84; PULSE 86; RESP 19; TEMP 36.6; O2SAT 96; BMI 31.1
--- NOTE | 2024-04-14 22:01 | ED.VIS.STROK ---
HPI History of Present Illness Chief Complaint: Stroke Alert Informant: EMS Narrative Narrative: Presents from [facility] prehospital stroke alert. Patient went to shower 8 PM staff members report came out slurring speech, right-sided weakness. They reported no blood thinners. He has history of dementia baseline alert and oriented to person. Discussed with EMS he is a DNR CC. Positive Hinckley and van score. Patient evaluated from [facility], right lip was weak, right arm drift. After being sent as a stroke team as he is within the window timeframe, reviewing his paperwork confirms DNR CC, also notes paroxysmal A-fib with him on Eliquis therefore is on a blood thinner. 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 Home Medications ?Medication ?Instructions ?Recorded ?Last Taken ?Type acyclovir 400 mg tablet 400 mg PO DAILY infection 02/25/16 02/01/19 History atorvastatin 40 mg tablet 40 mg PO QHS cholesterol #90 tabs 06/05/20 Unknown Rx apixaban 2.5 mg tablet 2.5 mg PO BID blood thinner 12/16/20 Unknown History furosemide 20 mg tablet 20 mg PO DAILY diuretic 12/16/20 Unknown History levothyroxine 25 mcg tablet 50 mcg PO BID hypothyroidism 12/16/20 Unknown History oxybutynin chloride 15 mg 15 mg PO DAILY bladder 12/16/20 Unknown History tablet,extended release 24 hr acetaminophen 325 mg tablet 650 mg (2 x 325 mg) PO Q6H PRN PRN 03/14/21 Unknown Rx (Tylenol) Pain Score 1-10/Temp > 100.7 F #0 tabs cyanocobalamin (vitamin B-12) 1,000 mcg (0.4 x 2,500 mcg) PO 03/14/21 Unknown Rx 2,500 mcg sublingual tablet DAILY supplement #0 tabs guaifenesin 600 mg tablet, 1,200 mg (2 x 600 mg) PO BID #0 03/14/21 Unknown Rx extended release 12 hr (Mucus tabs Relief ER) ipratropium 0.5 mg-albuterol 3 mg 3 ml inhalation 4X/DAY #0 mL 03/14/21 Unknown Rx (2.5 mg base)/3 mL nebulization soln levofloxacin 500 mg tablet 500 mg PO Q24H #5 tabs 03/14/21 Unknown Rx loratadine 10 mg tablet (Allergy 10 mg PO DAILY #0 tabs 03/14/21 Unknown Rx Relief (loratadine)) pantoprazole 40 mg tablet,delayed 40 mg PO DAILY #0 tabs 03/14/21 Unknown Rx release prednisone 20 mg tablet 40 mg (2 x 20 mg) PO DAILY@0800 #0 03/14/21 Unknown Rx tabs sennosides 8.6 mg-docusate sodium 2 tab PO BID PRN PRN Constipation 03/14/21 Unknown Rx 50 mg tablet (Stool #0 tabs Softener-Stimulant Laxative) sucralfate 1 gram tablet 1 g PO 1HR_ACHS #0 tabs 03/14/21 Unknown Rx Allergy/AdvReac Type Severity Reaction Status Date / Time hydrocodone bitartrate (From Allergy Unknown Verified 12/16/20 10:06 Vicodin) Family History Mother Diabetes Surgical History History of coronary artery stent placement History of appendectomy History of genitourinary surgery History of total replacement of right hip History of total left knee replacement Postsurgical percutaneous transluminal coronary angioplasty (PTCA) status Presence of stent in coronary artery (~12/30/12) Social History adopted: No household members: spouse housing: house number of children: 6 current occupational status: retired current occupational exposures/hazards: No pets and animals: Yes (2 cats) pets and animals: cat(s) leisure activities: hunting and reading Smoking Status: Light Smoker (<10/day) Tobacco: How many years used: 30 second hand exposure: No quit status: not considering quitting alcohol intake: current alcohol intake frequency: holidays/special occasions only Alcohol type: beer details: Rare substance use type: does not use well-balanced diet: daily or most days caffeine: Yes Type: coffee Number of servings: 2 during the past year weight has: remained stable what type of physical activity do you participate in: other frequency: 1-2 times per week seatbelt use: always do you feel safe at home: Yes ROS ROS ED Constitutional Constitutional ED: Denies chills, fever(s) or sweats Eyes Eyes: Denies change in vision ENT ENT ED: Denies dysphagia or sore throat Cardiovascular Cardiovascular: Denies chest pain, leg edema, palpitations or racing heartbeat Respiratory/Chest Respiratory/Chest: Denies cough, dyspnea or dyspnea on exertion Gastrointestinal Gastrointestinal: Denies abdominal pain, diarrhea, nausea or vomiting Genitourinary Genitourinary ED: Denies dysuria, hematuria or urinary frequency Musculoskeletal Musculoskeletal: Denies back pain, extremity pain or neck pain Integumentary Denies rash or wounds Neurologic Neurologic: Reports weakness; Denies headache(s) or paresthesias EXAM Physical Exam Const Vital Signs: 04/14/24 21:45 04/14/24 21:59 04/14/24 22:00 Temperature 98 F 98 F Temperature Source Temporal Temporal Pulse Rate 86 86 Respiratory Rate 18 19 H Blood Pressure 168/84 H 168/84 H Blood Pressure Mean 112 112 Pulse Ox 96 96 Oxygen Delivery Method Room Air Room Air Room Air 04/14/24 22:14 04/14/24 22:45 04/14/24 23:50 Temperature 97.2 F L 97.4 F L Temperature Source Temporal Temporal Pulse Rate 70 64 79 Respiratory Rate 22 H 15 14 Blood Pressure 145/83 H 139/70 H 84/59 L Blood Pressure Mean 103 93 67 Pulse Ox 98 97 100 Oxygen Delivery Method Room Air Room Air Room Air 04/15/24 00:07 Temperature 98.1 F Temperature Source Pulse Rate 88 Respiratory Rate 25 H Blood Pressure 97/51 L Blood Pressure Mean 66 Pulse Ox 97 Oxygen Delivery Method Positive well nourished and well developed General Appearance ED: well developed and NAD HEENT Reports moist mucous membranes normocephalic and atraumatic Nose: other Other Details: Weakness noted on right lip. Eyes EOMs intact bilaterally and conjunctivae normal General Eye ED: Yes normal appearance of both eyes Neck no lymphadenopathy and supple General: Negative for tenderness Chest Wall Chest: Negative for tenderness Resp normal respiratory effort and normal air movement Effort and Inspection: symmetric chest movement; Negative for respiratory distress Cardio regular rate, regular rhythm and no murmurs Peripheral Pulses: pulses 2+ throughout GI normal to inspection, nondistended, normoactive bowel sounds and non-tender Palpation: Negative for guarding or rebound tenderness present Back/Spine no CVA tenderness and no thoracic nor lumbar tenderness Extremity normal to inspection General Extremety ED: Negative for edema or tenderness General Extremity: Negative for edema Neuro no sensory deficits noted Neuro Narrative: Alert to person. Right arm drift did not hit the bed. Sensorium / Orientation: awake and alert Skin no rashes or lesions noted and no wounds NIHSS NIHSS Initial: 1a Level of Consciousness: 0 1b LOC Questions (Score 2 if aphasic/stupor): 2 1c LOC Commands (Only score 1st attempt): 0 2 Best Gaze (If aphasic, use reflexive mvmts.): 0 3 Visual: 0 4 Facial Palsy: 1 5 Motor Arm Right (UN = amputation/fusion): 1 5 Motor Arm Left: 0 6 Motor Leg Right: 0 6 Motor Leg Left: 0 7 Limb ataxia (Only + if out of proportion): 0 8 Sensory (Aphasia/stupor=0 or 1, coma=2): 0 9 Best Language: 0 10 Dysarthria (mute, coma=2, intubated=UN): 0 11 Extinction and Inattention (only scored if +): 0 Total Score: 4 MDM MDM MDM Narrative Medical decision making narrative: Interventions / MDM: Differential diagnosis: TIA, CVA, A-fib, chronic anticoagulation Diagnosis considered but do not suspect: N/A My EKG interpretation: Atrial fibrillation rate of 67, no ST or T wave changes PVC noted. Imaging independently reviewed and interpreted by myself: CT brain: No acute process. CT angiogram brain and neck discussion with radiology calcifications less than 50%. 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 Attempted to call spouse got through however she is very hard of hearing and could not understand the situation. Attempted to call the daughter who is another DPOA Glen. This went to [email or web address]. Shortly afterwards I did receive a call back from Glen, discussed her father symptoms likely a stroke, discussed he is on Eliquis confirmed therefore would not be a TNK candidate. She is on her way here for discussion for disposition. NIH on return from CT was a 4 however he has dementia unable to tell me his age and month. New symptoms would be right lip and right arm drift. CT scan brain discussion with radiologist shows no acute process. Telestroke neurologist Dr. Biswas evaluated patient, he is on Eliquis, she did not recommend TNK. Her make a call back of any abnormalities on CT angiogram. Otherwise disposition per family with workup. CT angiogram discussion with radiologist carotid bulb calcifications left and right less than 50% both sides. Minimal calcification vertebrals. No LVO. EKG rate controlled A-fib. 2300: Discussed with family with possible stroke occurred he is DNR CC. There is no intervention at this time. 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 Discussed if positive or concerning he be placed on a baby aspirin and a statin for which he is not from his paperwork. They understand this. They elected no hospitalization. They also discussed not wanting to start an aspirin and statin. They did state he seems a little bit more groggy over the last few days she had a urine that was -4 days ago he has a sample currently which they request be checked. This will be sent down. Also reports a cough for 4 days. Chest x-ray is pending currently. Chest x-ray urine negative for infection. Family requested taken back to the facility. He was discharged. Report was made from nursing to the facility with family's wishes. Re-evaluation: stable Disposition discussed with patient/family/significant other: Family, spouse TILA's Case discussed with consulting clinician: Stroke neurology This note was generated with [employer]eb[employer] dictation software. It may contain incorrect words, spelling, and punctuation that were not noted in checking the note before signing. Lab Data Attestation: I reviewed the patient's lab results. Labs: Laboratory Results - last 24 hr 04/14/24 04/14/24 22:15 23:12 WBC 11.9 H RBC 4.94 Hgb 13.4 Hct 42.8 MCV 86.6 MCH 27.1 MCHC 31.3 L RDW Std Deviation 47.7 H RDW Coeff of Shruthi 15.3 H Plt Count 298 MPV 11.5 Immature Gran % (Auto) 0.300 Neut % (Auto) 60.9 Lymph % (Auto) 21.6 Pickett % (Auto) 10.2 H Eos % (Auto) 6.4 H Baso % (Auto) 0.6 Absolute Neuts (auto) 7.2 Absolute Lymphs (auto) 2.57 Nucleated RBC % 0 PT 16.7 H INR 1.4 APTT 33.2 Sodium 136 Potassium 3.9 Chloride 104 Carbon Dioxide 28.0 Anion Gap 4 L BUN 26 H Creatinine 1.46 H Estim Creat Clear Calc 43.25 Est GFR (MDRD) Af Amer 59 L Est GFR (MDRD) Non-Af 49 L BUN/Creatinine Ratio 17.8 Glucose 90 Calcium 8.9 Troponin I High Sens 11 Urine Color Yellow Urine Clarity Clear Urine pH 7.0 Ur Specific [place] 1.010 Urine Protein Negative Urine Glucose (UA) Normal Urine Ketones Negative Urine Occult Blood Negative Urine Nitrite Negative Urine Bilirubin Negative Urine Urobilinogen Normal Ur Leukocyte Esterase 25 H Urine RBC 0 SEEN Urine WBC 0 SEEN Ur Squamous Epith Cells 0 SEEN Urine Bacteria 0 SEEN Urine Mucus 0 SEEN Radiography Diagnostic Testing: Clinical Impression(s) from Imaging Studies Brain CT 04/14/24 21:47 IMPRESSION: Age-related changes. Electronically Signed: Ankit Monroe DO at 22:10 EDT , ADDENDUM: 04/14/244 IMPRESSION: Age-related changes. N.B. : The above Results were Read Back by Ankit Monroe DO to Linden Price DO, and understanding confirmed on 04/14/2024 22:17:47 (ET). Electronically Signed: Ankit Monroe DO at 22:10 EDT , Head/Neck CTA 04/14/24 21:48 IMPRESSION: Calcifications at the cavernous segment of the ICAs bilaterally with moderate stenosis on the right and mild stenosis on the left. Calcification at the origin of the right vertebral artery with moderate stenosis. Less than 50% luminal stenosis at the carotid bulbs bilaterally. Electronically Signed: Ankit Monroe DO at 22:38 EDT , ADDENDUM: 04/14/24 2246 IMPRESSION: Calcifications at the cavernous segment of the ICAs bilaterally with moderate stenosis on the right and mild stenosis on the left. Calcification at the origin of the right vertebral artery with moderate stenosis. Less than 50% luminal stenosis at the carotid bulbs bilaterally. N.B. : The above Results were Read Back by Ankit Monroe DO to Linden Price DO, and understanding confirmed on 04/14/2024 22:39:24 (ET). Electronically Signed: Ankit Monroe DO at 22:38 EDT , Chest X-Ray 04/14/24 23:00 IMPRESSION: Hiatal hernia. Left basilar atelectasis. Electronically Signed: Ankit Monroe DO at 23:20 EDT , Stroke Documentation Questions Stroke Team Activated: Yes Reviewed Inclusion/Exclusion criteria: Yes Was Patient considered for Endovascular Intervention?: Yes-CTA +,PT transferred for further eval of endovascular intervention IV Thrombolytic Administered: No (Eliquis therapy) No contraindications from thrombolytic administration: Yes (Eliquis therapy) Critical Care Time Critical Care Time: Yes Critical care time (excluding procedures): 30-74 minutes, Discussing w/Patient &/or Family/Golf Professional, Discussing w/Consultants, Arranging Admission or Transfer, Performing Direct Patient Care at Bedside and - (25 minutes) Discharge Plan Triage Chief Complaint: Stroke Alert ED Provider: Linden Price Dx/Rx/DC Orders Clinical Impression: Brain TIA, Atrial fibrillation, controlled, CKD (chronic kidney disease), DNR (do not resuscitate) Instructions: AFib Dc, ED TIA: Transient Ischemic Attack Prescriptions: No Action apixaban 2.5 mg tablet 2.5 mg PO BID levothyroxine 25 mcg tablet 50 mcg PO BID Patient Comments: Takes 25 mcg daily alternating with 50 mcg daily Rx Instructions: 25 mcg alternating with 50 mcg every other day PO daily; oxybutynin chloride 15 mg tablet extended release 24hr 15 mg PO DAILY furosemide 20 mg tablet 20 mg PO DAILY Patient Comments: TAKE 1 TABLET BY MOUTH EVERY DAY -WATER PILL- acyclovir 400 MG tablet 400 mg PO DAILY acetaminophen [Tylenol] 325 mg Tablet 650 mg PO Q6H PRN PRN (Reason: Pain Score 1-10/Temp > 100.7 F) Qty: 0 0RF ipratropium-albuterol 0.5 mg-3 mg(2.5 mg base)/3 mL Solution For Nebulization 3 ml inhalation 4X/DAY Qty: 0 0RF sucralfate 1 gram Tablet 1 g PO 1HR_ACHS Qty: 0 0RF Rx Instructions: For 2 months. prednisone 20 mg Tablet 40 mg PO DAILY@0800 Qty: 0 0RF Rx Instructions: 40 mg daily for 5 days. sennosides-docusate sodium [Stool Softener-Stimulant Laxat] 8.6-50 mg Tablet 2 tab PO BID PRN PRN (Reason: Constipation) Qty: 0 0RF pantoprazole 40 mg Tablet,Delayed Release (Dr/Ec) 40 mg PO DAILY Qty: 0 0RF loratadine [Allergy Relief (loratadine)] 10 mg Tablet 10 mg PO DAILY Qty: 0 0RF guaifenesin [Mucus Relief ER] 600 mg Tablet Extended Release 12hr 1,200 mg PO BID Qty: 0 0RF Rx Instructions: For 7 days levofloxacin 500 mg tablet 500 mg PO Q24H Qty: 5 0RF cyanocobalamin (vitamin B-12) 2,500 mcg tablet, sublingual 1,000 mcg PO DAILY Qty: 0 0RF atorvastatin 40 mg tablet 40 mg PO QHS Qty: 90 3RF Primary Care Provider: Leslye Eisenberg NP Referrals: Shelbie Hawk NP, SENIOR PRICING ANALYST-C [Non-Staff] - 3-5 Days Activity Restrictions/Additional Instructions: You likely had a small stroke event. CT head negative for bleeds. CT angiogram with calcifications less than 50%. You are DNR CC. Discussed with family members, no further workup in the hospital. Family does not want baby aspirin or statin to be started. Continue Eliquis at home medications. Follow-up with physician at facility. Print Language: [place]uran Disposition Disposition: Home, Self Care Discharge Date/Time: 04/15/24 00:08
[2024-04-14 22:14] VITALS: BP 145/83; PULSE 70; RESP 22; TEMP 36.2; O2SAT 98
[2024-04-14 22:22] VITALS: BMI 31.1
--- NOTE | 2024-04-14 22:31 | ED.RN ---
3 attempts to obtain report from [facility]. thea left
[2024-04-14 22:39] LABS: Absolute Lymphocyte Count 2.57 X10^3/uL (0.83-4.51); Absolute Neutrophil Count 7.2 X10^3/uL (2.0-7.7); Basophil# 0.07 X10^3/uL; Basophil% 0.6 % (0-1); Eosinophil# 0.76 X10^3/uL; Eosinophils% 6.4 % (0-5); Hematocrit 42.8 % (40-54); Hemoglobin 13.4 g/dL (13.0-16.5); Lymphocyte # 2.57 X10^3/ul (0.83-4.51); Lymphocyte % 21.6 % (19-41); Mean Corp Hgb Conc 31.3 g/dL (32-36); Mean Corpuscular Hgb 27.1 pg (27.0-32.0); Mean Corpuscular Volume 86.6 fL (80-94); Mean Platelet Vol. 11.5 fl (6.2-12.0); Monocyte# 1.21 X10^3/uL; Monocyte% 10.2 % (0-10); NRBC Flagged by Analyzer 0 % (0-5); Neutrophil # 7.23 X10^3/uL (2.7-7.7); Neutrophil % 60.9 % (47-70); Platelet Count 298 K/mm3 (150-450); RBC Distribution Width CV 15.3 % (11.6-14.6); RBC Distribution Width SD 47.7 fl (35.1-43.9); Red Blood Count 4.94 M/mm3 (4.6-6.2); White Blood Count 11.9 K/mm3 (4.4-11.0)
[2024-04-14 22:41] LABS: International Normalized Ratio 1.4; Prothrombin Time (Protime)PT. 16.7 SECONDS (11.7-14.9)
[2024-04-14 22:42] LABS: Partial Thromboplast Time 33.2 Seconds (24.1-36.2)
[2024-04-14 22:45] VITALS: BP 139/70; PULSE 64; RESP 15; TEMP 36.3; O2SAT 97
[2024-04-14 22:47] LABS: Anion Gap 4 (5-15); BUN 26 mg/dL (7-18); BUN/Creat Ratio 17.8 RATIO (10-20); Calcium,Total 8.9 mg/dL (8.5-10.1); Chloride 104 mmol/L (98-107); Creatinine, Serum 1.46 mg/dL (0.70-1.30); EST Glomerular Filtration Rate 49 mL/min (>60); Est Glom Filt Rate - Afr Amer 59 mL/min (>60); Estimated Creatinine Clearance 43.25 ml/min; Glucose 90 mg/dL (74-106); Potassium 3.9 mmol/L (3.5-5.1); Sodium Level 136 mmol/L (136-145); Troponin-I HS 11 pg/mL (3.0-78.0)
--- NOTE | 2024-04-14 23:00 | RAD_ITS ---
INDICATION: Neuro deficit, acute, stroke suspected EXAMINATION/TECHNIQUE: X-RAY - XR Chest 1 View COMPARISON: March 12, 2021 FINDINGS: LINES/DEVICES: None. LUNGS: No consolidation, edema or effusion. Left basilar atelectasis. No pneumothorax. MEDIASTINUM AND CARDIOVASCULAR STRUCTURES: Cardiac silhouette not enlarged. Central airways and mediastinal contour are unremarkable. BONES AND SOFT TISSUES: Unremarkable. Hiatal hernia. RAD/Chest 1 View IMPRESSION: Hiatal hernia. Left basilar atelectasis. Electronically Signed: Ankit Monroe DO at 23:20 EDT Reading Location ID and State: [facility] / [place] Tel [phone], Service support ,
[2024-04-14 23:17] LABS: Bacteria 0 SEEN /hpf (None Seen); Mucous, Urine 0 SEEN /hpf (<or=2+); Red Blood Cells-Urine 0 SEEN /hpf (0-5); Squamous Epithelial Cells - UA 0 SEEN /hpf (0-5); White Blood Cells 0 SEEN /hpf (0-5)
[2024-04-14 23:25] LABS: Color, Urine Yellow (Yellow); Glucose, Dipstick Normal (Normal); Ketone-Dipstick Negative (Negative); Leukocyte Esterase-Dipstick 25 /ul (Negative); Nitrite-Dipstick Negative (Negative); Occult Blood-Urine Negative /ul (Negative); Protein-Dipstick Negative (Negative); Urine Bilirubin Dipstick Negative (Negative); Urine Clarity Clear (Clear); Urine Urobilinogen Normal (Normal)
[2024-04-14 23:50] VITALS: BP 84/59; PULSE 79; RESP 14; O2SAT 100
[2024-04-15 00:07] VITALS: BP 97/51; PULSE 88; RESP 25; TEMP 36.7; O2SAT 97
== END 2024-04-15 00:08 | disposition home or self-care (01) ==
PROVIDERS: Emergency Provider Emergency Medicine; PCP Nurse Practitioner Adult Health; Visit Provider Emergency Medicine
DX: G45.9 Transient cerebral ischemic attack, unspecified (principal); G81.91 Hemiplegia, unspecified affecting right dominant side; F03.90 Unspecified dementia, unspecified severity, without behavioral disturbance, psychotic disturbance, mood disturbance, and anxiety; J44.9 Chronic obstructive pulmonary disease, unspecified; I48.0 Paroxysmal atrial fibrillation; N18.30 Chronic kidney disease, stage 3 unspecified; F17.200 Nicotine dependence, unspecified, uncomplicated; I12.9 Hypertensive chronic kidney disease with stage 1 through stage 4 chronic kidney disease, or unspecified chronic kidney disease; R47.81 Slurred speech; Z66 Do not resuscitate; Z79.01 Long term (current) use of anticoagulants; E78.5 Hyperlipidemia, unspecified; I25.10 Atherosclerotic heart disease of native coronary artery without angina pectoris; R29.704 NIHSS score 4; I25.2 Old myocardial infarction; Z95.5 Presence of coronary angioplasty implant and graft
CPT/HCPCS: 70450; 70496; 70498; 71045; 80048; 81001; 84484; 85025; 85610; 85730; 93005; 96374; 99285; Q9967; A4216

== ENCOUNTER → 2024-05-18 | Outpatient (REF) | payer MEDICARE, MEDICAID, SELFPAY ==
[2024-05-18 08:31] LABS: Thyroid Stim Hormone (TSH) 1.17 uIU/mL (0.358-3.74)
== END ==
LOC: OLS.WHLCAR 05:00
PROVIDERS: PCP Nurse Practitioner Adult Health; Referring Provider Internal Medicine; Visit Provider Internal Medicine
DX: E03.9 Hypothyroidism, unspecified (principal)
CPT/HCPCS: 36415; 84443

== ENCOUNTER → 2024-06-08 | Outpatient (REF) | payer MEDICARE, MEDICAID, SELFPAY ==
[2024-06-08 08:25] LABS: AST(SGOT) 25 U/L (15-37); Alanine Aminotransfer ALT/SGPT 22 U/L (16-61); Albumin, Serum 2.9 g/dL (3.2-5.0); Alkaline Phosphatase 75 U/L (45-117); Bilirubin, Direct 0.13 mg/dL (0.00-0.30); Globulin 3.8 g/dL (2.2-4.2); Protein, Total 6.7 g/dL (6.4-8.2)
== END ==
LOC: OLS.WHLCAR 05:00
PROVIDERS: PCP Nurse Practitioner Adult Health; Visit Provider Internal Medicine
DX: R79.9 Abnormal finding of blood chemistry, unspecified (principal); J44.9 Chronic obstructive pulmonary disease, unspecified; F03.90 Unspecified dementia, unspecified severity, without behavioral disturbance, psychotic disturbance, mood disturbance, and anxiety; I27.82 Chronic pulmonary embolism; G47.33 Obstructive sleep apnea (adult) (pediatric)
CPT/HCPCS: 36415; 80076; 84443

== ENCOUNTER → 2024-06-13 05:00 | Outpatient (REF) | payer MEDICARE, MEDICAID, SELFPAY ==
[2024-06-13 08:27] LABS: Cholesterol 91 mg/dL (200); High Density Lipoprotein 37 mg/dL; Triglycerides 118 mg/dL; Very Low Density Lipoprotein 24 mg/dL (5-40)
== END ==
LOC: OLS.WHLCAR 05:00
PROVIDERS: PCP Nurse Practitioner Adult Health; Visit Provider Internal Medicine
DX: I25.10 Atherosclerotic heart disease of native coronary artery without angina pectoris (principal)
CPT/HCPCS: 36415; 80061

== ENCOUNTER → 2024-06-29 | Outpatient (REF) | payer MEDICARE, MEDICAID, SELFPAY | LOC: OLS.WHLCAR 05:00 | PROVIDERS: PCP Nurse Practitioner Adult Health; Visit Provider Internal Medicine | DX: E03.9 Hypothyroidism, unspecified (principal) | CPT/HCPCS: 36415; 84443 ==

== ENCOUNTER → 2024-08-10 | Outpatient (REF) | payer MEDICARE, MEDICAID, SELFPAY ==
[2024-08-10 08:45] LABS: Thyroid Stim Hormone (TSH) 0.803 uIU/mL (0.358-3.740)
== END ==
LOC: OLS.WHLCAR 05:00
PROVIDERS: PCP Nurse Practitioner Adult Health; Visit Provider Internal Medicine
DX: E03.9 Hypothyroidism, unspecified (principal); J44.9 Chronic obstructive pulmonary disease, unspecified
CPT/HCPCS: 36415; 84443

== ENCOUNTER → 2024-08-11 | Outpatient (REF) | payer MEDICARE, MEDICAID, SELFPAY ==
[2024-08-11 16:40] LABS: Color, Urine Yellow (Yellow); Glucose, Dipstick Normal (Normal); Ketone-Dipstick Negative (Negative); Leukocyte Esterase-Dipstick 25 /ul (Negative); Nitrite-Dipstick Negative (Negative); Occult Blood-Urine 25 /ul (Negative); Protein-Dipstick 30 mg/dl (Negative); Urine Bilirubin Dipstick Negative (Negative); Urine Clarity Clear (Clear); Urine Urobilinogen Normal (Normal)
== END ==
LOC: OLS.WHLCAR 16:32
PROVIDERS: PCP Nurse Practitioner Adult Health; Visit Provider Nurse Practitioner Adult Health
DX: R31.9 Hematuria, unspecified (principal); J44.9 Chronic obstructive pulmonary disease, unspecified; F03.90 Unspecified dementia, unspecified severity, without behavioral disturbance, psychotic disturbance, mood disturbance, and anxiety; G47.33 Obstructive sleep apnea (adult) (pediatric)
CPT/HCPCS: 81002; 87086

== ENCOUNTER → 2024-09-05 | Outpatient (REF) | payer MEDICARE, MEDICAID, SELFPAY ==
[2024-09-05 08:18] LABS: Basophil# 0.08 X10^3/uL; Basophil% 0.7 % (0-1); Eosinophil# 1.41 X10^3/uL; Eosinophils% 12.8 % (0-5); Hematocrit 51.8 % (40-54); Hemoglobin 15.7 g/dL (13.0-16.5); Lymphocyte % 25.4 % (19-41); Mean Corp Hgb Conc 30.3 g/dL (32-36); Mean Corpuscular Hgb 29.3 pg (27.0-32.0); Mean Corpuscular Volume 96.6 fL (80-94); Monocyte# 0.71 X10^3/uL; Monocyte% 6.4 % (0-10); NRBC Flagged by Analyzer 0 % (0-5); Neutrophil # 6.01 X10^3/uL (2.7-7.7); Neutrophil % 54.4 % (47-70); POSITIVE MORPHOLOGY YES; Platelet Count 205 K/mm3 (150-450); RBC Distribution Width CV 21.2 % (11.6-14.6); RBC Distribution Width SD 73.6 fl (35.1-43.9); Red Blood Count 5.36 M/mm3 (4.6-6.2)
[2024-09-05 08:21] LABS: Differential Indicated SCAN CRITERIA MET
[2024-09-05 08:39] LABS: Anion Gap 6 (5-15); BUN 71 mg/dL (7-18); BUN/Creat Ratio 19.7 RATIO (10-20); Calcium,Total 9.3 mg/dL (8.5-10.1); Chloride 137 mmol/L (98-107); Creatinine, Serum 3.61 mg/dL (0.70-1.30); EST Glomerular Filtration Rate 17 mL/min (>60); Est Glom Filt Rate - Afr Amer 21 mL/min (>60); Glucose 136 mg/dL (74-106); Potassium 3.6 mmol/L (3.5-5.1); Sodium Level 164 mmol/L (136-145)
[2024-09-05 09:23] LABS: Anisocytosis 1+
== END ==
LOC: OLS.WHLCAR 05:00
PROVIDERS: PCP Nurse Practitioner Adult Health; Visit Provider Internal Medicine
DX: E86.0 Dehydration (principal); J44.9 Chronic obstructive pulmonary disease, unspecified; I27.82 Chronic pulmonary embolism; G47.33 Obstructive sleep apnea (adult) (pediatric)
CPT/HCPCS: 36415; 80048; 85025

== ENCOUNTER → 2024-09-06 | Outpatient (REF) | payer MEDICARE, SELFPAY ==
[2024-09-06 07:11] LABS: Absolute Lymphocyte Count 2.58 X10^3/uL (0.83-4.51); Absolute Neutrophil Count 7.9 X10^3/uL (2.0-7.7); Basophil# 0.07 X10^3/uL; Basophil% 0.6 % (0-1); Eosinophil# 1.29 X10^3/uL; Eosinophils% 10.1 % (0-5); Hematocrit 55.4 % (40-54); Hemoglobin 17.1 g/dL (13.0-16.5); Lymphocyte # 2.58 X10^3/ul (0.83-4.51); Lymphocyte % 20.3 % (19-41); Mean Corp Hgb Conc 30.9 g/dL (32-36); Mean Corpuscular Hgb 29.8 pg (27.0-32.0); Mean Corpuscular Volume 96.7 fL (80-94); Monocyte# 0.88 X10^3/uL; Monocyte% 6.9 % (0-10); NRBC Flagged by Analyzer 0 % (0-5); Neutrophil # 7.86 X10^3/uL (2.7-7.7); Neutrophil % 61.9 % (47-70); POSITIVE MORPHOLOGY YES; Platelet Count 195 K/mm3 (150-450); RBC Distribution Width CV 21.2 % (11.6-14.6); RBC Distribution Width SD 73.3 fl (35.1-43.9); Red Blood Count 5.73 M/mm3 (4.6-6.2); White Blood Count 12.7 K/mm3 (4.4-11.0)
[2024-09-06 07:22] LABS: Differential Indicated SCAN CRITERIA MET
[2024-09-06 08:03] LABS: Anion Gap 4 (5-15); BUN 68 mg/dL (7-18); BUN/Creat Ratio 20.1 RATIO (10-20); Calcium,Total 9.6 mg/dL (8.5-10.1); Chloride 139 mmol/L (98-107); Creatinine, Serum 3.39 mg/dL (0.70-1.30); EST Glomerular Filtration Rate 18 mL/min (>60); Est Glom Filt Rate - Afr Amer 22 mL/min (>60); Glucose 132 mg/dL (74-106); Potassium 4.4 mmol/L (3.5-5.1); Sodium Level 163 mmol/L (136-145)
== END ==
LOC: OLS.WHLCAR 05:00
PROVIDERS: PCP Nurse Practitioner Adult Health; Visit Provider Internal Medicine
DX: J44.9 Chronic obstructive pulmonary disease, unspecified (principal)
CPT/HCPCS: 36415; 80048; 85025